=== PATIENT | male | born 1970 | race Caucasian/White ===

== ENCOUNTER 2018-10-31 13:05 | Emergency (ER) | payer MEDICAID ==
[~2018-10-31] VITALS: Ht 182.9 cm; Wt 154.6 kg
[2018-10-31] MEDS ORDERED: COLC1TAB13 PO (13:27)
[2018-10-31] MEDS ORDERED: ATEN100T7 PO (13:27)
[2018-10-31] MEDS ORDERED: ATOR40TA75 PO (13:27)
[2018-10-31] MEDS ORDERED: OMEP40CA2 PO (13:27)
[2018-10-31] MEDS ORDERED: GLIP5TAB8 PO (13:27)
[2018-10-31] MEDS ORDERED: ULOR80TA PO (13:27)
[2018-10-31] MEDS ORDERED: LOSA100T50 PO (13:27)
[2018-10-31] MEDS ORDERED: TRIA25CR TOP (13:27)
[2018-10-31] MEDS ORDERED: ONDANSETRON 4MG/2ML VIAL (J2405) IV ONE (13:45)
[2018-10-31] MEDS ORDERED: NS 1,000 ML IV ONE ×2 (13:45→16:45)
[2018-10-31] MEDS ORDERED: KETOROLAC 30 MG/ML VIAL (J1885) IV ONE (13:45)
[2018-10-31 13:59] LABS: BASO # 0.1 10^3/uL (0.0-0.2); BASO % 0.8 % (0.0-1.0); EOS # 0.5 10^3/uL (0.0-0.50); EOS % 3.4 % (0.0-3.0); HEMATOCRIT 47.9 % (42.0-52.0); HEMOGLOBIN 15.1 g/dl (13.5-17.5); LYMPH # 1.7 10^3/uL (1.5-4.5); LYMPH % 12.3 % (24.0-44.0); MEAN CORPUSCULAR HEMOGLOBIN 27.1 pg (27.0-33.0); MEAN CORPUSCULAR HGB CONC 31.5 g/dl (32.0-36.5); MEAN CORPUSCULAR VOLUME 85.8 fl (80.0-96.0); MONO # 0.9 10^3/uL (0.0-0.8); MONO % 6.7 % (0.0-5.0); NEUTROPHILS # 10.2 10^3/uL (1.8-7.7); NEUTROPHILS % 76.4 % (36.0-66.0); PLATELET COUNT, AUTOMATED 192 10^3/uL (150-450); RED BLOOD COUNT 5.58 10^6/uL (4.30-6.10); WHITE BLOOD COUNT 13.4 10^3/uL (4.0-10.0)
[2018-10-31] MEDS: GASTROGRAFIN SOLUTION 30ML PO SCH ×2 (14:13→14:40)
[2018-10-31 14:28] LABS: ALBUMIN 3.6 GM/DL (3.2-5.2); BILIRUBIN,DIRECT 0.1 MG/DL (0.0-0.2); BILIRUBIN,TOTAL 0.4 MG/DL (0.2-1.0); CALCIUM LEVEL 8.8 MG/DL (8.5-10.1); CREATININE FOR GFR 2.07 MG/DL (0.70-1.30); GLOMERULAR FILTRATION RATE 36.8 (>60); TOTAL PROTEIN 6.6 GM/DL (6.4-8.2)
[2018-10-31] MEDS ORDERED: FLAG500T PO (17:29)
[2018-10-31] MEDS ORDERED: AUGM875T28 PO (17:29)
[2018-10-31 17:34] VITALS: BP 143/81
--- NOTE | 2018-11-01 06:38 | REP ---
CT abdomen and pelvis without IV but with oral contrast: History: Perineal pain radiating to the left side of the abdomen. CT findings: Preliminary digital clinching machine operator radiograph demonstrates an unremarkable bowel gas pattern. The lung bases are clear. There is mild diffuse fatty infiltration of the liver with areas of fat sparing near the gallbladder. No focal hepatic mass lesion is seen. No splenic abnormalities observed. No adrenal lesion is seen. Pancreas is unremarkable. No gallstone is seen in the gallbladder. No retroperitoneal mass or adenopathy is observed. The right kidney is surgically absent. The left kidney shows no evidence of hydronephrosis or calculus. There is a small cyst anteriorly in the left kidney measuring 16 mm in greatest diameter. Normal caliber aorta. Small and large intestinal bowel loops are normal in the upper abdomen. Normal appendix is seen. Prostate, seminal vesicles and urinary bladder are unremarkable. No inguinal or pelvic adenopathy or mass lesion is seen. No free fluid is noted. No abdominal wall defect is seen. Bone window settings show bilateral L5 spondylolysis and a grade 1, 5 mm L5-S1 spondylolisthesis. Degenerative disc changes are seen at L5-S1 and to a lesser extent in the lower thoracic spine. Impression: Mild diffuse fatty infiltration of the liver. Small left renal cyst. Status post right nephrectomy. Bilateral L5 spondylolysis and grade 1, 5 mm, L5-S1 spondylolisthesis. Otherwise negative. Electronically Signed by Pancho Damon MD 11/01/2018 09:05 A
== END 2018-10-31 17:51 | disposition home or self-care (01) ==
LOC: M ED 13:05
DX: L02.215 Cutaneous abscess of perineum (principal); L03.315 Cellulitis of perineum; N28.9 Disorder of kidney and ureter, unspecified; R10.817 Generalized abdominal tenderness; E11.9 Type 2 diabetes mellitus without complications; I12.9 Hypertensive chronic kidney disease with stage 1 through stage 4 chronic kidney disease, or unspecified chronic kidney disease; E78.9 Disorder of lipoprotein metabolism, unspecified; K90.0 Celiac disease; M10.9 Gout, unspecified; Z90.5 Acquired absence of kidney; Z91.018 Allergy to other foods; Z79.899 Other long term (current) drug therapy
CPT/HCPCS: 74176; 80048; 80076; 81001; 82150; 83690; 85025; 96374; 96375; 99283; J1885; J2405; Q9963

== ENCOUNTER 2018-12-16 08:29 | Day surgery (SDC) | payer OTHER ==
[~2018-12-16] VITALS: Ht 188 cm; Wt 152.9 kg
[~2018-12-16 08:29] MED LIST: ATEN100T7 PO; ATOR40TA75 PO; AUGM875T28 PO; COLC1TAB13 PO; FLAG500T PO; GLIP5TAB8 PO; LIDOCAINE 2% INJ 100 MG/5 ML SDV (FOR ANES.) As Ordered ONE; LOSA100T50 PO; NS 1,000 ML IV ONE; OMEP40CA2 PO; PROPOFOL 200 MG/20 ML VIAL As Ordered ONE; TRIA25CR TOP; ULOR80TA PO
[2018-12-16] MEDS ORDERED: PROPOFOL 200 MG/20 ML VIAL As Ordered ONE (11:00)
--- NOTE | 2018-12-16 11:16 | ROOR ---
Patient Name: Gilson Degroot Procedure Date: 12/16/2018 10:26 AM Date of : 1970 Age: 48 Room: [facility] Gender: Male Note Status: Finalized Procedure: Upper GI endoscopy Indications: Epigastric abdominal pain, Heartburn, Follow-up of celiac disease Providers: Noel Benjamin MD Referring MD: LETICIA KELLY MD Requesting Provider: Medicines: Monitored Anesthesia Care Complications: No immediate complications. Procedure: Pre-Anesthesia Assessment: - Prior to the procedure, a History and Physical was performed, and patient medications and allergies were reviewed. The patient is competent. The risks and benefits of the procedure and the sedation options and risks were discussed with the patient. All questions were answered and informed consent was obtained. Patient identification and proposed procedure were verified by the physician, the nurse and the anesthesiologist in the endoscopy suite. Mental Status Examination: alert and oriented. Airway Examination: normal oropharyngeal airway and neck mobility. Respiratory Examination: clear to auscultation. CV Examination: normal. Prophylactic Antibiotics: The patient does not require prophylactic antibiotics. Prior Anticoagulants: The patient has taken no previous anticoagulant or antiplatelet agents. ASA Grade Assessment: II - A patient with mild systemic disease. After reviewing the risks and benefits, the patient was deemed in satisfactory condition to undergo the procedure. The anesthesia plan was to use monitored anesthesia care (MAC). Immediately prior to administration of medications, the patient was re-assessed for adequacy to receive sedatives. The heart rate, respiratory rate, oxygen saturations, blood pressure, adequacy of pulmonary ventilation, and response to care were monitored throughout the procedure. The physical status of the patient was re-assessed after the procedure. The Endoscope was introduced through the mouth, and advanced to the second part of duodenum. The upper GI endoscopy was accomplished without difficulty. The patient tolerated the procedure well. Findings: No gross lesions were noted in the middle third of the esophagus and in the lower third of the esophagus. Striped mildly erythematous mucosa without bleeding was found in the gastric antrum. This was biopsied with a cold forceps for Helicobacter pylori testing. Localized nodular mucosa was found in the gastric antrum. Biopsies were taken with a cold forceps for histology. Estimated blood loss was minimal. Diffuse nodular mucosa was found in the duodenal bulb and in the first portion of the duodenum. Biopsies for histology were taken with a cold forceps for evaluation of celiac disease. Estimated blood loss was minimal. For hemostasis, one hemostatic clip was successfully placed (MR conditional). There was no bleeding at the end of the procedure. Impression: - No gross lesions in esophagus. - Erythematous mucosa in the antrum. Biopsied. - Nodular mucosa in the gastric antrum. Biopsied. - Nodular mucosa in the duodenal bulb. Biopsied. Clip (MR conditional) was placed. Recommendation: - Discharge patient to home (ambulatory). - Telephone my office for pathology results in 1 week. Noel Benjamin MD Noel Benjamin MD 12/16/2018 11:16:39 AM This report has been signed electronically. Number of Addenda: 0 Note Initiated On: 12/16/2018 10:26 AM Estimated Blood Loss: Estimated blood loss was minimal.
--- NOTE | 2018-12-16 11:20 | ROOR ---
Patient Name: Gilson Degroot Procedure Date: 12/16/2018 10:26 AM Date of : 1970 Age: 48 Room: [facility] Gender: Male Note Status: Finalized Procedure: Colonoscopy Indications: High risk colon cancer surveillance: Personal history of colonic polyps, Incidental - Clinically significant diarrhea of unexplained origin Providers: Noel Benjamin MD Referring MD: LETICIA KELLY MD Requesting Provider: Medicines: Monitored Anesthesia Care Complications: No immediate complications. Procedure: Pre-Anesthesia Assessment: - Prior to the procedure, a History and Physical was performed, and patient medications and allergies were reviewed. The patient is competent. The risks and benefits of the procedure and the sedation options and risks were discussed with the patient. All questions were answered and informed consent was obtained. Patient identification and proposed procedure were verified by the physician, the nurse and the anesthesiologist in the endoscopy suite. Mental Status Examination: alert and oriented. Airway Examination: normal oropharyngeal airway and neck mobility. Respiratory Examination: clear to auscultation. CV Examination: normal. Prophylactic Antibiotics: The patient does not require prophylactic antibiotics. Prior Anticoagulants: The patient has taken no previous anticoagulant or antiplatelet agents. ASA Grade Assessment: II - A patient with mild systemic disease. After reviewing the risks and benefits, the patient was deemed in satisfactory condition to undergo the procedure. The anesthesia plan was to use monitored anesthesia care (MAC). Immediately prior to administration of medications, the patient was re-assessed for adequacy to receive sedatives. The heart rate, respiratory rate, oxygen saturations, blood pressure, adequacy of pulmonary ventilation, and response to care were monitored throughout the procedure. The physical status of the patient was re-assessed after the procedure. The Colonoscope was introduced through the anus and advanced to the cecum, identified by appendiceal orifice and ileocecal valve. The colonoscopy was performed without difficulty. The patient tolerated the procedure well. The quality of the bowel preparation was good. Findings: The perianal and digital rectal examinations were normal. Three sessile polyps were found in the sigmoid colon, descending colon and transverse colon. The polyps were diminutive in size. These polyps were removed with a jumbo cold forceps. Resection and retrieval were complete. Estimated blood loss was minimal. The exam was otherwise without abnormality. No additional abnormalities were found on retroflexion. Impression: - Three diminutive polyps in the sigmoid colon, in the descending colon and in the transverse colon, removed with a jumbo cold forceps. Resected and retrieved. - The examination was otherwise normal. Recommendation: - Discharge patient to home (ambulatory). - Repeat colonoscopy in 3 years for surveillance. - Telephone my office for pathology results in 1 week. Noel Benjamin MD Noel Benjamin MD 12/16/2018 11:19:33 AM This report has been signed electronically. Number of Addenda: 0 Note Initiated On: 12/16/2018 10:26 AM Estimated Blood Loss: Estimated blood loss was minimal.
[2018-12-16 11:44] VITALS: BP 143/89
[2018-12-17] MEDS ORDERED: CALC1CAP31 PO (13:05)
[2018-12-17] MEDS ORDERED: GABA-845 PO (17:11)
== END 2018-12-16 11:55 | disposition home or self-care (01) ==
LOC: M OPP 08:29
PROVIDERS: ATTEND Surgery
DX: Z86.010 Personal history of colon polyps (principal); Z09 Encounter for follow-up examination after completed treatment for conditions other than malignant neoplasm; D12.4 Benign neoplasm of descending colon; D12.3 Benign neoplasm of transverse colon; K63.5 Polyp of colon; K31.89 Other diseases of stomach and duodenum; R10.13 Epigastric pain; K90.0 Celiac disease; L02.215 Cutaneous abscess of perineum; K21.9 Gastro-esophageal reflux disease without esophagitis; G47.30 Sleep apnea, unspecified; Z79.899 Other long term (current) drug therapy; Z91.018 Allergy to other foods; Z90.5 Acquired absence of kidney

== ENCOUNTER 2018-12-17 12:51 | Emergency (ER) | payer OTHER ==
[~2018-12-17] VITALS: Ht 182.9 cm; Wt 153.2 kg
[~2018-12-17 12:51] MED LIST changes: -LIDOCAINE 2% INJ 100 MG/5 ML SDV (FOR ANES.) As Ordered ONE; -NS 1,000 ML IV ONE; -PROPOFOL 200 MG/20 ML VIAL As Ordered ONE
[2018-12-17] MEDS ORDERED: CALC1CAP31 PO (13:05)
--- NOTE | 2018-12-17 14:07 | REP ---
Clinical: Bilateral lower extremity pain . Technique: Veliz scale and color Doppler evaluation using linear high frequency transducer. Findings: Ultrasound examination of the right and left lower extremity deep venous structures from the common femoral vein to the popliteal vein demonstrates normal compressibility flow and wave patterns in response to respiration and augmentation. There is no evidence for deep venous thrombosis. 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 Impression: No evidence for deep venous thrombosis. Electronically Signed by Juan Welsh MD 12/17/2018 01:58 P
[2018-12-17 16:07] LABS: HEMOGLOBIN 15.7 g/dl (13.5-17.5); MEAN CORPUSCULAR VOLUME 87.5 fl (80.0-96.0); PLATELET COUNT, AUTOMATED 193 10^3/uL (150-450); WHITE BLOOD COUNT 11.3 10^3/uL (4.0-10.0)
[2018-12-17 16:26] LABS: CALCIUM LEVEL 9.3 MG/DL (8.5-10.1); CREATININE FOR GFR 2.02 MG/DL (0.70-1.30); GLOMERULAR FILTRATION RATE 37.9 (>60); MAGNESIUM LEVEL 1.7 MG/DL (1.8-2.4); POTASSIUM SERUM 4.6 MEQ/L (3.5-5.1)
[2018-12-17] MEDS ORDERED: GABA-845 PO (17:11)
[2018-12-17 17:23] VITALS: BP 112/60
== END 2018-12-17 17:25 | disposition home or self-care (01) ==
LOC: M ED 12:51
DX: E11.40 Type 2 diabetes mellitus with diabetic neuropathy, unspecified (principal); G47.33 Obstructive sleep apnea (adult) (pediatric); K90.0 Celiac disease; K76.0 Fatty (change of) liver, not elsewhere classified; Z87.442 Personal history of urinary calculi; Z90.5 Acquired absence of kidney; Z91.018 Allergy to other foods; Z79.899 Other long term (current) drug therapy

== ENCOUNTER 2019-04-07 09:17 | Emergency (ER) | payer OTHER ==
[~2019-04-07] VITALS: Ht 182.9 cm; Wt 159.1 kg
[~2019-04-07 09:17] MED LIST changes: +CALC1CAP31 PO; +GABA-845 PO
[2019-04-07] MEDS ORDERED: PIOG1TAB37 (09:33)
[2019-04-07] MEDS ORDERED: KETOROLAC 60 MG/2 ML VIAL (J1885) IM ONE (10:15)
--- NOTE | 2019-04-07 10:21 | REP ---
LEFT SHOULDER, FOUR VIEWS: There is no evidence of an acute fracture, dislocation or intrinsic bone disease. IMPRESSION: No fracture or dislocation. Electronically Signed by Silas Veliz MD 04/07/2019 04:40 P
[2019-04-07] MEDS ORDERED: CYCL5TAB PO (11:08)
[2019-04-07] MEDS ORDERED: KETO10TAB PO (11:08)
[2019-04-07 11:11] VITALS: BP 132/67
== END 2019-04-07 11:15 | disposition home or self-care (01) ==
LOC: M ED 09:17
DX: M25.512 Pain in left shoulder (principal); E11.9 Type 2 diabetes mellitus without complications; I10 Essential (primary) hypertension; E78.5 Hyperlipidemia, unspecified; G47.33 Obstructive sleep apnea (adult) (pediatric); K90.0 Celiac disease; Z99.89 Dependence on other enabling machines and devices; Z79.899 Other long term (current) drug therapy
CPT/HCPCS: 73030; 96372; 99283; J1885

== ENCOUNTER 2019-10-18 10:33 | Emergency (ER) | payer OTHER ==
[~2019-10-18] VITALS: Ht 182.9 cm; Wt 170.9 kg
[~2019-10-18 10:33] MED LIST changes: +CYCL5TAB PO; +KETO10TAB PO; -OMEP40CA2 PO; +OMEP40CA97 PO; +PIOG1TAB37
--- NOTE | 2019-10-18 12:35 | REP ---
Clinical: Left lower extremity pain and swelling . Technique: Veliz scale and color Doppler evaluation using linear high frequency transducer. Findings: Ultrasound examination of the left lower extremity deep venous structures from the common femoral vein to the popliteal vein demonstrates normal compressibility flow and wave patterns in response to respiration and augmentation. There is no evidence for deep venous thrombosis. Impression: No evidence for deep venous thrombosis. Electronically Signed by Juan Welsh MD 10/18/2019 12:26 P
[2019-10-18 13:29] VITALS: BP 132/75
== END 2019-10-18 13:44 | disposition home or self-care (01) ==
LOC: M ED 10:33
DX: S86.912A Strain of unspecified muscle(s) and tendon(s) at lower leg level, left leg, initial encounter (principal); X58.XXXA Exposure to other specified factors, initial encounter; Y92.9 Unspecified place or not applicable; Y93.9 Activity, unspecified; Y99.9 Unspecified external cause status; E11.9 Type 2 diabetes mellitus without complications; I10 Essential (primary) hypertension; M10.9 Gout, unspecified; E78.5 Hyperlipidemia, unspecified; K76.0 Fatty (change of) liver, not elsewhere classified; K21.9 Gastro-esophageal reflux disease without esophagitis; K90.0 Celiac disease; E66.01 Morbid (severe) obesity due to excess calories; Z79.84 Long term (current) use of oral hypoglycemic drugs; Z79.899 Other long term (current) drug therapy; Z91.018 Allergy to other foods

== ENCOUNTER → 2019-10-29 | Outpatient (REF) | payer OTHER ==
[2019-10-29 14:34] LABS: ALBUMIN 3.5 GM/DL (3.2-5.2); CALCIUM LEVEL 8.6 MG/DL (8.5-10.1); CREATININE FOR GFR 2.2 MG/DL (0.70-1.30); GLOMERULAR FILTRATION RATE 34.2 (>60); PHOSPHORUS LEVEL 2.8 MG/DL (2.5-4.9); POTASSIUM SERUM 4.3 MEQ/L (3.5-5.1); URIC ACID 6.4 MG/DL (3.5-7.2)
== END ==
LOC: M LAB REF 14:13
PROVIDERS: ATTEND Internal Medicine Nephrology
DX: M1A.30X0 Chronic gout due to renal impairment, unspecified site, without tophus (tophi) (principal); N18.3 Chronic kidney disease, stage 3 (moderate)

== ENCOUNTER 2019-11-28 11:49 | Emergency (ER) | payer OTHER ==
[~2019-11-28] VITALS: Ht 182.9 cm; Wt 175.3 kg
[2019-11-28 14:15] LABS: BASO # 0.2 10^3/uL (0.0-0.2); BASO % 1.4 % (0.0-1.0); EOS # 0.7 10^3/uL (0.0-0.5); EOS % 6.7 % (0.0-3.0); HEMATOCRIT 49.2 % (42.0-52.0); HEMOGLOBIN 15.3 g/dl (13.5-17.5); LYMPH # 2.1 10^3/uL (1.5-5.0); LYMPH % 18.7 % (24.0-44.0); MEAN CORPUSCULAR HEMOGLOBIN 28.3 pg (27.0-33.0); MEAN CORPUSCULAR HGB CONC 31.1 g/dl (32.0-36.5); MEAN CORPUSCULAR VOLUME 90.9 fl (80.0-96.0); MONO # 0.7 10^3/uL (0.0-0.8); MONO % 6.2 % (0.0-5.0); NEUTROPHILS # 7.4 10^3/uL (1.5-8.5); NEUTROPHILS % 66.6 % (36.0-66.0); PLATELET COUNT, AUTOMATED 190 10^3/uL (150-450); RED BLOOD COUNT 5.41 10^6/uL (4.30-6.10); WHITE BLOOD COUNT 11.1 10^3/uL (4.0-10.0)
--- NOTE | 2019-11-28 14:19 | REP ---
Clinical: Pain. Technique: AP, lateral, bilateral oblique views of the right hand. Findings: Generalized age-related changes are appreciated. No acute fracture dislocation. Old fifth metacarpal bone fracture suggested. No subcutaneous emphysema or foreign body. Impression: Generalized age-related changes. No acute fracture dislocation. Electronically Signed by Juan Welsh MD 11/28/2019 02:10 P
[2019-11-28 14:41] LABS: C REACTIVE PROTEIN QUANTITATIV 0.9 MG/DL (0.00-0.30); CALCIUM LEVEL 8.8 MG/DL (8.5-10.1); CREATININE FOR GFR 2.08 MG/DL (0.70-1.30); GLOMERULAR FILTRATION RATE 36.5 (>60); POTASSIUM SERUM 4.6 MEQ/L (3.5-5.1); URIC ACID 6.4 MG/DL (3.5-7.2)
[2019-11-28 14:45] LABS: ERYTHROCYTE SEDIMENTATION RATE 19 mm/hr (0-15)
[2019-11-28] MEDS ORDERED: COLCHICINE 0.6 MG TAB PO ONE (15:45)
[2019-11-28 15:48] VITALS: BP 122/67
== END 2019-11-28 16:01 | disposition home or self-care (01) ==
LOC: M ED 11:49
DX: M10.041 Idiopathic gout, right hand (principal); K76.0 Fatty (change of) liver, not elsewhere classified; E11.40 Type 2 diabetes mellitus with diabetic neuropathy, unspecified; I10 Essential (primary) hypertension; K21.9 Gastro-esophageal reflux disease without esophagitis; K90.0 Celiac disease; G47.33 Obstructive sleep apnea (adult) (pediatric); Z79.84 Long term (current) use of oral hypoglycemic drugs; Z79.899 Other long term (current) drug therapy; Z91.018 Allergy to other foods

== ENCOUNTER → 2020-01-10 | Outpatient (REF) | payer OTHER | LOC: M LABDRWAD 18:52 | PROVIDERS: ATTEND Surgery | DX: Z86.39 Personal history of other endocrine, nutritional and metabolic disease (principal) ==

== ENCOUNTER 2020-02-20 17:16 | Emergency (ER) | payer OTHER ==
[~2020-02-20] VITALS: Ht 152.4 cm; Wt 161.8 kg
[2020-02-20] MEDS ORDERED: BASA100I SQ (17:30)
[2020-02-20] MEDS ORDERED: GABA800T4 PO (17:30)
[2020-02-20] MEDS ORDERED: ATOR1TAB21 PO (17:30)
[2020-02-20] MEDS ORDERED: ATEN100T PO (17:30)
[2020-02-20] MEDS ORDERED: LIDOCAINE 2% MDV 20ML VIAL SC ONE (18:45)
[2020-02-20] MEDS ORDERED: DOXY-342 PO (19:15)
[2020-02-20 19:22] VITALS: BP 119/56
[2020-02-23] MEDS ORDERED: CLEO150C PO (09:30)
== END 2020-02-20 19:23 | disposition home or self-care (01) ==
LOC: M ED 17:16
DX: L02.215 Cutaneous abscess of perineum (principal); B95.7 Other staphylococcus as the cause of diseases classified elsewhere; I10 Essential (primary) hypertension; E11.9 Type 2 diabetes mellitus without complications; E78.5 Hyperlipidemia, unspecified; G47.33 Obstructive sleep apnea (adult) (pediatric); M10.9 Gout, unspecified; Z87.442 Personal history of urinary calculi; Z90.5 Acquired absence of kidney; Z91.018 Allergy to other foods; Z79.899 Other long term (current) drug therapy; Z79.4 Long term (current) use of insulin

== ENCOUNTER 2020-06-04 16:18 | Emergency (ER) | payer OTHER ==
[~2020-06-04 16:18] MED LIST changes: +ATEN100T PO; +ATOR1TAB21 PO; +BASA100I SQ; +CLEO150C PO; +DOXY-342 PO; +GABA800T4 PO
[2020-06-04] MEDS ORDERED: ONDANSETRON 4MG/2ML VIAL As Ordered ONE (17:55)
[2020-06-04] MEDS ORDERED: diphenhydrAMINE 50MG/ML VIAL (J1200) As Ordered ONE (17:55)
[2020-06-04] MEDS ORDERED: KETOROLAC 30 MG/ML 1ML VIAL As Ordered ONE (17:55)
[2020-06-04] MEDS ORDERED: NORCO 5/325MG TABLET (BULK FOR ED) As Ordered ONE (20:12)
[2020-07-17 11:07] LABS: APPEARANCE, URINE MANUAL CLEAR (CLEAR); BILIRUBIN, URINE MANUAL NEGATIVE (NEGATIVE); BLOOD URINE MANUAL NEGATIVE (NEGATIVE); COLOR, URINE MANUAL YELLOW (YELLOW); GLUCOSE, URINE (UA) MANUAL NEGATIVE (NEGATIVE); KETONE, URINE MANUAL NEGATIVE (NEGATIVE); LEUKOCYTE ESTERASE, URINE MAN NEGATIVE (NEGATIVE); NITRITE, URINE MANUAL NEGATIVE (NEGATIVE); PROTEIN, URINE MANUAL NEGATIVE (NEGATIVE); UROBILINOGEN, URINE MANUAL NORMAL (NORMAL)
[2020-07-19 19:58] LABS: BASO # 0.1 10^3/uL (0.0-0.2); BASO % 1.2 % (0.0-1.0); EOS # 0.6 10^3/uL (0.0-0.5); EOS % 6.5 % (0.0-3.0); HEMATOCRIT 51.2 % (42.0-52.0); LYMPH # 1.8 10^3/uL (1.5-5.0); MEAN CORPUSCULAR HEMOGLOBIN 28.8 pg (27.0-33.0); MEAN CORPUSCULAR HGB CONC 31.3 g/dl (32.0-36.5); MEAN CORPUSCULAR VOLUME 92.3 fl (80.0-96.0); MONO # 0.7 10^3/uL (0.0-0.8); MONO % 7.3 % (0.0-5.0); NEUTROPHILS # 5.8 10^3/uL (1.5-8.5); NEUTROPHILS % 64.8 % (36.0-66.0); PLATELET COUNT, AUTOMATED 174 10^3/uL (150-450); RED BLOOD COUNT 5.55 10^6/uL (4.30-6.10); WHITE BLOOD COUNT 8.9 10^3/uL (4.0-10.0)
[2020-07-19 19:59] LABS: ERYTHROCYTE SEDIMENTATION RATE 13 mm/hr (0-15)
[2020-08-20 11:32] LABS: BLOOD UREA NITROGEN 25 MG/DL (7-18); CREATININE FOR GFR 1.84 MG/DL (0.70-1.30); GLUCOSE, FASTING 122 MG/DL (70-100); SODIUM LEVEL 143 MEQ/L (136-145)
[2020-08-20 11:33] LABS: ALBUMIN 3.4 GM/DL (3.2-5.2); ALT/SGPT 53 U/L (12-78); BILIRUBIN,TOTAL 0.3 MG/DL (0.2-1.0); CARBON DIOXIDE LEVEL 23 MEQ/L (21-32); CHLORIDE LEVEL 114 MEQ/L (98-107); POTASSIUM SERUM 4.4 MEQ/L (3.5-5.1); TOTAL PROTEIN 6.5 GM/DL (6.4-8.2)
== END 2020-06-04 20:08 | disposition home or self-care (01) ==
LOC: M ED 16:18
DX: M50.021 Cervical disc disorder at C4-C5 level with myelopathy (principal); E11.9 Type 2 diabetes mellitus without complications; I10 Essential (primary) hypertension; E78.5 Hyperlipidemia, unspecified; K90.0 Celiac disease; M25.78 Osteophyte, vertebrae; Z79.84 Long term (current) use of oral hypoglycemic drugs; Z79.899 Other long term (current) drug therapy

== ENCOUNTER 2020-06-05 12:38 | Emergency (ER) | payer OTHER ==
[~2020-06-05 12:38] MED LIST changes: +KETOROLAC 30 MG/ML 1ML VIAL ONE; +NORCO 5/325MG TABLET (BULK FOR ED) ONE; +ONDANSETRON 4MG/2ML VIAL ONE; +diphenhydrAMINE 50MG/ML VIAL (J1200) ONE
[2020-06-05] MEDS ORDERED: KETOROLAC 30 MG/ML 1ML VIAL ONE (14:00)
[2020-06-05] MEDS ORDERED: ACETAMINOPHEN 500 MG TAB ONE (14:00)
[2020-06-05] MEDS ORDERED: MORPHINE 2 MG/ML 1ML VIAL (J2270) ONE (14:00)
[2020-06-05] MEDS ORDERED: MORPHINE 2 MG/ML 1ML VIAL (J2270) As Ordered ONE (14:15)
[2020-06-05] MEDS ORDERED: KETOROLAC 30 MG/ML 1ML VIAL As Ordered ONE (14:15)
[2020-06-05] MEDS ORDERED: ACETAMINOPHEN 500 MG TAB As Ordered ONE (14:16)
== END 2020-06-05 14:32 | disposition home or self-care (01) ==
LOC: M ED 12:38
DX: M50.20 Other cervical disc displacement, unspecified cervical region (principal); G95.20 Unspecified cord compression; E11.9 Type 2 diabetes mellitus without complications; I10 Essential (primary) hypertension; E78.5 Hyperlipidemia, unspecified; Z79.84 Long term (current) use of oral hypoglycemic drugs; Z79.899 Other long term (current) drug therapy
CPT/HCPCS: 96372; 99283; J1200; J1885; J2270; J2405

== ENCOUNTER 2020-11-11 17:02 | Emergency (ER) | payer OTHER ==
[~2020-11-11] VITALS: Ht 182.9 cm; Wt 175.0 kg
[~2020-11-11 17:02] MED LIST changes: +COLC0.6T47 PO; -COLC1TAB13 PO; -KETOROLAC 30 MG/ML 1ML VIAL ONE; -NORCO 5/325MG TABLET (BULK FOR ED) ONE; -ONDANSETRON 4MG/2ML VIAL ONE; -diphenhydrAMINE 50MG/ML VIAL (J1200) ONE
[2020-11-11] MEDS ORDERED: ALLE1TAB23 (17:24)
[2020-11-11] MEDS ORDERED: HYDR-3911 (17:24)
[2020-11-11] MEDS ORDERED: METH-1164 (17:24)
--- NOTE | 2020-11-11 20:16 | REPVR ---
PROCEDURE INFORMATION: Exam: XR Right Knee Exam date and time: 11/11/2020 5:52 PM Age: 50 years old Clinical indication: Pain; Swelling or effusion of joint; Knee; Right; Additional info: Pain and swelling after feeling a pop TECHNIQUE: Imaging protocol: XR Right knee. Views: 4 or more views. COMPARISON: No relevant prior studies available. FINDINGS: Bones/joints: There is a hemiprosthesis medial compartment right knee which appears in alignment and intact. There is a prominent fragment of bone at the quadriceps tendon consistent with chronic change. There is severe osteophyte formation anterior compartment. There is a prominent suprapatellar joint effusion. Soft tissues: Normal. IMPRESSION: Severe osteophyte formation anterior compartment with a joint effusion. Electronically signed by: Brandt Trejo On 11/11/2020 20:16:14 PM
[2020-11-11 21:10] VITALS: BP 148/68
== END 2020-11-11 21:10 | disposition home or self-care (01) ==
LOC: M ED 17:02
DX: M25.461 Effusion, right knee (principal); M25.761 Osteophyte, right knee; X50.1XXA Overexertion from prolonged static or awkward postures, initial encounter; Y92.099 Unspecified place in other non-institutional residence as the place of occurrence of the external cause; Y93.9 Activity, unspecified; Y99.9 Unspecified external cause status; I25.10 Atherosclerotic heart disease of native coronary artery without angina pectoris; I10 Essential (primary) hypertension; E78.5 Hyperlipidemia, unspecified; E11.40 Type 2 diabetes mellitus with diabetic neuropathy, unspecified; G47.30 Sleep apnea, unspecified; Z87.442 Personal history of urinary calculi; K90.0 Celiac disease; Z87.891 Personal history of nicotine dependence; Z79.4 Long term (current) use of insulin; Z79.899 Other long term (current) drug therapy; Z91.018 Allergy to other foods

== ENCOUNTER 2020-12-26 13:47 | Inpatient (IN) | payer OTHER ==
[~2020-12-26] VITALS: Ht 182.9 cm; Wt 168.2 kg
[~2020-12-26 13:47] MED LIST changes: +ALLE1TAB23; +HYDR-3911 PO; +METH-1164 PO
[2020-12-26] MEDS ORDERED: NS 1,000 ML IV ONE (14:45)
[2020-12-26 14:58] LABS: BASO # 0.1 10^3/uL (0.0-0.2); BASO % 1.3 % (0.0-1.0); EOS # 0.3 10^3/uL (0.0-0.5); EOS % 4.3 % (0.0-3.0); HEMATOCRIT 44.6 % (42.0-52.0); HEMOGLOBIN 13.6 g/dl (13.5-17.5); LYMPH # 1.1 10^3/uL (1.5-5.0); LYMPH % 14.8 % (24.0-44.0); MEAN CORPUSCULAR HEMOGLOBIN 29.4 pg (27.0-33.0); MEAN CORPUSCULAR HGB CONC 30.5 g/dl (32.0-36.5); MEAN CORPUSCULAR VOLUME 96.5 fl (80.0-96.0); MONO # 0.7 10^3/uL (0.0-0.8); MONO % 9.1 % (2.0-8.0); NEUTROPHILS # 5.1 10^3/uL (1.5-8.5); NEUTROPHILS % 70.2 % (36.0-66.0); PLATELET COUNT, AUTOMATED 164 10^3/uL (150-450); RED BLOOD COUNT 4.62 10^6/uL (4.30-6.10); WHITE BLOOD COUNT 7.2 10^3/uL (4.0-10.0)
--- NOTE | 2020-12-26 15:13 | REP ---
INDICATION: DYSPNEA/COUGH. COMPARISON: None. TECHNIQUE: SINGLE PORTABLE AP VIEW OF THE CHEST WAS PERFORMED. FINDINGS: Hazy density projecting over the lateral left lung base may represent infiltrate. The right lung is clear. The heart is normal in size. The mediastinal silhouette is unremarkable. IMPRESSION: Possible peripheral infiltrate left lung base. <Electronically signed by Silas Veliz > 12/26/20 [id number]
[2020-12-26 15:33] LABS: ALBUMIN 3.9 GM/DL (3.2-5.2); ALT/SGPT 50 U/L (12-78); BILIRUBIN,DIRECT 0.2 MG/DL (0.0-0.2); BILIRUBIN,TOTAL 0.4 MG/DL (0.2-1.0); BLOOD UREA NITROGEN 53 MG/DL (7-18); CALCIUM LEVEL 8.8 MG/DL (8.5-10.1); CARBON DIOXIDE LEVEL 20 MEQ/L (21-32); CHLORIDE LEVEL 114 MEQ/L (98-107); CPK CREATINE PHOSPHOKINASE 182 U/L (39-308); GLOMERULAR FILTRATION RATE 14.2 (>60); GLUCOSE, FASTING 116 MG/DL (70-100); MB/CK RELATIVE INDEX 1.65 (< OR =4); POTASSIUM SERUM 4.5 MEQ/L (3.5-5.1); SODIUM LEVEL 141 MEQ/L (136-145); THYROID STIMULATING HORMONE 0.808 uIU/ML (0.358-3.740); THYROXINE (T4) 7.2 UG/DL (4.5-12.0); TOTAL PROTEIN 6.8 GM/DL (6.4-8.2); TROPONIN I < 0.02 NG/ML (< 0.10)
[2020-12-26 15:39] LABS: RSV AMPLIFICATION NEGATIVE (NEGATIVE)
[2020-12-26] MEDS ORDERED: FEXO180T58 PO (16:33)
[2020-12-26] MEDS ORDERED: TRIAMCINOLONE ACETONIDE 0.025 % 80 GM CREAM TOP PRN (16:40)
[2020-12-26] MEDS ORDERED: ACETAMINOPHEN TAB 650MG DOSE (2X325MG) PO PRN (16:40)
--- NOTE | 2020-12-26 17:49 | HPEPDOC ---
General Date of Admission 12/26/2020 Date of Service: Dec 26, 2020 Attending Physician: AMA FLANAGAN MD Chief Complaint The patient is a 50-year-old male admitted with a reason for visit of Low Bp. Source: Patient, RN/MD Exam Limitations: No limitations Timing/Duration: Day(s) Severity: Severe Associated Symptoms: Hypotension, Dizziness History of Present Illness 50 yo M with a history of morbid obesity, prior history of DM, celiac disease, s/p R nephrectomy, CKD, baseline Cr ~2, HTN, HLD, CAD, GERD, SHAKEEL on CPAP, colonic polyps s/p polypectomy who recently underwent gastric bypass surgery in [place], [place] on 12/06/2020 and had his first covid-19 vaccination yesterday, who now presents to the ED reporting generalized weakness and noted hypotension at home on BP check to 89/56, as well loss of taste, smell and mild nasal congestion. He cannot explicitly tell me why he had a R nephrectomy except that his R kidney stopped working and was thus removed. He used to follow with Dr. Benavides whom he met after his nephrectomy, but has not followed with him in a while now. Of note, at baseline he is on atenolol 100mg QD, hydralazine 50mg BID and losartan 100mg QD for hypertension. On arrival to the ED he was hypotensive and dizzy with BP of 87/47, pulse of 58, saturating 100% on room air. Initial workup was notable for Cr of 4.7 from last noted baseline of 1.8, BUN 53, bicarb of 20, Na 141, K 4.5, WBC 7.2, Hgb 13.6, platelets 164, covid-19 negative, CXR that was on my inspection unremarkable but read as possible LL base infiltrate, troponin negative, TSH 0.808, free T4 7.2. He was given 1L NS and is now being admitted to medicine for REESE on CKD. Home Medications Scheduled Atenolol (Atenolol) 100 Mg Tablet, 100 MG PO DAILY, (Reported) Atorvastatin Calcium (Atorvastatin Calcium) 20 Mg Tablet, 20 MG PO QHS, (Reported) Febuxostat (Uloric) 80 Mg Tab, 120 MG PO DAILY, (Reported) Fexofenadine HCl (Fexofenadine HCl) 180 Mg Tablet, 180 MG PO DAILY, (Reported) Gabapentin (Gabapentin) 800 Mg Tablet, 800 MG PO TID, (Reported) Hydralazine HCl (Hydralazine HCl) 50 Mg Tablet, 50 MG PO BID, (Reported) Losartan Potassium (Losartan Potassium) 100 Mg Tab, 100 MG PO DAILY, (Reported) Methocarbamol (Methocarbamol) 500 Mg Tablet, 500 MG PO DAILY, (Reported) Omeprazole (Omeprazole) 40 Mg Cap, 40 MG PO DAILY, (Reported) Scheduled PRN Triamcinolone Acet (Triamcinolone Acetonide 0.025% Crm) 1 Dose/80 Gm Cream, 1 APLCT TOP BID PRN for RASH/ITCHING, (Reported) APPLY TO ELBOWS PRN Allergies Coded Allergies: Wheat (Verified Allergy, Unknown, GI, 12/10/18) Past Medical History Medical History Morbid obesity Prior history of DM Celiac disease s/p R nephrectomy CKD, baseline Cr ~2 HTN HLD CAD GERD SHAKEEL on CPAP colonic polyps s/p polypectomy GERD Gout Arthritis Fatty liver disease Surgical History EGD/colonoscopy x 2 s/p polypectomy, last [address] Cassidy Raman hand surgery R knee partial replacement R nephrectomy Gastric bypass 12/06/2020 Family History Significant Family History: No pertinent family hx Social History * Smoker: Denies Alcohol: Denies Drugs: denies Recent Travel/Sick Contacts: Denies: Recent travel, Recent sick contacts Psychosocial History: No pertinent psych hx A-FIB/CHADSVASC A-FIB History Current/History of A-Fib/PAF?: No Current PO Anticoag Therapy: No Age/Risk Factor Scoring CHADSVASC: CHADSVASC Response (Comments) Value Age Risk Factor Age < 65 years old 0 Gender Risk Factor Male 0 Hx of CHF No 0 Hx of HTN Yes 1 Hx of Stroke/TIA/or VTE No 0 Hx of Diabetes Yes 1 Hx of Vascular Disease Yes 1 Total 3 Treatment Treatment ordered: NONE Reason Anticoagulant not given: Not indicated/[id number] Review of Systems Constitutional: Reports: Weakness, Lethargy; Denies: Chills, Fever, Malaise, Night Sweats, Fatigue, Weight Loss, Other Eyes: Denies: Pain, Vision change ENT: Reports: Sinus Congestion; Denies: Head Aches, Ear Pain, Dysphagia, Post Nasal Drip, Sore Throat, Epistaxis Skin: Denies: Rash, Lesions, Breakdown Pulmonary: Denies: Dyspnea, Cough Cardiovascular: Denies: Chest Pain, Palpitations, Orthopnea, Paroxysmal Noc. Dyspnea, Lt Headedness Gastrointestinal: Denies: Nausea, Vomiting, Abdominal Pain, Diarrhea Genitourinary: Denies: Dysuria, Frequency, Incontinence, Retention Hematologic: Denies: Bruising, Bleeding Excessively Endocrine: Denies: Polydipsia, Polyphagia, Polyuria, Heat Intolerance, Cold Intolerance, Other Endocrine Sx Musculoskeletal: Denies: Neck Pain, Back Pain, Joint Pain, Muscle Pain, Spasms Neurological: Reports: Incoordination (dizzy); Denies: Weakness, Numbness, Change in speech, Confusion Psych: Reports: Mood Normal; Denies: Depression, Memory Issues Physical Examination General Exam: Positive: Alert, No Acute Distress, Other (morbidly obese) Eye Exam: Positive: PERRLA, Conjunctiva & lids normal, EOMI; Negative: Sclera icteric ENT Exam: Positive: Atraumatic, Mucous membr. moist/pink, Pharynx Normal Neck Exam: Positive: Supple; Negative: JVD, thyromegaly Chest Exam: Positive: Clear to auscultation, Normal air movement Heart Exam: Positive: Rate Normal, Regular Rhythm, Normal S1, Normal S2; Negative: Murmurs, Rubs Abdomen Exam: Positive: Normal bowel sounds, Soft; Negative: Tenderness, Hepatospenomegaly Extremity Exam: Positive: Normal pulses; Negative: Clubbing, Cyanosis, Edema Skin Exam: Negative: Nl turgor and temperature (warm, dry, tenting), Breakdown, Lesion Neuro Exam: Positive: Normal Speech, Strength at 5/5 X4 ext, Normal Tone, Sensation Intact, Cranial Nerves 3-12 NL, Reflexes 2+ Psych Exam: Positive: Mental status NL, Mood NL, Oriented x 3 Vital Signs Vital Signs Date Time Temp Pulse Resp B/P (MAP) Pulse Ox O2 Delivery O2 Flow Rate FiO2 12/26/20 16:22 61 19 100 12/26/20 16:15 110/57 (74) 12/26/20 13:48 96.3 Room Air Laboratory Data Labs 24H Laboratory Tests 2 12/26/20 14:12: Immature Granulocyte % (Auto) 0.3, Neutrophils (%) (Auto) 70.2H, Lymphocytes (%) (Auto) 14.8L, Monocytes (%) (Auto) 9.1H, Eosinophils (%) (Auto) 4.3H, Basophils (%) (Auto) 1.3H, Neutrophils # (Auto) 5.1, Lymphocytes # (Auto) 1.1L, Monocytes # (Auto) 0.7, Eosinophils # (Auto) 0.3, Basophils # (Auto) 0.1, Nucleated Red Blood Cells % (auto) 0.0, Anion Gap 7L, Glomerular Filtration Rate 14.2L, Calcium Level 8.8, Total Bilirubin 0.4, Direct Bilirubin 0.2, Aspartate Amino Transf (AST/SGOT) 24, Alanine Aminotransferase (ALT/SGPT) 50, Alkaline Phosphatase 113, Total Creatine Kinase 182, Creatine Kinase MB 3.0, Creatine Kinase MB Relative Index 1.65, Troponin I < 0.02, Total Protein 6.8, Albumin 3.9, Albumin/Globulin Ratio 1.3, Thyroid Stimulating Hormone (TSH) 0.808, Thyroxine (T4) 7.2 12/26/20 14:49: Coronavirus (COVID-19)(PCR) NEGATIVE, Influenza Type A (RT-PCR) NEGATIVE, Influenza Type B (RT-PCR) NEGATIVE, Respiratory Syncytial Virus (PCR) NEGATIVE CBC/BMP Laboratory Tests 12/26/20 14:12 Assessment/Plan 50 yo M with a history of morbid obesity, prior history of DM, celiac disease, s/p R nephrectomy, CKD, baseline Cr ~2, HTN, HLD, CAD, GERD, SHAKEEL on CPAP, colonic polyps s/p polypectomy who recently underwent gastric bypass surgery in [place], [place] on 12/06/2020 and had his first covid-19 vaccination yesterday, who now presents to the ED reporting generalized weakness and noted hypotension at home on BP check to 89/56 while on his baseline atenolol 100mg QD, hydralazine 50mg BID and losartan 100mg QD now being admitted to medicine for REESE on CKD. REESE on CKD: s/p remote R nephrectomy, i/s/o recent gastric bypass on 12/06/2020 with >50lbs weight loss thus far, while on atenol, hydralazine and losartan and hypotensive -likely prerenal vs. developing ATN 2/2 hypoperfusion i/s/o hypotension -hold home ARB, hydralazine and atenolol -s/p 1L NS bolus in the E, continue 100cc/hr NS -renal US -urine lytes --> Ucr and Toshia -nephrology consulted -daily BMP -hold home gabapentin -renal diet Hypotension: likely 2/2 dehydration per dry exam and multiple antihypertensives onboard -hydrating at noted above, improving HTN: currently hypotensive, improving with fluids -hold the atenolol, hydral and losartan Celiac disease: -noted in renal diet ordered that he has celiac and is to have no gluten GERD: -continue home omeprazole Gout: -continue home uloric HLD: -continue lipitor Fatty liver disease -recently underwent gastric bypass surgery and has lost thus far >50lbs Morbid obesity: -recently underwent gastric bypass surgery and has lost thus far >50lbs History of DM: -currently normoglycemic, not on treatment -will have daily BMP Metabolic acidosis i/s/o REESE -monitor BMP -nephrology will see him in the morning DVT ppx: heparin 5000mg BID subcutaneous Plan / VTE VTE Prophylaxis Ordered?: Yes AMA FLANAGAN MD Dec 26, 2020 17:49
[2020-12-26 18:44] VITALS: BP 129/66
[2020-12-26] MEDS: NS 1,000 ML IV SCH (18:51)
--- NOTE | 2020-12-26 19:06 | REP ---
INDICATION: REESE on CKD COMPARISON: None TECHNIQUE: Real time harris scale ultrasound examination using curved array transducer. FINDINGS: Patient is noted to be status post right nephrectomy. Left kidney demonstrates compensatory enlargement without hydronephrosis, nephrolithiasis or mass lesion. Kidney measures 14.0 x 6.6 x 7.0 cm and includes 7 mm upper pole cyst and 1.9 cm cortical midpole cyst. Bladder is unremarkable. IMPRESSION: 1. Right nephrectomy. Normal right renal fossa. 2. Left kidney with 2 hypodensities likely representing benign cysts. Consider follow-up examination in 9-12 months if necessary. <Electronically signed by Juan Welsh > 12/26/20 [id number]
[2020-12-26] MEDS: HEPARIN SOD (PORCINE) 5000UNITS/ML 1ML VIAL/SYRINGE SC SCH (20:28)
[2020-12-26] MEDS: ATORVASTATIN 20 MG TAB PO SCH (20:28)
[2020-12-26 22:00] VITALS: BP 133/61
--- NOTE | 2020-12-27 00:31 | ECGEPIP ---
[facility] - ED Test Date: 2020-12-26 Pat Name: MERCEDES DAVILA Department: Room: - Gender: Male [employer] Supervisor: brandydane : 1970 Requested By: JANICE Morel Order Number: [id number] Reading MD: Kristofer Stauffer Measurements Intervals [place] Rate: 54 P: 36 DC: 198 QRS: 17 QRSD: 100 T: 20 QT: 412 QTc: 390 Interpretive Statements Sinus bradycardia POOR R WAVE PROGRESSION NONSPECIFIC T WAVE ABNORMALITY(S) NO PRIORS FOR COMPARISON Electronically Signed on 12-27-2020 0:31:11 EST by Kristofer Stauffer
[2020-12-27] MEDS: NS 1,000 ML IV SCH (03:41)
[2020-12-27 06:00] VITALS: BP 133/62
[2020-12-27 06:31] LABS: HEMATOCRIT 40.4 % (42.0-52.0); HEMOGLOBIN 12.5 g/dl (13.5-17.5); MEAN CORPUSCULAR HEMOGLOBIN 29.8 pg (27.0-33.0); MEAN CORPUSCULAR HGB CONC 30.9 g/dl (32.0-36.5); MEAN CORPUSCULAR VOLUME 96.4 fl (80.0-96.0); PLATELET COUNT, AUTOMATED 110 10^3/uL (150-450); RED BLOOD COUNT 4.19 10^6/uL (4.30-6.10); WHITE BLOOD COUNT 4.3 10^3/uL (4.0-10.0)
[2020-12-27 07:00] LABS: CALCIUM LEVEL 8.2 MG/DL (8.5-10.1); CREATININE FOR GFR 3.4 MG/DL (0.70-1.30); GLOMERULAR FILTRATION RATE 20.6 (>60); POTASSIUM SERUM 4.7 MEQ/L (3.5-5.1)
[2020-12-27] MEDS: HEPARIN SOD (PORCINE) 5000UNITS/ML 1ML VIAL/SYRINGE SC SCH ×2 (09:48→20:38)
[2020-12-27] MEDS: FEBUXOSTAT 40 MG TABLET (ULORIC) PO SCH (09:49)
[2020-12-27] MEDS: FEXOFENADINE 60 MG TAB PO SCH (09:49)
[2020-12-27] MEDS: OMEPRAZOLE 20 MG CAP PO SCH (09:49)
[2020-12-27 11:02] LABS: URIC ACID 7.9 MG/DL (3.5-7.2)
--- NOTE | 2020-12-27 11:06 | IPNPDOC ---
Subjective Date Seen The patient was seen on 12/27/20. Subjective Chief Complaint/HPI No complaints this morning. Feeling well, no dizziness or light headedness. No nausea or vomiting or diarrhea, having good urine output. Objective Physical Examination General Exam: Positive: Alert, No Acute Distress, Other (morbidly obese) Eye Exam: Positive: PERRLA, Conjunctiva & lids normal, EOMI; Negative: Sclera icteric ENT Exam: Positive: Atraumatic, Mucous membr. moist/pink, Pharynx Normal Neck Exam: Positive: Supple; Negative: JVD, thyromegaly Chest Exam: Positive: Clear to auscultation, Normal air movement Heart Exam: Positive: Rate Normal, Regular Rhythm, Normal S1, Normal S2; Negative: Murmurs, Rubs Abdomen Exam: Positive: Normal bowel sounds, Soft; Negative: Tenderness Extremity Exam: Positive: Normal pulses; Negative: Clubbing, Cyanosis, Edema Skin Exam: Negative: Breakdown, Lesion Neuro Exam: Positive: Normal Speech, Strength at 5/5 X4 ext, Normal Tone, Sensation Intact, Cranial Nerves 3-12 NL, Reflexes 2+ Psych Exam: Positive: Mental status NL, Mood NL, Oriented x 3 Assessment /Plan Assessment 50 yo M with a history of morbid obesity, DM, celiac disease, s/p R nephrectomy, CKD, baseline Cr ~2, HTN, HLD, CAD, GERD, SHAKEEL on CPAP, colonic polyps s/p polypectomy who recently underwent gastric bypass surgery in [place], [place] on 12/06/2020 with loss of 50 lbs, and had his first covid-19 vaccination on 12/25/20, presented to the ED reporting generalized weakness and noted hypotension at home on BP check to 89/56 while on his baseline atenolol 100mg QD, hydralazine 50mg BID and losartan 100mg QD now being admitted to medicine for REESE on CKD. REESE on CKD: s/p remote R nephrectomy recent gastric bypass on 12/06/2020 with >50lbs weight loss thus far, while on atenolol, hydralazine and losartan and hypotensive likely prerenal vs. developing ATN 2/2 hypoperfusion due to hypotension from massive weight loss on the back ground of multiple antihypertensives. hold home ARB, hydralazine and atenolol Improving. will stop ivf. Hypotension: likely 2/2 dehydration per dry exam and multiple antihypertensives onboard improved. will restart antihypertensives as needed. Will likely need much lower doses. HTN was hypotensive on admission will adjust home bp meds. Celiac disease: No issues at this time. gluten free diet GERD: omeprazole Gout: uloric HLD: lipitor Fatty liver disease recently underwent gastric bypass surgery and has lost thus far >50lbs Morbid obesity: underwent gastric bypass surgery and has lost thus far >50lbs History of DM: currently normoglycemic, not on treatment Metabolic acidosis due to reese on ckd nephrology consulted. Plan/VTE VTE Prophylaxis Ordered?: Yes VS, I&O, 24H, Fishbone Vital Signs/I&O Vital Signs Date Time Temp Pulse Resp B/P (MAP) Pulse Ox O2 Delivery O2 Flow Rate FiO2 12/27/20 06:00 97.8 56 18 133/62 (85) 97 Room Air I&O- Last 24 Hours up to 6 AM 12/27/20 06:00 Intake Total 1000 ml Output Total 450 ml Balance 550 ml Laboratory Data 24H LABS Laboratory Tests 2 12/26/20 14:12: Immature Granulocyte % (Auto) 0.3, Neutrophils (%) (Auto) 70.2H, Lymphocytes (%) (Auto) 14.8L, Monocytes (%) (Auto) 9.1H, Eosinophils (%) (Auto) 4.3H, Basophils (%) (Auto) 1.3H, Neutrophils # (Auto) 5.1, Lymphocytes # (Auto) 1.1L, Monocytes # (Auto) 0.7, Eosinophils # (Auto) 0.3, Basophils # (Auto) 0.1, Nucleated Red Blood Cells % (auto) 0.0, Anion Gap 7L, Glomerular Filtration Rate 14.2L, Calcium Level 8.8, Total Bilirubin 0.4, Direct Bilirubin 0.2, Aspartate Amino Transf (AST/SGOT) 24, Alanine Aminotransferase (ALT/SGPT) 50, Alkaline Phosphatase 113, Total Creatine Kinase 182, Creatine Kinase MB 3.0, Creatine Kinase MB Relative Index 1.65, Troponin I < 0.02, Total Protein 6.8, Albumin 3.9, Albumin/Globulin Ratio 1.3, Thyroid Stimulating Hormone (TSH) 0.808, Thyr oxine (T4) 7.2 12/26/20 14:49: Coronavirus (COVID-19)(PCR) NEGATIVE, Influenza Type A (RT-PCR) NEGATIVE, Influenza Type B (RT-PCR) NEGATIVE, Respiratory Syncytial Virus (PCR) NEGATIVE 12/27/20 06:06: Nucleated Red Blood Cells % (auto) 0.0, Anion Gap 7L, Glomerular Filtration Rate 20.6L, Calcium Level 8.2L, Magnesium Level 2.0 CBC/BMP Laboratory Tests 12/26/20 14:12 12/27/20 06:06 BLACK FUENTES MD Dec 27, 2020 11:06
--- NOTE | 2020-12-27 16:35 | CR ---
NEPHROLOGY CONSULTATION DATE: 12/27/2020 REQUESTING CLINICIAN: Amada Briones MD. REASON FOR CONSULTATION: Acute kidney injury superimposed on chronic kidney disease. HISTORY OF PRESENT ILLNESS: Mr. Degroot is a 50-year-old gentleman with known history of stage 3 of chronic kidney disease with baseline serum creatinine about 2, status post right nephrectomy due to recurrent kidney stones in 2011, history of diabetes, morbid obesity and hypertension. He underwent gastric bypass surgery on December 06 and since then has not been able to eat or drink well. He reports abdominal discomfort after even drinking a few sips and he had noticed low blood pressure at home due to which he presented to the Emergency Room yesterday. His blood pressure was 87/47 mmHg and creatinine was up to 4. BUN was 53 and potassium 4.5. He was admitted and is being treated with I.V. fluid. I did discuss the case with admitting physician yesterday. All his anti-hypertensive meds are currently on-hold. PAST MEDICAL HISTORY: Significant for: 1. Long standing history of morbid obesity. 2. Diabetes. 3. Hypertension. 4. Stage 3 of chronic kidney disease, status post right nephrectomy in 2011. 5. Celiac disease. 6. History of coronary artery disease. 7. Hyperlipidemia. 8. Obstructive sleep apnea. 9. History of gastroesophageal reflux disease. 10. Gout. 11. Neuropathy. PAST SURGICAL HISTORY: Significant for: 1. Upper and lower endoscopies. 2. History of right hand surgery. 3. Right knee surgery. 4. Status post right nephrectomy. 5. Recent gastric bypass surgery. FAMILY HISTORY: Unremarkable and noncontributory. PERSONAL AND SOCIAL HISTORY: Patient denies any alcohol, tobacco or drug use. ALLERGIES: Patient has no known drug allergies. MEDICATIONS: Home medications include: 1. Atenolol 100 mg daily. 2. Atorvastatin 20 mg daily. 3. Uloric 120 mg daily. 4. Tasha 180 mg daily. 5. Gabapentin 800 mg three times a day. , 6. Hydralazine 50 mg twice a day. 7. Losartan 100 mg daily. 8. Omeprazole 40 mg daily. 9. Methocarbamol 500 mg daily. REVIEW OF SYSTEMS: Patient denies any fever or chills. He reports significantly decreased oral intake since his gastric bypass surgery. He was feeling very weak for the last several days and blood pressure was low at home. Denies any diarrhea. Ears, nose and throat: Unremarkable. Cardiovascular system: Significant for known history of coronary artery disease and hypertension. He denies any chest pain or leg edema. Respiratory system: Negative for cough or hemoptysis. GI system: Significant for recent gastric bypass surgery. He denies any vomiting or diarrhea. system: Negative for dysuria or hematuria. Endocrine system: Significant for type-2 diabetes and hyperlipidemia. Denies any hypoglycemic episodes. Psychosocial system: Negative for depression/anxiety. Musculoskeletal system: Significant for morbid obesity. He denies any leg edema. Skin: Negative for rash or ulcers. Hematological system: Negative for any supervisor intermediates anticoagulation, easy bruising or excessive bleeding. PHYSICAL EXAMINATION: Temperature 97.8 degrees Fahrenheit, heart rate 56 per minute and respiratory rate 18 per minute. Blood pressure 133/62 mmHg now and oxygen saturation 97% on room air. Yesterday when he presented to the Emergency Room his blood pressure was 87/47 mmHg. Head: Atraumatic. There is no oral thrush or ulcers. Pupils equal and reactive to light and sclerae is anicteric. Neck: Supple and without JVD or thyroid enlargement. Heart: Sounds are regular. Lungs: Clear to auscultation. Abdomen: Obese, soft and nontender and bowel sounds are normal. Extremities: Without any cyanosis or clubbing. Neurologically: He is awake, alert and at his baseline mentation. LABORATORY DATA: On admission sodium 141, potassium 4.5, chloride 114, CO2 20, BUN 53 and creatinine 4.7. Today BUN is 51 and creatinine is 3.4 while sodium is 144 and potassium 4.7. Hemoglobin 12.5 and hematocrit 40.4. IMAGING: Patient had a renal ultrasound done which showed right kidney surgically absent, left kidney with 2 small cysts and no stone or hydronephrosis. Chest x-ray was unremarkable. PROBLEMS AND PLAN: 1. Acute renal failure superimposed on chronic kidney disease most likely related to dehydration: Patient has had decreased oral intake for the last several days since gastric bypass surgery. He was not taking any diuretic at home. I agree with aggressive I.V. fluid at 100 mL per hour and monitoring of renal function. His renal ultrasound did not show any evidence of obstruction. He had a prior right nephrectomy. 2. Hypotension most likely related to significant weight loss and dehydration: He has lost more than 40 pounds of weight since his gastric bypass surgery just 3 weeks ago. I feel that some of his weight loss is related to dehydration caused by decreased oral intake. I agree with holding all his anti-hypertensive medications at present. We will probably need to cut down his medications significantly even after he improves. 3. Gout: Patient has been on Uloric 120 mg daily and I will check his uric acid level. He is dehydrated and likely to have elevated uric acid, but no evidence of acute gout at present. Thank you for involving me in the care of Mr. Degroot. I will follow him along with you.
[2020-12-27] MEDS: ATORVASTATIN 20 MG TAB PO SCH (20:38)
[2020-12-27 22:00] VITALS: BP 133/72
[2020-12-28 06:00] VITALS: BP 125/70
[2020-12-28 07:11] LABS: HEMATOCRIT 41.7 % (42.0-52.0); HEMOGLOBIN 13.1 g/dl (13.5-17.5); MEAN CORPUSCULAR HEMOGLOBIN 29.4 pg (27.0-33.0); MEAN CORPUSCULAR HGB CONC 31.4 g/dl (32.0-36.5); MEAN CORPUSCULAR VOLUME 93.7 fl (80.0-96.0); PLATELET COUNT, AUTOMATED 110 10^3/uL (150-450); RED BLOOD COUNT 4.45 10^6/uL (4.30-6.10); WHITE BLOOD COUNT 3.7 10^3/uL (4.0-10.0)
[2020-12-28 07:33] LABS: CALCIUM LEVEL 8.8 MG/DL (8.5-10.1); CREATININE FOR GFR 2.42 MG/DL (0.70-1.30); GLOMERULAR FILTRATION RATE 30.5 (>60); POTASSIUM SERUM 4.6 MEQ/L (3.5-5.1)
[2020-12-28] MEDS ORDERED: NS 0.45% 1,000 ML IV SCH (08:05)
[2020-12-28] MEDS ORDERED: NS 0.45% 1,000 ML IV ONE (09:20)
[2020-12-28] MEDS: FEBUXOSTAT 40 MG TABLET (ULORIC) PO SCH (09:28)
[2020-12-28] MEDS: OMEPRAZOLE 20 MG CAP PO SCH (09:29)
[2020-12-28] MEDS: FEXOFENADINE 60 MG TAB PO SCH (09:29)
[2020-12-28] MEDS: HEPARIN SOD (PORCINE) 5000UNITS/ML 1ML VIAL/SYRINGE SC SCH (09:29)
[2020-12-28] MEDS ORDERED: ATEN100T PO (12:05)
[2020-12-28] MEDS ORDERED: GABA800T4 PO (12:05)
--- NOTE | 2020-12-28 12:39 | DS.PDOC ---
Discharge Summary General Date of Admission Dec 26, 2020 at 16:39 Date of Discharge 12/28/20 Discharge Summary PROCEDURES PERFORMED DURING STAY: [None]. DISCHARGE DIAGNOSES: REESE on CKD Dehydration Hypotension due to medications and massive rapid weight loss after gastric bypass surgery and dehydration Hypernatremia Metabolic acidosis. SECONDARY DIAGNOSIS: Morbid obesity, DM, celiac disease, s/p R nephrectomy, CKD, baseline Cr ~2, HTN, HLD, GOUT, CAD, GERD, SHAKEEL on CPAP, colonic polyps s/p polypectomy , Fatty liver COMPLICATIONS/CHIEF COMPLAINT: Acute Renal Failure. HOSPITAL COURSE: 50 yo M with a history of morbid obesity, DM, celiac disease, s/p R nephrectomy, CKD, baseline Cr ~2, HTN, HLD, CAD, GERD, SHAKEEL on CPAP, colonic polyps s/p polypectomy who recently underwent gastric bypass surgery in [place], [place] on 12/06/2020 with loss of 50 lbs, and had his first covid-19 vaccination on 12/25/20, presented to the ED reporting generalized weakness and noted hypotension at home on BP check to 89/56 while on his baseline atenolol 100mg QD, hydralazine 50mg BID and losartan 100mg QD now being admitted to medicine for REESE on CKD. REESE on CKD: s/p remote R nephrectomy recent gastric bypass on 12/06/2020 with >50lbs weight loss thus far, while on atenolol, hydralazine and losartan and hypotensive likely prerenal vs. developing ATN 2/2 hypoperfusion due to hypotension from massive weight loss on the back ground of multiple antihypertensives. stop home ARB, hydralazine will restart atenolol at lower dosage Improving. Hypotension: likely 2/2 dehydration per dry exam and multiple antihypertensives onboard improved. will restart antihypertensives as needed. Will likely need much lower doses. HTN was hypotensive on admission will adjust home bp meds. Celiac disease: No issues at this time. gluten free diet GERD: omeprazole Gout: uloric HLD: lipitor Fatty liver disease recently underwent gastric bypass surgery and has lost thus far >50lbs Morbid obesity: underwent gastric bypass surgery and has lost thus far >50lbs History of DM: currently normoglycemic, not on treatment Metabolic acidosis due to reese on ckd nephrology consulted. DISCHARGE MEDICATIONS: Please see below. ALLERGIES: Please see below. PHYSICAL EXAMINATION ON DISCHARGE: VITAL SIGNS: Please see below. General Exam: Positive: Alert, No Acute Distress, Other (morbidly obese) Eye Exam: Positive: PERRLA, Conjunctiva & lids normal, EOMI; Negative: Sclera icteric ENT Exam: Positive: Atraumatic, Mucous membr. moist/pink, Pharynx Normal Neck Exam: Positive: Supple; Negative: JVD, thyromegaly Chest Exam: Positive: Clear to auscultation, Normal air movement Heart Exam: Positive: Rate Normal, Regular Rhythm, Normal S1, Normal S2; Negative: Murmurs, Rubs Abdomen Exam: Positive: Normal bowel sounds, Soft; Negative: Tenderness Extremity Exam: Positive: Normal pulses; Negative: Clubbing, Cyanosis, Edema Skin Exam: Negative: Breakdown, Lesion Neuro Exam: Positive: Normal Speech, Strength at 5/5 X4 ext, Normal Tone, Sensation Intact, Cranial Nerves 3-12 NL, Reflexes 2+ Psych Exam: Positive: Mental status NL, Mood NL, Oriented x 3 LABORATORY DATA: Please see below. ACTIVITY: [As tolerated]. DIET: As tolerated DISCHARGE PLAN: Home DISPOSITION: . DISCHARGE INSTRUCTIONS: Dr Benavides in 1 week PMD in 2 weeks DISCHARGE CONDITION: [Stable]. TIME SPENT ON DISCHARGE: 35 minutes. Vital Signs/I&Os Vital Signs Date Time Temp Pulse Resp B/P (MAP) Pulse Ox O2 Delivery O2 Flow Rate FiO2 12/28/20 06:00 97.4 55 17 125/70 (88) 97 Room Air I&O- Last 24 Hours up to 6 AM 12/28/20 06:00 Intake Total 3550 ml Output Total 500 ml Balance 3050 ml Laboratory Data Labs 24H Laboratory Tests 2 12/28/20 06:44: Nucleated Red Blood Cells % (auto) 0.0, Anion Gap 7L, Glomerular Filtration Rate 30.5L, Calcium Level 8.8 CBC/BMP Laboratory Tests 12/28/20 06:44 Discharge Medications Scheduled Atenolol (Atenolol) 100 Mg Tablet, 50 MG PO DAILY Atorvastatin Calcium (Atorvastatin Calcium) 20 Mg Tablet, 20 MG PO QHS, (Reported) Febuxostat (Uloric) 80 Mg Tab, 120 MG PO DAILY, (Reported) Fexofenadine HCl (Fexofenadine HCl) 180 Mg Tablet, 180 MG PO DAILY, (Reported) Gabapentin (Gabapentin) 800 Mg Tablet, 400 MG PO BID Methocarbamol (Methocarbamol) 500 Mg Tablet, 500 MG PO DAILY, (Reported) Omeprazole (Omeprazole) 40 Mg Cap, 40 MG PO DAILY, (Reported) Scheduled PRN Triamcinolone Acet (Triamcinolone Acetonide 0.025% Crm) 1 Dose/80 Gm Cream, 1 APLCT TOP BID PRN for RASH/ITCHING, (Reported) APPLY TO ELBOWS PRN Allergies Coded Allergies: Wheat (Verified Allergy, Unknown, GI, 12/10/18) BLACK FUENTES MD Dec 28, 2020 12:39
--- NOTE | 2020-12-29 08:10 | IPN ---
PROGRESS NOTE DATE: 12/28/2020 Mr. Degroot is seen this morning on his bedside. He is feeling better and wants to go home. He reports that his oral intake has improved and denies any vomiting or diarrhea. He has no dyspnea or chest pain. He has been treated with intravenous (IV) fluid since admission due to acute kidney injury superimposed on chronic kidney disease. Patient denies any problems with urination. PHYSICAL EXAMINATION: Temperature 97.4 degrees Fahrenheit, heart rate 55 per minute, respiratory rate 18 per minute, blood pressure 125/70 mmHg, and oxygen saturation 979% on room air. Head is atraumatic. Neck supple and jugular venous distention (JVD) difficult to be assessed. Heart sounds are regular and lungs clear to auscultation. Abdomen obese, soft, and nontender, and bowel sounds are normal. Extremities without any cyanosis or clubbing. Neurologically, he is awake, alert, and oriented times three. Today's labs show WBC count 3.7, hemoglobin 13, and hematocrit 41.7. Sodium 146, potassium 4.6, chloride 120, CO2 of 19, BUN 41, and creatinine 2.42. PROBLEMS: 1. Acute kidney injury superimposed on chronic kidney disease. Patient has prior right-sided nephrectomy. Superimposed acute renal failure was caused by dehydration due to decreased oral intake following his gastric bypass surgery. His kidney function is improving with IV fluid hydration, and I will recommend to give him at least one more liter of IV fluid. Patient is also being encouraged to continue with oral intake as much as he can tolerate. 2. Hypernatremia. This is related to IV normal saline given over last couple of days. Today we are going to switch him to half-normal saline for 1 liter. His electrolytes should be repleted before he gets discharged. 3. Nausea and vomiting, status post gastric bypass. His symptoms are improved, but I still remain concerned about his ability to take enough fluids by mouth, as he did get dehydrated significantly over last couple of weeks. He understands to call our office if he has any problems. DISPOSITION: From a renal standpoint, patient can be discharged to home this afternoon after one more liter of half-normal saline intravenously and repeat labs. Patient already has a followup visit scheduled in my office for January. He understands to call our office in case his problems get worse.
== END 2020-12-28 15:10 | disposition home or self-care (01) | DRG 469 ==
LOC: M ED 13:47 → M ED INP 16:39 → ENRESERV 17:15 → M MS5PR 18:46
PROVIDERS: ADMIT Internal Medicine; ATTEND Internal Medicine Nephrology
DX: N17.9 Acute kidney failure, unspecified (principal); E87.0 Hyperosmolality and hypernatremia; I95.9 Hypotension, unspecified; E11.40 Type 2 diabetes mellitus with diabetic neuropathy, unspecified; E66.01 Morbid (severe) obesity due to excess calories; K76.0 Fatty (change of) liver, not elsewhere classified; E86.0 Dehydration; M10.9 Gout, unspecified; K21.9 Gastro-esophageal reflux disease without esophagitis; G47.33 Obstructive sleep apnea (adult) (pediatric); I12.9 Hypertensive chronic kidney disease with stage 1 through stage 4 chronic kidney disease, or unspecified chronic kidney disease; K90.0 Celiac disease; Z98.84 Bariatric surgery status; Z79.899 Other long term (current) drug therapy; Z91.018 Allergy to other foods; I25.10 Atherosclerotic heart disease of native coronary artery without angina pectoris; M19.90 Unspecified osteoarthritis, unspecified site; Z96.651 Presence of right artificial knee joint; E78.5 Hyperlipidemia, unspecified; N18.30 Chronic kidney disease, stage 3 unspecified

== ENCOUNTER → 2021-01-04 | Outpatient (CLI) | payer OTHER ==
[~2021-01-04] MED LIST changes: +FEXO180T58 PO
--- NOTE | 2021-01-04 09:06 | REP ---
INDICATION: OA OF RT KNEE. Rule out internal derangement or ligamentous injury. COMPARISON: Comparison radiographs of the right knee are from 11 November 2020.. TECHNIQUE: Axial, coronal, and sagittal imaging planes utilized. T1, proton density, and T2 weighted scans are included with without fat saturation in the usual fashion. FINDINGS: There is magnetic field susceptibility artifact emanating from the metallic components of the medial right knee hemiarthroplasty. This corresponds to the findings on recent radiograph. Unfortunately, this does limit intra-articular soft tissue visualization even in the lateral compartment. Anterior and posterior cruciate ligaments are seen and appear to be intact. Patellar and quadriceps and its tendons are intact. There is osteoarthritic spurring at the superior inferior pole of patella and there is some linear fissuring in in the medial and superior femoral trochlear cartilage. There is a small joint effusion. No Rivera's cyst is appreciated. There is lateral compartment osteoarthritic spurring. No evidence of sofía tear in the lateral meniscus. There is no visible loose body. There is some heterotopic bone formation or myositis ossificans at the quadriceps musculotendinous junction corresponding to the radiographic findings. IMPRESSION: The medial tibiofemoral compartment is obscured by metallic field susceptibility artifact from the hemiarthroplasty. The cruciate ligaments appear intact. No lateral collateral ligament is seen. Chondromalacia changes are noted with spurring in the tibiofemoral compartment laterally and in the patellofemoral compartment. There is a joint effusion. Some heterotopic bone formation is seen at the medial aspect of the quadriceps musculotendinous junction. <Electronically signed by David Damon > 01/04/21 [id number]
== END ==
LOC: M RAD 07:47
PROVIDERS: ATTEND Orthopaedic Surgery
DX: M25.461 Effusion, right knee (principal); M17.11 Unilateral primary osteoarthritis, right knee; M25.561 Pain in right knee

== ENCOUNTER 2021-03-12 08:50 | Emergency (ER) | payer OTHER ==
[~2021-03-12] VITALS: Ht 182.9 cm; Wt 140.6 kg
[~2021-03-12 08:50] MED LIST changes: +GABA-283 PO; -GABA-845 PO
[2021-03-12] MEDS ORDERED: ALLE1TAB23 (08:58)
[2021-03-12] MEDS ORDERED: FEBU80TA (08:58)
[2021-03-12] MEDS ORDERED: LISI2.5T2 (08:58)
[2021-03-12 09:53] LABS: BASO # 0.1 10^3/uL (0.0-0.2); BASO % 1.3 % (0.0-1.0); EOS # 0.4 10^3/uL (0.0-0.5); EOS % 5.6 % (0.0-3.0); HEMATOCRIT 48.4 % (42.0-52.0); HEMOGLOBIN 15.4 g/dl (13.5-17.5); LYMPH # 1.4 10^3/uL (1.5-5.0); LYMPH % 17.8 % (24.0-44.0); MEAN CORPUSCULAR HEMOGLOBIN 29.8 pg (27.0-33.0); MEAN CORPUSCULAR HGB CONC 31.8 g/dl (32.0-36.5); MEAN CORPUSCULAR VOLUME 93.6 fl (80.0-96.0); MONO # 0.5 10^3/uL (0.0-0.8); MONO % 5.8 % (2.0-8.0); NEUTROPHILS # 5.4 10^3/uL (1.5-8.5); NEUTROPHILS % 69.1 % (36.0-66.0); PLATELET COUNT, AUTOMATED 150 10^3/uL (150-450); RED BLOOD COUNT 5.17 10^6/uL (4.30-6.10); WHITE BLOOD COUNT 7.8 10^3/uL (4.0-10.0)
[2021-03-12 10:11] LABS: CALCIUM LEVEL 9.2 MG/DL (8.5-10.1); CREATININE FOR GFR 1.9 MG/DL (0.70-1.30); GLOMERULAR FILTRATION RATE 40.3 (>60); POTASSIUM SERUM 4.6 MEQ/L (3.5-5.1); URIC ACID 6.3 MG/DL (3.5-7.2)
[2021-03-12 10:15] LABS: ERYTHROCYTE SEDIMENTATION RATE 3 mm/hr (0-15)
[2021-03-12 11:13] LABS: C REACTIVE PROTEIN QUANTITATIV 0.33 MG/DL (0.00-0.30)
[2021-03-12 11:39] VITALS: BP 166/96
--- NOTE | 2021-03-12 12:03 | REP ---
INDICATION: Rule out, painful walking with hardware COMPARISON: 11/11/2020 TECHNIQUE: AP, lateral, bilateral oblique views of the right knee FINDINGS: Patient is again noted to be status post arthroplasty involving the medial compartment which appears relatively stable. Advanced osteoarthritic degenerative changes primarily involving the patellofemoral joint space and to a lesser extent the lateral compartment again noted and is unchanged. Lateral view also demonstrates suprapatellar effusion which may be slightly decreased from prior examination. IMPRESSION: Relatively stable examination with findings as described above. <Electronically signed by Juan Welsh > 03/12/21 [id number]
== END 2021-03-12 12:24 | disposition home or self-care (01) ==
LOC: M ED 08:50
DX: M25.561 Pain in right knee (principal); M17.11 Unilateral primary osteoarthritis, right knee; X50.0XXA Overexertion from strenuous movement or load, initial encounter; Y92.017 Garden or yard in single-family (private) house as the place of occurrence of the external cause; Y93.H2 Activity, gardening and landscaping; Y99.9 Unspecified external cause status; Z79.899 Other long term (current) drug therapy

== ENCOUNTER → 2021-06-01 | Outpatient (REF) | payer OTHER ==
[~2021-06-01] MED LIST changes: +FEBU80TA; +LISI2.5T9; +OMEP40CA4 PO; -OMEP40CA97 PO
[2021-06-01 17:13] LABS: BASO # 0.1 10^3/uL (0.0-0.2); EOS # 0.4 10^3/uL (0.0-0.5); EOS % 4.5 % (0.0-3.0); HEMATOCRIT 45.4 % (42.0-52.0); HEMOGLOBIN 14.6 g/dl (13.5-17.5); LYMPH # 1.3 10^3/uL (1.5-5.0); LYMPH % 14.2 % (24.0-44.0); MEAN CORPUSCULAR HEMOGLOBIN 29.6 pg (27.0-33.0); MEAN CORPUSCULAR HGB CONC 32.2 g/dl (32.0-36.5); MEAN CORPUSCULAR VOLUME 92.1 fl (80.0-96.0); MONO # 0.6 10^3/uL (0.0-0.8); MONO % 6.3 % (2.0-8.0); NEUTROPHILS # 6.6 10^3/uL (1.5-8.5); NEUTROPHILS % 73.6 % (36.0-66.0); PLATELET COUNT, AUTOMATED 163 10^3/uL (150-450); RED BLOOD COUNT 4.93 10^6/uL (4.30-6.10); WHITE BLOOD COUNT 8.9 10^3/uL (4.0-10.0)
[2021-06-01 17:15] LABS: HEMATOCRIT 45.5 % (42.0-52.0)
[2021-06-01 17:41] LABS: ALBUMIN 3.4 GM/DL (3.2-5.2); BILIRUBIN,TOTAL 0.5 MG/DL (0.2-1.0); CALCIUM LEVEL 8.3 MG/DL (8.5-10.1); CREATININE FOR GFR 1.69 MG/DL (0.70-1.30); GLOMERULAR FILTRATION RATE 46.1 (>60); MAGNESIUM LEVEL 1.6 MG/DL (1.8-2.4); PERCENT SATURATION 21.3 % (19.7-50.0); PHOSPHORUS LEVEL 2.8 MG/DL (2.5-4.9); POTASSIUM SERUM 4.5 MEQ/L (3.5-5.1); TOTAL PROTEIN 6.1 GM/DL (6.4-8.2)
[2021-06-01 18:27] LABS: HEMOGLOBIN A1c 5.3 %
[2021-06-04 11:16] LABS: TOTAL 25(OH) VITAMIN D 32.7 NG/ML (30.0-100.0)
== END ==
LOC: M LABDRWAD 16:30
PROVIDERS: ATTEND Surgery
DX: K91.2 Postsurgical malabsorption, not elsewhere classified (principal); Z98.84 Bariatric surgery status; E55.9 Vitamin D deficiency, unspecified; Z86.39 Personal history of other endocrine, nutritional and metabolic disease

== ENCOUNTER 2021-09-23 11:41 | Emergency (ER) | payer OTHER ==
[~2021-09-23] VITALS: Ht 182.9 cm; Wt 105.9 kg
[2021-09-23] MEDS ORDERED: LISI10TA22 PO (11:47)
[2021-09-23] MEDS ORDERED: GABA-283 PO (11:47)
--- OUTSIDE RECORDS SUMMARY | 2021-09-23 11:50 | CCD | Continuity of Care Document ---
Author Author Nurse Luma, Gilson Ryan Organization Unknown Address [address] [place] [address] [address] [place] [address] Phone [phone] Care Team Providers Care Treating Plant Supervisor Name Role Phone Ivory Johnson DO AUTM Unavailable Herbert Nazario AUTM [phone] Problems Active Problems Provider Date Type 2 diabetes mellitus Ivory Johnson DO Onset: 10/26/19 20 Obstructive sleep apnea syndrome Ivory Johnson DO Onset: 01/11/2020 Social History Type Date Description Comments Sex Unknown ETOH Use Occasionally consumes alcohol Tobacco Use Start: Unknown Patient has never smoked Allergies and adverse reactions Description No Known Drug Allergies Medications Active Medications SIG Qnty Indications Ordering Provide r Date Lisinopril 10mg Tablets 1 by mouth every day 30tabs Ivory Johnson DO 03/13/2021 Gabapentin 400mg Capsules Take 1 Tablet daily Ivory Johnson DO 01/01/2021 Allergy 180mg T sandy 1 tablet by mouth once daily 30units Ivory Johnson DO 12/12/2020 Fexofenadine HCL 180mg Tablets 1 by mouth every day 30tabs Ivory Johnson DO 08/11/2020 Glucosamine Chondroitin Complex Advanced Plus MSM Tablets 1 twice a day by mouth 60tabs Ivory Johnson DO 12/24/2019 Tylenol 8 Hour Arthritis Pain 650mg Tablets ER 1 by mouth as needed every 8 hours 30tabs Ivory Johnson DO 12/24/2019 Atorvastatin Calcium 20mg Tablets 1 by mouth every day 30tabs Antonio Shields M.D. 10/26/[address] Take 1 capsule by mouth once daily 30caps Ivory Johnson DO 10/25/2019 Triamcinolone Acetonide 0.1% Cream as directed on rash three times a day. 15grams Ivory Elizabeth, 10/25/2019 Febuxostat 80mg Tablets take 1 & 1/2 (one & one-half) tablets by mouth once daily Unknown Vitamin D3 50mcg (2000 Ut) Tablets 1 by mouth every day Unknown Methocarbamol 500mg Tablets one tablet bid Unknown History Medications Lisinopril 2.5mg Tablets 1 by mouth every day 30tabs Ivory Johnson DO 02/19/2021 - Medications Administered in Office Medication SIG Qnty Indications Ordering Provider Date Immunization Adminstration,1 Vaccine/Tox oid Injection Ivory ElizabethDO 07/31/2021 Covid-19 vaccine, Unspecified Inj ection Unknown 01/15/2021 Covid-19 vaccine, Unspecified Inj ection Unknown 12/25/2020 Immunization Adminstration,1 Vaccine/Tox oid Injection Ivory PerezDO chava 08/03/2020 Immunizations CPT Code Status Date Vaccine Lot # [id number] Given 07/31/2021 Influenza Vaccin e Quadrivalent Preser/Antibiotic Free Im Use [id number] Given 08/03/2020 Influenza Vaccin e Quadrivalent Preser/Antibiotic Free Im Use [id number] Vital Signs Date Vital Result Comment 04/30/2021 12:59pm BP Systolic 118 mmHg BP Diastolic 70 mmHg Heart Rate 74 /min Height 71.5 inches 5'11.50" Weight 287.00 lb BMI (Body Mass Index) 39.5 kg/m2 02/06/2021 8:55am BP Systolic 130 mmHg BP Diastolic 80 mmHg Heart Rate 71 /min Height 71.5 inches 5'11.50" Weight 324.00 lb BMI (Body Mass Index) 44.6 kg/m2 Results Test Acquired Date Facility Test Result H/L Range Note Complete Blood Count 04/30/2021 [facility] Nba Player: [place] [address] [phone] WBC 8.6 x10*3/UL 4.1 - 10.9 RBC 4.95 x10*6/UL 4.20 - 6.30 Hemoglobin 14.8 g/dL 12.0 - 18.0 Hematocrit 44.8 % 37.0 - 51.0 MCV 90.4 fL 80.0 - 97.0 MCH 29.9 pg 26.0 - 32.0 MCHC 33.1 g/dL 31.0 - 38.0 RDW 13.3 % 11.6 - 13.7 PLT 170 x10*3/UL 140 - 440 MPV 7.9 FL 7.8 - 11.0 Lymph % 16.7 % 10.0 - 58.5 Mid % 4.8 % 1.7 - 9.3 Neut % 78.5 % 37.0 - 92.0 Lymph # 1.4 x10*3/UL 0.6 - 4.1 Mid # 0.5 x10*3/UL 0.1 - 0.6 Neut # 6.7 x10*3/UL 2.0 - 7.8 A1c 04/30/2021 [facility] , Nba Player: Dr Chucho Hassan [place], [place] [id number] [phone] Hba1c 5.5 % <5.7 1 Est Avg Glucose 111 mg/dL High 60 - 110 Comprehensive Chem Profile 04/30/2021 [facility], Nba Player: [place] [address] [phone] Glucose 84 mg/dL 74 - 99 2 BUN 18 mg/dL 7 - 18 Creatinine 1.8 mg/dL High 0.6 - 1.3 Sodium 145 mEq/L 136 - 145 Potassium 4.5 mEq/L 3.5 - 5.1 Chloride 109 mEq/L High 98 - 107 Carbon Dioxide 30 mEq/L 21 - 32 Calcium 9.0 mg/dL 8.5 - 10.1 Alk. Phosphatase 92 mg/dL 46 - 116 Total Bilirubin 0.5 mg/dL 0.2 - 1.0 Ast (Sgot) 28 U/L 15 - 37 Alt (SGPT) 39 U/L 12 - 78 Albumin 3.4 g/dL 3.4 - 5.0 Total Protein 6.4 g/dL 6.4 - 8.2 A/G Ratio 1.13 CALC 1.00 - 1.90 GFR 40 mL/min Low >60 GFR 49 mL/min Low >60 3 Lipid Profile 04/30/2021 [facility] , Nba Player: Dr Rankin [place] [id number] [phone] Cholesterol 90 mg/dL Low 131 - 200 Triglycerides 182 mg/dL High 30 - 150 HDL Cholesterol 20 mg/dL Low 35 - 60 LDL (Calculated) 34 CALC Low 50 - 159 Microalbumin/Creatinine Urine 04/30/2021 [facility] Nba Player: [place] [address] [phone] Microalbumin Urine 900.8 mg/L High 1.3 - 20.0 4 Urine Creatinine 153.2 mg/dL High 30.0 - 125.0 Microalb/Creat Ratio 588.0 ug/mg High 0.0 - 30.0 Basic Metabolic Profile 03/12/[address] [address] [phone] Glucose, Fasting 97 mg/dL Normal 70-100 Blood Urea Nitrogen 17 mg/dL Normal 7-18 Creatinine For GFR 1.90 mg/dL High 0.70-1.30 Glomerular Filtration Rate 40.3 Low >60 5 Sodium Level 141 mEq/L Normal 136-145 Potassium Serum 4.6 mEq/L Normal 3.5-5.1 Chloride Level 111 mEq/L High 98-107 Carbon Dioxide Level 25 mEq/L Normal 21-32 Anion Gap 5 mEq/L Low 8-16 Calcium Level 9.2 mg/dL Normal 8.5-10.1 Laboratory test finding 03/12/[address] [address] [phone] Uric Acid 6.3 mg/dL Normal 3.5-7.2 6 CBC With Differential 03/12/[address] [address] [phone] White Blood Count 7.8 10 Normal 4.0-10.0 Red Blood Count 5.17 10 Normal 4.30-6.10 Hemoglobin 15.4 g/dL Normal 13.5-17.5 Hematocrit 48.4 % Normal 42.0-52.0 Mean Corpuscular Volume 93.6 fl Normal 80.0-96.0 Mean Corpuscular Hemoglobin 29.8 pg Normal 27.0-33.0 Mean Corpuscular HGB Conc 31.8 g/dL Low 32.0-36.5 Red Cell Distribution Width 13.6 % Normal 11.5-14.5 Platelet Count, Automated 150 10 Normal 150-450 Neutrophils % 69.1 % High 36.0-66.0 Lymph % 17.8 % Low 24.0-44.0 Vermilion % 5.8 % Normal 2.0-8.0 Eos % 5.6 % High 0.0-3.0 Baso % 1.3 % High 0.0-1.0 Immature Granulocyte % 0.4 % Normal 0-3.0 Nucleated Red Blood Cell % 0.0 % Normal 0-0 Neutrophils # 5.4 10 Normal 1.5-8.5 Lymph # 1.4 10 Low 1.5-5.0 Vermilion # 0.5 10 Normal 0.0-0.8 Eos # 0.4 10 Normal 0.0-0.5 Baso # 0.1 10 Normal 0.0-0.2 Laboratory test finding 03/12/2021 [facility] [address] [place] [address] [phone] Erythrocyte Sedimentation Rate 3 mm/hr Normal 0 -15 C Reactive Protein Quantitativ 0.33 mg/dL High 0.00-0.30 7 Basic Metabolic Panel 02/06/2021 [facility] Nba Player: [place] [address] [phone] Glucose 113 mg/dL High 74 - 99 8 BUN 13 mg/dL 7 - 18 Creatinine 1.9 mg/dL High 0.6 - 1.3 9 Sodium 144 mEq/L 136 - 145 Potassium 4.1 mEq/L 3.5 - 5.1 Chloride 107 mEq/L 98 - 107 Carbon Dioxide 26 mEq/L 21 - 32 Calcium 9.2 mg/dL 8.5 - 10.1 GFR 38 mL/min Low >60 GFR 46 mL/min Low >60 10 A1c 02/06/2021 [facility] Nba Player: [place] [address] [phone] Hba1c 5.7 % <5.7 11 Est Avg Glucose 117 mg/dL High 60 - 110 1 Lab Result Notes: Pre-Diabetes 5.7 - 6.4 % Diabetes = or > 6.5% 2 100-125 mg/dL PRE-DIABET ES/FASTING >126 mg/dL DIABETES/FASTING 3 CHRONIC KIDNEY DISEASE STAGI NG PER NKF STAGE I & II GFR >= 60 NORMAL TO MILDLY DECREASED STAGE III GFR 30-59 MODERATELY DECREASED STAGE IV GFR 15-29 SEVERELY DECREASED STAGE V GFR <15 VERY LITTLE GFR LEFT ESRD GFR <15 ON HUMAN FACTORS SPECIALIST 4 NOTE: diluted and verified 5 Units are mL/min/1.73 m2 Chronic Kidney Disease Staging per NKF: Stage I & II GFR >=60 Normal to Mildly Decreased Stage III GFR 30-59 Moderately Decreased Stage IV GFR 15-29 Severely Decreased Stage V GFR <15 Very Little GFR Left ESRD GFR <15 on HUMAN FACTORS SPECIALIST 6 note:<nlbl:demographic_chang ed> note:<nlbl:demographic_changed> note:<nlbl:demographic_changed> 7 note:<nlbl:demographic_chang ed> note:<nlbl:demographic_changed> note:<nlbl:demographic_changed> 8 100-125 mg/dL PRE-DIABET ES/FASTING >126 mg/dL DIABETES/FASTING 9 NOTE: RESULT VERIFIED. 10 CHRONIC KIDNEY DISEASE STAGI NG PER NKF STAGE I & II GFR >= 60 NORMAL TO MILDLY DECREASED STAGE III GFR 30-59 MODERATELY DECREASED STAGE IV GFR 15-29 SEVERELY DECREASED STAGE V GFR <15 VERY LITTLE GFR LEFT ESRD GFR <15 ON HUMAN FACTORS SPECIALIST 11 Lab Result Notes: Pre-Diabetes 5.7 - 6.4 % Diabetes = or > 6.5% Procedures Date Code Description Status 04/30/2021 38503 Office/Outpatient Established Mo d MDM 30-39 Min Completed 02/06/2021 47345 Office/Outpatient Established Mo d MDM 30-39 Min Completed Medical Devices Description No Information Available Encounters Type Date Location Provider Dx Diagnosis Office Visit 04/30/2021 1:[facility]p [facility] N18.30 Chronic kidney disease, stage 3 unspecified Z90.5 Acquired absence of kidney 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 G47.33 Obstructive sleep apnea (carolina lt) (pediatric) M54.17 Radiculopathy, lumbosacral r egion E66.01 Morbid (severe) obesity due to excess calories Z68.41 Body mass index [BMI] 40.0-4 4.9, adult Assessments Date Code Description Provider 07/31/2021 Z23 Encounter for immunization Ivory Johnson,DO 07/31/2021 Z23 Encounter for immunization Nurse Schedule 04/30/2021 N18.30 Chronic kidney disease, stage 3 unspecified Ivory Johnson,DO 04/30/2021 Z90.5 Acquired absence of kidney Ivory Johnson,DO 04/30/2021 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 Ivory Johnson,DO 04/30/2021 G47.33 Obstructive sleep apnea (adult) (pediatric) Ivroy Johnson,DO 04/30/2021 Z98.84 Bariatric surgery status Ivory Sumi jasmine,DO 04/30/2021 E66.01 Morbid (severe) obesity due to e xcess calories Ivory Johnson,DO 04/30/2021 Z68.39 Body mass index [BMI] 39.0-39.9, adult Ivory Johnson,DO 02/06/2021 N17.9 Acute kidney failure, unspecifie d Ivory Johnson,DO 02/06/2021 Z98.84 Bariatric surgery status Ivory B oggs,DO 02/06/2021 N18.30 Chronic kidney disease, stage 3 unspecified Ivory Elizabeth,DO 02/06/2021 Z90.5 Acquired absence of kidney Ivory Elizabeth,DO 02/06/2021 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 04/30/2021 - Ivory Johnson DO* N18.30 Chronic kidney disease, stage 3 unspecified * Z90.5 Acquired absence of kidney * E11.21 Type 2 diabetes mellitus with diabetic nephropathy * G47.33 Obstructive sleep apnea (adult) (pediatric) * Z98.84 Bariatric surgery status * E66.01 Morbid (severe) obesity due to excess calories * Z68.39 Body mass index [BMI] 39.0-39.9, adult * All * Comments:* We'll see him back for a follow up visit as scheduled. Functional Status Description No Information Available Mental Status Description No Information Available Referrals Description No Information Available
--- OUTSIDE RECORDS SUMMARY | 2021-09-23 11:50 | CCD | Continuity of Care Document ---
Author Author Nurse Luma, Gilson Ryan Organization Unknown Address [address] [place] [address] [address] [place] [address] Phone [phone] Care Team Providers Care Traffic Operations Manager Name Role Phone Ivory Johnson DO AUTM Unavailable Herbert Nazario AUTM [phone] Problems Active Problems Provider Date Type 2 [...] Medication SIG Qnty Indications Ordering Provider Date Covid-19 vaccine, Unspecified Inj ection Unknown 01/15/2021 Covid-19 vaccine, Unspecified Inj ection Unknown 12/25/2020 Immunization Adminstration,1 Vaccine/Tox oid Injection Ivory PerezDO chava 08/03/2020 Immunizations CPT Code Status Date Vaccine Lot # [id number] Given 08/03/2020 Influenza Vaccin e Quadrivalent Preser/Antibiotic Free Im Use [id number] Vital Signs Date Vital Result Comment 04/30/2021 [...] H/L Range Note Complete Blood Count 04/30/2021 [facility] Prototyper: Dr Chucho Hassan [place], [place] [id number] [phone] WBC 8.6 x10*3/UL 4.1 - 10.9 RBC [...] 6.7 x10*3/UL 2.0 - 7.8 A1c 04/30/2021 [facility] , Prototyper: [place] [address] [phone] Hba1c 5.5 % <5.7 1 Est Avg Glucose 111 mg/dL High 60 - 110 Comprehensive Chem Profile 04/30/2021 [facility], Prototyper: [place] [address] [phone] Glucose 84 mg/dL 74 - 99 2 [...] mL/min Low >60 3 Lipid Profile 04/30/2021 [facility] , Prototyper: [place] [address] [phone] Cholesterol 90 mg/dL Low 131 - 200 Triglycerides 182 mg/dL High 30 - 150 HDL Cholesterol 20 mg/dL Low 35 - 60 LDL (Calculated) 34 CALC Low 50 - 159 Microalbumin/Creatinine Urine 04/30/2021 [facility] Prototyper: [place] [address] [phone] Microalbumin Urine 900.8 mg/L High 1.3 - 20.0 4 Urine Creatinine 153.2 mg/dL High 30.0 - 125.0 Microalb/Creat Ratio 588.0 ug/mg High 0.0 - 30.0 Basic Metabolic Profile 03/12/[address] [address] [phone] Glucose, Fasting 97 mg/dL Normal 70-100 Blood [...] mg/dL Normal 8.5-10.1 Laboratory test finding 03/12/[address] [address] [phone] Uric Acid 6.3 mg/dL Normal 3.5-7.2 6 CBC With Differential 03/12/[address] [address] [phone] White Blood Count 7.8 10 Normal 4.0-10.0 [...] 36.0-66.0 Lymph % 17.8 % Low 24.0-44.0 Walker % 5.8 % Normal 2.0-8.0 Eos % 5.6 % High 0.0-3.0 Baso % 1.3 % High 0.0-1.0 Immature Granulocyte % 0.4 % Normal 0-3.0 Nucleated Red Blood Cell % 0.0 % Normal 0-0 Neutrophils # 5.4 10 Normal 1.5-8.5 Lymph # 1.4 10 Low 1.5-5.0 Walker # 0.5 10 Normal 0.0-0.8 Eos # 0.4 10 Normal 0.0-0.5 Baso # 0.1 10 Normal 0.0-0.2 Laboratory test finding 03/12/2021 [facility] [address] [place] [address] [phone] Erythrocyte Sedimentation Rate 3 mm/hr Normal 0 -15 C Reactive Protein Quantitativ 0.33 mg/dL High 0.00-0.30 7 Basic Metabolic Panel 02/06/2021 [facility] Prototyper: [place] [address] [phone] Glucose 113 mg/dL High 74 - 99 [...] 46 mL/min Low >60 10 A1c 02/06/2021 [facility] Prototyper: [place] [address] [phone] Hba1c 5.7 % <5.7 11 Est Avg [...] LITTLE GFR LEFT ESRD GFR <15 ON ENVIRONMENTAL DESIGNER 4 NOTE: diluted and verified 5 Units are mL/min/1.73 m2 Chronic Kidney Disease Staging per NKF: Stage I & II GFR >=60 Normal to Mildly Decreased Stage III GFR 30-59 Moderately Decreased Stage IV GFR 15-29 Severely Decreased Stage V GFR <15 Very Little GFR Left ESRD GFR <15 on ENVIRONMENTAL DESIGNER 6 note:<nlbl:demographic_chang ed> note:<nlbl:demographic_changed> note:<nlbl:demographic_changed> 7 note:<nlbl:demographic_chang [...] LITTLE GFR LEFT ESRD GFR <15 ON ENVIRONMENTAL DESIGNER 11 Lab Result Notes: Pre-Diabetes 5.7 - 6.4 % Diabetes = or > 6.5% Procedures Date Code Description Status 04/30/2021 23424 Office/Outpatient Established Mo d MDM 30-39 Min Completed 02/06/2021 31063 Office/Outpatient Established Mo d MDM 30-39 Min Completed Medical Devices Description No Information Available Encounters Type Date Location Provider Dx Diagnosis Office Visit 04/30/2021 1:00p Adriane Keane PKiki Johnson DO N18.30 Chronic kidney disease, stage 3 unspecified Z90.5 Acquired absence of kidney 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 G47.33 Obstructive sleep apnea (carolina lt) (pediatric) Z98.84 Bariatric surgery status E66.01 Morbid (severe) obesity due to excess calories Z68.39 Body mass index [BMI] 39.0-3 9.9, adult Office Visit 02/06/2021 9:00a Adriane Keane PKiki Johnson DO N17.9 Acute kidney failure, unspecified Z98.84 Bariatric surgery status N18.30 Chronic kidney disease, stag e 3 unspecified Z90.5 Acquired absence of kidney 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 G47.33 Obstructive sleep apnea (acrolina lt) (pediatric) M54.17 Radiculopathy, lumbosacral r egion E66.01 Morbid (severe) obesity due to excess calories Z68.41 Body mass index [BMI] 40.0-4 4.9, adult Assessments Date Code Description Provider 04/30/2021 N18.30 Chronic kidney disease, stage 3 unspecified Ivory Elizabeth,DO 04/30/2021 Z90.5 Acquired absence of kidney Ivory Elizabeth,DO 04/30/2021 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 Ivory Elizabeth,DO 04/30/2021 G47.33 Obstructive sleep apnea (adult) (pediatric) Ivory Elizabeth,DO 04/30/2021 Z98.84 Bariatric surgery status Ivory Jonas abychava,DO 04/30/2021 E66.01 Morbid (severe) obesity due to e xcess calories Ivory Elizabeth,DO 04/30/2021 Z68.39 Body mass index [BMI] 39.0-39.9, adult Ivory Elizabeth,DO 02/06/2021 N17.9 Acute kidney failure, unspecifie d Ivory Elizabeth,DO 02/06/2021 Z98.84 Bariatric surgery status Ivory jasmine,DO 02/06/2021 N18.30 Chronic kidney disease, stage 3 unspecified Ivory Elizabeth,DO 02/06/2021 Z90.5 Acquired absence of kidney Ivory Elizabeth,DO 02/06/2021 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 04/30/2021 - Ivory Johnson DO* [...]
--- OUTSIDE RECORDS SUMMARY | 2021-09-23 11:52 | CCD ---
Author Author [facility] Organization [facility] Address Unknown Phone Unavailable Care Team Providers Care Deputy Court Clerk Name Role Phone Aravind, Jace Godinez MD Unavailable Unavailable Aravind, Jace Godinez MD Unavailable Unavailable Aravind, Jace Godinez MD Unavailable Unavailable Aravind, Jace Godinez MD Unavailable Unavailable Aravind, Jace Godinez MD Unavailable Unavailable Aravind, Jace Godinez MD Unavailable Unavailable Aravind, Jace Godinez MD Unavailable Unavailable Aravind, Jace Godinez MD Unavailable Unavailable Aravind, Jace Godinez MD Unavailable Unavailable Aravind, Jace Godinez MD Unavailable Unavailable Aravind, Jace Godinez MD Unavailable Unavailable Aravind, Jace Godinez MD Unavailable Unavailable Aravind, Jace Godinez MD Unavailable Unavailable Aravind, Jace Godinez MD Unavailable Unavailable Aravind, Jace Godinez MD Unavailable Unavailable Aravind, Jace Godinez MD Unavailable Unavailable Aravind, Jace Godinez MD Unavailable Unavailable Aravind, Jace Godinez MD Unavailable Unavailable Aravind, Jace Godinez MD Unavailable Unavailable Raavind, Jace Godinez MD Unavailable Unavailable Aravind, Jace Godinez MD Unavailable Unavailable Aravind, Jace Godinez MD Unavailable Unavailable Aravind, Jace Godinez MD Unavailable Unavailable Aravind, Jace Godinez MD Unavailable Unavailable Aravind, Jace Godinez MD Unavailable Unavailable Aravind, Jace Godinez MD Unavailable Unavailable Aravind, Jace Godinez MD Unavailable Unavailable Aravind, Jace Godinez MD Unavailable Unavailable Aravind, Jace Godinez MD Unavailable Unavailable Aravind, Jace Godinez MD Unavailable Unavailable Aravind, Jace Godinez MD Unavailable Unavailable Aravind, A Herbert GRANDA Unavailable Unavailable Aravind, A Herbert GRANDA Unavailable Unavailable Aravind, Jace Godinez MD Unavailable Unavailable Aravind, Jace Godinez MD Unavailable Unavailable Aravind, Jace Godinez MD Unavailable Unavailable Aravind, A Herbert GRANDA Unavailable Unavailable Aravind, A Herbert GRANDA Unavailable Unavailable Aravind, A Herbert GRANDA Unavailable Unavailable Aravind, A Herbert GRANDA Unavailable Unavailable Aravind, A Herbert GRANDA Unavailable Unavailable Aravind, A Herbert GRANDA Unavailable Unavailable Aravind, Jace Godinez MD Unavailable Unavailable Aravind, Jace Godinez MD Unavailable Unavailable Aravind, A Herbert GRANDA Unavailable Unavailable Aravind, A Herbert GRANDA Unavailable Unavailable Aravind, A Herbert GRANDA Unavailable Unavailable Aravind, A Herbert GRANDA Unavailable Unavailable Aravind, Jace Godinez MD Unavailable Unavailable Aravind, Jace Godinez MD Unavailable Unavailable Aravind, Jace Godinez MD Unavailable Unavailable Aravind, Jace Godinez MD Unavailable Unavailable Aravind, Jace Godinez MD Unavailable Unavailable Aravind, Jace Godinez MD Unavailable Unavailable Aravind, A Herbert GRANDA Unavailable Unavailable Aravind, Jace Godinez MD Unavailable Unavailable Aravind, Jace Godinez MD Unavailable Unavailable Aravind, Jace Godinez MD Unavailable Unavailable Aravind, Jace Godinez MD Unavailable Unavailable Aravind, Jace Godinez MD Unavailable Unavailable Aravind, Jace Godinez MD Unavailable Unavailable Aravind, Jace Godinez MD Unavailable Unavailable Aravind, Jace Godinez MD Unavailable Unavailable Aravind, Jace Godinez MD Unavailable Unavailable Aravind, Jace Godinez MD Unavailable Unavailable Aravind, Jace Godinez MD Unavailable Unavailable Aravind, Jace Godinez MD Unavailable Unavailable Aravind, Jace Godinez MD Unavailable Unavailable Aravind, Jace Godinez MD Unavailable Unavailable Aravind, Jace Godinez MD Unavailable Unavailable Aravind, Jace Godinez MD Unavailable Unavailable Aravind, Jace Godinez MD Unavailable Unavailable Aravind, Jace Godinez MD Unavailable Unavailable Aravind, Jace Godinez MD Unavailable Unavailable Aravind, Jace Godinez MD Unavailable Unavailable Aravind, Jace Godinez MD Unavailable Unavailable Aravind, Jace Godinez MD Unavailable Unavailable Aravind, Jace Godinez MD Unavailable Unavailable Aravind, Jace Godinez MD Unavailable Unavailable Aravind, Jace Godinez MD Unavailable Unavailable Aravind, Jace Godinez MD Unavailable Unavailable Aravind, Jace Godinez MD Unavailable Unavailable Aravind, Jace Godinez MD Unavailable Unavailable Aravind, Jace Godinez MD Unavailable Unavailable Aravind, A Herbert GRANDA Unavailable Unavailable Aravind, A Herbert GRANDA Unavailable Unavailable Aravind, A Herbert GRANDA Unavailable Unavailable Aravind, A Herbert GRANDA Unavailable Unavailable Aravind, A Herbert GRANDA Unavailable Unavailable Aravind, A Herbert GRANDA Unavailable Unavailable Aravind, A Herbert GRANDA Unavailable Unavailable Aravind, A Herbert GRANDA Unavailable Unavailable Aravind, A Herbert GRANDA Unavailable Unavailable Aravind, A Herbert GRANDA Unavailable Unavailable Aravind, A Herbert GRANDA Unavailable Unavailable Aravind, A Herbert GRANDA Unavailable Unavailable Aravind, A Herbert GRANDA Unavailable Unavailable Aravind, A Herbert GRANDA Unavailable Unavailable Aravind, A Herbert GRANDA Unavailable Unavailable Aravind, A Herbert GRANDA Unavailable Unavailable Aravind, A Herbert GRANDA Unavailable Unavailable Aravind, A Herbert GRANDA Unavailable Unavailable Aravind, A Herbert GRANDA Unavailable Unavailable Aravind, A Herbert GRANDA Unavailable Unavailable Aravind, A Herbert GRANDA Unavailable Unavailable Aravind, A Herbert GRANDA Unavailable Unavailable Aravind, A Herbert GRANDA Unavailable Unavailable Aravind, A Herbert GRANDA Unavailable Unavailable Aravind, A Herbert GRANDA Unavailable Unavailable Aravind, A Herbert GRANDA Unavailable Unavailable LAROCK, J HERBERT HAND MOUNTER Unavailable Unavailable LAROCK, J HERBERT HAND MOUNTER Unavailable Unavailable LAROCK, J HERBERT HAND MOUNTER Unavailable Unavailable LAROCK, J HERBERT HAND MOUNTER Unavailable Unavailable LAROCK, J HERBERT HAND MOUNTER Unavailable Unavailable LAROCK, J HERBERT HAND MOUNTER Unavailable Unavailable LAROCK, J HERBERT HAND MOUNTER Unavailable Unavailable LAROCK, J HERBERT HAND MOUNTER Unavailable Unavailable LAROCK, J HERBERT HAND MOUNTER Unavailable Unavailable LAROCK, J HERBERT HAND MOUNTER Unavailable Unavailable LAROCK, J HERBERT HAND MOUNTER Unavailable Unavailable LAROCK, J HERBERT HAND MOUNTER Unavailable Unavailable LAROCK, J HERBERT HAND MOUNTER Unavailable Unavailable LAROCK, J HERBERT HAND MOUNTER Unavailable Unavailable LAROCK, J HERBERT HAND MOUNTER Unavailable Unavailable LAROCK, J HERBERT HAND MOUNTER Unavailable Unavailable LAROCK, J HERBERT HAND MOUNTER Unavailable Unavailable LAROCK, J HERBERT HAND MOUNTER Unavailable Unavailable LAROCK, J HERBERT HAND MOUNTER Unavailable Unavailable LAROCK, J HERBERT HAND MOUNTER Unavailable Unavailable LAROCK, J HERBERT HAND MOUNTER Unavailable Unavailable LAROCK, J HERBERT HAND MOUNTER Unavailable Unavailable Sowmya Bashri MD Unavailable Unavailable Sowmya Bashir MD Unavailable Unavailable Sowmya Bashir MD Unavailable Unavailable Sowmya Bashir MD Unavailable Unavailable Sowmya Bashir MD Unavailable Unavailable Sowmya Bashir MD Unavailable Unavailable Sowmya Bashir MD Unavailable Unavailable Sowmya Bashir MD Unavailable Unavailable Sowmya Bashir MD Unavailable Unavailable Sowmya Bashir MD Unavailable Unavailable Sowmya Bashir MD Unavailable Unavailable Sowmya Bashir MD Unavailable Unavailable Sowmya Bashir MD Unavailable Unavailable Sowmya Bashir MD Unavailable Unavailable Sowmya Bashir MD Unavailable Unavailable Sowmya Bashir MD Unavailable Unavailable Sowmya Bashir MD Unavailable Unavailable Sowmya Bashir MD Unavailable Unavailable Sowmya Bashir MD Unavailable Unavailable Sowmya Bashir MD Unavailable Unavailable Sowmya Bashir MD Unavailable Unavailable Sowmya Bashir MD Unavailable Unavailable Sowmya Bashir MD Unavailable Unavailable Sowmya Bashir MD Unavailable Unavailable Sowmya Bashir MD Unavailable Unavailable Sowmya Bashir MD Unavailable Unavailable Sowmya Bashir MD Unavailable Unavailable Sowmya Bashir MD Unavailable Unavailable Sowmya Bashir MD Unavailable Unavailable Sowmya Bashir MD Unavailable Unavailable Sowmya Bashir MD Unavailable Unavailable Sowmya Bashir MD Unavailable Unavailable Sowmya Bashir MD Unavailable Unavailable Sowmya Bashir MD Unavailable Unavailable Sowmya Bashir MD Unavailable Unavailable Sowmya Bashir MD Unavailable Unavailable Sowmya Bashir MD Unavailable Unavailable Sowmya Bashir MD Unavailable Unavailable Sowmya Bashir MD Unavailable Unavailable Sowmya Bashir MD Unavailable Unavailable Sowmya Bashir MD Unavailable Unavailable Sowmya Bashir MD Unavailable Unavailable Sowmya Bashir MD Unavailable Unavailable Sowmya Bashir MD Unavailable Unavailable Sowmya Bashir MD Unavailable Unavailable Sowmya Bashir MD Unavailable Unavailable Sowmya Bashir MD Unavailable Unavailable Sowmya Bashir MD Unavailable Unavailable Sowmya Bashir MD Unavailable Unavailable Sowmya Bashir MD Unavailable Unavailable Sowmya Bashir MD Unavailable Unavailable Sowmya Bashir MD Unavailable Unavailable Sowmya Bashir MD Unavailable Unavailable Sowmya Bashir MD Unavailable Unavailable Sowmya Bashir MD Unavailable Unavailable Sowmya Bashir MD Unavailable Unavailable Sowmya Bashir MD Unavailable Unavailable Sowmya Bashir MD Unavailable Unavailable Sowmya Bashir MD Unavailable Unavailable Sowmya Bashir MD Unavailable Unavailable Sowmya Bashir MD Unavailable Unavailable Sowmya Bashir MD Unavailable Unavailable Sowmya Bashir MD Unavailable Unavailable Sowmya Bashir MD Unavailable Unavailable Elizabeth, Aubrey DO Unavailable Unavailable Elizabeth, Aubrey DO Unavailable Unavailable Elizabeth, Aubrey DO Unavailable Unavailable Elizabeth, Aubrey DO Unavailable Unavailable Elizabeth, Aubrey DO Unavailable Unavailable Elizabeth, Aubrey DO Unavailable Unavailable Elizabeth, Aubrey DO Unavailable Unavailable Elizabeth, Aubrey DO Unavailable Unavailable Elizabeth, Aubrey DO Unavailable Unavailable Elizabeth, Aubrey DO Unavailable Unavailable Elizabeth, Aubrey DO Unavailable Unavailable Elizabeth, Aubrey DO Unavailable Unavailable Elizabeth, Aubrey DO Unavailable Unavailable Elizabeth, Aubrey DO Unavailable Unavailable Elizabeth, Aubrey DO Unavailable Unavailable Elizabeth, Aubrey DO Unavailable Unavailable Elizabeth, Aubrey DO Unavailable Unavailable Elizabeth, Aubrey DO Unavailable Unavailable Elizabeth, Aubrey DO Unavailable Unavailable Elizabeth, Aubrey DO Unavailable Unavailable Elizabeth, Aubrey DO Unavailable Unavailable Elizabeth, Aubrey DO Unavailable Unavailable Elizabeth, Aubrey DO Unavailable Unavailable Elizabeth, Aubrey DO Unavailable Unavailable Elizabeth, Aubrey DO Unavailable Unavailable Elizabeth, Aubrey DO Unavailable Unavailable Elizabeth, Aubrey DO Unavailable Unavailable Elizabeth, Aubrey DO Unavailable Unavailable Elizabeth, Aubrey DO Unavailable Unavailable Elizabeth, Aubrey DO Unavailable Unavailable Elizabeth, Aubrey DO Unavailable Unavailable Elizabeth, Aubrey DO Unavailable Unavailable Elizabeth, Aubrey DO Unavailable Unavailable Elizabeth, Aubrey DO Unavailable Unavailable Elizabeth, Aubrey DO Unavailable Unavailable Elizabeth, Aubrey DO Unavailable Unavailable Elizabeth, Aubrey DO Unavailable Unavailable Elizabeth, Aubrey DO Unavailable Unavailable Elizabeth, Aubrey DO Unavailable Unavailable Elizabeth, Aubrey DO Unavailable Unavailable Elizabeth, Aubrey DO Unavailable Unavailable Elizabeth, Aubrey DO Unavailable Unavailable Elizabeth, Aubrey DO Unavailable Unavailable Elizabeth, Aubrey DO Unavailable Unavailable Elizabeth, Aubrey DO Unavailable Unavailable Elizabeth, Aubrey DO Unavailable Unavailable Elizabeth, Aubrey DO Unavailable Unavailable Elizabeth, Aubrey DO Unavailable Unavailable Elizabeth, Aubrey DO Unavailable Unavailable Elizabeth, Aubrey DO Unavailable Unavailable Elizabeth, Aubrey DO Unavailable Unavailable Elizabeth, Aubrey DO Unavailable Unavailable Elizabeth, Aubrey DO Unavailable Unavailable Elizabeth, Aubrey DO Unavailable Unavailable Elizabeth, Aubrey DO Unavailable Unavailable Elizabeth, Aubrey DO Unavailable Unavailable Elizabeth, Aubrey DO Unavailable Unavailable Elizabeth, Aubrey DO Unavailable Unavailable Elizabeth, Aubrey DO Unavailable Unavailable Elizabeth, Aubrey DO Unavailable Unavailable Elizabeth, Aubrey DO Unavailable Unavailable Elizabeth, Aubrey DO Unavailable Unavailable Elizabeth, Aubrey DO Unavailable Unavailable Elizabeth, Aubrey DO Unavailable Unavailable Elizabeth, Aubrey DO Unavailable Unavailable Elizabeth, Aubrey DO Unavailable Unavailable Elizabeth, Aubrey DO Unavailable Unavailable Elizabeth, Aubrey DO Unavailable Unavailable Elizabeth, Aubrey DO Unavailable Unavailable Elizabeth, Aubrey DO Unavailable Unavailable Elizabeth, Aubrey DO Unavailable Unavailable Elizabeth, Aubrey DO Unavailable Unavailable Elizabeth, Aubrey DO Unavailable Unavailable Elizabeth, Aubrey DO Unavailable Unavailable Elizabeth, Aubrey DO Unavailable Unavailable Mendoza Pizarro NPP Unavailable Unavailable Mendoza Pizarro NPP Unavailable Unavailable Mendoza Pizarro NPP Unavailable Unavailable Mendoza Pizarro NPP Unavailable Unavailable Lamine Weber MD Unavailable Unavailable GusLamine MD Unavailable Unavailable Gus, R Jericho MD Unavailable Unavailable Gus, R Jericho MD Unavailable Unavailable Gus, R Jericho MD Unavailable Unavailable Gus, R Jericho MD Unavailable Unavailable Gus, R Jericho MD Unavailable Unavailable Gus, R Jericho MD Unavailable Unavailable Gus, R Jericho MD Unavailable Unavailable Gus, R Jericho MD Unavailable Unavailable Gus, R Jericho MD Unavailable Unavailable Gus, R Jericho MD Unavailable Unavailable Gus, R Jericho MD Unavailable Unavailable Gus, R Jericho MD Unavailable Unavailable Gus, R Jericho MD Unavailable Unavailable Gus, R Jericho MD Unavailable Unavailable Gus, R Jericho MD Unavailable Unavailable Gus, R Jericho MD Unavailable Unavailable Gus, R Jericho MD Unavailable Unavailable Gus, R Jericho MD Unavailable Unavailable Gus, R Jericho MD Unavailable Unavailable Gus, R Jericho MD Unavailable Unavailable Gus, R Jericho MD Unavailable Unavailable Gus, R Jericho MD Unavailable Unavailable Gus, R Jericho Unavailable Unavailable Gus, R Jericho MD Unavailable Unavailable Gus, R Jericho MD Unavailable Unavailable Gus, R Jericho MD Unavailable Unavailable Gus, R Jericho MD Unavailable Unavailable Gus, R Jericho MD Unavailable Unavailable Gus, R Jericho Unavailable Unavailable Gus, R Jericho MD Unavailable Unavailable Gus, R Jericho MD Unavailable Unavailable Gus, R Jericho MD Unavailable Unavailable Gus, R Jericho MD Unavailable Unavailable Gus, R Jericho MD Unavailable Unavailable Gus, R Jericho Unavailable Unavailable Gus, R Jericho MD Unavailable Unavailable Gus, R Jericho Unavailable Unavailable Gus, R Jericho MD Unavailable Unavailable Gus, R Jericho MD Unavailable Unavailable Gus, R Jericho MD Unavailable Unavailable Gus, R Jericho MD Unavailable Unavailable Gus, R Jericho MD Unavailable Unavailable Gus, R Jericho MD Unavailable Unavailable Gus, R Jericho MD Unavailable Unavailable Gus, R Jericho MD Unavailable Unavailable Gus, R Jericho MD Unavailable Unavailable Gus, R Jericho MD Unavailable Unavailable Gus, R Jericho MD Unavailable Unavailable Gus, R Jericho MD Unavailable Unavailable Gus, R Jericho MD Unavailable Unavailable Gus, R Jericho MD Unavailable Unavailable Gus, R Jericho MD Unavailable Unavailable Gus, R Jericho MD Unavailable Unavailable Gus, R Jericho MD Unavailable Unavailable Gus, R Jericho MD Unavailable Unavailable Gus, R Jericho MD Unavailable Unavailable Gus, R Jericho MD Unavailable Unavailable Gus, R Jericho MD Unavailable Unavailable Gus, R Jericho MD Unavailable Unavailable Gus, R Jericho MD Unavailable Unavailable Gus, R Jericho MD Unavailable Unavailable Gus, R Jericho MD Unavailable Unavailable Gus, R Jericho MD Unavailable Unavailable Gus, R Jericho MD Unavailable Unavailable Gus, R Jericho MD Unavailable Unavailable Gus, R Jericho MD Unavailable Unavailable Gus, R Jericho MD Unavailable Unavailable Gus, R Jericho MD Unavailable Unavailable Gus, R Jericho MD Unavailable Unavailable Gus, R Jericho MD Unavailable Unavailable Gus, R Jericho MD Unavailable Unavailable Gus, R Jericho MD Unavailable Unavailable Gus, R Jericho MD Unavailable Unavailable Gus, R Jericho MD Unavailable Unavailable Gus, R Jericho MD Unavailable Unavailable Gus, R Jericho MD Unavailable Unavailable Gus, R Jericho MD Unavailable Unavailable Madhav Machuca MD Unavailable Unavailable Madhav Machuca MD Unavailable Unavailable Madhav Machuca MD Unavailable Unavailable Madhav Machuca MD Unavailable Unavailable Brigette O Tereza GRANDA Unavailable Unavailable Brigette O Tereza GRANDA Unavailable Unavailable Madhav Machuca MD Unavailable Unavailable Madhav Machuca MD Unavailable Unavailable Brigette O Tereza GRANDA Unavailable Unavailable Brigette O Tereza GRANDA Unavailable Unavailable Brigette O Tereza GRANDA Unavailable Unavailable Brigette O Tereza GRANDA Unavailable Unavailable Brigette, O Tereza GRANDA Unavailable Unavailable Brigette O Tereza GRANDA Unavailable Unavailable Brigette O Teerza GRANDA Unavailable Unavailable Brigette O Tereza GRANDA Unavailable Unavailable Brigette, O Tereza GRANDA Unavailable Unavailable Brigette, O Tereza GRANDA Unavailable Unavailable Brigette, O Tereza GRANDA Unavailable Unavailable Brigette O Tereza GRANDA Unavailable Unavailable Brigette, O Tereza GRANDA Unavailable Unavailable BrigetteMadhav ba MD Unavailable Unavailable Brigette, O Samah MD Unavailable Unavailable Madhav Machuca MD Unavailable Unavailable Madhav Machuca MD Unavailable Unavailable Madhav Machuca MD Unavailable Unavailable Madhav Machuca MD Unavailable Unavailable Madhav Machuca MD Unavailable Unavailable Madhav Machuca MD Unavailable Unavailable Madhav Machuca MD Unavailable Unavailable Madhav Machuca MD Unavailable Unavailable Madhav Machuca MD Unavailable Unavailable Madhav Machuca MD Unavailable Unavailable Madhav Machuca MD Unavailable Unavailable Madhav Machuca MD Unavailable Unavailable Madhav Machuca MD Unavailable Unavailable Madhav Machuca MD Unavailable Unavailable Madhav Machuca MD Unavailable Unavailable Madhav Machuca MD Unavailable Unavailable Madhav Machuca MD Unavailable Unavailable Madhav Machuca MD Unavailable Unavailable Madhav Machuca MD Unavailable Unavailable Madhav Machuca MD Unavailable Unavailable Madhav Machuca MD Unavailable Unavailable Madhav Machuca MD Unavailable Unavailable Madhav Machuca MD Unavailable Unavailable Madhav Machuca MD Unavailable Unavailable Madhav Machuca MD Unavailable Unavailable Madhav Machuca MD Unavailable Unavailable Madhav Machuca MD Unavailable Unavailable Madhav Machuca MD Unavailable Unavailable Madhav Machuca MD Unavailable Unavailable Madhav Machuca MD Unavailable Unavailable Madhav Machuca MD Unavailable Unavailable Madhav Machuca MD Unavailable Unavailable Madhav Machuca MD Unavailable Unavailable Madhav Machuca MD Unavailable Unavailable Madhav Machuca MD Unavailable Unavailable Madhav Machuca MD Unavailable Unavailable Madhav Machuca MD Unavailable Unavailable Madhav Machuca MD Unavailable Unavailable Madhav Machuca MD Unavailable Unavailable Madhav Machuca MD Unavailable Unavailable Madhav Machuca MD Unavailable Unavailable Madhav Machuca MD Unavailable Unavailable Madhav Machuca MD Unavailable Unavailable Brigette, O Samah MD Unavailable Unavailable Brigette, O Samah MD Unavailable Unavailable Brigette, O Samah MD Unavailable Unavailable Brigette, O Samah MD Unavailable Unavailable Brigette, O Samah MD Unavailable Unavailable Brigette, O Samah MD Unavailable Unavailable Brigette, O Samah MD Unavailable Unavailable Brigette, O Samah MD Unavailable Unavailable Brigette, O Samah MD Unavailable Unavailable Brigette, O Samah MD Unavailable Unavailable Brigette, O Samah MD Unavailable Unavailable Brigette, O Samah MD Unavailable Unavailable Brigette, O Samah MD Unavailable Unavailable Brigette, O Samah MD Unavailable Unavailable Alan, A Gaurav GRANDA Unavailable Unavailable Alan, A Gaurav GRANDA Unavailable Unavailable Alan, A Gaurav GRANDA Unavailable Unavailable Alan, Jace Nolasco MD Unavailable Unavailable Alan, Jace Nolasco MD Unavailable Unavailable Alan, Jace Nolasco MD Unavailable Unavailable Alan, A Gaurav GRANDA Unavailable Unavailable Laan, Jace Nolasco MD Unavailable Unavailable Alan, Jace Nolasco MD Unavailable Unavailable Alan, Jace Nolasco MD Unavailable Unavailable Alan, Jace Nolasco MD Unavailable Unavailable Alan, Jace Nolasco MD Unavailable Unavailable Alan, Jace Nolasco MD Unavailable Unavailable Alan, Jace Nolasco MD Unavailable Unavailable Alan, A Gaurav GRANDA Unavailable Unavailable Alan, Jace Nolasco MD Unavailable Unavailable Alan, Jace Nolasco MD Unavailable Unavailable Alan, Jace Nolasco MD Unavailable Unavailable Alan, Jace Nolasco MD Unavailable Unavailable Alan, Jace Nolasco MD Unavailable Unavailable Alan, Jace Nolasco MD Unavailable Unavailable Alan, Jace Nolasco MD Unavailable Unavailable Alan, Jace Nolasco MD Unavailable Unavailable Alan, Jace Nolasco MD Unavailable Unavailable Alan, Jace Nolasco MD Unavailable Unavailable Alan, Jace Nolasco MD Unavailable Unavailable Alan, Jace Nolasco MD Unavailable Unavailable Alan, Jace Nolasco MD Unavailable Unavailable Alan, Jace Nolasco MD Unavailable Unavailable Alan, Jace Nolasco MD Unavailable Unavailable Alan, Jace Nolasco MD Unavailable Unavailable Alan, Jace Nolasco MD Unavailable Unavailable Alan, Jace Nolasco MD Unavailable Unavailable Alan, Jace Nolasco MD Unavailable Unavailable Alan, Jace Nolasco MD Unavailable Unavailable Alan, Jace Nolasco MD Unavailable Unavailable Alan, Jace Nolasco MD Unavailable Unavailable Alan, Jace Nolasco MD Unavailable Unavailable Alan, Jace Nolasco MD Unavailable Unavailable Alan, A Gaurav MD Unavailable Unavailable Alan, A Gaurav MD Unavailable Unavailable Alan, A Gaurav MD Unavailable Unavailable Laan, A Gaurav MD Unavailable Unavailable Alan, A Gaurav MD Unavailable Unavailable Alan, A Gaurav MD Unavailable Unavailable Alan, A Gaurav MD Unavailable Unavailable Alan, A Gaurav MD Unavailable Unavailable Alan, A Gaurav MD Unavailable Unavailable Alan, A Gaurav MD Unavailable Unavailable Alan, A Gaurav MD Unavailable Unavailable Alan, A Gaurav MD Unavailable Unavailable Alan, A Gaurav MD Unavailable Unavailable Alan, A Gaurav MD Unavailable Unavailable Alan, A Gaurav MD Unavailable Unavailable Alan, A Gaurav MD Unavailable Unavailable Alan, A Gaurav MD Unavailable Unavailable Alan, A Gaurav MD Unavailable Unavailable Alan, A Gaurav MD Unavailable Unavailable Alan, A Gaurav MD Unavailable Unavailable Alan, A Gaurav MD Unavailable Unavailable Alan, A Gaurav MD Unavailable Unavailable Alan, A Gaurav MD Unavailable Unavailable Alan, A Gaurav MD Unavailable Unavailable Alan, A Gaurav MD Unavailable Unavailable Alan, A Gaurav MD Unavailable Unavailable Alan, A Gaurav MD Unavailable Unavailable Alan, A Gaurav MD Unavailable Unavailable Alan, A Gaurav MD Unavailable Unavailable Alan, A Gaurav MD Unavailable Unavailable Alan, A Gaurav MD Unavailable Unavailable Alan, A Gaurav MD Unavailable Unavailable Alan, A Gaurav Unavailable Unavailable Alan, A Gaurav Unavailable Unavailable Alan, A Gaurav Unavailable Unavailable Alan, A Gaurav Unavailable Unavailable Alan, A Gaurav Unavailable Unavailable Alan, A Gaurav Unavailable Unavailable Maring, Henrry PA Unavailable Unavailable Maring, Henrry PA Unavailable Unavailable Maring, Henrry PA Unavailable Unavailable Maring, Henrry PA Unavailable Unavailable Maring, Henrry PA Unavailable Unavailable Maring, Henrry PA Unavailable Unavailable Maring, Henrry PA Unavailable Unavailable Maring, Henrry PA Unavailable Unavailable Maring, Henrry PA Unavailable Unavailable Maring, Henrry PA Unavailable Unavailable Maring, Henrry PA Unavailable Unavailable Maring, Henrry PA Unavailable Unavailable Maring, Henrry PA Unavailable Unavailable Maring, Henrry PA Unavailable Unavailable Maring, Henrry PA Unavailable Unavailable Maring, Henrry PA Unavailable Unavailable Fish, B Malik GRANDA Unavailable Unavailable Fish, B Malik GRANDA Unavailable Unavailable Fish, B Malik GRANDA Unavailable Unavailable Fish, B Malik GRANDA Unavailable Unavailable Fish, B Malik GRANDA Unavailable Unavailable Fish, B Malik GRANDA Unavailable Unavailable Fish, B Malik RGANDA Unavailable Unavailable Fish, B Malik GRANDA Unavailable Unavailable Fish, B Malik GRANDA Unavailable Unavailable Fish, B Malik GRANDA Unavailable Unavailable Fish, B Malik GRANDA Unavailable Unavailable Fish, B Malik GRANDA Unavailable Unavailable Fish, B Malik GRANDA Unavailable Unavailable Fish, B Malik GRANDA Unavailable Unavailable Fish, B Malik GRANDA Unavailable Unavailable Fish, B Malik GRANDA Unavailable Unavailable Fish, B Malik GRANDA Unavailable Unavailable Fish, B Malik GRANDA Unavailable Unavailable Fish, B Malik GRANDA Unavailable Unavailable Fish, B Malik GRANDA Unavailable Unavailable Fish, B Malik GRANDA Unavailable Unavailable Fish, B Malik GRANDA Unavailable Unavailable Fish, B Malik GRANDA Unavailable Unavailable Fish, B Malik GRANDA Unavailable Unavailable Fish, B Malik GRANDA Unavailable Unavailable Fish, B Malik GRANDA Unavailable Unavailable Fish, B Malik GRANDA Unavailable Unavailable Fish, B Malik GRANDA Unavailable Unavailable Fish, B Malik GRANDA Unavailable Unavailable Fish, B Malik GRANDA Unavailable Unavailable Fish, B Malik GRANDA Unavailable Unavailable Fish, B Malik GRANDA Unavailable Unavailable Fish, B Malik GRANDA Unavailable Unavailable Fish, B Malik GRANDA Unavailable Unavailable Fish, B Malik GRANDA Unavailable Unavailable Fish, B Malik GRANDA Unavailable Unavailable Fish, B Malik GRANDA Unavailable Unavailable Fish, B Malik GRANDA Unavailable Unavailable Fish, B Malik GRANDA Unavailable Unavailable Fish, B Malik GRANDA Unavailable Unavailable Fish, B Malik GRANDA Unavailable Unavailable Fish, B Malik GRANDA Unavailable Unavailable Fish, B Malik GRANDA Unavailable Unavailable Fish, B Malik GRANDA Unavailable Unavailable Fish, B Malik GRANDA Unavailable Unavailable Fish, B Malik GRANDA Unavailable Unavailable Fish, B Malik GRANDA Unavailable Unavailable Fish, B Malik GRANDA Unavailable Unavailable Fish, B Malik GRANDA Unavailable Unavailable Fish, B Malik GRANDA Unavailable Unavailable Fish, B Malik GRANDA Unavailable Unavailable Fish, B Malik GRANDA Unavailable Unavailable Fish, B Malik GRANDA Unavailable Unavailable Fish, B Malik GRANDA Unavailable Unavailable Fish, B Malik GRANDA Unavailable Unavailable Fish, B Malik GRANDA Unavailable Unavailable Fish, B Malik GRANDA Unavailable Unavailable Virginie Sun NPP Unavailable Unavailable Virginie Sun NPP Unavailable Unavailable Virginie Sun NPP Unavailable Unavailable Virginie Sun NPP Unavailable Unavailable Virginie Sun NPP Unavailable Unavailable Virginie Sun NPP Unavailable Unavailable Virginie Sun NPP Unavailable Unavailable Virginie Sun NPP Unavailable Unavailable Virginie Sun NPP Unavailable Unavailable Virginie Sun NPP Unavailable Unavailable SELF-REFERRED, Dr. FIONA CUEVAS Unavailable Unavailab le MONSE, B SAL HAND MOUNTER Unavailable Unavailable MONSE, B SAL HAND MOUNTER Unavailable Unavailable MONSE, B SAL HAND MOUNTER Unavailable Unavailable MONSE, B SAL HAND MOUNTER Unavailable Unavailable MONSE, B SAL HAND MOUNTER Unavailable Unavailable MONSE, B SAL HAND MOUNTER Unavailable Unavailable MONSE, B SAL HAND MOUNTER Unavailable Unavailable MONSE, B SAL HAND MOUNTER Unavailable Unavailable MONSE, B SAL HAND MOUNTER Unavailable Unavailable MONSE, B SAL HAND MOUNTER Unavailable Unavailable MONSE, B SAL HAND MOUNTER Unavailable Unavailable MONSE, B SAL HAND MOUNTER Unavailable Unavailable MONSE, B SAL HAND MOUNTER Unavailable Unavailable MONSE, B SAL HAND MOUNTER Unavailable Unavailable MONSE, B SAL HAND MOUNTER Unavailable Unavailable MONSE, B SAL HAND MOUNTER Unavailable Unavailable MONSE, B SAL HAND MOUNTER Unavailable Unavailable MONSE, B SAL HAND MOUNTER Unavailable Unavailable MONSE, B SAL HAND MOUNTER Unavailable Unavailable MONSE, B SAL HAND MOUNTER Unavailable Unavailable MONSE, B SAL HAND MOUNTER Unavailable Unavailable MONSE, B SAL HAND MOUNTER Unavailable Unavailable MONSE, B SAL HAND MOUNTER Unavailable Unavailable MONSE, B SAL HAND MOUNTER Unavailable Unavailable MONSE, B SAL HAND MOUNTER Unavailable Unavailable MONSE, B SAL HAND MOUNTER Unavailable Unavailable MONSE, B SAL HAND MOUNTER Unavailable Unavailable MONSE, B SAL HAND MOUNTER Unavailable Unavailable MONSE, B SAL HAND MOUNTER Unavailable Unavailable MONSE, B SAL HAND MOUNTER Unavailable Unavailable MONSE, B SAL HAND MOUNTER Unavailable Unavailable MONSE, B SAL HAND MOUNTER Unavailable Unavailable MONSE, B SAL HAND MOUNTER Unavailable Unavailable MONSE, B SAL HAND MOUNTER Unavailable Unavailable MONSE, B SAL HAND MOUNTER Unavailable Unavailable MONSE, B SAL HAND MOUNTER Unavailable Unavailable MONSE, B SAL HAND MOUNTER Unavailable Unavailable MONSE, B SAL HAND MOUNTER Unavailable Unavailable MONSE, B SAL HAND MOUNTER Unavailable Unavailable MONSE, B SAL HAND MOUNTER Unavailable Unavailable MONSE, B SAL HAND MOUNTER Unavailable Unavailable MONSE, B SAL HAND MOUNTER Unavailable Unavailable MONSE, B SAL HAND MOUNTER Unavailable Unavailable MONSE, B SAL HAND MOUNTER Unavailable Unavailable MONSE, B SAL HAND MOUNTER Unavailable Unavailable MONSE, B SAL HAND MOUNTER Unavailable Unavailable MONSE, B SAL HAND MOUNTER Unavailable Unavailable MONSE, B SAL HAND MOUNTER Unavailable Unavailable MONSE, B SAL HAND MOUNTER Unavailable Unavailable MONSE, B SAL HAND MOUNTER Unavailable Unavailable MONSE, B SAL HAND MOUNTER Unavailable Unavailable MONSE, B SAL HAND MOUNTER Unavailable Unavailable MONSE, B SAL HAND MOUNTER Unavailable Unavailable MONSE, B SAL HAND MOUNTER Unavailable Unavailable MONSE, B SAL HAND MOUNTER Unavailable Unavailable MONSE, B SAL HAND MOUNTER Unavailable Unavailable MONSE, B SAL HAND MOUNTER Unavailable Unavailable MONSE, B SAL HAND MOUNTER Unavailable Unavailable MONSE, B SAL HAND MOUNTER Unavailable Unavailable MONSE, B SAL HAND MOUNTER Unavailable Unavailable MONSE, B SAL HAND MOUNTER Unavailable Unavailable MONSE, B SAL HAND MOUNTER Unavailable Unavailable Hill, A Ruthann HAND MOUNTER Unavailable Unavailable Hill, A Ruthann HAND MOUNTER Unavailable Unavailable Hill, A Ruthann HAND MOUNTER Unavailable Unavailable Hill, A Ruthann HAND MOUNTER Unavailable Unavailable Hill, A Ruthann HAND MOUNTER Unavailable Unavailable Hill, A Ruthann HAND MOUNTER Unavailable Unavailable Hill, A Ruthann HAND MOUNTER Unavailable Unavailable Hill, A Ruthann HAND MOUNTER Unavailable Unavailable Hill, A Ruthann HAND MOUNTER Unavailable Unavailable Hill, A Ruthann HAND MOUNTER Unavailable Unavailable Hill, A Ruthann HAND MOUNTER Unavailable Unavailable Hill, A Ruthann HAND MOUNTER Unavailable Unavailable Hill, A Ruthann HAND MOUNTER Unavailable Unavailable Hill, A Ruthann HAND MOUNTER Unavailable Unavailable Hill, A Ruthann HAND MOUNTER Unavailable Unavailable Hill, A Ruthann HAND MOUNTER Unavailable Unavailable Hill, A Ruthann HAND MOUNTER Unavailable Unavailable Hill, A Ruthann HAND MOUNTER Unavailable Unavailable Hill, A Ruthann HAND MOUNTER Unavailable Unavailable Hill, A Ruthann HAND MOUNTER Unavailable Unavailable Hill, A Ruthann HAND MOUNTER Unavailable Unavailable Hill, A Ruthann HAND MOUNTER Unavailable Unavailable Hill, A Ruthann HAND MOUNTER Unavailable Unavailable Hill, A Ruthann HAND MOUNTER Unavailable Unavailable Hill, A Ruthann HAND MOUNTER Unavailable Unavailable VanArnam JR, W Teo PA Unavailable Unavailable VanArnam JR, W Teo PA Unavailable Unavailable VanArnam JR, W Teo PA Unavailable Unavailable VanArnam JR, W Teo PA Unavailable Unavailable VanArnam JR, W Teo PA Unavailable Unavailable VanArnam JR, W Teo PA Unavailable Unavailable VanArnam JR, W Teo PA Unavailable Unavailable VanArnam JR, W Teo PA Unavailable Unavailable VanArnam JR, W Teo PA Unavailable Unavailable VanArnam JR, W Teo PA Unavailable Unavailable VanArnam JR, W Teo PA Unavailable Unavailable VanArnam JR, W Teo PA Unavailable Unavailable VanArnam JR, W Teo PA Unavailable Unavailable VanArnam JR, W Teo PA Unavailable Unavailable VanArnam JR, W Teo PA Unavailable Unavailable VanArnam JR, W Teo PA Unavailable Unavailable VanArnam JR, W Teo PA Unavailable Unavailable VanArnam JR, W Teo PA Unavailable Unavailable VanArnam JR, W Teo PA Unavailable Unavailable VanArnam JR, W Teo PA Unavailable Unavailable VanArnam JR, W Teo PA Unavailable Unavailable VanArnam JR, W Teo PA Unavailable Unavailable VanArnam JR, W Teo PA Unavailable Unavailable VanArnam JR, W Teo PA Unavailable Unavailable VanArnam JR, W Teo PA Unavailable Unavailable VanArnam JR, W Teo PA Unavailable Unavailable VanArnam JR, W Teo PA Unavailable Unavailable VanArnam JR, W Teo PA Unavailable Unavailable VanArnam JR, W Teo PA Unavailable Unavailable VanArnam JR, W Teo PA Unavailable Unavailable VanArnam JR, W Teo PA Unavailable Unavailable VanArnam JR, W Teo PA Unavailable Unavailable VanArnam JR, W Teo PA Unavailable Unavailable VanArnam JR, W Teo PA Unavailable Unavailable VanArnam JR, W Teo PA Unavailable Unavailable VanArnam JR, W Teo PA Unavailable Unavailable VanArnam JR, W Teo PA Unavailable Unavailable VanArnam JR, W Teo PA Unavailable Unavailable VanArnam JR, W Teo PA Unavailable Unavailable VanArnam JR, W Teo PA Unavailable Unavailable VanArnam JR, W Teo PA Unavailable Unavailable VanArnam JR, W Teo PA Unavailable Unavailable VanArnam JR, W Teo PA Unavailable Unavailable Obradovic, Vladan Unavailable Unavailable Obradovic, Vladan Unavailable Unavailable Obradovic, Vladan Unavailable Unavailable Obradovic, Vladan Unavailable Unavailable Obradovic, Vladan Unavailable Unavailable Obradovic, Vladan Unavailable Unavailable Obradovic, Vladan Unavailable Unavailable Obradovic, Vladan Unavailable Unavailable Obradovic, Vladan Unavailable Unavailable Obradovic, Vladan Unavailable Unavailable Obradovic, Vladan Unavailable Unavailable Obradovic, Vladan Unavailable Unavailable Obradovic, Vladan Unavailable Unavailable Obradovic, Vladan Unavailable Unavailable Obradovic, Vladan Unavailable Unavailable Obradovic, Vladan Unavailable Unavailable Obradovic, Vladan Unavailable Unavailable Obradovic, Vladan Unavailable Unavailable Obradovic, Vladan Unavailable Unavailable Obradovic, Vladan Unavailable Unavailable Obradovic, Vladan Unavailable Unavailable Obradovic, Vladan Unavailable Unavailable Obradovic, Vladan Unavailable Unavailable Obradovic, Vladan Unavailable Unavailable Obradovic, Vladan Unavailable Unavailable Obradovic, Vladan Unavailable Unavailable Obradovic, Vladan Unavailable Unavailable Obradovic, Vladan Unavailable Unavailable Obradovic, Vladan Unavailable Unavailable Obradovic, Vladan Unavailable Unavailable Obradovic, Vladan Unavailable Unavailable Obradovic, Vladan Unavailable Unavailable Obradovic, Vladan Unavailable Unavailable Obradovic, Vladan Unavailable Unavailable Obradovic, Vladan Unavailable Unavailable Obradovic, Vladan Unavailable Unavailable Obradovic, Vladan Unavailable Unavailable Obradovic, Vladan Unavailable Unavailable Obradovic, Vladan Unavailable Unavailable Obradovic, Vladan Unavailable Unavailable Obradovic, Vladan Unavailable Unavailable Obradovic, Vladan Unavailable Unavailable Obradovic, Vladan Unavailable Unavailable Obradovic, Vladan Unavailable Unavailable Obradovic, Vladan Unavailable Unavailable Obradovic, Vladan Unavailable Unavailable Obradovic, Vladan Unavailable Unavailable Obradovic, Vladan Unavailable Unavailable Matteo Finley Unavailable [phone] Matteo Finley Unavailable [phone] Matteo Finley Unavailable [phone] Tushar Matteo Unavailable [phone] TusharMaikolon Unavailable [phone] Matteo Finley Unavailable [phone] Elizabeth, Aubrey DO Unavailable Unavailable Elizabeth, Aubrey DO Unavailable Unavailable Elizabeth, Aubery DO Unavailable Unavailable Elizabeth, Aubrey DO Unavailable Unavailable Elizabeth, Aubrey DO Unavailable Unavailable Elizabeth, Aubrey DO Unavailable Unavailable Elizabeth, Aubrey DO Unavailable Unavailable Elizabeth, Aubrey DO Unavailable Unavailable Elizabeth, Aubrey DO Unavailable Unavailable Elizabeth, Aubrey DO Unavailable Unavailable Elizabeth, Aubrey DO Unavailable Unavailable Elizabeth, Aubrey DO Unavailable Unavailable Elizabeth, Aubrey DO Unavailable Unavailable Elizabeth, Aubrey DO Unavailable Unavailable Elizabeth, Aubrey DO Unavailable Unavailable Elizabeth, Aubrey DO Unavailable Unavailable Elizabeth, Aubrey DO Unavailable Unavailable Elizabeth, Aubrey DO Unavailable Unavailable Elizabeth, Aubrey DO Unavailable Unavailable Elizabeth, Aubrey DO Unavailable Unavailable Elizabeth, Aubrey DO Unavailable Unavailable Elizabeth, Aubrey DO Unavailable Unavailable Elizabeth, Aubrey DO Unavailable Unavailable Elizabeth, Aubrey DO Unavailable Unavailable Elizabeth, Aubrey DO Unavailable Unavailable Elizabeth, Aubrey DO Unavailable Unavailable Elizabeth, Aubrey DO Unavailable Unavailable Elizabeth, Aubrey DO Unavailable Unavailable Elizabeth, Aubrey DO Unavailable Unavailable Elizabeth, Aubrey DO Unavailable Unavailable Elizabeth, Aubrey DO Unavailable Unavailable Elizabeth, Aubrey DO Unavailable Unavailable Elizabeth, Aubrey DO Unavailable Unavailable Elizabeth, Aubrey DO Unavailable Unavailable Elizabeth, Aubrey DO Unavailable Unavailable Elizabeth, Aubrey DO Unavailable Unavailable Elizabeth, Aubrey DO Unavailable Unavailable Elizabeth, Aubrey DO Unavailable Unavailable Elizabeth, Aubrey DO Unavailable Unavailable Elizabeth, Aubrey DO Unavailable Unavailable Elizabeth, Aubrey DO Unavailable Unavailable Elizabeth, Aubrey DO Unavailable Unavailable Elizabeth, Aubrey DO Unavailable Unavailable Elizabeth, Aubrey DO Unavailable Unavailable Elizabeth, Aubrey DO Unavailable Unavailable Elizabeth, Aubrey DO Unavailable Unavailable Elizabeth, Aubrey DO Unavailable Unavailable Elizabeth, Aubrey DO Unavailable Unavailable Elizabeth, Aubrey DO Unavailable Unavailable Elizabeth, Aubrey DO Unavailable Unavailable Elizabeth, Aubrey DO Unavailable Unavailable Elizabeth, Aubrey DO Unavailable Unavailable Elizabeth, Aubrey DO Unavailable Unavailable Elizabeth, Aubrey DO Unavailable Unavailable Elizabeth, Aubrey DO Unavailable Unavailable Elizabeth, Aubrey DO Unavailable Unavailable Elizabeth, Aubrey DO Unavailable Unavailable Elizabeth, Aubrey DO Unavailable Unavailable Elizabeth, Aubrey DO Unavailable Unavailable Elizabeth, Aubrey DO Unavailable Unavailable Elizabeth, Aubrey DO Unavailable Unavailable Elizabeth, Aubrey DO Unavailable Unavailable Elizabeth, Aubrey DO Unavailable Unavailable Elizabeth, Aubrey DO Unavailable Unavailable Elizabeth, Aubrey DO Unavailable Unavailable Elizabeth, Aubrey DO Unavailable Unavailable Elizabeth, Aubrey DO Unavailable Unavailable Elizabeth, Aubrey DO Unavailable Unavailable Elizabeth, Aubrey DO Unavailable Unavailable Elizabeth, Aubrey DO Unavailable Unavailable Elizabeth, Aubrey DO Unavailable Unavailable Elizabeth, Aubrey DO Unavailable Unavailable Elizabeth, Aubrey DO Unavailable Unavailable Elizabeth, Aubrey DO Unavailable Unavailable Elizabeth, Aubrey DO Unavailable Unavailable Alan, A Gaurav GRANDA Unavailable Unavailable Alan, A Gaurav GRANDA Unavailable Unavailable Alan, A Gaurav GRANDA Unavailable Unavailable Aaln, A Gaurav GRANDA Unavailable Unavailable Alan, A Gaurav GRANDA Unavailable Unavailable Alan, A Gaurav GRANDA Unavailable Unavailable Alan, A Gaurav GRANDA Unavailable Unavailable Alan, A Gaurav GRANDA Unavailable Unavailable Alan, A Gaurav GRANDA Unavailable Unavailable Alan, A Gaurav GRANDA Unavailable Unavailable Alan, A Gaurav MD Unavailable Unavailable Alan, A Gaurav MD Unavailable Unavailable Alan, A Gaurav MD Unavailable Unavailable Alan, A Gaurav MD Unavailable Unavailable Alan, A Gaurav MD Unavailable Unavailable Alan, A Gaurav MD Unavailable Unavailable Alan, A Gaurav MD Unavailable Unavailable Alan, A Gaurav MD Unavailable Unavailable Alan, A Gaurav MD Unavailable Unavailable Alan, A Gaurav MD Unavailable Unavailable Alan, A Gaurav MD Unavailable Unavailable Alan, A Gaurav MD Unavailable Unavailable Alan, A Gaurav MD Unavailable Unavailable Alan, A Gaurav MD Unavailable Unavailable Alan, A Gaurav MD Unavailable Unavailable Alan, A Gaurav MD Unavailable Unavailable Alan, A Gaurav MD Unavailable Unavailable Alan, A Gaurav MD Unavailable Unavailable Alan, A Gaurav MD Unavailable Unavailable Alan, A Gaurav MD Unavailable Unavailable Alan, A Gaurav MD Unavailable Unavailable Alan, A Gaurav MD Unavailable Unavailable Alan, A Gaurav MD Unavailable Unavailable Alan, A Gaurav MD Unavailable Unavailable Alan, A Gaurav MD Unavailable Unavailable Alan, A Gaurav MD Unavailable Unavailable Alan, A Gaurav MD Unavailable Unavailable Alan, A Gaurav MD Unavailable Unavailable Alan, A Gaurav MD Unavailable Unavailable Alan, A Gaurav MD Unavailable Unavailable Alan, A Gaurav MD Unavailable Unavailable Alan, A Gaurav MD Unavailable Unavailable Alan, A Gaurav MD Unavailable Unavailable Alan, A Gaurav MD Unavailable Unavailable Alan, A Gaurav MD Unavailable Unavailable Alan, A Gaurav MD Unavailable Unavailable Alan, A Gaurav MD Unavailable Unavailable Alan, A Gaurav MD Unavailable Unavailable Alan, A Gaurav MD Unavailable Unavailable Alan, A Gaurav MD Unavailable Unavailable Alan, A Gaurav MD Unavailable Unavailable Alan, A Gaurav MD Unavailable Unavailable Alan, A Gaurav MD Unavailable Unavailable Alan, A Gaurav MD Unavailable Unavailable Alan, A Gaurav MD Unavailable Unavailable Alan, A Gaurav MD Unavailable Unavailable Alan, A Gaurav MD Unavailable Unavailable Alan, A Gaurav MD Unavailable Unavailable Alan, A Gaurav MD Unavailable Unavailable Alan, A Gaurav MD Unavailable Unavailable Alan, A Gaurav MD Unavailable Unavailable Alan, A Gaurav MD Unavailable Unavailable Alan, A Gaurav MD Unavailable Unavailable Alan, A Gaurav MD Unavailable Unavailable Alan, A Gaurav MD Unavailable Unavailable Alan, A Gaurav MD Unavailable Unavailable Alan, A Gaurav MD Unavailable Unavailable Alan, Jace Nolasco MD Unavailable Unavailable Alan, Jace Nolasco MD Unavailable Unavailable Alan, Jace Nolasco MD Unavailable Unavailable Alan, Jace Nolasco MD Unavailable Unavailable Alan, Jace Nolasco MD Unavailable Unavailable Alan, Jace Nolasco MD Unavailable Unavailable Alan, Jace Nolasco MD Unavailable Unavailable Alan, Jace Nolasco MD Unavailable Unavailable Alan, Jace Nolasco MD Unavailable Unavailable Alan, Jace Nolasco MD Unavailable Unavailable Fawad PACK MD Unavailable Unavailable Fawad PACK MD Unavailable Unavailable Faawd PACK MD Unavailable Unavailable RAMONEFawad MEDINA MD Unavailable Unavailable Fawad PACK MD Unavailable Unavailable Fawad PACK MD Unavailable Unavailable Fawad PACK MD Unavailable Unavailable Fawad PACK MD Unavailable Unavailable Fawad PACK MD Unavailable Unavailable Fawad PACK MD Unavailable Unavailable Fawad PACK MD Unavailable Unavailable Fawad PACK MD Unavailable Unavailable Fawad PACK MD Unavailable Unavailable Fawad PACK MD Unavailable Unavailable Fawad PACK MD Unavailable Unavailable Fawad PACK MD Unavailable Unavailable Fawad PACK MD Unavailable Unavailable Fawad PACK MD Unavailable Unavailable Fawad PACK MD Unavailable Unavailable Fawad PACK MD Unavailable Unavailable Fawad PACK MD Unavailable Unavailable Fawad PACK MD Unavailable Unavailable Fawad PACK MD Unavailable Unavailable Fawad PACK MD Unavailable Unavailable Fawad PACK MD Unavailable Unavailable Fawad PACK MD Unavailable Unavailable Fawad PACK MD Unavailable Unavailable Fawad PACK MD Unavailable Unavailable Fawad PACK MD Unavailable Unavailable Fawad PACK MD Unavailable Unavailable Fawad PACK MD Unavailable Unavailable Fawad PACK MD Unavailable Unavailable Fawad PACK MD Unavailable Unavailable Fawad PACK MD Unavailable Unavailable Fawad PACK MD Unavailable Unavailable Fawad PACK MD Unavailable Unavailable Fawad PACK MD Unavailable Unavailable Fawad PACK MD Unavailable Unavailable Fawad PACK MD Unavailable Unavailable Fawad PACK MD Unavailable Unavailable Fawad PACK MD Unavailable Unavailable Fawad PACK MD Unavailable Unavailable Fawad PACK MD Unavailable Unavailable Fawad PACK MD Unavailable Unavailable Fawad PACK MD Unavailable Unavailable Fawad PACK MD Unavailable Unavailable of L.C[facility] Medicine Occupation Unavailable Unavailable Ballehaninna, K Umashankar MD Unavailable Unavailabl e Ballehaninna, K Umashankar MD Unavailable Unavailabl e Ballehaninna, K Umashankar MD Unavailable Unavailabl e Ballehaninna, K Umashankar MD Unavailable Unavailabl e Ballehaninna, K Umashankar MD Unavailable Unavailabl e Ballehaninna, K Umashankar MD Unavailable Unavailabl e Ballehaninna, K Umashankar MD Unavailable Unavailabl e Ballehaninna, K Umashankar MD Unavailable Unavailabl e Ballehaninna, K Umashankar MD Unavailable Unavailabl e Ballehaninna, K Umashankar MD Unavailable Unavailabl e Re-disclosure Warning The records that you are about to access may contain information from federally-assisted alcohol or drug abuse programs. If such information is present, then the following federally mandated warning applies: This information has been disclosed to you from records protected by federal confidentiality rules (42 CFR part 2). The federal rules prohibit you from making any further disclosure of this information unless further disclosure is expressly permitted by the written consent of the person to whom it pertains or as otherwise permitted by 42 CFR part 2. A general authorization for the release of medical or other information is NOT sufficient for this purpose. The Federal rules restrict any use of the information to criminally investigate or prosecute any alcohol or drug abuse patient.The records that you are about to access may contain highly sensitive health information, the redisclosure of which is protected by Article 27-F of the [facility] Public Health law. If you continue you may have access to information: Regarding HIV / AIDS; Provided by facilities licensed or operated by the [facility] Office of Mental Health; or Provided by the [facility] Office for People With Developmental Disabilities. If such information is present, then the following [facility] mandated warning applies: This information has been disclosed to you from confidential records which are protected by state law. State law prohibits you from making any further disclosure of this information without the specific written consent of the person to whom it pertains, or as otherwise permitted by law. Any unauthorized further disclosure in violation of state law may result in a fine or alf sentence or both. A general authorization for the release of medical or other information is NOT sufficient authorization for further disc losure. Allergies and Adverse Reactions Type Description Substance Reaction Status Data Source(s ) Propensity to adverse reactions ADHESIVE TAPE Adhesive Tape Active [facility] Propensity to adverse reactions NO KNOWN ALLERGIES NO KNOWN ALLERGIES [facility] Drug allergy No Known Allergies No Known Allergies [facility] Propensity to adverse reactions NO ALLERGIES ON FILE NO ALLERGIES ON FILE [facility] Family History Family Member Name Family Member Gender Family Member Status Date o f Status Description Data Source(s) Unknown Male Problem [facility] ([facility]) Unknown Unknown Problem [facility] ([facility]) Encounters Encounter Providers Location Date Indications Data Source(s ) Outpatient Attender: Henrry HOANG 05/22/20 09:23:37 AM EDT - 05/22/2021 09:54:36 AM EDT [facility] ([facility] ) Outpatient Attender: SAL SHEA NP Physical Therapy 09:00:00 AM EDT [facility] ([facility]) Outpatient Attender: Aubrey Rowley 04/30 01:00:00 PM EDT [facility] ([facility] ) Outpatient Attender: Matteo Finley 04/05 12:17:09 PM EDT - 04/05/2021 12:36:41 PM EDT [facility] ([facility] ) Outpatient Attender: Ruthann Spence NPReferrer: Aubrey Barone DO 04/03/2021 09:35:30 AM EDT [facility] [facility] Recurring Patient Attender: CHLOE PACK MDReferrer: Gaurav conti MD 03/30/2021 11:33:51 AM EDT [facility] Outpatient Attender: Henrry HOANG 02/11/20 11:27:33 AM EDT - 02/10/2021 11:37:33 AM EDT [facility] ([facility] ) Outpatient Attender: Aubrey Rowley 02/06 09:00:00 AM EDT [facility] ([facility] ) Outpatient Attender: HERBERT GRESHAM NP 01/18 10:09:03 AM EDT - 01/31/2021 10:18:00 AM EDT [facility] ([facility] ) Outpatient Attender: Teo Grace JRReferrer: Aubrey nogueira DO 01/22/2021 11:09:49 AM EDT [facility] Outpatient Attender: Aubrey Rowley 01/05 11:00:00 AM EDT [facility] ([facility] ) Outpatient Attender: Ruthann Spence NPReferrer: Aubrey Barone DO 12/26/2020 01:04:58 PM EST [facility] Outpatient Attender: Teo Grace JRReferrer: Aubrey nogueira DO 12/11/2020 04:07:17 PM EST [facility] Outpatient Referrer: Jenifer Weiner MD [id number] 12/05/2020 12:21:59 PM EST [facility] Outpatient Attender: Jenifer de la fuente MDReferrer: Dr. JAIMES SELF-REFERRED [facility] [id number] 12/05/2020 11:27:33 AM EST [facility] [facility] Admitter: Zander DeanReferrer: Zander VILLALPANDO-MOB.PAT 12/02/2020 12:00:00 AM EST - 12/02/2020 10:14:26 AM EST [facility] Outpatient Attender: Zander Fields mitter: Zander DeanReferrer: Zander VILLALPANDO-MOB.PAT 11/28/2020 12:00:00 AM EST - 11/28/2020 12:07:18 PM EST [facility] Inpatient Attender: Zander DeanAdmitter: Zander urbano [id number] 11/22/2020 12:07:33 PM EST - 12/08/2020 06:37:00 PM EST [facility] Patient discharged. Outpatient Attender: SAL SHEA NP Physical Therapy 08:45:00 AM EST [facility] ([facility]) Outpatient Attender: Malik Platt MD Physical Therapy 11/14/2020 0 9:00:00 AM EST [facility] ([facility]) Outpatient Attender: CHLOE PACK MDReferrer: Aubrey Barone DO 10/26/2020 02:09:54 PM [facility] Outpatient Attender: Aubrey Rowley 10/26 08:20:00 AM EST [facility] ([facility] ) Recurring Patient Attender: CHLOE PACK MDReferrer: Gaurav conti MD 10/25/2020 03:42:13 PM [facility] Recurring Patient Attender: CHLOE PACK MDReferrer: Gaurav conti MD 10/25/2020 01:56:16 PM [facility] Recurring Patient Attender: CHLOE PACK MDReferrer: Gaurav conti MD 10/25/2020 01:55:35 PM [facility] Recurring Patient Referrer: Gaurav Phillips MD 10/25/2020 01: 51:36 PM [facility] Outpatient Attender: Zander Fields mitter: Zander DeanReferrer: Zander Dean MOB-PAT 10/16/2020 11:21:33 AM EST - 10/16/2020 12:35:03 PM EST [facility] Outpatient [id number] 10/16/2020 09:29:00 AM EST - 020 11:59:00 PM EST [facility] Patient discharged. Outpatient Attender: Jericho Weber MD 10/11/2020 08:43:00 AM EST [facility] Outpatient Attender: Bernarda 10/11/2020 0 7:33:00 AM EST PHYS, AUDIO, FOCUS [facility] PHYS, AUDIO, FOCUS OUTPATIENT [id number] 10/04/2020 01:04:00 PM EST - 020 02:56:00 PM EST [facility] Outpatient Attender: Josie marixa Urbina 10/03/2020 1 0:30:00 AM EST HAIR DRUG, SAP9 [facility] HAIR DRUG, SAP9 Recurring Patient Referrer: Gaurav Phillips MD 09/29/2020 11: 19:31 AM EST [facility] Recurring Patient Referrer: Gaurav Phillips MD 09/29/2020 11: 18:35 AM EST [facility] Recurring Patient Referrer: Aubrey Barone DO 09/29/2020 09:5 0:35 AM EST [facility] Outpatient Attender: Gaurav Phillips MDReferrer: Aubrey Corey 09/28/2020 11:30:29 AM EST [facility] Recurring Patient Referrer: Aubrey Barone DO 09/28/2020 10:3 4:45 AM EST [facility] Inpatient Attender: Zander DeanAdmitter: Zander urbano [id number].PERIOP 09/28/2020 09:19:50 AM EST [facility] Recurring Patient Referrer: Aubrey Barone DO 09/25/2020 12:5 3:54 PM EST [facility] Outpatient Attender: Tereza Machuca MD Main office - [facility] 09/21/2020 10:00:00 AM EST [facility] ([facility]) Recurring Patient Attender: Humberto Pizarro NPPReferrer: J Luis CRAIN.RC 2020 08:56:38 AM EST [facility] Recurring Patient Attender: Martha CRAIN.RC 11:29:30 AM EST [facility] Outpatient Attender: Aubrey Rowley 08/11 09:20:00 AM EDT [facility] ([facility] ) Outpatient Attender: Teo Bashir MDAdmitter: Teo Bashir MD E S1-SJ.EU 08/10/2020 02:15:47 PM EDT [facility] Immunizations Vaccine Date Status Description Data Source(s) COVID-19 VACCINE Pfizer 08/21/2021 12:00:00 AM EDT completed [facility] Vaccine Series Complete: YESThis Data wa s Submitted to [facility] [employer]. Influenza, injectable, MDCK, preservative free, amrik valent 07/31/2021 01:15:00 PM EDT completed [facility]) COVID-19 VACCINE Pfizer 01/15/2021 12:00:00 AM EDT completed [facility] Vaccine Series Complete: YESThis Data wa s Submitted to [facility] [employer]. COVID-19 VACCINE Pfizer 12/25/2020 12:00:00 AM EST completed [facility] Vaccine Series Complete: NOThis Data was Submitted to [facility] [employer]. Influenza, injectable, MDCK, preservative free, amrik valent 08/03/2020 02:17:00 PM EDT completed [facility]) Medications Medication Brand Name Start Date Product Form Dose Route Admi nistrative Instructions Pharmacy Instructions Status Indications Reaction Description Data Source(s) Immunization Adminstration,1 Vaccine/Toxoid 07/31/2021 12:00 :00 AM EDT completed [facility] ([facility]) Medication administered onsite Lisinopril 10 MG Oral Tablet Lisinopril 03/13/2021 12:00:00 AM EDT ORAL active [facility] ([facility]) Lisinopril 2.5 MG Oral Tablet Lisinopril 02/19/2021 12:00:00 AM EDT ORAL completed [facility] ([facility]) Covid-19 vaccine, Unspecified 01/15/2021 12:00:00 AM EDT completed [facility]) Medication administered onsite Atenolol 25 MG Oral Tablet Atenolol 01/05/2021 12:00:00 AM EDT ORAL completed [facility] ([facility]) Atenolol 50 MG Oral Tablet Atenolol 01/01/2021 12:00:00 AM EDT ORAL completed [facility] ([facility]) gabapentin 400 MG Oral Capsule Gabapentin 01/01/2021 12:00:00 AM EDT active [facility] ([facility]) Covid-19 vaccine, Unspecified 12/25/2020 12:00:00 AM EST completed [facility] Medication administered onsite Allergy 12/12/2020 12:00:00 AM EST ORAL active [facility] ([facility]) Febuxostat 10/11/2020 08:50:30 AM EST 80 MG active [facility] 24 HR Glipizide 5 MG Extended Release Oral Tablet Glipizide 10/11/2020 08:50:18 AM EST active [facility] Omeprazole 40 MG Delayed Release Oral Capsule Omeprazole 10/11/2020 08:49:58 AM EST 40 MG active [facility] Losartan Potassium 100 MG Oral Tablet Losartan 10/11/2020 08:49 :25 AM EST 100 MG active [facility] Fexofenadine hydrochloride 180 MG Oral T ablet fexofenadine (CLAUDIA) 180 MG tablet fexofenadine (CLAUDIA) 180 MG tablet 09/07/2020 12:00:00 AM EST 180 mg Oral active Take 180 mg by mouth daily [facility] Losartan Potassium 100 MG Oral Tablet losartan (COZAAR ) 100 MG tablet losartan (COZAAR) 100 MG tablet 09/04/2020 12:00:00 AM EST 100 mg Oral active Take 100 mg by mouth daily [facility] pioglitazone 30 MG Oral Tablet pioglitazone (ACTOS) 30 MG tablet pioglitazone (ACTOS) 30 MG tablet 09/02/2020 12:00:00 AM EST 30 mg Oral active Take 30 mg by mouth daily [facility] 24 HR Glipizide 5 MG Extended Release Or al Tablet glipiZIDE (GLUCOTROL) 5 MG 24 hr tablet glipiZIDE (GLUCOTROL) 5 MG 24 hr tablet 08/28/2020 12:00:[address] 5 mg Oral active Take 5 mg by mouth daily [facility] Hydralazine Hydrochloride 50 MG Oral Tab let hydrALAZINE (APRESOLINE) 50 MG tablet hydrALAZINE (APRESOLINE) 50 MG tablet 08/27/2020 12:00:00 AM EST 50 mg Oral active Take 50 mg by mouth 2 (two) times a day [facility] gabapentin 800 MG Oral Tablet gabapentin (NEURONTIN) 8 00 MG tablet gabapentin (NEURONTIN) 800 MG tablet 08/22/2020 12:00:00 AM EST 800 mg Oral active Take 800 mg by mouth 3 (three) times a day [facility] Colchicine 0.6 MG Oral Tablet colchicine 0.6 MG tablet colch icine 0.6 MG tablet 08/21/2020 12:00:00 AM EST 0.6 mg Oral active Take 0.6 mg by mouth daily as needed (for gout) [facility] Calcitriol 0.28562 MG Oral Capsule calcitriol (ROCALTR OL) 0.25 MCG capsule calcitriol (ROCALTROL) 0.25 MCG capsule 08/21/2020 12:00:00 AM EST 0.25 ug Oral active Take 0.25 mcg by viet th daily [facility] JOSE JEANPEN 100 UNIT/ML SOPN [id number] 08/21/2020 12:00:00 AM EST 20 U Subcutaneous active Inject 20 Units und er the skin nightly [facility] atorvastatin 20 MG Oral Tablet atorvastatin (LIPITOR) 20 MG tablet atorvastatin (LIPITOR) 20 MG tablet 08/20/2020 12:00:00 AM EDT 20 mg Oral active Take 20 mg by mouth nightly [facility] febuxostat 80 MG Oral Tablet Febuxostat 80 MG TABS Febuxosta t 80 MG TABS 08/20/2020 12:00:00 AM EDT 120 mg Oral active Take 120 mg by mouth daily [facility] Triamcinolone Acetonide 1 MG/ML Topical Cream triamcinolone (KENALOG) 0.1 % cream triamcinolone (KENALOG) 0.1 % cream 08/20/2020 12:00:00 AM EDT 1 {application} Topical active Apply 1 application topically 3 (three) times a day [facility] Amitriptyline Hydrochloride 25 MG Oral T ablet amitriptyline (ELAVIL) 25 MG tablet amitriptyline (ELAVIL) 25 MG tablet 08/15/2020 12:00:00 AM EDT aborted TK 1 T PO HS [facility] Atenolol 100 MG Oral Tablet Atenolol 08/11/2020 12:00:00 AM EDT ORAL completed [facility] ([facility]) Atenolol 100 MG / Chlorthalidone 25 MG Oral Tablet Atenolol- Chlorthalidone 08/11/2020 12:00:00 AM EDT completed [facility] ([facility]) Hydrochlorothiazide 12.5 MG Oral Tablet Hydrochlorothiazide 08/11/2020 12:00:00 AM EDT ORAL completed [facility] ([facility]) Omeprazole 40 MG Delayed Release Oral Ca psule omeprazole (PRILOSEC) 40 MG capsule omeprazole (PRILOSEC) 40 MG capsule 08/11/2020 12:00:00 AM EDT 40 mg Oral active Take 40 mg by mouth daily [facility] Fexofenadine hydrochloride 180 MG Oral Tablet Fexofenadine H CL 08/11/2020 12:00:00 AM EDT ORAL active M [facility] ([facility]) Immunization Adminstration,1 Vaccine/Toxoid 08/03/2020 12:00 :00 AM EDT completed [facility] ([facility]) Medication administered onsite Omeprazole 40 MG Delayed Release Oral Ca psule Omeprazole 40 MG Oral CAPSULE DELAYED RELEASE Omeprazole 40 MG Oral CAPSULE DELAYED RELEASE 12/24/19 12:00:00 AM EST aborted Hyperparathyroid ism, secondary renal (HCC) TAKE 1 CAPSULE BY MOUTH DAILY Tab[facility] Hyperparathyroidism, secondary renal (HC C) Atenolol 100 MG / Chlorthalidone 25 MG O ral Tablet Atenolol-Chlorthalidone 100- 25 MG Oral Tab Atenolol-Chlorthalidone 100-25 MG Oral Tab 11/12/2019 12:00:00 AM EST aborted Essential hypertension, benign TAKE 1 TABLET BY MOUTH EVERY MORNING Tabitha Essential hypertension, benign Losartan Potassium 100 MG Oral Tablet Losartan Potassium 100 MG Oral Tab 04/16/2019 12:00:00 AM EDT aborted TAKE 1 TABLET BY MOUTH DAILY [facility] Colchicine 0.6 MG Oral Tablet colchicine (COLSALIDE) 0 .6 MG Oral Tab colchicine (COLSALIDE) 0.6 MG Oral Tab 02/25/2019 12:00:00 AM EDT 0.6 mg Oral aborted Hyperuricemia Take 1 Tab by mouth DAILY NEE DED (gout). [facility] Hyperuricemia Insurance Providers Payer name Policy type / Coverage type Policy ID Covered green party ID Covered green party's relationship to talbot Policy [place] Plan Information BLUE PPO [id number] FIANCE [id number] BLUE PPO [id number] FIANCE [id number] EXCELLUS BCBS 20 [id number] Other [id number] [place] [id number] Self [id number] [place]ID [place] 37 [id number] Self [id number] JABARI MCO 22 [id number] Self [id number] JABARI MCO 22 [id number] Self [id number] [place] 37 [id number] Self [id number] [place] 37 [id number] Self [id number] Medicaid [place] [id number] Self [id number] [facility] [id number] S [id number] [facility] [place] [id number] Self [id number] JABARI O Jabari [id number] JABARI MEDICAID [id number] xxxxxxxxxxx [id number] JABARI MEDICAID [id number] Christy 7 [id number] JABARI [id number] Self [id number] JABARI MCO 22 [id number] Self [id number] 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 [id number] Employee [id number] [place] F [id number] SELF 7 [id number] Jabari Medicaid F [id number] SELF 7 [id number] Jabari Medicaid F [id number] SELF 7 [id number] Jabari Medicaid F [id number] SELF [id number] [place]EN emp [id number] Employee [id number] [employer] emp [id number] Employee [id number] INSURANCE COVID-19 [id number] [id number] INSURANCE COVID-19 COVID Christy C BAISDEN [employer] [facility] Nexant Basys emp [id number] Employee [id number] iAcademicATE emp [id number] Employee [id number] [place] CARE [place] O [id number] S [id number] MEDICAID [id number] MEDICAID [id number] BCBS/Excell[employer] Commercial [id number] JABARI-MEDICAID MANAGED CARE [id number] SELF [id number] SELF PAY UNAVAILABLE SELF UNAVAILA BLE JABARI [id number] SP [id number] Problems, Conditions, and Diagnoses Code Display Name Description Problem Type Effective Dates Data Source(s) E66.01 Morbid (severe) obesity due to excess ca lories Morbid (severe) obesity due to excess ca Diagnosis 12/07/2020 05:10:00 AM [facility] G62.9 Polyneuropathy, unspecified Polyneuropathy, unspecifie d Diagnosis 12/05/2020 11:27:33 AM [facility] Peripheral Vascular Disease Peripheral Vascular Diseas e Diagnosis 12/05/2020 11:27:33 AM [facility] U07.1 COVID-19 COVID-19 Diagnosis 12/02/2020 10:14:23 AM [facility] Z01.818 Encounter for other preprocedural examin ation Encounter for other preprocedural examination Diagnosis 10/16/2020 09:29:33 AM [facility] E66.01 Morbid (severe) obesity due to excess ca lories Morbid (severe) obesity due to excess calories Diagnosis 10/04/2020 01:04:24 PM [facility] K21.9 Gastro-esophageal reflux disease without esophagitis Gastro-esophageal reflux disease without esophagitis Diagnosis 10/04/2020 01:04:24 PM [facility] Z01.812 Encounter for preprocedural laboratory e xamination Encounter for preprocedural laboratory examination Diagnosis 10/04/2020 01:04:24 PM EST [facility] K21.9 Gastro-esophageal reflux disease without esophagitis Gastro-esophageal reflux disease without Diagnosis 09/21/2020 12:00:28 PM EST [facility] Z71.89 Other specified counseling Other specified counseling Diagnosis 2020 08:56:38 AM EST [facility] Surgeries/Procedures Procedure Description Date Indications Data Source(s) OFFICE OUTPATIENT VISIT 25 MINUTES 05/09/2021 12:00:00 AM EDT [facility] ([facility]) OFFICE OUTPATIENT VISIT 25 MINUTES 04/30/2021 12:00:00 AM EDT [facility] ([facility]) OFFICE OUTPATIENT VISIT 25 MINUTES 02/06/2021 12:00:00 AM EDT [facility] ([facility]) Trans Care SRV W/I 14D Of DC, Comm W/I 2 Dys Med Rec 01/05/2021 12:00:00 AM EDT [facility] ([facility] ) BLOOD TYPING ABO <td>TYPE AND SCREEN</td><td> Routine</td><td>11/28/2020 11:15 AM EST</td><td> Morbid obesity</td><td> </td> 11/28/2020 04:15:00 PM EST Morbid obesity [facility] Morbid obesity COMPREHENSIVE METABOLIC PANEL <td>COMPREHENSIVE METABO LIC PANEL</td><td>Routine</td><td>11/28/2020 11:15 AM EST</td><td> Morbid obesity</td><td> </td> 11/28/2020 04:15:00 PM EST Morbid obesity [facility] Morbid obesity OFFICE OUTPATIENT VISIT 25 MINUTES 11/15/2020 12:00:00 AM EST [facility] ([facility]) ECG ROUTINE ECG W/LEAST 12 LDS TRCG ONLY W/O I&R <td>E CG 12- LEAD</td><td>Routine</td><td>10/16/2020 12:29 PM EST</td><td> Morbid obesity</td><td></td> 10/16/2020 05:29:21 PM EST Morbid obesity [facility] Morbid obesity BLOOD COUNT COMPLETE AUTOMATED <td>CBC</td><td>Routine </td><td>10/16/2020 12:15 PM EST</td><td> Morbid obesity</td><td> </td> 10/16/2020 05:15:00 PM EST Morbid obesity [facility] Morbid obesity BLOOD TYPING ABO <td>TYPE AND SCREEN</td><td> Routine</td><td>10/16/2020 12:15 PM EST</td><td> Morbid obesity</td><td> </td> 10/16/2020 05:15:00 PM EST Morbid obesity [facility] Morbid obesity THYROID STIMULATING HORMONE TSH <td>TSH</td><td>Routin e</td><td>10/16/2020 12:15 PM EST</td><td> Morbid obesity</td><td> </td> 10/16/2020 05:15:00 PM EST Morbid obesity [facility] Morbid obesity HEMOGLOBIN GLYCOSYLATED A1C <td>HEMOGLOBIN A1C</td><td>Routine</td><td>10/16/2020 12:15 PM EST</td><td> Morbid obesity</td><td> </td> 10/16/2020 05:15:00 PM EST Morbid obesity [facility] Morbid obesity COMPREHENSIVE METABOLIC PANEL <td>COMPREHENSIVE METABO LIC PANEL</td><td>Routine</td><td>10/16/2020 12:15 PM EST</td><td> Morbid obesity</td><td> </td> 10/16/2020 05:15:00 PM EST Morbid obesity [facility] Morbid obesity TSTG ANS FUNCJ CARDIOVAGAL INNERVAJ PARASYMP 0 12:00:00 AM EST [facility] ([facility]) TSTG ANS FUNCJ CARDIOVAGAL INNERVAJ PARASYMP 0 12:00:00 AM EST [facility] ([facility]) TESTING AUTONOMIC NERVOUS SYSTEM FUNCTION 2020 1 2:00:00 AM EST [facility] ([facility]) TESTING AUTONOMIC NERVOUS SYSTEM FUNCTION 2020 1 2:00:00 AM EST [facility] ([facility] Results ID Date Data Source [id number] 08/08/2021 12:00:00 AM EDT [facility] Name Value Range Interpretation Code Description Data Shanita rce(s) Supporting Document(s) SARS-CoV2 Rapid Antigen Negative [facility] This lab was ordered by [facility] and reported by [facility]. ID Date Data Source [id number] 05/09/2021 08:58:00 AM EDT [facility] ([facility]) Name Value Range Interpretation Code Description Data Shanita rce(s) Supporting Document(s) Glucose [Mass/volume] in Serum or Plasma 90 [facility] ([facility]) Hemoglobin A1c/Hemoglobin.total in Blood Laboratory test result [facility] ([facility]) ID Date Data Source [id number] 04/30/2021 12:45:00 PM EDT [facility] ([facility]) Name Value Range Interpretation Code Description Data Shanita rce(s) Supporting Document(s) Microalbumin Urine 900.8 mg/L 1.3-20.0 [facility] ([facility]) NOTE: diluted and verified Urine Creatinine 153.2 mg/dL 30.0-125.0 [facility] ([facility]) Microalb/Creat Ratio 588.0 ug/mg 0.0-30.0 [facility] ([facility]) ID Date Data Source [id number] 04/30/2021 12:45:00 PM EDT [facility] ([facility]) Name Value Range Interpretation Code Description Data Shanita rce(s) Supporting Document(s) Cholesterol in HDL [Mass/volume] in Serum or Plasma 20 mg/dL 35-60 [facility] ([facility]) Cholesterol [Mass/volume] in Serum or Plasma 90 mg/dL 131-200 [facility] ([facility]) Triglyceride [Mass/volume] in Serum or Plasma 182 mg/dL 30-150 [facility] ([facility]) Cholesterol in LDL [Mass/volume] in Serum or Plasma by calcu lation 34 CALC 50-159 [facility] ([facility]) ID Date Data Source [id number] 04/30/2021 12:45:00 PM EDT [facility] ([facility]) Name Value Range Interpretation Code Description Data Shanita rce(s) Supporting Document(s) Urea nitrogen [Mass/volume] in Serum or Plasma 18 mg/dL 7-18 [facility] ([facility]) Creatinine 1.8 mg/dL 0.6-1.3 [facility] ([facility]) Glucose [Mass/volume] in Serum or Plasma 84 mg/dL 74-99 [facility] ([facility]) 100-125 mg/dL PRE-DIABETES/FASTING >126 mg/dL DIABETES/FASTING Sodium [Moles/volume] in Serum or Plasma 145 meq/L 136-145 [facility] ([facility]) Potassium [Moles/volume] in Serum or Plasma 4.5 meq/L 3.5-5.1 [facility] ([facility]) Chloride [Moles/volume] in Serum or Plasma 109 meq/L 98-107 [facility] ([facility]) Carbon dioxide, total [Moles/volume] in Serum or Plasma 30 meq/L 21 -32 [facility] ([facility]) Calcium [Mass/volume] in Serum or Plasma 9.0 mg/dL 8.5-10.1 [facility] ([facility]) Alkaline phosphatase isoenzyme [Units/volume] in Serum or Pl asma 92 mg/dL 46-116 [facility] ([facility]) Total Bilirubin 0.5 mg/dL 0.2-1.0 [facility] ([facility]) Alanine aminotransferase [Enzymatic activity/volume] in Seru m or Plasma 39 U/L 12-78 [facility] ([facility]) Aspartate aminotransferase [Enzymatic activity/volume] in Serum or Plasma 28 U/L 15-37 [facility] ([facility] ) Proteinase 3 Ab [Units/volume] in Serum 6.4 g/dL 6.4-8.2 [facility] ([facility]) A/G Ratio 1.13 CALC 1.00-1.90 [facility] Albumin [Mass/volume] in Serum or Plasma 3.4 g/dL 3.4-5.0 [facility] ([facility]) Glomerular filtration rate/1.73 sq M pre dicted among blacks [Volume Rate/Area] in Serum or Plasma by Creatinine-based formula (MDRD) 49 mL/min [facility] <content>CHRONIC KIDNEY DISEASE STAGING PER NKF</content>
<content></content>
<content>STAGE I & II GFR >= 60 NORMAL TO MILDLY DECREASED</content>
<content>STAGE III GFR 30-59 MODERATELY DECREASED</content>
<content>STAGE IV GFR 15-29 SEVERELY DECREASED</content>
<content>STAGE V GFR <15 VERY LITTLE GFR LEFT</content>
<content>ESRD GFR <15 ON SHOW CARD WRITER</content>
<content></content> Glomerular filtration rate/1.73 sq M pre dicted among non-blacks [Volume Rate/Area] in Serum or Plasma by Creatinine-based formula (MDRD) 40 mL/min [facility] ID Date Data Source [id number] 04/30/2021 12:45:00 PM EDT [facility] Name Value Range Interpretation Code Description Data Shanita rce(s) Supporting Document(s) Hemoglobin A1c/Hemoglobin.total in Blood 5.5 % [facility] ([facility]) Lab Result Notes: Pre-Diabetes 5.7 - 6.4 % Diabetes = or > 6.5% Glucose mean value [Mass/volume] in Blood Estimated fr om glycated hemoglobin 111 mg/dL 60-110 [facility] ID Date Data Source [id number] 04/30/2021 12:45:00 PM EDT [facility] Name Value Range Interpretation Code Description Data Shanita rce(s) Supporting Document(s) Leukocytes [#/volume] in Blood by Automated count 8.6 x10*3/UL 4.1-10 .9 [facility] Erythrocytes [#/volume] in Blood by Automated count 4.95 x10*6/UL 4.2 0-6.30 [facility] MCV 90.4 fL 80.0-97.0 [facility] ([facility]) Hematocrit [Volume Fraction] of Blood by Automated count 44.8 % 3 7.0-51.0 [facility] [facility]) Hemoglobin [Mass/volume] in Blood 14.8 g/dL 12.0-18.0 [facility] ([facility]) MCH 29.9 pg 26.0-32.0 [facility] ([facility]) Erythrocyte distribution width [Ratio] by Automated count 13.3 % 11.6-13.7 [facility] MCHC 33.1 g/dL 31.0-38.0 [facility] ([facility]) Platelets [#/volume] in Blood by Automated count 170 x10*3/UL 140-440 [facility] Lymph % 16.7 % 10.0-58.5 [facility] ([facility]) MPV 7.9 FL 7.8-11.0 [facility] ([facility]) Mid % 4.8 % 1.7-9.3 [facility] ([facility]) Lymph # 1.4 x10*3/UL 0.6-4.1 [facility] ([facility]) Neut % 78.5 % 37.0-92.0 [facility] ([facility]) Mid # 0.5 x10*3/UL 0.1-0.6 [facility] ([facility]) Neut # 6.7 x10*3/UL 2.0-7.8 [facility] ([facility]) ID Date Data Source [id number] 04/30/2021 12:45:00 PM EDT [facility] ([facility]) Name Value Range Interpretation Code Description Data Shanita rce(s) Supporting Document(s) Hemoglobin A1c/Hemoglobin.total in Blood Laboratory test result [facility] ID Date Data Source [id number] 04/03/2021 10:29:28 AM EDT [facility] PCName: Ernestina hyde BrandoncassiaTIMMY: 1970Provider: Mateo Spence: 03/30/2021 Chief ComplaintNeck pain Chief Complaint 2NYSW VAS PAIN Established: ERNESTINE completing section: History of Present Illness- Nerve Block: Pertinent Information CERVICAL, INTERLAMINAR (STEROID INJECTION). Targeting the C6 C7 level . 11/23/2020 Dr. Pack. 100 % of pain relief was provided which is ongoing. Allows patient to increase activity and functionality Including the following activities for longer periods of time with less pain: activities of daily living, sleeping, walking, standing, sitting and grocery shopping. INTERVAL EVENTS: include . Patient here today to follow-up on neck pain with headaches. Pain was described as achy, stabbing, sharp and was constant and reported the severity waxed and waned. He cannot tolerate NSAIDs as he only has one kidney. Underwent a C6-C7 cervical interlaminar injection on 11/23/2020- got 100%. Has been utilizing methocarbamol for pain control and muscle spasms occasionally. Active Problems 1. Cervical disc herniation (722.0) (M50.20) 2. Degenerative cervical spinal stenosis (723.0) (M48.02) 3. Neck pain (723.1) (M54.2) Allergies Adhesive Tape Hives; Rash; Recorded By: Cindy Candelario; 10/25/2020 2:19:05 PMDenied Iodinated Contrast Media Recorded By: Cindy Candelario; 10/25/2020 2:19:05 PM Latex Recorded By: Cindy Candelario; 10/25/2020 2:19:05 PM Current Meds Atenolol 100 MG Oral Tablet;Therapy: (Recorded:25Oct2020) to Recorded Atorvastatin Calcium 20 MG Oral Tablet;Therapy: (Recorded:25Oct2020) to Recorded Colchicine CAPS;Therapy: (Recorded:25Oct2020) to Recorded Febuxostat 80 MG Oral Tablet;Therapy: (Recorded:25Oct2020) to Recorded Fexofenadine HCl - 180 MG Oral Tablet;Therapy: (Recorded:25Oct2020) to Recorded hydrALAZINE HCl - 50 MG Oral Tablet;Therapy: (Recorded:25Oct2020) to Recorded Losartan Potassium TABS;Therapy: (Recorded:25Oct2020) to Recorded Methocarbamol 500 MG Oral Tablet; TAKE 1-2 TABLETS 3 TIMES DAILY NEEDEDFOR MUSCLE SPASMS;Therapy: 01Nov2020 to (Evaluate:25Jan2021) Requested for: 26Dec2020; LastRx:26Dec2020 Ordered Omeprazole 40 MG Oral Capsule Delayed Release;Therapy: (Recorded:25Oct2020) to Recorded Past Medical History History of Adult celiac disease (579.0) (K90.0) Denied: History of Clotting disorder Denied: History of anticoagulant therapy History of arthritis (V13.4) (Z87.39) History of diabetes mellitus (V12.29) (Z86.39) History of hypertension (V12.59) (Z86.79) History of Renal agenesis (753.0) (Q60.2) Surgical History Denied: History of Cardioverter defibrillator insertion History of Gastric bypass surgery 11/2020 History of Knee surgery History of Nephrectomy partial Denied: History of Permanent pacemaker insertion VitalsVital Signs Recorded: 30Mar2021 09:29AM Height: 5 ft 11 inWeight: 317 lb BMI Calculated: 44.21BSA Calculated: 2.56Systolic: 130, SittingDiastolic: 70, SittingHeart Rate: 98Respiration: 18Temperature: 97.2 FPain Scale: 0 Physical ExamGeneral: The patient is a well nourished/well developed, male, who is morbidly obese, who is in no acute distress and appears stated age. Gait and Station: Gait was normal. Psychological: Alert and oriented to person, place and time. Mood and affect are pleasant and appropriate. Judgement intact. Insight normal without delusions or hallucinations. Denies suicidal/homicidal ideation. Results/DataPer Dr. Phillips's note, there is a CT scan referenced, which was obtained on 06/04/2020 that reveals a large right pericentral disc osteophyte complex with severe impression on the anterior right cervical cord. Assessment 1. Cervical disc herniation (722.0) (M50.20) 2. Neck pain (723.1) (M54.2) Plan 1. MIPS - Survey Evaluation Evaluation Status: Complete Done: [id number] Depression Screening - Patient's PHQ-9 score is: : 0 - 4 none ...No fup plan neededHave you EVER received a Pneumococcal Vaccine...? : Yes - Patient has previously received a Pneumococcal vaccinationFLU - Have you received a flu shot in 2020 ? : No - Influenza not previously received due to patient declined or other patient reasonsBMI for Patients 18 and over : 25 or greater, BMI above normal parameters, follow-up plan documentedDo you use any kind of Tobacco? (smokes or uses smokeless tobacco): : Patient identified as a NON-Tobacco User<OBX.5.1><OBX.5.1.1>WOMEN </OBX.5.1.1><OBX.5.1.2> ANYONE >/= 65 - How many times in the past year have you had 4 or more</OBX.5.1.2></OBX.5.1> drinks in a day? : N/AMEN < 65 - How many times in the past year have you had 5 or more drinks in a day? : Zero 2. Follow-up in 6 months Follow Up Follow-up Status: Hold For - Scheduling Requested for: [id number] 6 month as a FUP for: : FUP for 15 minutes Medication:. There are no changes in current medications at this visit. Patient instructed to continue current regimen. Treatment includes: PROCEDURE(S): - Nerve Block Plan: The patient is not scheduled at this time but is a candidate for the following procedures, and I have discussed with the Patient the material risks, benefits, alternatives, including no treatment. They include, but are not limited to, bleeding, bruising, infection, damage to targeted and non-targeted tissue, increased pain, nerve injury or other reaction, if severe, could lead to CVA, arrhythmias or . The procedure is a/an, CERVICAL, INTERLAMINAR (STEROID INJECTION). Definitive levels to be determined by the interventional physician based on fluo roscopic imaging and symptomatology at the time of the procedure. This procedure is , targeting the C6 C7 level. THERAPIES: Therapy Treatment Plan: Deferred: All Therapies: Deferred: per patient request. FOLLOW UP: The patient should have a follow up visit in 6 months. CONTINUE TREATMENT: Mercedes will continue with the following:. Mercedes is participating in a home exercise program and is encouraged to continue. Miscellaneous: - WEIGHT LOSS: Weight loss was discussed and encouraged. PHQ-9 Patient's PHQ-9 score was 0-4 suggesting a Minimal level of Depression. No further plan is required at this time. The PHQ-9 was administered today as part of routine health risk screening for depression and psychosocial functioning. Screening for depression in chronic pain patients is standard of care due to the high rate of co-morbidity between these illnesses. In conjunction with other health risk assessment screening data, such as the Opioid Risk Tool and Visual Analogue Scale, this information is imperative for det ermining the patients risk factors and potential comorbidities prior to determining a safe and effective treatment plan. - REFRIGERATION SERVICE INSPECTOR: The patient was counseled on the following: treatment plan and future treatment options. Discussion/SummaryPatient here today to follow-up on neck pain with headaches. Pain was described as achy, stabbing, sharp and was constant and reported the severity waxed and waned. He cannot tolerate NSAIDs as he only has one kidney. Underwent a C6-C7 cervical interlaminar injection on 11/23/2020- got 100%. Has been utilizing methocarbamol for pain control and muscle spasms occasionally. Had gastric bypass surgery in Nov 2020 and has lost almost 50 lbs. His neck pain is doing well. He does use the methocarbamol occasionally. WIll f/u in 6 months time. NO refills needed today. If his neck pain returns and we are unable to get this under control Dr. Ingram had recommended that he may need an order so/neurosurgery consult to consult for surgery to decompress C3-C4 and to ev aluate esions of the spinal cord. Signatures Electronically signed by : Ruthann Spence NP; Mar 30 2021 9:43AM EST (Author) Electronically signed by : Ruthann Spence NP; Mar 30 2021 9:44AM EST (Author) Electronically signed by : Alessandra Griffin MD; Apr 03 2021 10:29AM EST Name Value Range Interpretation Code Description Data Shanita nash(s) Supporting Document(s) ID Date Data Source [id number] 04/03/2021 09:35:30 AM EDT [facility] PCName: Ernestina Hernández: 1970Provider: Mateo Spence: 03/30/2021 Name Value Range Interpretation Code Description Data Shanita rce(s) Supporting Document(s) ID Date Data Source [id number] 03/12/2021 09:21:00 AM EDT [facility] ([facility]) Name Value Range Interpretation Code Description Data Shanita rce(s) Supporting Document(s) Erythrocyte sedimentation rate by Westergren method 3 mm/hr 0-15 [facility] ([facility]) C reactive protein [Mass/volume] in Serum or Plasma by High sensitivity method 0.33 mg/dL 0.00-0.30 [facility] ([facility] ) <content>note:<nlbl:demographic_changed></content>
<content>note:<nlbl:demog raphic_changed></content>
<content>note:<nlbl:demographic_changed></content>
<content></content> ID Date Data Source [id number] 03/12/2021 09:21:00 AM ED [facility] Name Value Range Interpretation Code Description Data [facility] rce(s) Supporting Document(s) White Blood Count 7.8 10 4.0-10.0 [facility] ([facility]) Hemoglobin 15.4 g/dL 13.5-17.5 [facility] ([facility]) Red Blood Count 5.17 10 4.30-6.10 [facility] ([facility]) Mean Corpuscular Volume 93.6 fl 80.0-96.0 [facility] ([facility]) Hematocrit 48.4 % 42.0-52.0 [facility] Mean Corpuscular Hemoglobin 29.8 pg 27.0-33.0 ME D[facility] ([facility]) Mean Corpuscular HGB Conc 31.8 g/dL 32.0-36.5 MEDE NT ([facility]) Red Cell Distribution Width 13.6 % 11.5-14.5 [facility] ([facility]) Neutrophils % 69.1 % 36.0-66.0 [facility] ([facility]) Platelet Count, Automated 150 10 150-450 MED[facility] NT ([facility]) Lymph % 17.8 % 24.0-44.0 [facility]) Eos % 5.6 % 0.0-3.0 [facility] Baker % 5.8 % 2.0-8.0 [facility] Immature Granulocyte % 0.4 % 0-3.0 [facility] ([facility]) Baso % 1.3 % 0.0-1.0 [facility] Nucleated Red Blood Cell % 0.0 % 0-0 [facility] ([facility]) Lymph # 1.4 10 1.5-5.0 [facility] Neutrophils # 5.4 10 1.5-8.5 [facility] ([facility]) Baker # 0.5 10 0.0-0.8 [facility] Eos # 0.4 10 0.0-0.5 [facility] Baso # 0.1 10 0.0-0.2 [facility] ID Date Data Source [id number] 03/12/2021 09:21:00 AM EDT [facility] ([facility]) Name Value Range Interpretation Code Description Data Shanita rce(s) Supporting Document(s) Urate [Mass/volume] in Serum or Plasma 6.3 mg/dL 3.5-7.2 [facility] ([facility]) <content>note:<nlbl:demographic_changed></content>
<content>note:<nlbl:demog raphic_changed></content>
<content>note:<nlbl:demographic_changed></content>
<content></content> ID Date Data Source [id number] 03/12/2021 09:21:00 AM EDT [facility] ([facility]) Name Value Range Interpretation Code Description Data Shanita rce(s) Supporting Document(s) Glucose, Fasting 97 mg/dL 70-100 [facility] ([facility]) Creatinine For GFR 1.90 mg/dL 0.70-1.30 [facility] ([facility]) Blood Urea Nitrogen 17 mg/dL 7-18 [facility] ([facility]) Glomerular Filtration Rate 40.3 [facility] ([facility]) <content>Units are mL/min/1.73 m2</content>
<content></content>
<content>Chronic Kidney Disease Staging per NKF:</content>
<content></content>
<content>Stage I & II GFR >=60 Normal to Mildly Decreased</content>
<content>Stage III GFR 30- 59 Moderately Decreased</content>
<content>Stage IV GFR 15-29 Severely Decreased</content>
<content>Stage V GFR <15 Very Little GFR Left</content>
<content>ESRD GFR <15 on SHOW CARD WRITER</content>
<content></content> Sodium Level 141 meq/L 136-145 [facility] ([facility]) Chloride Level 111 meq/L 98-107 [facility] ([facility]) Potassium Serum 4.6 meq/L 3.5-5.1 [facility] ([facility]) Anion Gap 5 meq/L 8-16 [facility] [facility]) Carbon Dioxide Level 25 meq/L 21-32 [facility] ([facility]) Calcium Level 9.2 mg/dL 8.5-10.1 [facility] ([facility]) ID Date Data Source [id number] 02/06/2021 08:44:00 AM EDT [facility] ([facility]) Name Value Range Interpretation Code Description Data Shanita rce(s) Supporting Document(s) Hemoglobin A1c/Hemoglobin.total in Blood 5.7 % [facility] ([facility]) Lab Result Notes: Pre-Diabetes 5.7 - 6.4 % Diabetes = or > 6.5% Glucose mean value [Mass/volume] in Blood Estimated fr om glycated hemoglobin 117 mg/dL 60-110 [facility] ([facility] ) ID Date Data Source [id number] 02/06/2021 08:44:00 AM EDT [facility] ([facility]) Name Value Range Interpretation Code Description Data Shanita rce(s) Supporting Document(s) Urea nitrogen [Mass/volume] in Serum or Plasma 13 mg/dL 7-18 [facility] ([facility]) Glucose [Mass/volume] in Serum or Plasma 113 mg/dL 74-99 [facility] ([facility]) 100-125 mg/dL PRE-DIABETES/FASTING >126 mg/dL DIABETES/FASTING Sodium [Moles/volume] in Serum or Plasma 144 meq/L 136-145 [facility] ([facility]) Creatinine 1.9 mg/dL 0.6-1.3 [facility] ([facility]) NOTE: RESULT VERIFIED. Potassium [Moles/volume] in Serum or Plasma 4.1 meq/L 3.5-5.1 [facility] ([facility]) Carbon dioxide, total [Moles/volume] in Serum or Plasma 26 meq/L 21 -32 [facility] ([facility]) Calcium [Mass/volume] in Serum or Plasma 9.2 mg/dL 8.5-10.1 [facility] ([facility]) Chloride [Moles/volume] in Serum or Plasma 107 meq/L 98-107 [facility] ([facility]) Glomerular filtration rate/1.73 sq M pre dicted among non-blacks [Volume Rate/Area] in Serum or Plasma by Creatinine-based formula (MDRD) 38 mL/min [facility] Glomerular filtration rate/1.73 sq M pre dicted among blacks [Volume Rate/Area] in Serum or Plasma by Creatinine-based formula (MDRD) 46 mL/min [facility] ([facility] <content>CHRONIC KIDNEY DISEASE STAGING PER NKF</content>
<content></content>
<content>STAGE I & II GFR >= 60 NORMAL TO MILDLY DECREASED</content>
<content>STAGE III GFR 30-59 MODERATELY DECREASED</content>
<content>STAGE IV GFR 15-29 SEVERELY DECREASED</content>
<content>STAGE V GFR <15 VERY LITTLE GFR LEFT</content>
<content>ESRD GFR <15 ON SHOW CARD WRITER</content>
<content></content> ID Date Data Source [id number] 01/22/2021 11:09:49 AM EDT [facility] PCName: Mercedes DavilaDOB: 1970Provider: Teo KnappDOS: 01/11/2021 Reason For VisitMercedes Davila is here today for Cervical Spine. Mercedes has not had the Covid vaccine. Mercedes had his first Covid vaccine on 12/2020 ?. Mercedes is scheduled to have his second Covid vaccine on 01/17/21. Mercedes Davila is an established patient here for follow up. Patient states the pain has decreased since the last visit. Patient states no radiation to the upper extremity. The patient is currently residing at home. Other DOI/DOO: 05/2020. The patient's pain is managed by [facility]. Patient is unemployed. History of Present IllnessPatient is a 50-year-old male who presents to the office with a chief complaint of intermittent left-sided neck pain. Frequency and severity is minimal. No longer experiences any occipital headaches. Denies any radicular symptoms in his upper extremities. Was not able to attend physical therapy but has been seen by [facility]. AssessmentNeck pain PlanPlan, Assessment and Recommendation(s) The nature of the diagnosis and various treatment alternatives were discussed today, including invasive, operative, and non-operative options. Neck pain improved since last office visit. Unable to attend physical therapy but has been performing home exercises. He will continue with these exercises as well as [facility] for pain management and possible injections. Follow-up here as needed. Work / School NoteThe patient is not working at this time. This document was dictated and electronically signed using ZUCHEM software. A reasonable attempt at proof reading has been made to minimize errors. Please call with any questions. Signatures Electronically signed by : Yani Robles; Jan 18 2021 9:59PM EST (Author) Electronically signed by : Gaurav Phillips M.D.; Jan 22 2021 11:09AM EST Name Value Range Interpretation Code Description Data Shanita rce(s) Supporting Document(s) ID Date Data Source [id number] 01/08/2021 01:44:42 PM EDT [facility] Name Value Range Interpretation Code Description Data Shanita rce(s) Supporting Document(s) WBC 6.3 10*3/uL (4.1-11.0) [facility] RBC 4.64 10*6/uL (4.60-6.10) [facility] HGB 14.0 g/dL (13.5-18.0) [facility] HCT 42.6 % (41.0-53.0) [facility] MCV 91.9 fL (80.0-95.0) [facility] MCH 30.2 pg (27.0-32.0) [facility] MCHC 32.8 g/dL (32.0-36.0) [facility] RDW 14.2 % (10.5-14.5) [facility] PLT 120 10*3/uL (150-450) L [facility] MPV 9.1 fL (7.1-10.7) [facility] NEUT % 69.5 % (35.0-75.0) [facility] LYMPH % 16.7 % (16.0-52.0) [facility] MONO % 7.6 % (0.0-8.0) [facility] EOS % 5.2 % (0.0-5.0) H [facility] BASO % 1.0 % (0.0-4.0) [facility] NEUT # 4.3 10*3/uL (1.8-7.7) [facility] LYMPH # 1.0 10*3/uL (1.2-4.8) L [facility] MONO # 0.5 10*3/uL (0.0-0.8) [facility] Eosinophils [#/volume] in Blood by Automated count 0.3 10*3/uL (0.0-0 .5) Laboratory [facility] BASO # 0.1 10*3/uL (0.0-0.2) [facility] ID Date Data Source [id number] 01/08/2021 02:01:28 PM EDT [facility] Name Value Range Interpretation Code Description Data Shanita rce(s) Supporting Document(s) HEMOGLOBIN A1C @ 5.4 % (4.0-6.0) [facility] Performed using Siemens [place] immunoassa y.Care must be taken when interpreting GoM4rbcrfniv in patients with a hemoglobin variantor decreased erythrocyte lifespan. Values 5.7 - 6.4% suggest prediabetes.Values >=6.5% are diagnostic for diabetes.REFERENCE: DIABETES CARE 2018: 41(S13-S27). EST AVERAGE GLUCOSE 108 mg/dL Laboratory [facility] ID Date Data Source [id number] 01/08/2021 02:18:14 PM EDT [facility] Name Value Range Interpretation Code Description Data Shanita rce(s) Supporting Document(s) 25 HYDROXY VIT D @ 29 ng/mL (31-100) L Laboratory [facility] A REVIEW OF THE LITERATURE SUGGESTS THEF OLLOWING RANGES FOR THE CLASSIFICATIONOF 25-OH VITAMIN D STATUS: VITAMIN D STATUS 25-OH VITAMIN D DEFICIENCY <20 NG/MLINSUFFICIENCY 20-30 NG/MLSUFFICIENCY 31 - 100 NG/MLTOXICITY > 100 NG/ML A PEDIATRIC REFERENCE RANGE HAS NOT BEENESTABLISHED USING THIS METHOD. ID Date Data Source [id number] 01/08/2021 02:19:40 PM EDT [facility] Name Value Range Interpretation Code Description Data Shanita rce(s) Supporting Document(s) VITAMIN B12 @ 764 pg/mL (193-986) [facility] ID Date Data Source [id number] 01/08/2021 02:19:40 PM EDT [facility] Name Value Range Interpretation Code Description Data Shanita rce(s) Supporting Document(s) FERRITIN @ 172 ng/mL (26-388) [facility] ID Date Data Source [id number] 01/08/2021 02:19:40 PM EDT [facility] Name Value Range Interpretation Code Description Data Shanita rce(s) Supporting Document(s) IRON,TOTAL @ 82 ug/dL (35-150) [facility] UIBC @ 165 ug/dL (130-375) [facility] TIBC @ 247 ug/dL (250-450) L [facility] % SATURATION 33 % (12-50) [facility] ID Date Data Source [id number] 01/08/2021 02:19:40 PM EDT [facility] Name Value Range Interpretation Code Description Data Shanita rce(s) Supporting Document(s) SODIUM 145 mmol/L (136-145) [facility] POTASSIUM 4.2 mmol/L (3.6-5.2) [facility] CHLORIDE 117 mmol/L (100-108) H [facility] CO2 21 mmol/L (22-31) L [facility] ANION GAP 7 mmol/L (7-16) [facility] UREA NITROGEN 18 mg/dL (7-24) [facility] CREATININE 2.10 mg/dL (0.80-1.30) H [facility] BUN/CREAT RATIO 8.6 RATIO (10.0-20.0) L [facility] GLUCOSE 108 mg/dL (70-99) H [facility] CALCIUM 9.0 mg/dL (8.4-10.2) [facility] TOTAL PROTEIN 6.6 g/dL (6.4-8.2) [facility] ALBUMIN 3.7 g/dL (3.5-4.6) [facility] GLOBULIN 2.9 g/dL (2.7-4.3) [facility] ALB/GLOB RATIO 1.3 RATIO [facility] ALKALINE PHOSPHATASE 117 U/L (45-117) [facility] [address] BILIRUBIN,TOTAL 0.6 mg/dL (0.0-1.0) [facility] [address] PLEASE NOTE:Total bilirubin results may be falselyelevated in patients taking Eltrombopag. AST (SGOT) 40 U/L (11-39) H [facility] [address] ALT (SGPT) 58 U/L (12-78) [facility] [address] GFR 34 ml/min/1.73m2 (>59) L [facility] [address] GFR ( AMER) 41 ml/min/1.73m2 (>59) L Labo [facility] [address] GFR INTERPRETATION [facility] [address] --NORMAL KIDNEY FUNCTION OR MILD DISEASE - GFR >OR= 60CHRONIC KIDNEY DISEASE - GFR 15 - 59RENAL FAILURE - GFR <15 Est. GFR calculation based on the MDRDstudy equation, which assumes a steadystate for creatinine. Est. GFR should notbe used for medication dosing. ID Date Data Source [id number] 01/08/2021 02:19:40 PM EDT [facility] [address] Name Value Range Interpretation Code Description Data Shanita rce(s) Supporting Document(s) PHOSPHORUS 1.9 mg/dL (2.5-4.5) L [facility] [address] ID Date Data Source [id number] 01/08/2021 02:19:40 PM EDT [facility] [address] Name Value Range Interpretation Code Description Data Shanita rce(s) Supporting Document(s) MAGNESIUM 1.6 mg/dL (1.7-2.4) L [facility] [address] ID Date Data Source [id number] 01/11/2021 01:09:02 AM EDT [facility] Name Value Range Interpretation Code Description Data Shanita rce(s) Supporting Document(s) SR HCT 42.6 % [facility] FOLATE RBC 505 ng/mL [facility] Reference range: >=366 Performed By: [facility] [address] [place] [address] Crime Victim Specialist: Rae Pizano MD ID Date Data Source [id number] 12/26/2020 02:49:00 PM EST [facility] ([facility]) Name Value Range Interpretation Code Description Data Shanita rce(s) Supporting Document(s) Influenza A Amplification Laboratory test result [facility] Negative results do not preclude influen za or RSV virus infection and should not be used as the sole basis for treatment or other patient management decisions. Influenza B Amplification Laboratory test result [facility] ([facility]) Negative results do not preclude influen za or RSV virus infection and should not be used as the sole basis for treatment or other patient management decisions. RSV Amplification Laboratory test result [facility] ([facility]) Negative results do not preclude influen za or RSV virus infection and should not be used as the sole basis for treatment or other patient management decisions. Laboratory test finding (navigational concept) Laboratory test result [facility] ([facility]) A false negative result may occur if a s pecimen is improperly collected, transported or handled. False negative results may also occur if inadequate numbers of organisms are present in the specimen. As with any molecular test, mutations within the target regions of Xpert Xpress SARS-CoV-2 could affect primer and/or probe binding resulting in failure to detect the presence of virus. This test cannot rule out diseases caused by other bacterial or viral pathogens. DISCLAIMER: Testing was performed using the [employer] SARS-CoV-2 test. This test was developed and its performance characteristics determined by [employer]. This test has not been FDA cleared or approved. This test has been authorized by FDA under an Emergency Use Authorization (EUA). This test is only authorized for the duration of time the declaration that circumstances exist justifying the authorization of the emergency use of in vitro diagnostic tests for detection of SARS-CoV-2 virus and/or diagnosis of COVID-19 infection under section 564(b)(1) of the Act, 21 U.S.C. 360bbb-3(b)(1), unless the authorization is terminated or revoked sooner. ID Date Data Source [id number] 12/26/2020 02:49:00 PM EST [facility] Name Value Range Interpretation Code Description Data Shanita rce(s) Supporting Document(s) SARS coronavirus 2 RNA [Presence] in Res piratory specimen by KEITH with probe detection NEGATIVE [facility] This lab was ordered by [facility] a nd reported by [facility]. ID Date Data Source [id number] 12/26/2020 02:12:00 PM EST [facility] ([facility]) Name Value Range Interpretation Code Description Data Shanita rce(s) Supporting Document(s) Thyrotropin [Units/volume] in Serum or Plasma by Detec tion limit <= 0.05 mIU/L 0.808 uIU/ML 0.358-3.740 [facility] ([facility] ) <content>note:<nlbl:demographic_changed> </content>
<content></content> Thyroxine (T4) Ab [Units/volume] in Serum 7.2 ug/dL 4.5-12.0 [facility] ([facility]) <content>note:<nlbl:demographic_changed> </content>
<content></content> ID Date Data Source [id number] 12/26/2020 02:12:00 PM EST [facility] ([facility]) Name Value Range Interpretation Code Description Data Shanita rce(s) Supporting Document(s) Glucose, Fasting 116 mg/dL 70-100 [facility] ([facility]) Glomerular Filtration Rate 14.2 [facility] ([facility]) <content>Units are mL/min/1.73 m2</content>
<content></content>
<content>Chronic Kidney Disease Staging per NKF:</content>
<content></content>
<content>Stage I & II GFR >=60 Normal to Mildly Decreased</content>
<content>Stage III GFR 30- 59 Moderately Decreased</content>
<content>Stage IV GFR 15-29 Severely Decreased</content>
<content>Stage V GFR <15 Very Little GFR Left</content>
<content>ESRD GFR <15 on SHOW CARD WRITER</content>
<content></content> Creatinine For GFR 4.70 mg/dL 0.70-1.30 [facility] ([facility]) Blood Urea Nitrogen 53 mg/dL 7-18 [facility] ([facility]) Sodium Level 141 meq/L 136-145 [facility] ([facility]) Potassium Serum 4.5 meq/L 3.5-5.1 [facility] ([facility]) Carbon Dioxide Level 20 meq/L 21-32 [facility] ([facility]) Chloride Level 114 meq/L 98-107 [facility] ([facility]) Anion Gap 7 meq/L 8-16 [facility] Calcium Level 8.8 mg/dL 8.5-10.1 [facility] ([facility]) ID Date Data Source [id number] 12/26/2020 02:12:00 PM EST [facility] ([facility]) Name Value Range Interpretation Code Description Data Shanita rce(s) Supporting Document(s) Ast/Sgot 24 U/L 7-37 [facility] ([facility]) Bilirubin,Total 0.4 mg/dL 0.2-1.0 [facility] ([facility]) Alt/SGPT 50 U/L 12-78 [facility] ([facility]) Alkaline Phosphatase 113 U/L 45-117 [facility] ([facility]) Total Protein 6.8 GM/DL 6.4-8.2 [facility] ([facility]) Bilirubin,Direct 0.2 mg/dL 0.0-0.2 [facility] ([facility]) Albumin 3.9 GM/DL 3.2-5.2 [facility] ([facility]) Albumin/Globulin Ratio 1.3 [facility] ([facility]) ID Date Data Source [id number] 12/26/2020 02:12:00 PM EST [facility] ([facility]) Name Value Range Interpretation Code Description Data Shanita rce(s) Supporting Document(s) CPK Creatine Phosphokinase 182 U/L 39-308 [facility] ([facility]) MB/CK Relative Index 1.65 [facility] <content>DIAGNOSIS CRITERIA</content>
<content>MMB ng/ml Relative Index (RI)</content>
<content>NON-AMI < or = 5 N/A</content>
<content>HERNANDEZ ZONE > 5 < or = 4</content>
<content>AMI > 5 > 4</content>
<content></content> CK-MB Value Mass 3.0 ng/mL [facility] ([facility]) Troponin I Laboratory test result [facility] ([facility] <content>Troponin I Reference Interval f or Siemens [place] LOCI:</content>
<content></content>
<content>99th Percentile= 0.00-0.045 ng/ml</content>
<content></content>
<content>Risk Stratification:</content>
<content><= 0.10 ng/ml Decreased Risk for Adverse Clinical</content>
<content>Events.</content>
<content>0.10-1.50 ng/ml Increased Risk for Adverse Clinical</content>
<content>Events. Evaluation of additional</content>
<content>criterion and/or repeat testing in 2-6</content>
<content>hours is suggested to rule out myocardial</content>
<content>damage.</content>
<content>>= 1.50 ng/ml Indicative of Myocardial Injury.</content>
<content></content> ID Date Data Source [id number] 12/26/2020 02:12:00 PM EST [facility] Name Value Range Interpretation Code Description Data Shanita rce(s) Supporting Document(s) White Blood Count 7.2 10 4.0-10.0 [facility] Red Blood Count 4.62 10 4.30-6.10 [facility] ([facility]) Hemoglobin 13.6 g/dL 13.5-17.5 [facility] Hematocrit 44.6 % 42.0-52.0 [facility] Mean Corpuscular Hemoglobin 29.4 pg 27.0-33.0 [facility] ([facility]) Mean Corpuscular Volume 96.5 fl 80.0-96.0 [facility] ([facility]) Red Cell Distribution Width 13.2 % 11.5-14.5 [facility] ([facility]) Platelet Count, Automated 164 10 150-450 [facility] ([facility]) Mean Corpuscular HGB Conc 30.5 g/dL 32.0-36.5 [facility] ([facility]) Lymph % 14.8 % 24.0-44.0 [facility]) Neutrophils % 70.2 % 36.0-66.0 [facility] ([facility]) Baso % 1.3 % 0.0-1.0 [facility] [place] [facility] Eos % 4.3 % 0.0-3.0 [facility]) Baker % 9.1 % 2.0-8.0 [facility]) Immature Granulocyte % 0.3 % 0-3.0 [facility] ([facility]) Nucleated Red Blood Cell % 0.0 % 0-0 [facility] ([facility]) Neutrophils # 5.1 10 1.5-8.5 [facility] [facility] Baker # 0.7 10 0.0-0.8 [facility] Lymph # 1.1 10 1.5-5.0 [facility]) Baso # 0.1 10 0.0-0.2 [facility]) Eos # 0.3 10 0.0-0.5 [facility]) ID Date Data Source [id number] 12/26/2020 01:04:58 PM EST [facility] PCName: Ernestina DavilaDOB: 1970Provider: Mateo Spence: 12/26/2020 Chief ComplaintNeck pain status post block follow-up Chief Complaint 2NYSW VAS PAIN Established: Patient has no more neck pain. Just leg pain. [facility] S[facility]HA completing section: [facility] History of Present IllnessRecent test/procedures: Patient has had the following tests/procedures since their last visit: Gastric bypass surgery at [facility] . Date of test/procedure: 11/2020. Patient was asked and denies being seen by any Physicians since their last visit. The patient was last seen by a [facility] provider on 10/25/20. At today's visit patient presents with their Self Implanted Devices The patient does not have any implanted devices. The patient has a glucose monitoring device. Patient is not currently working. 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 The patient is being seen for a post block examination. The date of onset of symptoms is approx imately 6 months . - Nerve Block: Pertinent Information CERVICAL, INTERLAMINAR (STEROID INJECTION). Targeting the C6 C7 level . 11/23/2020 Dr. Pack. 100 % of pain relief was provided which is ongoing. Allows patient to increase activity and functionality Including the following activities for longer periods of time with less pain: activities of daily living, sleeping, walking, standing, sitting and grocery shopping. INTERVAL EVENTS: include . Patient here today to follow- up on neck pain with headaches. Pain is described as achy, stabbing, sharp and constant however severity waxes and wanes. He cannot tolerate NSAIDs as he only has one kidney. Underwent a C6-C7 cervical interlaminar injection on 11/23/2020. Here today for follow-up. Has been utilizing methocarbamol for pain control and muscle spasms. He reports the pain he is having is now in his right lower leg after hurting his leg yesterday. He slipped on concrete and twisted knee. He is going for an MRI of that knee next week- following w/ outside provider. Underwent gastric bypass surgery w/ Dr. Nazario on Dec 06 2020. Review of SystemsConstitutional: Normal. Eyes: Normal. ENT: normal. Cardiovascular: Normal. Respiratory: Normal. Gastrointestinal: Normal. Genitourinary: Normal. Musculoskeletal: joint pain, but no neck pain. Integumentary: Normal. Neurological: Normal. Psychiatric: Normal. Endocrine: Normal. Hematologic/Lymphatic: Normal. Active Problems 1. Cervical disc herniation (722.0) (M50.20) 2. Degenerative cervical spinal stenosis (723.0) (M48.02) 3. Neck pain (723.1) (M54.2) Allergies Adhesive Tape Hives; Rash; Recorded By: Cindy Candelario; 10/25/2020 2:19:05 PMDenied Iodinated Contrast Media Recorded By: Cindy Candelario; 10/25/2020 2:19:05 PM Latex Recorded By: Cindy Candelario; 10/25/2020 2:19:05 PM Current Meds Atenolol 100 MG Oral Tablet;Therapy: (Recorded:25Oct2020) to Recorded Atorvastatin Calcium 20 MG Oral Tablet;Therapy: (Recorded:25Oct2020) to Recorded Colchicine CAPS;Therapy: (Recorded:25Oct2020) to Recorded Febuxostat 80 MG Oral Tablet;Therapy: (Recorded:25Oct2020) to Recorded Fexofenadine HCl - 180 MG Oral Tablet;Therapy: (Recorded:25Oct2020) to Recorded hydrALAZINE HCl - 50 MG Oral Tablet;Therapy: (Recorded:25Oct2020) to Recorded Losartan Potassium TABS;Therapy: (Recorded:25Oct2020) to Recorded Methocarbamol 500 MG Oral Tablet; TAKE 1-2 TABLETS 3 TIMES DAILY NEEDEDFOR MUSCLE SPASMS;Therapy: 01Nov2020 to (Evaluate:[id number]) Requested for: 01Nov2020; LastRx:01Nov2020 Ordered Omeprazole 40 MG Oral Capsule Delayed Release;Therapy: (Recorded:25Oct2020) to Recorded Pioglitazone HCl TABS;Therapy: (Recorded:25Oct2020) to Recorded Past Medical History History of Adult celiac disease (579.0) (K90.0) Denied: History of Clotting disorder Denied: History of anticoagulant therapy History of arthritis (V13.4) (Z87.39) History of diabetes mellitus (V12.29) (Z86.39) History of hypertension (V12.59) (Z86.79) History of Renal agenesis (753.0) (Q60.2) Surgical History Denied: History of Cardioverter defibrillator insertion History of Gastric bypass surgery 11/2020 History of Knee surgery History of Nephrectomy partial Denied: History of Permanent pacemaker insertion Family History Family history of diabetes mellitus (V18.0) (Z83.3) Family history of hypertension (V17.49) (Z82.49) Family history of arthritis (V17.7) (Z82.61) Family history of cardiac disorder (V17.49) (Z82.49) Family history of hypertension (V17.49) (Z82.49) Family history of diabetes mellitus (V18.0) (Z83.3) Family history of hypertension (V17.49) (Z82.49) Family history of malignant neoplasm of breast (V16.3) (Z80.3) Family history of malignant neoplasm of thyroid (V16.8) (Z80.8) Social History Current non-drinker of alcohol (V49.89) (Z78.9) Engaged to be Never a smoker No illicit drug use Not currently employed VitalsVital Signs Recorded: 26Dec2020 09:54AM Height: 5 ft 11 inWeight: 360 lb BMI Calculated: 50.21BSA Calculated: 2.71Systolic: 102, SittingDiastolic: 52, SittingHeart Rate: 60Respiration: 18Temperature: 96.8 FHeight measured w/wo shoes: w/shoesPain Scale: 9 Physical ExamGeneral: The patient is a well nourished/well developed, male, who is morbidly obese, who is in mild distress and appears stated age. Eyes: Lids are atraumatic, no lesions, sclerae are anicteric. currently wearing eyeglasses. Ears, Nose, Mouth, Throat: Patient wearing a mask due to COVID-19. Respiratory: Normal chest expansion and respiratory effort. Gait and Station: Gait was normal. Skin: Warm, dry, acyanotic. Psychological: Alert and oriented to person, place and time. Mood and affect are pleasant and appropriate. Judgement intact. Insight normal without delusions or hallucinations. Denies suicidal/homicidal ideation. Assessment 1. Neck pain (723.1) (M54.2) 2. Cervical disc herniation (722.0) (M50.20) Plan 1. Stop: Pioglitazone HCl TABS 2. Renew: Methocarbamol 500 MG Oral Tablet; TAKE 1-2 TABLETS 3 TIMES DAILY NEEDED FOR MUSCLE SPASMS 3. Follow-up in 2 months Follow Up Follow-up Status: Hold For - Scheduling Requested for: [id number] Appointment for 15 or 30 minutes : Schedule 15 minute appointment Medication:. There are no changes in current medications at this visit. Patient instructed to continue current regimen. Treatment includes: PROCEDURE(S): The patient defers blocks/procedures at this time THERAPIES: Therapy Treatment Plan: Deferred: All Therapies: Deferred: per patient request. FOLLOW UP: The patient should have a follow up visit in 2 months. CONTINUE TREATMENT: Mercedes will continue with the following:. Mercedes is participating in a home exercise program and is encouraged to continue. Miscellaneous: - WEIGHT LOSS: Weight loss was discussed and encouraged. - REFRIGERATION SERVICE INSPECTOR: The patient was counseled on the following: treatment plan and future treatment options. Discussion/SummaryPatient here today to follow-up on neck pain with headaches. Pain is described as achy, stabbing, sharp and constant however severity waxes and wanes. He cannot tolerate NSAIDs as he only has one kidney. Underwent a C6- C7 cervical interlaminar injection on 11/23/2020. Here today for follow-up. Has been utilizing methocarbamol for pain control and muscle spasms. He reports the pain he is having is now in his right lower leg after hurting his leg yesterday. He slipped on concrete and twisted knee. He is going for an MRI of that knee next week- following w/ outside provider. Underwent gastric bypass surgery w/ Dr. Nazario on Dec 06 2020. Patient will continue to use methocarbamol as needed. He will follow-up in 2 months time to see if her repeat injection is warranted. He will continue to work on weight loss and being active. In the event that the cervical interlaminar injections stop working well Dr. Pack has stated that a surgical group may need to decompress C3-4 lesion/spinal cord. Signatures Electronically signed by : Ruthann Spence NP; Dec 26 2020 10:15AM EST (Author) Electronically signed by : Edgardo Khan MD; Dec 26 2020 1:04PM EST Name Value Range Interpretation Code Description Data Shanita rce(s) Supporting Document(s) ID Date Data Source [id number] 12/08/2020 12:20:24 PM EST [facility] Name Value Range Interpretation Code Description Data Shanita rce(s) Supporting Document(s) POC NOVA GLU 94 mg/dL (70-99) [facility] [place] [facility] ID Date Data Source [id number] 12/07/2020 11:32:09 PM EST [facility] Name Value Range Interpretation Code Description Data Shanita rce(s) Supporting Document(s) POC NOVA GLU 173 mg/dL (70-99) H [facility] ID Date Data Source [id number] 12/07/2020 04:49:56 PM EST [facility] Name Value Range Interpretation Code Description Data Shanita rce(s) Supporting Document(s) POC NOVA GLU 182 mg/dL (70-99) H [facility] [place] [facility] ID Date Data Source [id number] 12/07/2020 10:14:55 AM EST [facility] NT INFORMATIONPatient MRN Name Date of Age Gend*PT [id number] Mercedes Davila V 1970 50 years M SDAPT Location Admission Date/Time [facility] --- Zander Dean MD([id number]) EPI ID CSN Admitting Provider [id number] Zander Dean MD([id number])CREATION, GASTRIC BYPASS, DESIREE-EN-Y, LAPAROSCOPIC, WITH SLEEVE GASTRECTOMY IFINDICATED, WITH LIVER BIOPSY IF INDICATED, WITH HIATAL HERNIA REPAIR IFINDICATED, WITH LAPAROTOMY IF INDICATED POSSIBLE OPEN Procedure NoteMercedes Davila CSN:[id number]/18/2021urgeon(s):LUIS Tamayourgical Assist: ILENE MoserAStaff:OR Supervisor Print Line: Tania Schaffer RN; IONA Mariscalurgical Assist: ILENE MoserAOR Relief Scrub: Lee Ann Montenegro Scrub Person: Jared E MayfieldProcedure(s):CREATION, GASTRIC BYPASS, DESIREE-EN-Y, LAPAROSCOPIC, WITH LIVER BIOPSYLaparoscopic Desiree Y Gastric Bypass, antecolic, antegastric, 50 cm PancreaticoBiliary Limb, 150 cm Desiree Limb,Wedge liver biopsyEsophagogastrojejunoscopyAnesthesia: GeneralPre-op Diagnosis:Morbid obesity [E66.01]Post-Op Diagnosis Codes: * Morbid obesity [E66.01] * Fatty liverDrains: NoneGrafts/Implants:NoneSpecimens:ID Type Source Tests Collected by [facility] : Liver Biopsy Tissue Tissue SURGICAL PATHOLOGY EXAM Zander Dean MD12/07/2020 0810Estimated Blood Loss: less than 50 mLBlood Administered: See Anesthesia RecordComplications: NoneFindings: Consistent with the Operative Diagnosis, pronounced centralvisceral/retroperitoneal obesity, fatty liver, massive and very heavy omentumand mesentery, thick small bowel, very dificult anatomy adding ~ 20-25 min ofoperative time and effort. Divided loop gastroenterostomy after pouch creationfirst, with subsequent JJA, negative leak test. Umbilical port site fascialclosure.All significant tasks completed under t he direction of the primary surgeon withthe exception of:Closing - Performed By: Performed By: PAINDICATIONS: Mercedes Davila is 71.5 in, 366 lb and BMI of 50.33. He meets thecriteria for bariatric surgery as defined in the NIH consensus statement,surgery is medically necessary. We explained the operation, potentialcomplications, what can be expected after surgery, and what to expect for therest of their life. An informed consent discussion was held. The operations Ioffer and their potential complications were discussed. After discussion,patient and I agreed to proceed with a laparoscopic Desiree-en-Y Gastric Bypass,possible Robotic assisted, possible Sleeve Gastrectomy if hostile abdomen isencountered. Botox education given to patient. This may include repair of aHiatal Hernia if found and a Wedge Liver Biopsy if there is a fatty liver. We covered complications including: , SC, DVT, PE, leaks, sepsis,gallbladder disease, anastomotic ulcers, bleeding, failure of weight loss,malnutrition, need for open surgery, internal and external hernias, and the needfor repeat surgery, among others. We also discussed the risk of COVID- 19infection while hospitalized, risks of anesthesia including SC, stroke anddeath. Pt expressed understanding of all risks and agrees to proceed withsurgeryPROCEDURE IN DETAIL: The patient was taken to the operating room and placed onthe operating table in supine position. Next, general anesthesia was induced andhe was intubated. Their abdomen was prepped and draped in a sterile fashion.Afterwards, a time-out was called. The patient's identity, procedure,preoperative antibiotics, subcutaneous heparin and SCDs were all confirmed. I then gained access into the intraabdominal cavity through a 12- mm RUQincision using a 12-mm Optiview port with a 10-mm 0- degree scope. Once inside apneumoperitoneum was established and I placed additional ports in the followingconfiguration: one in supraumbilical area and one 12-mm right lower quadrantports, two 12-mm left sided flank ports and one 5-mm epigastric port. I thenevaluated liver which looked fatty infiltrated and I opted to proceeded to takea wedge liver biopsy with Harmonic scalpel. I placed the patient in reverseT rendelenburg ~ 15-20 degree. I changed out with the scope to a long degree scope. I than used locking grasper via the 5 mm epigastric port andretarcted liver latching it at the diaphragm. By this I exposed EG - junction.I then dissected out the angle of his with a [place] grasper behind the hiatus.There was no significant hiatal hernia appreciated. Afterwards, I proceeded to identify the root of the mesentery by retracting themesocolon and transverse colon in a cephalad direction. I placed a 3-0 V- Locsuture at the root of the mesentery. This would be used later for closure of theRetro-Desiree space. I then identified the ligament of Treitz and ran the smallbowel distally. There was no significant pathology.I retrieved small bowel and and counted 50cm of proximal jejunum, from Treitzligament and marked that spot and than counted another 150 cm of small bowel andmarked that spot as well. Than I transected 50 cm rafael with EndoGIA 60 mmstapler, white load cartridge, so that by this the proximal end became BP limbthe distal end became Desiree limb. I placed 3-0 V lock stitch between themesentery of BP limb and 150 cm rafael. Jayson using L-hook device made enterotomiesin BP limb and 150 cm rafael and 10 cm away from stapler end of RY limb.I then proceeded to transect the greater omentum with the Harmonic scalpel fromthe colon up to the stomach. By this I gave pathway for RY limb towards thedistal stomach. I then proceeded to create the pouch. Using the wavy graspers and Harmonicscalpel, I did a perigastric dissection 10 cm distal to the GE junction alongthe lesser curvature. Once inside the lesser sac, I placed a stapler with thegreen load cartridge and fired. A 32-Kiswahili bougie was used up to help size thepouch. The pouch was completed using multiple firings of blue loads up towar dsthe angle of His. Afterwards, I made a gastrotomy at the distal end of my pouchwith L-hook connected to monopolar cautery. I retrieved small bowel, the Desiree limb and I placed the linear stapler with ablue load cartridge into the gastrotomy and enterotomy and fired creating thegastrojejunostomy. Than I and placed another stapler in both enterotomies of theBP limb and 150 cm rafael and fired the stapler (white load) creating thejejunojejunostomy. I then went back to GJ anastomosis and placed a 3-0 V- Locsuture, anti-tension stitches at the crotch of the anastomosis. I closed theremaining defect of the anastomosis with a 3-0 V-loc suture in a runningfashion. A double-layer closure technique was performed. Next, I fliped Desiree limb and elevated transverse colon and mesocolon and Iretrieved V-lock stitch at Saunders's space and closed it in continuous fashion.I flipped the RY limb towards right, now and I proceeded to close theintermesenteric defect with a running 3-0 V-Loc suture. Once this was closed, Iinspected the staple line at the jejunojejunostomy with wavy graspers;Hemostasis was excellent. Next, I closed the remaining enterotomy defect with a3-0 V-loc suture in a standard running fashion and double-layer closuretechnique was done. Next, I inspect the staple lines of the pouch and remnant stomach for bleeding.Hemostasis was obtained with bipolar cautery. After this was done, I proceeded to test by anastomosis for leaks. My assistantclamped across the Desiree limb with the bowel clamp while I passed the endoscopeinto the esophagus, into the pouch, and into the Desiree limb. I insufflated withair and my surgical physician assistant irrigated over the anastomosis with normal saline. Therewere no bubbles seen emanating from the anastomosis; therefore, the test wasnegative and complete. I evacuated the insufflated air and retrieved the scope.Next, I reinspected all staple lines and hemostasis was obtained with bipolarcautery. I inspected the port sites for bleeding which was excellent. Umbilicalport site fascial closure was done. I evacuated the pneumoperitoneum and closedthe skin incisions with 4-0 Vicryl. 0.25% Marcaine was used to infiltrate theskin incisions and dermabond was applied. Sponge, needle, and instrument countswere accurate. The patient was extubated and taken to recovery room in stablecondition.ATTESTATION: Patient had pronounced central visceral/retroperitoneal obesity,fatty liver, massive and very heavy omentum and mesentery, thick small bowel,very dificult anatomy adding ~ 20-25 min of operative time and effort. Zander Dean MD Name Value Range Interpretation Code Description Data Shanita rce(s) Supporting Document(s) ID Date Data Source [id number] 12/07/2020 10:00:51 AM EST [facility] Name Value Range Interpretation Code Description Data Shanita rce(s) Supporting Document(s) POC NOVA GLU 167 mg/dL (70-99) H [facility] [place] PERFORMED BY [facility] CLINICAL STAFF ID Date Data Source [id number] 12/07/2020 08:24:11 AM EST [facility] NT INFORMATIONPatient MRN Name Date of Age Gend*PT [id number] Mercedes Davila V 1970 50 years M SDAPT Location Admission Date/Time Visit ID Attending Provider --- --- --- --- EPI ID CSN Admitting Provider [id number] ---AirwayPatient location during procedure: ORUrgency: electiveDifficult airway: yes glidescope intubation without difficultyAdvanced airway equipment used: yes (glidescope)StaffingPerformed by: Laura Rouse CRNAAnesthesiologist: Jesu Saunders MDIndications and Patient ConditionIndications for airway management: anesthesiaPreoxygenated: yesPatient position: rampIn-line stabilization: noMask ventilation: 2 - vent by mask + OA or adjuvant +/- NMBAFinal Airway/ApproachesFinal airway type: ETTNumber of attempts at final approach: 2Number of other approaches attempted: 1Unsuccessful airway(s) attempted: ETTUnsuccessful approach(es) for ETT: GlidescopeFinal Airway DetailsFinal ETT airway: ETT - singleCuffed: yesTechnique used for successful ETT placement: GlidescopeCricoid pressure: noRSI: noInsertion site: oralBlade type/size: n/aETT size: 7.5 mmMeasured from: lipsETT to lips: 23 cmPlacement verified by: chest auscultation and + [id number]: equal breath sounds bilateralGrade view: grade I - full view of glottis Name Value Range Interpretation Code Description Data Shanita rce(s) Supporting Document(s) ID Date Data Source [id number] 12/11/2020 05:25:20 PM EST [facility] [address] [address]Tma# Surgical Pathology ReportPatient Name: LOLA MERCEDES Jen: 1970Accession #:[id number](s) ReceivedA: Liver biopsyClinical Diagnosis and HistoryMorbid obesity DIAGNOSISLIVER, WEDGE BIOPSY: MODERATE STEATOSIS.Microscopic DescriptionReticulin, PAS-D, iron, and trichrome stains are unremarkable. Gross DescriptionReceived in formalin labeled "liver biopsy" is a 2.7 x 1.5 x 1.0 cmtan-red slightly mottled wedge shaped fragment of liver tissue. Sectionedand entirely submitted as A1. Modified liver biopsy protocol. jglnayana/gmm Reported: 12/11/2020Electronically Signed Out By Raymundo Higgins M.D. [facility], [place] [address]eljTqcntxykb component performed [facility], [address], [place], [address].[facility] at [facility], [address], [place], [address]. This report may includeimmunohistochemical or in-situ hybridization results. Testing wasdeveloped and the performance characteristics determined by [facility] [place] [facility] as required by CLIA '88. The FDA hasdetermined that approval for specific use is not necessary for clinicaluse. The quality of Hematoxylin and Eosin stains and as applicable, forall immunohistochemical and/or special stains, including positive andnegative controls, were reviewed and considered appropriate.ICD codes K76.0CPT codesA: 49133E, 20208V, 73083V, 31644F, 13028G Name Value Range Interpretation Code Description Data Shanita rce(s) Supporting Document(s) ID Date Data Source [id number] 12/07/2020 07:57:24 AM EST [facility]PAT[facility] NT INFORMATIONPatient MRN Name Date of Age Gend*PT [id number] Mercedes Davila V 1970 50 years M SDAPT Location Admission Date/Time Visit [facility] --- Zander Dean MD([id number]) EPI ID CSN Admitting Provider [id number] Zander Dean MD([id number])Pre- Procedure History and Physical:The history and physical were reviewed and the patient was examined.There are no changes to the H&P.Zander Dean MD12/07/20 7:57 AM Name Value Range Interpretation Code Description Data Shanita rce(s) Supporting Document(s) ID Date Data Source [id number] 12/07/2020 06:14:27 AM EST [facility] Name Value Range Interpretation Code Description Data Shanita rce(s) Supporting Document(s) POC POTASSIUM 4.3 MMOL/L (3.6-5.2) [facility] CL[facility] STA[facility] ID Date Data Source [id number] 12/07/2020 06:14:27 AM EST [facility] [place] Name Value Range Interpretation Code Description Data Shanita rce(s) Supporting Document(s) POC GLU 105 MG/DL (70-99) H [facility] [place] [facility] ID Date Data Source [id number] 12/07/2020 06:14:27 AM EST [facility] Name Value Range Interpretation Code Description Data Shanita rce(s) Supporting Document(s) POC HCT 46 % (41.0-53.0) [facility] [place] [facility] ID Date Data Source [id number] 12/07/2020 04:09:57 AM EST [facility]PAT[facility] NT INFORMATIONPatient MRN Name Date of Age Gend*PT [id number] Mercedes Davila V 1970 50 years M SDAPT Location Admission Date/Time Visit ID Attending Provider --- --- --- Zander Dean MD([id number]) EPI ID CSN Admitting Provider [id number] Zander Dean MD([id number])Inpatient History & PhysicalRyemmanuelle DavilaMRN:[id number] and Plan:Active Problems: * No active hospital problems. * * Morbid obesity Chief Complaint: "I need to lose weight, it effecting my health"History of Present Illness: Mercedes Davila 50 yrs old man who suffers from severeobesity. Mercedes Davila has attempted multiple diets over the years, and has beenable to lose modest amounts of weight, however the weight loss has never beensustained. See nutrition history above for weight loss attempts/diet historynoted. Mercedes Davila has always tried to lower calories. High weight statussignificantly impacts Mercedes Davila 's activities of daily living. Seecomorbidities as above.Past Medical History:Past Medical History:Diagnosis Date Atrophy of right kidney s/p nephrectomy Celiac disease CKD (chronic kidney disease), stage III Deaf, right DM (diabetes mellitus), type 2 Fish Fatty liver GERD (gastroesophageal reflux disease) Gout Hyperlipidemia Hypertension Morbid obesity MRSA (methicillin resistant Staphylococcus aureus) 2014 skin infection Osteoarthritis Sleep apnea CPAPPast Surgical History:Past Surgical History:Procedure Laterality Date COLONOSCOPY NEPHRECTOMY Right PANENDOSCOPY PARTIAL KNEE ARTHROPLASTY RightMedications:No medications prior to admission.Allergies:Adhesive tape and Gluten mealFamily History:Family HistoryProblem Relation Age of Onset Hypertension Mother Diabetes Mother Coronary artery disease Father Malig Hyperthermia Neg HxSocial History:Social HistoryTobacco Use Smoking status: Never Smoker Smokeless tobacco: Never UsedSubstance Use Topics Alcohol use: Yes Comment: Occasionally Drug use: NeverReview of Systems:General: The patient's general health has been poorSkin: No skin lesions or ulcerations, No tattoosRespiratory: Patient denies any shortness of breath, No functional disabilityfrom COPDCardiac: Denies chest pain, No previous PCI/PTCAENT: Denies chronic/recurring oropharyngeal ulcers, Dentition: good No dentures,no loose teethEyes: Denies any visual disturbancesMusculoskeletal: Has multiplejoint pain and/or back painUrological: Denies gross hematuria ordysuriaNeurological: Denies chronic headaches/migraines, NoneuropathyPsychiatric: Denies hospitalizations for psychiatric diagnoses, nosuicide attemptsReproductive: N/A Gastrointestinal: No problems withnausea/vomiting/diarrhea/constipation, no history of rectalbleedingHematological: Denies history of DVT or PE, denies family history ofDVT or PEEndocrine:Nopolydipsia/polyuriaSocial History: Ginger Lives with: his parents, sister, and girlfriend Not Jehovah witness Recreational drug use: none, Alcohol use: nonePhysical Exam:General: Resting comfortably on the exam table in no acute distressHead: No signs of trauma, no hair lossEyes: PERRL. Conjunctiva pink. Sclerae clear, anictericMouth: Tongue midline, normal hard and soft palateNeck: Supple, no masses, thyroid not enlargedLungs: Clear to auscultationHeart: Regular rate and rhythm, no murmursChest: Normal size and shapeAbdomen: Obese, non-tender, active bowel sounds, no massesAbdominal hernia: noneAbdominal scars: ports, and right flankSkin: ClearExtremities: Limited ROM, no deformitiesVeins: NormalNeurological: Alert and OrientedPsychiatric: Normal affectImpression and Recommendations: Mercedes Davila is 71.5 in, 366 lb and BMI of 50.33.He meets the criteria for bariatric surgery as defined in the NIH consensusstatement, surgery is medically necessary. We explained the operation, potentialcomplications, what can be expected after surgery, and what to expect for therest of their life. An informed consent discussion was held. The operations Ioffer and their potential complications were discussed. After discussion,patient and I agreed to proceed with a laparoscopic Desiree-en-Y Gastric Bypass,possible Robotic assisted, possible Sleeve Gastrectomy if hostile abdomen isencountered. Botox education given to patient. This may include repair of aHiatal Hernia if found and a Wedge Liver Biopsy if there is a fatty liver.We covered complications including: , SC, DVT, PE, leaks, sepsis,gallbladder disease, anastomotic ulcers, blee ding, failure of weight loss,malnutrition, need for open surgery, internal and external hernias, and the needfor repeat surgery, among others. Mercedes Davila was counseled about diet,exercise, and behavior modification (yellow sheet diet given) and we will bechecking on this at visits to come. We will plan to get bariatric surgeryscheduled and will ask for Mercedes Davila to be seen preoperatively by: primarycare, our dietitian, and any other consults as indicated.Post-operatively I will start patient on 40mg Lovenox everyday for 10 days.All pertinent records reviewed. Endoscopy: was normal. Mercedes Davila ready toproceed with surgery.Zander Dean MD, FACSSignature: ROSALIO Tamayoate: December 07, 2020Time: 4:09 AM Name Value Range Interpretation Code Description Data Shanita rce(s) Supporting Document(s) ID Date Data Source [id number] 12/09/2020 12:58:36 AM EST [facility] SPEC EXP DATE 12/08/2020TEST ING SITE PERFORMED AT [address] [place] [address] 230[address]CGQU NUMBER [id number] COMPONENT TYPE LEUKOPOOR RED CELLSUNIT DIVISION 00STATUS OF UNIT REL FROM ALLOCTRANSFUSION STATUS OK TO TRANSFUSECROSSMATCH RESULT COMPATIBLELEVEL 1 PHENOTYPING BILLED FOR SERVICES PERFORMEDUNIT NUMBER [id number] COMPONENT TYPE LEUKOPOOR RED CELLSUNIT DIVISION 00STATUS OF UNIT REL FROM ALLOCTRANSFUSION STATUS OK TO TRANSFUSECROSSMATCH RESULT COMPATIBLELEVEL 1 PHENOTYPING BILLED FOR SERVICES PERFORMED Name Value Range Interpretation Code Description Data Shanita rce(s) Supporting Document(s) TRANSFUSE RED CELLS [facility] TESTING SITE PERFORMED AT [address] [place] [address] ID Date Data Source [id number] 12/05/2020 01:28:00 PM KALEB Lu NAME: Lola LiBN: [id number] VASCULAR LABORDER #: [id number] [facility] STUDY DATE: 12/05/[address] [facility] [place] [address] : 72AP: Ballehnga Perezankar MDREFERRING PROVIDER: Husam BoyleXAMINATION: Arterial - LowerINDICATION: Pain in limb -729.5 TECHNOLOGIST: Kamron Linton Rt Rdms RvtIMPRESSION:IMPRESSIONS: 50 year old diabectic with morbid obesity complaing of constant bilateral leg pain.ABIS and PVRs of the bilateral lower extremities indicates a normal resting ankle brachial index studyPVRs of the bilateral thighs, calves, ankles, metatarsal and toe digits are normal.Triphasic bilateral DP/PTs.Right REYNALDO: 1.2 Left REYNALDO: 1.2There is no change since previous exam of 12/29/2018.REYNALDO Value: Over 1.3 (Noncompressible), 0.90-1.3 (Normal, 0.89 - 0.60 (Mild), 0.59-0.40 (Moderate), Under 0.40 (Severe) Name Value Range Interpretation Code Description Data Shanita rce(s) Supporting Document(s) ID Date Data Source [id number] 12/05/2020 12:40:54 PM KALEB Lu PATIENT: Mercedes DavilaMRN: [id number]: 1970DATE OF SERVICE: 12/05/2020HIEF COMPLAINT:Chief ComplaintPatient presents with Peripheral Vascular Disease pt. w/ REYNALDO's done today.SubjectiveHISTORY OF PRESENT ILLNESS:Mercedes Davila is a 50-y.o. male.HPIReferred for bilateral lower extremity neuropathy in this patient with morbidobesity and DM. Patient [place], [place] Patient complains of occasional bilateral lower extremity foot andtoe numbness and some tenderness. No claudication type of pain. No ulceration.States diabetes well controlled. S tates he lost about 60 pounds and he'sscheduled to undergo gastric [facility] this . No rest pain.Past Medical History:Diagnosis Date Arthritis Arthritis of knee, degenerative 07/01/2011 Celiac disease 10/29 CKD (chronic kidney disease) CKD (chronic kidney disease) stage 3, GFR 30-59 ml/min 11/19/2011 Elevated liver enzymes elevated LDH, fatty liver Essential hypertension, benign 05/28/2010 Fatty liver 01/29/2010 GERD (gastroesophageal reflux disease) 07/01/2011 Gout HTN Hydronephrosis Hyperlipidemia Impaired fasting glucose Kidney stones MRSA (methicillin resistant staph aureus) culture positive wound Obstructive uropathy Reflux Renal insufficiency s/p nephrectomy right S/p nephrectomy 11/19/2011 Skin abnormalities Sleep apneaFamily HistoryProblem Relation Age of Onset Diabetes Mother At age 66 Hypertension Mother High Cholesterol Mother Arthritis Mother Arthritis Father Hypertension Father High Cholesterol Father Heart Father Arthritis Sister Cancer Sister breast, thyroid Hypertension Sister Asthma Sister Thyroid SisterCurrent Outpatient MedicationsMedication Sig Acetaminophen (TYLENOL) 325 MG Oral Cap Take by mouth. atenolol (TENORMIN) 100 MG Oral Tab Take 100 mg by mouth DAILY. atorvastatin (LIPITOR) 40 MG Oral Tab Take 1 Tab by mouth DAILY. (Patienttaking differently: Take 20 mg by mouth DAILY.) Blood Glucose Monitoring Suppl (Unsubscribe.comSTYLE LITE) Does not apply Device USE ASDIRECTED calcitriol (ROCALTROL) 0.25 MCG Oral Cap Take 1 Cap by mouth DAILY. c olchicine (COLSALIDE) 0.6 MG Oral Tab TAKE 1 TABLET BY MOUTH DAILY (Patienttaking differently: NEEDED.) Febuxostat 80 MG Oral Tab Take 1.5 Tabs by mouth EVERY MORNING. Gabapentin 600 MG Oral Tab TAKE 1 TABLET BY MOUTH THREE TIMES DAILY glipiZIDE (GLUCOTROL XL) 5 MG Oral TABLET SR 24 HR Take 0.5 Tabs by mouthDAILY. Glucose Blood In Vitro Strip 100 Strips by In Vitro route THREE TIMES DAILY.uncontrolled insulin dependent diabetes. Brand: Freestyle Insulin Glargine (BASAGLAR KWIKPEN SC) Inject 20 Units beneath the skin EVERYBEDTIME. Lancets Does not apply Misc by Does not apply route THREE TIMES DAILY.Brand:[employer] Dx:DM 250.00 Insulin dependent Losartan Potassium 100 MG Oral Tab TAKE 1 TABLET BY MOUTH DAILY Multiple Vitamins- Minerals (MULTIVITAMIN ADULTS PO) Take by mouth. Omeprazole 40 MG Oral CAPSULE DELAYED RELEASE TAKE 1 CAPSULE BY MOUTH DAILY pioglitazone (ACTOS) 30 MG Oral Tab TAKE 1 TABLET BY MOUTH DAILY triamcinolone (KENALOG,ARISTOCORT) 0.1 % Apply externally Cream APPLY A SMALLAMOUNT TO THE AFFECTED AREA DIRECTEDNo current facility-administered medications for this visit.AllergiesAllergen Reactions Gluten Meal Rash Rash and diarrheaSocial HistorySocioeconomic History Marital status: Single Spouse name: Not on file Number of children: Not on file Years of education: Not on file Highest education level: Not on fileOccupational History Not on fileSocial Needs Financial resource strain: Not on file Food insecurity Worry: Not on file Inability: Not on file Transportation needs Medical: Not on file Non-medical: Not on fileTobacco Use Smoking status: Never Smoker Smokeless tobacco: Never UsedSubstance and Sexual Activity Alcohol use: No Drug use: No Sexual activity: Yes Partners: FemaleCarilion Franklin Memorial Hospitalstyle Physical activity Days per week: Not on file Minutes per session: Not on file Stress: Not on fileRelationships Social connections Talks on phone: Not on file Gets together: Not on file Attends hoahaoism service: Not on file Active member of club or organization: Not on file Attends meetings of clubs or organizations: Not on file Relationship status: Not on file Intimate partner violence Fear of current or ex partner: Not on file Emotionally abused: Not on file Physically abused: Not on file Forced sexual activity: Not on fileOther Topics Concern Back Care Yes Bike Helmet Yes Blood Transfusions No Caffeine Concern No Exercise Yes Comment: walking once weekly Hobby Hazards No International Travel No Service No Occupational Exposure No Seat Belt Yes Comment: 100 % Self-Exams Not Asked Sleep Concern Yes Comment: sleep apnea, has CPAP but not compliant Special Diet Yes Comment: Gluten free, low calorie Stress Concern No Weight Concern YesSocial History Narrative has 1 male child and 1 female step-daughter. No exposure to asbestos. Grew up in [place] Recently moved from [place] [facility] to [place] Lives with fiance [place] [facility] currently unemployedREVIEW OF SYSTEMS:Review of SystemsConstitutional: Negative for fever.Cardiovascular: Negative for chest pain.Musculoskeletal: Negative for joint pain.ObjectivePHYSICAL EXAM:VITALS: BP (!) 140/84 (BP Location: Right arm, Patient Position: Sitting) |Pulse 68 | Temp 96.7 F (35.9 C) | Ht 6' (1.829 m) | BMI 48.28 kg/m Bodymass index is 48.28 kg/m.Physical ExamConstitutional: General: He is not in acute distress.HENT: Head: Normocephalic.Cardiovascular: Rate and Rhythm: Normal rate. Pulses: Normal pulses.Pulmonary: Effort: Pulmonary effort is normal.Skin: Capillary Refill: Capillary refill takes less than 2 seconds. Comments: Bilateral lower extremity warm , no varicose veins, palpable pedalpulses, no ulceration.Neurological: General: No focal deficit present. Mental Status: He is alert.ankle brachial index;IMPRESSIONIMPRESSIONS: 50 year old diabectic with morbid obesity complaing of constantbilateralleg pain. ABIS and PVRs of the bilateral lower extremities indicates a normal resting ankle brachial index study PVRs of the bilateral thighs, calves, ankles, metatarsal and toe digits are normal. Triphasic bilateral DP/PTs. Right REYNALDO: 1.2 Left REYNALDO: 1.2 There is no change since previous exam of 12/29/2018. REYNALDO Value: Over 1.3 (Noncompressible), 0.90-1.3 (Normal, 0.89 - 0.60(Mild), 0.59- 0.40 (Moderate), Under 0.40 (Severe) ASSESSMENT / IMPRESSION:50 years old male with bilateral foot numbness with history of dm and morbidobesity with a planned gastric bypass PlanNormal ankle brachial index; no arterial causes for numbness.No vascular recommendations.I congratulated the patient on weight loss and wished him good success withgastric bypass procedure.I emphasized good skin care, and blood sugar control.Follow up as needed.Patient expressed understanding.Author: Jenifer Weiner MD 12/05/2020 12:27 Name Value Range Interpretation Code Description Data Shanita rce(s) Supporting Document(s) ID Date Data Source [id number] 12/02/2020 08:00:00 AM EST [facility] Name Value Range Interpretation Code Description Data Shanita rce(s) Supporting Document(s) SARS coronavirus 2 RNA Not Detected [facility] [place] This lab was ordered by [facility] and reported by [employer]. ID Date Data Source [id number] 12/03/2020 12:08:51 PM EST [facility] Name Value Range Interpretation Code Description Data Shanita rce(s) Supporting Document(s) SARS-COV-2 [facility] Willy Not DetectedReference range: Not Detecte d This nucleic acid amplification test was developed and its performance characteristics determined by [employer]. Nucleic acid amplification tests include RT-PCR and TMA. This test has not been FDA cleared or approved. This test has been authorized by FDA under an Emergency Use Authorization (EUA). This test is only authorized for the duration of time the declaration that circumstances exist justifying the authorization of the emergency use of in vitro diagnostic tests for detection of SARS-CoV-2 virus and/or diagnosis of COVID-19 infection under section 564(b)(1) of the Act, 21 U.S.C. 360bbb-3(b) (1), unless the authorization is terminated or revoked sooner. When diagnostic testing is negative, the possibility of a false negative result should be considered in the context of a patient's recent exposures and the presence of clinical signs and symptoms consistent with COVID- 19. An individual without symptoms of COVID- 19 and who is not shedding S ARS-CoV-2 virus would expect to have a negative (not detected) result in this assay. Performed At: [facility] [address] [place], [place] [id number] Raghu Mccormick PhD Ph:[phone] ID Date Data Source [id number] 12/11/2020 04:07:17 PM EST [facility], PCName: Mercedes TaylorcassiaDOB: 1970Provider: Stacie Knapp: 11/30/2020 Reason For VisitRyan has not had the Covid vaccine. Mercedes Davila is an established patient here for follow up. Patient states he had a nerve block last week at [facility]. Patient states he has not done PT. Patient states he is having gastric bypass surgery on 12-07-2020. The patient is currently residing at home. Other DOI/DOO: 05/2020. The patient's pain is managed by [facility]. Patient is unemployed. History of Present IllnessPatient is a 50-year-old male who presents to the office with a chief complaint of intermittent left-sided neck pain. Associate with occasional occipital headaches. Denies any radicular symptoms in his upper extremities. Was not able to attend physical therapy. Sees [facility] for pain management and had a nerve block last week with equivocal results. Symptoms aggravated with rotation. AssessmentNeck pain Plan Physical Therapy (SOS) - Spinal Physical Therapy Evaluation and Treatment Status:Complete Done: 30Nov2020 Ordered;For: Myofascial pain, Neck pain; Ordered By: Teo Knapp Performed: Due: [id number]; Last Updated By: Batsheva Gannon; 11/30/2020 11:38:02 AMDuration: : Four WeeksPT Frequency : Two or three times a weekSOS ROM and Strength : Range of motion and strengthening exercises.Heat Ultra and Modalities : Heat Ultrasound and modalities as indicatedEvaluate and Treat: : Please evaluate and treat as indicated. Plan, Assessment and Recommendation(s) The nature of the diagnosis and various treatment alternatives were discussed today, including invasive, operative, and non-operative options. Not much change in his neck pain despite recent injection. He will continue with [facility] for pain management. He would still like to try physical therapy on his neck. Provided him with a prescription. Follow-up in 6 weeks. This document was dictated and electronically signed using [employer] ([employer]) Speaking software. A reasonable attempt at proof reading has been made to minimize errors. Please call with any questions. Signatures Electronically signed by : Yani Robles; Dec 10 2020 9:04PM EST (Author) Electronically signed by : Gaurav Phillips M.D.; Dec 11 2020 4:07PM EST Name Value Range Interpretation Code Description Data Shanita rce(s) Supporting Document(s) ID Date Data Source [id number] 11/28/2020 12:10:58 PM EST [facility] NT INFORMATIONPatient MRN Name Date of Age Gend*PT [id number] Mercedes Davila V 1970 50 years M OPPT Location Admission Date/Time Visit ID Attending Provider --- --- --- Zander Dean MD([id number]) EPI ID CSN Admitting Provider [id number] Zander Dean MD([id number])HISTORY PHYSICALName: Mercedes Davila : 1970 Sex: male Care Provider: AUBREY BARONE MDAttending Physician: Dr. DeanInformant: The patient who is reliable.Chief Complaint:" I need gastric bypass surgery"HISTORY OF PRESENT ILLNESS: Mr Davila is a 50 years old white male with ahistory of hypertension, hyperlipidemia, GERD, diabetes, CKD stage III, sleepapnea, osteoarthritis and right nephrectomy who reports of being overweight mostof his life. He attempted low-fat low-cholesterol diet, cutting down sugarintake, and increasing exercise. He was able to lose some weight but was notable to sustain. Subsequently was referred to Dr. Dean for surgicalevaluation. Options were discussed. He now has elected to undergo CREATION,GASTRIC BYPASS, DESIREE-EN-Y, LAPAROSCOPIC, WITH SLEEVE GASTRECTOMY IF INDICATED,WITH LIVER BIOPSY IF INDICATED, WITH HIATAL HERNIA REPAIR IF INDICATED, WITHLAPAROTOMY IF INDICATED POSSIBLE OPEN on 12/07/20Patient was initially scheduled for the surgery in September 2020 however thiswas rescheduled due to COVID-19 pandemic.PAST MEDICAL HISTORY:Past Medical History:Diagnosis Date Atrophy of right kidney s/p nephrectomy Celiac disease CKD (chronic kidney disease), stage III Deaf, right DM (diabetes mellitus), type 2 Fish Fatty liver GERD (gastroesophageal reflux disease) Gout Hyperlipidemia Hypertension Morbid obesity MRSA (methicillin resistant Staphylococcus aureus) 2015 skin infection Osteoarthritis Sleep apnea CPAPPAST SURGICAL HISTORY:Past Surgical History:Procedure Laterality Date COLONOSCOPY NEPHRECTOMY Right PANENDOSCOPY PARTIAL KNEE ARTHROPLASTY RightALLERGIES:AllergiesAllergen Reactions Adhesive Tape Other (See Comments) Can only have paper tape, the other tapes cause skin tears Gluten Meal Rash Rash and diarrheaMEDICATIONS:Prior to Admission medicationsMedication Sig Start Date End Date Taking? Authorizing Provideracetaminophen (TYLENOL 8 HOUR) 650 MG CR tablet Take 650 mg by mouth every 8(eight) hours as needed for pain Historical Provider, MDatenolol ( TENORMIN) 100 MG tablet Take 100 mg by mouth daily 07/24/20Historical Provider, Liliatorvastatin (LIPITOR) 20 MG tablet Take 20 mg by mouth nightly 08/20/20Historical Provider, REYNALDO PAEZIKPEN 100 UNIT/ML SOPN Inject 20 Units under the skin /2/20 Historical Provider, Robbiealcitriol (ROCALTROL) 0.25 MCG capsule Take 0.25 mcg by mouth daily 08/21/20Historical Provider, Robbieolchicine 0.6 MG tablet Take 0.6 mg by mouth daily as needed (for gout)08/21/20 Historical Provider, Febuxostat 80 MG TABS Take 120 mg by mouth daily 08/20/20 Historical Provider,fexofenadine (CLAUDIA) 180 MG tablet Take 180 mg by mouth daily 09/07/20Historical Provider, gabapentin (NEURONTIN) 800 MG tablet Take 800 mg by mouth 3 (three) times a day08/22/20 Historical Provider, glipiZIDE (GLUCOTROL) 5 MG 24 hr tablet Take 5 mg by mouth daily 08/28/20Historical Provider, hydrALAZINE (APRESOLINE) 50 MG tablet Take 50 mg by mouth 2 (two) times a day08/27/20 Historical Provider, losartan (COZAAR) 100 MG tablet Take 100 mg by mouth daily 09/04/20Historical Provider, Henryethocarbamol (ROBAXIN) 500 MG tablet Take 500 mg by mouth 2 (two) times a dayHistorical Provider, HENRYisc Natural Products (GLUCOSAMINE CHOND COMPLEX/MSM) TABS Take 1 tablet bymouth 2 (two) times a day Historical Provider, omeprazole (PRILOSEC) 40 MG capsule Take 40 mg by mouth daily 08/11/20Historical Provider, Kapilioglitazone (ACTOS) 30 MG tablet Take 30 mg by mouth daily 09/02/20Historical Provider, tiZANidine (ZANAFLEX) 4 MG tablet Take 4 mg by mouth 3 (three) times a dayHistorical Provider, triamcinolone (KENALOG) 0.1 % cream Apply 1 application topically 3 (three)times a day 08/20/20 Historical Provider, MDSocial HistorySocioeconomic History Marital status: Single Spouse name: Not on file Number of children: Not on file Years of education: Not on file Highest education level: Not on fileOccupational History Not on fileSocial Needs Financial resource strain: Not on file Food insecurity: Worry: Not on file Inability: Not on file Transportation needs: Medical: Not on file Non-medical: Not on fileTobacco Use Smoking status: Never Smoker Smokeless tobacco: Never UsedSubstance and Sexual Activity Alcohol use: Yes Comment: Occasionally Drug use: Never Sexual activity: Not on fileLifestyle Physical activity: Days per week: Not on file Minutes per session: Not on file Stress: Not on fileRelationships Social connections: Talks on phone: Not on file Gets together: Not on file Attends hoahaoism service: Not on file Active member of club or organization: Not on file Attends meetings of clubs or organizations: Not on file Relationship status: Not on file Intimate partner violence: Fear of current or ex partner: Not on file Emotionally abused: Not on file Physically abused: Not on file Forced sexual activity: Not on fileOther Topics Concern Not on fileSocial History Narrative Not on fileFamily HistoryProblem Relation Age of Onset Hypertension Mother Diabetes Mother Coronary artery disease Father Malig Hyperthermia Neg HxREVIEW OF SYSTEMS:Constitution: Weight stable, Denies fatigue, fever or chills. Caffeine intake: 0cups/day.HEENT: He wears glasses for reading. Denies any blurred vision, double vision,dizziness, tinnitus, dysphagia or headaches.Respiratory: Denies any shortness of breath, cough, yellow sputum production orwheezing.Cardiovascular: Denies any chest pain, pressure or tightness. Denies anyproximal nocturnal dyspnea or ortho pnea.Muscle/Skeletal System: Denies any muscle ache, joint ache or weakness.Neurologic: Denies any numbness, tingling, tremors or syncope.GI: Denies any nausea, vomiting, diarrhea, constipation or melena.: Denies any dysuria, hematuria or nocturia.Endocrine: Denies polyuria, polydipsia or polyphagia. Denies any heat or coldintolerance, fatigue or night sweats.Hematology: Denies any bleeding or bruising tendencies.DNR Status: Full Code per the patient.HCP: No per patient.PHYSICAL EXAM:General: He is a 50 years old, pleasant white male, in no acute distress at timeof examination. Vitals on arrival to the office are BP 134/79 (BP Location: Leftupper arm, Patient Position: Sitting) | Pulse 58 | Ht 1.842 m (6' 0.5") | Wt(!) 172.4 kg (380 lb) | SpO2 95% | BMI 50.83 kg/m Body mass index is 50.83kg/m ..Skin is pink warm and dry.HEENT: He is normocephalic, atraumatic. [place] conjunctivae. Anicteric sclerae.Pupils are equal, round, reactive to light and accommodation. Extraocularmovements are intact. Ears: Without drainage or lesion. Mouth: Dentition is ingood repair. He has a grade II airway. Neck is supple midline without cervicaladenopathy. There is no tonsillo pharyngeal congestion. Mucous membranes aremoist. There are no oral lesions. No jugular distention. No carotid bruit.CHEST/BREAST: A/P less than transverse. Breast exam declined.LUNGS: Clear to auscultation. No wheezes, rhonchi or crackles.HEART: Rate rhythm regular. S1, S2. No murmur, rub or gallop.ABDOMEN: Morbidly obese. Bowel sounds positive times four. Soft, non tender. Norebound tenderness. No hepatosplenomegaly. Negative CVAT.GENITAL/RECTAL: Deferred.MUSCLE/SKELETAL: Strength is 5/5. Civil Design Specialist are equal.NEUROLOGICALLY: Cranial nerves II through XII are grossly intact.VASCULAR: Pulses are positive. No edema.Anesthesia complications: DeniesSteroid use: He denies any oral steroid therapy for three weeks or greaterwithin the last 3 months.CSHA Frailty Scale :: 3/10 Managing Well (medical problems are well controlled,but are not regularly active beyond routine walking).Stop Bang Questionnaire - Total Score: CPAPIMPRESSION and PLAN:Primary Diagnosis: Morbid obesity surgery as per Dr. Dean.Secondary Diagnosis and Plan:1. Hypertension Continuation of prior to admission anti-hypertensivemedications unless precluded by clinical status.2. Sleep apnea Obstructive Patient to continue with use of home CPAP /BiPAP3. Diabetes Type 2 Routine blood glucose monitoring. Sliding scaleinsulin coverage while inpatient. Hold oral diabetic medications.4. CKD Stage III Monitoring of lab values including creatinine withadjustments to hydration if needed Avoidance of nephrotoxic medications5. GI prophylaxis Per surgeon6. DVT prophylaxis Early ambulation. Pneumatic compression de vice.Subcutaneous Heparin or LMW Heparin if clinically indicatedBased on above medical co morbidities, length of stay may be prolonged greaterthan previously anticipated.ALLERGIES:Adhesive tape and Gluten meal11/28/2020 12:10 PMPramTahira Berry document or parts of this document, were dictated using [employer] speaking software. A reasonable attempt at proofreading has beenmade to minimize errors. Please call with any questions or corrections. Name Value Range Interpretation Code Description Data Shanita rce(s) Supporting Document(s) ID Date Data Source [id number] 11/28/2020 06:15:24 PM EST [facility] SPEC EXP DATE 1PATI ENT ABO/Rh A POSITIVEANTIBODY SCREEN POSITIVETESTING SITE PERFORMED AT [address] [place], [place] [address]BLOOD BANK COMMENT BLOOD TYPE CONFIRMED.BLOOD BANK COMMENT HISTORY OF ANTI-E PRESENT, Name Value Range Interpretation Code Description Data Shanita rce(s) Supporting Document(s) TYPE AND SCREEN [facility] PATIENT ABO/Rh A POSITIVE ID Date Data Source [id number] 11/28/2020 03:37:46 PM EST [facility] Name Value Range Interpretation Code Description Data Shanita rce(s) Supporting Document(s) SODIUM 142 mmol/L (136-145) [facility] POTASSIUM 4.3 mmol/L (3.6-5.2) [facility] CHLORIDE 110 mmol/L (100-108) H [facility] CO2 24 mmol/L (22-31) [facility] ANION GAP 8 mmol/L (7-16) [facility] UREA NITROGEN 37 mg/dL (7-24) H [facility] CREATININE 1.87 mg/dL (0.80-1.30) H [facility] BUN/CREAT RATIO 19.8 RATIO (10.0-20.0) [facility] GLUCOSE 86 mg/dL (70-99) [facility] CALCIUM 8.8 mg/dL (8.4-10.2) [facility] TOTAL PROTEIN 6.2 g/dL (6.4-8.2) L [facility] ALBUMIN 3.3 g/dL (3.5-4.6) L [facility] GLOBULIN 2.9 g/dL (2.7-4.3) [facility] ALB/GLOB RATIO 1.1 RATIO [facility] ALKALINE PHOSPHATASE 91 U/L (45-117) [facility] BILIRUBIN,TOTAL 0.5 mg/dL (0.0-1.0) [facility] PLEASE NOTE:Total bilirubin results may be falselyelevated in patients taking Eltrombopag. AST (SGOT) 24 U/L (11-39) [facility] ALT (SGPT) 42 U/L (12-78) [facility] GFR 39 ml/min/1.73m2 (>59) L [facility] GFR ( AMER) 47 ml/min/1.73m2 (>59) L [facility] GFR INTERPRETATION [facility] --NORMAL KIDNEY FUNCTION OR MILD DISEASE - GFR >OR= 60CHRONIC KIDNEY DISEASE - GFR 15 - 59RENAL FAILURE - GFR <15 Est. GFR calculation based on the MDRDstudy equation, which assumes a steadystate for creatinine. Est. GFR should notbe used for medication dosing. ID Date Data Source [id number] 11/20/2020 12:00:00 PM EST [facility] Name Value Range Interpretation Code Description Data Shanita rce(s) Supporting Document(s) SARS coronavirus 2 RNA [Presence] in Res piratory specimen by KEITH with probe detection Negative [facility] This lab was ordered by [facility] and reported by [facility]. ID Date Data Source [id number] 11/15/2020 09:37:00 AM EST [facility] ([facility]) Name Value Range Interpretation Code Description Data Shanita rce(s) Supporting Document(s) Hemoglobin A1c/Hemoglobin.total in Blood 5.5 [facility] ([facility]) Glucose [Mass/volume] in Serum or Plasma 168 [facility] ([facility]) ID Date Data Source [id number] 10/26/2020 09:41:00 AM EST [facility] ([facility]) Name Value Range Interpretation Code Description Data Shanita rce(s) Supporting Document(s) Cholesterol [Mass/volume] in Serum or Plasma 120 mg/dL 131-200 [facility] ([facility]) Triglyceride [Mass/volume] in Serum or Plasma 271 mg/dL 30-150 [facility] ([facility]) Cholesterol in HDL [Mass/volume] in Serum or Plasma 19 mg/dL 35-60 [facility] ([facility]) Cholesterol in LDL [Mass/volume] in Serum or Plasma by calcu lation 47 CALC 50-159 [facility] ([facility]) ID Date Data Source [id number] 10/26/2020 09:41:00 AM EST [facility] ([facility]) Name Value Range Interpretation Code Description Data Shanita rce(s) Supporting Document(s) Glucose [Mass/volume] in Serum or Plasma 117 mg/dL 74-99 [facility] ([facility]) 100-125 mg/dL PRE-DIABETES/FASTING >126 mg/dL DIABETES/FASTING Creatinine 2.0 mg/dL 0.6-1.3 [facility] Urea nitrogen [Mass/volume] in Serum or Plasma 35 mg/dL 7-18 [facility] ([facility]) Sodium [Moles/volume] in Serum or Plasma 141 meq/L 136-145 [facility] ([facility]) Chloride [Moles/volume] in Serum or Plasma 107 meq/L 98-107 [facility] ([facility]) Potassium [Moles/volume] in Serum or Plasma 4.6 meq/L 3.5-5.1 [facility] ([facility]) Calcium [Mass/volume] in Serum or Plasma 8.6 mg/dL 8.5-10.1 [facility] ([facility]) Carbon dioxide, total [Moles/volume] in Serum or Plasma 24 meq/L 21 -32 [facility] ([facility]) Aspartate aminotransferase [Enzymatic activity/volume] in Serum or Plasma 34 U/L 15-37 [facility] ([facility] ) Total Bilirubin 0.6 mg/dL 0.2-1.0 [facility] ([facility]) Alkaline phosphatase isoenzyme [Units/volume] in Serum or Pl asma 99 mg/dL 46-116 [facility] ([facility]) Alanine aminotransferase [Enzymatic activity/volume] in Seru m or Plasma 53 U/L 12-78 [facility] ([facility]) Albumin [Mass/volume] in Serum or Plasma 3.6 g/dL 3.4-5.0 [facility] ([facility]) A/G Ratio 1.09 CALC 1.00-1.90 [facility]) Proteinase 3 Ab [Units/volume] in Serum 6.9 g/dL 6.4-8.2 [facility] ([facility]) Glomerular filtration rate/1.73 sq M pre dicted among blacks [Volume Rate/Area] in Serum or Plasma by Creatinine-based formula (MDRD) 43 mL/min [facility] <content>CHRONIC KIDNEY DISEASE STAGING PER NK[facility]</content>
<content></content>
<content>STAGE I & II GFR >= 60 NORMAL TO MILDLY DECREASED</content>
<content>STAGE III GFR 30-59 MODERATELY DECREASED</content>
<content>STAGE IV GFR 15-29 SEVERELY DECREASED</content>
<content>STAGE V GFR <15 VERY LITTLE GFR LEFT</content>
<content>ESRD GFR <15 ON SHOW CARD WRITER</content>
<content></content> Glomerular filtration rate/1.73 sq M pre dicted among non-blacks [Volume Rate/Area] in Serum or Plasma by Creatinine-based formula (MDRD) 36 mL/min [facility] ([facility] ID Date Data Source [id number] 10/26/2020 09:41:00 AM EST [facility] Name Value Range Interpretation Code Description Data Shanita rce(s) Supporting Document(s) Leukocytes [#/volume] in Blood by Automated count 9.7 x10*3/UL 4.1-10 .9 [facility] ([facility]) Erythrocytes [#/volume] in Blood by Automated count 5.27 x10*6/UL 4.2 0-6.30 [facility] ([facility]) Hemoglobin [Mass/volume] in Blood 15.6 g/dL 12.0-18.0 [facility] ([facility]) Hematocrit [Volume Fraction] of Blood by Automated count 47.4 % 3 7.0-51.0 [facility] ([facility]) MCV 89.9 fL 80.0-97.0 [facility]) MCH 29.7 pg 26.0-32.0 [facility] Erythrocyte distribution width [Ratio] by Automated count 13.5 % 11.6-13.7 [facility] ([facility]) MCHC 33.0 g/dL 31.0-38.0 [facility]) Platelets [#/volume] in Blood by Automated count 185 x10*3/UL 140-440 [facility] ([facility]) Lymph % 16.5 % 10.0-58.5 [facility] MPV 7.8 FL 7.8-11.0 [facility] Neut % 79.4 % 37.0-92.0 [facility] Mid % 4.1 % 1.7-9.3 [facility] Lymph # 1.6 x10*3/UL 0.6-4.1 [facility] ([facility]) Neut # 7.7 x10*3/UL 2.0-7.8 [facility] ([facility]) Mid # 0.4 x10*3/UL 0.1-0.6 [facility] ([facility]) ID Date Data Source [id number] 10/30/2020 03:39:42 PM [facility], PCName: Ernestina DavilaDOB: 1970Provider: Cleo Pack: 10/25/2020 Chief ComplaintNeck and headache pain. Refered by:Patient referred by: The patient was referred by Dr. Phillips for consideration of an interlaminar epidural steroid injection in the cervical spine. Chief Complaint 2 MA completing section: Fawad Candelario RENAL NURSE Established Intake At today's visit patient presents with their Self . Patient is not currently working. Implanted Devices The patient does not have any implanted devices. Glucose Monitor Device The patient has a glucose monitoring device. The patient is being seen for an initial evaluation. History of Present IllnessPain Location: The patient localizes their pain to the neck and the head. Pain Quality: The pain is described as aching, stabbing, and sharp. Timing: The pain waxes and wanes in terms of severity. Pain Score: Today's pain is an 8/10, on a good day it is a 3/10, on a bad day it is a 10/10. <OBX.5.1><OBX.5.1.1>Associated Signs </OBX.5.1.1><OBX.5.1.2> Symptoms: Associated symptoms include the pain keeping him awake at night and numbness in the left medial aspect of the hand. He was seen by a neurologist previous to being seen by Dr. Phillips. </OBX.5 .1.2></OBX.5.1>DOI/DOO: The patient has experienced these symptoms for the past 6 months. Past Treatment Effectiveness: Non-Effective treatments: The patient was utilizing tizanidine at one point; however, he discontinued this medication due to its sedating side effects. He does take Tylenol with minimal effect. Interval History: The patient is unable to use NSAID medication due to the presence of only 1 kidney. He denies any upper or lower extremity weakness and bowel or bladder incontinence. He denies any radiating pain into the upper extremities. Review of SystemsConstitutional: Normal. Eyes: Normal. ENT: hea ring loss. Cardiovascular: Normal. Respiratory: Normal. Gastrointestinal: Normal. Genitourinary: Normal. Musculoskeletal: neck pain and upper back pain. Integumentary: Normal. Neurological: Normal. Psychiatric: Normal. Endocrine: Normal. Hematologic/Lymphatic: Normal. I reviewed the above with the patient and I feel the ROS to be negative/normal other than he does endorse deafness in the right ear and the presence of only 1 kidney.. Active Problems 1. Cervical disc herniation (722.0) (M50.20) 2. Degenerative cervical spinal stenosis (723.0) (M48.02) 3. Neck pain (723.1) (M54.2) Allergies Adhesive Tape Hives; Rash; Recorded By: Cindy Candelario; 10/25/2020 2:19:05 PMDenied Iodinated Contrast Media Recorded By: Cindy Candelario; 10/25/2020 2:19:05 PM Latex Recorded By: Cindy Candelario; 10/25/2020 2:19:05 PM Current Meds Atenolol 100 MG Oral Tablet;Therapy: (Recorded:25Oct2020) to Recorded Atorvastatin Calcium 20 MG Oral Tablet;Therapy: (Recorded:25Oct2020) to Recorded Colchicine CAPS;Therapy: (Recorded:25Oct2020) to Recorded Febuxostat 80 MG Oral Tablet;Therapy: (Recorded:25Oct2020) to Recorded Fexofenadine HCl - 180 MG Oral Tablet;Therapy: (Recorded:25Oct2020) to Recorded glipiZIDE 5 MG Oral Tablet;Therapy: (Recorded:25Oct2020) to Recorded hydrALAZINE HCl - 50 MG Oral Tablet;Therapy: (Recorded:25Oct2020) to Recorded Losartan Potassium TABS;Therapy: (Recorded:25Oct2020) to Recorded Omeprazole 40 MG Oral Capsule Delayed Release;Therapy: (Recorded:25Oct2020) to Recorded Pioglitazone HCl TABS;Therapy: (Recorded:25Oct2020) to Recorded Past Medical History History of Adult celiac disease (579.0) (K90.0) Denied: History of Clotting disorder Denied: History of anticoagulant therapy History of arthritis (V13.4) (Z87.39) History of diabetes mellitus (V12.29) (Z86.39) History of hypertension (V12.59) (Z86.79) History of Renal agenesis (753.0) (Q60.2) Surgical History Denied: History of Cardioverter defibrillator insertion History of Knee surgery History of Nephrectomy partial Denied: History of Permanent pacemaker insertion Family History Family history of diabetes mellitus (V18.0) (Z83.3) Family history of hypertension (V17.49) (Z82.49) Family history of arthritis (V17.7) (Z82.61) Family history of cardiac disorder (V17.49) (Z82.49) Family history of hypertension (V17.49) (Z82.49) Family history of diabetes mellitus (V18.0) (Z83.3) Family history of hypertension (V17.49) (Z82.49) Family history of malignant neoplasm of breast (V16.3) (Z80.3) Family history of malignant neoplasm of thyroid (V16.8) (Z80.8) Social History Current non- drinker of alcohol (V49.89) (Z78.9) Engaged to be Never a smoker No illicit drug use Not currently employed VitalsVital Signs Recorded: 25Oct2020 02:18PM Height: 5 ft 11 inWeight: 382 lb BMI Calculated: 53.28BSA Calculated: 2.78Systolic: 165, SittingDiastolic: 91, SittingHeart Rate: 58Respiration: 22Temperature: 97 FHeight measured w/wo shoes: w/shoesPain Scale: 8Depression: 0ORT: LR Physical ExamGeneral: The patient is a well nourished/well developed, male, who is morbidly obese, who is in no acute distress and appears stated age. Eyes: Lids are atraumatic, no lesions, sclerae are anicteric. Ears, Nose, Mouth, Throat: external ears and nose without trauma. Patient wearing a mask due to COVID-19. Respiratory: Normal chest expansion and respiratory effort. Gait and Station: Gait was normal. Lungs are clear to auscultation bilaterally Cardiovascular: Extremities without peripheral edema, auscultation of heart reveals S1, S2 regular rate and rhythm, without murmur.Cervical Spine: - Inspection: No deformity, ecchymosis, erythema or swelling noted. Symmetrical, normal lordosis.- Palpation/Tenderness: Palpatory findings include trigger points: : (Numerous trigger point palpated over the cervical paraspinal and trapezius musculature bilaterally. ). - ROM:. Range of motion increases pain. (Pain with neck extension, forward flexion, and right and left lateral bending. ). Flexion: was painful. Extension: was painful. Left Rotation: was painful. Right rotation: was painful.- Stability: No luxation or subluxation.Right Upper Extremity Motor:- Wrist: 5/5 flexion, 5/5 extension- Elbow: 5/5 flexion, 5/5 extension- Shoulder: 5/5 Abduction- Hand Combining Machine Operator 5/5 Special Tests: negative Spurling's ManeuverLeft Upper Extremity Motor:- Wrist: 5/5 flexion, 5/5 extension- Elbow: 5/5 flexion, 5/5 extension- Shoulder: 5/5 Abduction- Hand Combining Machine Operator 5/5 Special Tests: negative Spurling's ManeuverNeurological:Sensation Upper:Left Upper: normalRight Upper: normal. Skin: Warm, dry, acyanotic. Psychological: Alert and oriented to person, place and time. Mood and affect are pleasant and appropriate. Judgement intact. Insight normal without delusions or hallucinations. Denies suicidal/homicidal ideation. Results/DataPer Dr. Phillips's note, there is a CT scan referenced, which was obtained on 06/04/2020 that reveals a large right pericentral disc osteophyte complex with severe impression on the anterior right cervical cord. Assessment 1. Cervical disc herniation (722.0) (M50.20) 2. Degenerative cervical spinal stenosis (723.0) (M48.02) 3. Neck pain (723.1) (M54.2) Plan 1. Changed: From To Metaxalone 400 MG Oral Tablet TAKE 1- 2 TABLETS 3 TIMES DAILY AFTER MEALS FOR MUSCLE SPASMS 2. Block (Cervical Interlaminar) ([facility]) Referral Procedure Procedure Status: Hold For - Scheduling Requested for: [id number] Type : MedicaidIs patient cu rrently on a biologic? : NoIs patient taking Aspirin due to HISTORY of or HAVING a heart attack or stroke...? : No - Fire Extinguisher Installer clearance not requiredIs patient currently taking Daypro or Feldene...? : NoIs patient taking Aspirin and/or NSAIDS...? : NoIs your patient on an Anticoagulant -OR- have Coagulopathy...? : NoSedation : YesArea: : CervicalBlock : Interlaminar (Epidural)Professional Supervisor Adult Education needed for block? : NoFront Desk Reminder: : Schedule the Status Post BlockPt weight: SODS: </= 450 lbs. HODS: </= 400 lbs. ENTER WEIGHT: : 382IF PT has Thrombocytopenia are platelets >/= 100,000 ? : NAAre you ordering pyhsical therapy...? : NoDoes patient require a Bobby lift? : NoIs this an urgent request? : No - This is not an urgent requestCovid Risk : Medium Risk Patient was counseled on all of the following: Medications: The patient will trial Skelaxin 400 mg to 800 mg up to 3 times daily to replace tizanidine as a muscle relaxer. GENERAL MEDICATIONS: I advised the patient to day/previously regarding treatment with the above medication(s). The risks, benefits, common side effects and alternative treatments were discussed with the patient. The provider verbalized with the patient. The patient verbalized understanding and was told to call if there were any untoward effects. Nerve Blocks: The patient will be scheduled for a cervical interlaminar epidural steroid injection at C6-7 favoring the right side. He denies a bleeding disorder and anticoagulant use. No clearance needed. NSAIDs, no. Sedation, yes. ASIPP Risk Stratification of Patients presenting for Interventional Pain Procedures: Decreasing Morbidity of COVID-19 According to the Covid-19 ASIPP guidelines and the medical history as relayed to me by the patient, the Covid-19 risk stratification is medium. NERVE BLOCK: The material risks, benefits, alternatives have been discussed with the patient, including no treatment. They include, but are not limited to, bleeding, bruising, infection, damage to targeted and non-targeted tissue, increased pain, nerve injury or other reaction, if severe, could lead to CVA, arrhythmias or . The patient was given procedure instructions and educational material for this specific procedure at the time of the visit. Patient denies current treatment with anti- coagulation therapy. Discussion/SummaryThis is a 50-year-old male patient with a 6-month history of debilitating axial neck pain with bilateral occipital headaches, which are essentially constant. He also reports numbness into the left hand; however, he denies any other sofía radicular symptoms. The use of tizanidine helped to some extent; although, he has discontinued the use of this medication due to its sedating side effects. We will rotate Mr. Davila to Skelaxin 400 mg to 800 mg to be taken up to 3 times per day with meals to help with myofascial pain associated with his neck pain. There is a pericentral disc protrusion at the C3-4 level impinging on the right cervical cord, that Dr. Phillips is suggesting we address with interlaminar epidural steroids. We will bring the patient back for a C6-7 interlaminar epidural steroid injection in hopes this will allow for some relief. He will follow up with the referring surgical group, as he may need to have this area decompressed given the relationship of the C3-4 lesion to the spinal cord. The risks and the benefits of the cervical interlaminar epidural steroid injection were discussed with the patient at length today, and all of his questions were answered to their fullest extent with a teaching sheet provided. Per the COVID-19 risk stratification table, Mr. Davila is moderate risk. ScribeNYSW Scribe Detail Form: Dina Huerta . (iScribes) Signatures Electronically signed by : Chloe Pack MD; Oct 26 2020 2:09PM EST (Author) Name Value Range Interpretation Code Description Data Shanita rce(s) Supporting Document(s) ID Date Data Source [id number] 10/16/2020 05:00:28 PM EST [facility] Name Value Range Interpretation Code Description Data Shanita rce(s) Supporting Document(s) EKG [facility] [id number] [file] /[id number] [file] [id number]== ID Date Data Source [id number] 10/16/2020 12:18:48 PM [facility] NT INFORMATIONPatient MRN Name Date of Age Gend*PT [id number] Davila Mercedes Connor 1970 50 years M OPPT Location Admission Date/Time Visit ID Attending Provider --- --- --- Zander Dean MD([id number]) EPI ID [facility] Admitting Provider [id number] Zander Dean MD([id number])HISTORY PHYSICALName: Mercedes Connor TaylorDavila : 1970 Sex: male Care Provider: Eleanor FLORENCEending Physician: Dr. DeanInformant: The patient who is reliable.Chief Complaint: OverweightHISTORY OF PRESENT ILLNESS: This is a 50 years old male with alongstanding history of being overweight. He has tried multiple weight lossmethods but has been unable to lose significant weight or sustain the weightloss. He is now ready for surgical intervention.The patient met with Dr. Dean, options were discussed and they have electedto under go CREATION, GASTRIC BYPASS, DESIREE-EN-Y, ROBOT-ASSISTED, LAPAROSCOPIC,USING XI, WITH SLEEVE GASTRECTOMY IF INDICATED, WITH LIVER BIOPSY IF INDICATED,WITH HIATAL HERNIA REPAIR IF INDICATED, WITH LAPAROTO on 10/27/2020 AST MEDICAL HISTORY:Past Medical History:Diagnosis Date Celiac disease CKD (chronic kidney disease), stage III Deaf, right DM (diabetes mellitus), type 2 Fatty liver GERD (gastroesophageal reflux disease) Gout Hyperlipidemia Hypertension Morbid obesity MRSA (methicillin resistant Staphylococcus aureus) 2014 skin infection Osteoarthritis Sleep apnea CPAPPAST SURGICAL HISTORY:Past Surgical History:Procedure Laterality Date COLONOSCOPY KNEE ARTHROPLASTY Right partial NEPHRECTOMY RightALLERGIES:AllergiesAllergen Reactions Gluten Meal Rash Rash and diarrheaMEDICATIONS:Current Outpatient Medications on File Prior to VisitMedication Sig Dispense Refill atenolol (TENORMIN) 100 MG tablet Take 100 mg by mouth daily atorvastatin (LIPITOR) 20 MG tablet Take 20 mg by mouth nightly BASAGLAR KWIKPEN 100 UNIT/ML SOPN Inject 20 Units under the skin nightly calcitriol (ROCALTROL) 0.25 MCG capsule Take 0.25 mcg by mouth daily colchicine 0.6 MG tablet Take 0.6 mg by mouth daily Febuxostat 80 MG TABS Take 120 mg by mouth daily fexofenadine (CLAUDIA) 180 MG tablet Take 180 mg by mouth daily gabapentin (NEURONTIN) 800 MG tablet Take 800 mg by mouth 3 (three) times aday glipiZIDE (GLUCOTROL) 5 MG 24 hr tablet Take 5 mg by mouth daily hydrALAZINE (APRESOLINE) 50 MG tablet Take 50 mg by mouth 2 (two) times a day losartan (COZAAR) 100 MG tablet Take 100 mg by mouth daily Misc Natural Products (GLUCOSAMINE CHOND COMPLEX/MSM) TABS Take by mouth omeprazole (PRILOSEC) 40 MG capsule Take 40 mg by mouth daily pioglitazone (ACTOS) 30 MG tablet Take 30 mg by mouth daily tiZANidine (ZANAFLEX) 4 MG tablet Take 4 mg by mouth 2 (two) times a day triamcinolone (KENALOG) 0.1 % cream Apply 1 application topically 3 (three)times a day [DISCONTINUED] amitriptyline (ELAVIL) 25 MG tablet TK 1 T PO HSNo current facility-administered medications on file prior to visit.Social HistoryTobacco Use Smoking status: Never Smoker Smokeless tobacco: Never UsedSubstance Use Topics Alcohol use: Yes Comment: Occasionally Drug use: NeverFamily HistoryProblem Relation Age of Onset Hypertension Mother Diabetes Mother Coronary artery disease Father Malig Hyperthermia Neg HxREVIEW OF SYSTEMS:Constitution: Weight stable, Denies fatigue, fever or chills. Caffeine intake: 0cups/day.HEENT: He uses bifocals. Denies any blurred vision, double vision, dizziness,tinnitus, dysphagia or headaches.Respiratory: Denies any shortness of breath, cough, yellow sputum production orwheezing.Cardiovascular: Denies any chest pain, pressure or tightness. Denies anyparoxysmal nocturnal dyspnea or orthopnea.Muscle/Skeletal System: Denies any muscle ache, joint ache or weakness.Neurologic: Denies any numbness, tingling, tremors or syncope.GI: Denies any nausea, vomiting, diarrhea, constipation or melena.: Denies any dysuria, hematuria or nocturia.Endocrine: Denies polyuria, polydipsia or polyphagia. Denies any heat or coldintolerance, or night sweats.Hematology: Denies any bleeding or bruising tendencies.DNR Status: Full Code per the patient.HCP: No per patient.PHYSICAL EXAM:General: He is a 50 years old, pleasant male, in no acute distress attime of examination. Vitals on arrival to the office are BP 135/69 (BP Location:Left upper arm, Patient Position: Sitting) | Pulse 57 | Temp 96.3 F(Temporal) | Ht 1.829 m (6') | Wt (!) 174.2 kg (384 lb) | SpO2 96% | BMI52.08 kg/m Body mass index is 52.08 kg/m ..Skin is pink warm and dry.HEENT: He is normocephalic, atraumatic. [place] conjunctivae. Anicteric sclerae.Pupils are equal, round, reactive to light and accommodation. Extraocularmovements are intact. Ears: Without drainage or lesion. Mouth: Dentition is ingood repair. He has a grade 3 airway. Neck is supple midline without cervicaladenopathy. There is no tonsillo pharyngeal congestion. Mucous membranes aremoist. There are no oral lesions. No jugular distention. No carotid bruit.CHEST/BREAST: A/P less than transverse. Breast exam declined.LUNGS: Clear to auscultation. No wheezes, rhonchi or crackles.HEART: Rate bradycardic rhythm regular. S1, S2. No murmur, rub or gallop.ABDOMEN: Obese. Bowel sounds positive times four. Soft, non tender. No reboundtenderness. No hepatosplenomegaly. Negative CVAT.GENITAL/RECTAL: Deferred.MUSCLE/SKELETAL: Strength is 5/5. Civil Design Specialist are equal.NEUROLOGICALLY: Cranial nerves II through XII are grossly intact.VASCULAR: Pulses are symmetrical. No edema.Anesthesia complications: deniesSteroid use: He denies any oral steroid therapy for three weeks or greaterwithin the last 3 months.[facility] Frailty Scale :: 3/10 Managing Well (medical problems are well controlled,but are not regularly active beyond routine walking).IMPRESSION and PLAN:Primary Diagnosis: Morbid obesity. Surgery as per Dr. Dean.Secondary Diagnosis and Plan:1. Morbid Obesity Body mass index is 52.08 kg/m .2. Hypertension Continuation of prior to admission anti- hypertensivemedications unless precluded by clinical status.3. Sleep apnea Obstructive Patient to continue with use of home CPAP /BiPAP4. Diabetes Type 2 Routine blood glucose monitoring. Sliding scaleinsulin coverage while inpatient. Hold oral diabetic medications.5. CKD Stage III Monitoring of lab values including creatinine withadjustments to hydration if needed Avoidance of nephrotoxic medicationsMedication review and appropriate r enal adjustments to be made by Pharmacist perrenal protocol6. GI prophylaxis Per surgeon7. DVT prophylaxis Early ambulation. Pneumatic compression device.Subcutaneous Heparin or LMW Heparin if clinically indicatedBased on above medical co morbidities, length of stay may be prolonged greaterthan previously anticipated.ALLERGIES:Gluten meal10/16/2020 12:18 Tahira Hallman document or parts of this document, were dictated using [email or web address] software. A reasonable attempt at proofreading has beenmade to minimize errors. Please call with any questions or corrections. Name Value Range Interpretation Code Description Data Shanita rce(s) Supporting Document(s) ID Date Data Source [id number] 10/16/2020 07:41:01 PM EST [facility] SPEC EXP DATE 1PATI ENT ABO/Rh A POSITIVEANTIBODY SCREEN POSITIVETESTING SITE PERFORMED AT [address] [place] [address] [id number] IDENT ANTI-E PRESENT, Name Value Range Interpretation Code Description Data Shanita rce(s) Supporting Document(s) TYPE AND SCREEN [facility] PATIENT ABO/Rh A POSITIVE ID Date Data Source [id number] 10/16/2020 07:26:44 PM EST [facility] Name Value Range Interpretation Code Description Data Shanita rce(s) Supporting Document(s) HEMOGLOBIN A1C @ 5.5 % (4.0-6.0) [facility] Performed using Siemens [place] immunoassa y.Care must be taken when interpreting MeJ9seyephgi in patients with a hemoglobin variantor decreased erythrocyte lifespan. Values 5.7 - 6.4% suggest prediabetes.Values >=6.5% are diagnostic for diabetes.REFERENCE: DIABETES CARE 2018: 41(S13-S27). EST AVERAGE GLUCOSE 111 mg/dL [facility] ID Date Data Source [id number] 10/16/2020 05:50:27 PM EST [facility] Name Value Range Interpretation Code Description Data Shanita rce(s) Supporting Document(s) TSH,ULTRASENSITIVE @ 3.080 mIU/L (0.360-4.170) [facility] ID Date Data Source [id number] 10/16/2020 05:50:27 PM EST [facility] Name Value Range Interpretation Code Description Data Shanita rce(s) Supporting Document(s) SODIUM 143 mmol/L (136-145) [facility] POTASSIUM 4.5 mmol/L (3.6-5.2) [facility] CHLORIDE 109 mmol/L (100-108) H [facility] CO2 22 mmol/L (22-31) [facility] ANION GAP 12 mmol/L (7-16) [facility] UREA NITROGEN 30 mg/dL (7-24) H [facility] CREATININE 1.85 mg/dL (0.80-1.30) H [facility] BUN/CREAT RATIO 16.2 RATIO (10.0-20.0) [facility] GLUCOSE 59 mg/dL (70-99) L [facility] CALCIUM 8.4 mg/dL (8.4-10.2) [facility] TOTAL PROTEIN 6.2 g/dL (6.4-8.2) L [facility] ALBUMIN 3.3 g/dL (3.5-4.6) L [facility] GLOBULIN 2.9 g/dL (2.7-4.3) [facility] ALB/GLOB RATIO 1.1 RATIO [facility] ALKALINE PHOSPHATASE 91 U/L (45-117) [facility] BILIRUBIN,TOTAL 0.4 mg/dL (0.0-1.0) [facility] PLEASE NOTE:Total bilirubin results may be falselyelevated in patients taking Eltrombopag. AST (SGOT) 35 U/L (11-39) [facility] ALT (SGPT) 48 U/L (12-78) [facility] GFR 39 ml/min/1.73m2 (>59) L [facility] GFR ( AMER) 47 ml/min/1.73m2 (>59) L [facility] GFR INTERPRETATION [facility] --NORMAL KIDNEY FUNCTION OR MILD DISEASE - GFR >OR= 60CHRONIC KIDNEY DISEASE - GFR 15 - 59RENAL FAILURE - GFR <15 Est. GFR calculation based on the MDRDstudy equation, which assumes a steadystate for creatinine. Est. GFR should notbe used for medication dosing. ID Date Data Source [id number] 10/16/2020 04:59:23 PM EST [facility] Name Value Range Interpretation Code Description Data Shanita rce(s) Supporting Document(s) WBC 7.9 10*3/uL (4.1-11.0) [facility] RBC 4.88 10*6/uL (4.60-6.10) [facility] HGB 14.8 g/dL (13.5-18.0) [facility] HCT 45.3 % (41.0-53.0) [facility] MCV 92.9 fL (80.0-95.0) [facility] MCH 30.3 pg (27.0-32.0) [facility] MCHC 32.6 g/dL (32.0-36.0) [facility] RDW 14.8 % (10.5-14.5) H [facility] PLT 165 10*3/uL (150-450) [facility] MPV 8.0 fL (7.1-10.7) [facility] ID Date Data Source [id number] 10/16/2020 10:30:00 AM EST [facility] Name Value Range Interpretation Code Description Data Shanita rce(s) Supporting Document(s) :PrThr:Pt:Respiratory:Ord:Probe.amp.tar [facility] This lab was ordered by [facility] and reported by [facility]. ID Date Data Source [id number] 10/16/2020 05:11:00 PM EST [facility] Name Value Range Interpretation Code Description Data Shanita rce(s) Supporting Document(s) CRSP SARS-CoV-2 (RT)-PCR Assay Negative Negative N ormal (applies to non-numeric results) [facility] The [place] FDA has made th is test available under anemergency access mechanism called Emergency Use Authorization (EUA). TheEUA is supported by the certified legal secretary specialist of Health and Human Services (HHSs)declaration that circumstances exist to justify the emergency use of invitro diagnostics (IVDs) for the detection and/or diagnosis of the virusthat causes COVID-19.Test performed at [facility] located at [facility], [address] [place] [address]. First Test Yes [facility] Employed in healthcare No [facility] Symptomatic as defined by CDC No [facility] Hospitalized No [facility] Resident in a congregate care setting No [facility] The above 6 analytes were performed by [facility] [place] [address] ID Date Data Source [id number] 10/11/2020 08:43:00 AM [facility] Patient Name: MERCEDES DAVILA : 1 11/13/1969 Sex: M Pt Unit #: [id number] Location[facility] Provider: Visit Date/Time: 10/11/20 Primary Insurance: Self Pay Secondary Insurance: Intake Vital Signs 10/11/20 08:48 Current Height 6 ft Current Weight 360 lb Weight Measurement Method Stated by Patient BMI 48.8 BP 142/78 Blood Pressure Location Lt brachial Position Sitting Respiration 15 Pulse 76 Pulse Strength Normal Pulse Source Pulse Oximeter Pulse Oximetry (%) 95 Oxygen Delivery Method room air Intake Visit Reasons: Occ Med physical Nurse Note: Pt's here for an occ med physical for [employer]. Supervisor Adult Education Required: No Accompanied by: Self / Same as Patient Is patient in pain?: No Allergies No Known Allergies Allergy (Unverified 10/11/20 08:49) Vision Wearing glasses?: No Fall Risk History of falls: No Ambulatory Aid:: None Gait/Transferring:: Normal Medications:: Antihypertensives HIV Testing Offer - ages 13-64 HIV testing Offer: No Requirement for HIV testing offer been met?: Patient reports past refusal Do you need a note to return Do you need a note to return to daycare/school/sports/work: No Occupation Medicine Qualifications for Work Individual Fit for Work: No Assessment Plan Assessment Plan (1) Encounter for physical examination related to employment: Code(s): Z02.89 - Encounter for other administrative examinations Plan - Jericho mccormick M.D.: Mr. Davila was untruthful about his medical problems and his medication regimen. I find this extremely disconcerting and have disqualified him for employment. He has been advised that he may reapply for the job with the instructions that he needs to be totally truthful about his medical conditions, medications and physical status. Coding Level of Care Code Occ Med Physical Diagnoses Encounter for physical examination related to employment Z02.89 <Electronically signed by Jericho Weber MD> 10/11/20 0904 Name Value Range Interpretation Code Description Data Shanita rce(s) Supporting Document(s) ID Date Data Source [id number] 10/04/2020 02:16:13 PM EST [facility] Name Value Range Interpretation Code Description Data Shanita rce(s) Supporting Document(s) Preprocedure Instructions [facility] [id number] lbm [file] [id number] ID Date Data Source [id number] 10/04/2020 09:40:00 PM EST [facility] Name Value Range Interpretation Code Description Data Shanita rce(s) Supporting Document(s) WBC 9.06 x1000/ul 4.80-10.00 Normal (applies to non-numeric re sults) [facility] RBC 5.12 x1Mil/ul 4.70-6.10 Normal (applies to non-numeric re sults) [facility] Hemoglobin 15.2 g/dl 14.0-18.0 Normal (applies to non-numeric resul ts) [facility] Hematocrit 48.4 % 42.0-52.0 Normal (applies to non-numeric resul ts) [facility] MCV 94.5 fL 80.0-94.0 Above high normal [facility] MCH 29.7 pg 27.0-31.0 Normal (applies to non-numeric resul ts) [facility] MCHC 31.4 g/dl 32.2-37.0 Below low normal [facility] RDW 14.0 % 11.5-14.5 Normal (applies to non-numeric resul ts) [facility] Platelet Count 182 x1000/ul 130-400 Normal (applies to non-numeric results) [facility] MPV 10.1 fL 9.4-12.4 Normal (applies to non-numeric resul ts) [facility] Nucleated RBCs 0.00 % 0.00-0.20 Normal (applies to non-numeric r esults) [facility] Abs. Nucleated RBCs 0.00 x1000/ul 0.00-0.02 Normal (appl ies to non-numeric results) [facility] The above 12 analytes were performed by [facility] [address],[id number],[place] [address] ID Date Data Source [id number] 10/04/2020 09:29:00 PM EST [facility] Name Value Range Interpretation Code Description Data Shanita rce(s) Supporting Document(s) AST 37 IU/L 15-37 Normal (applies to non-numeric resul ts) [facility] Sulfasalazine and sulfapyridine have the potential to falsely depressAspartate Aminotransferase results. Baseline values before medication administration are recommended. ALT 49 IU/L 16-61 Normal (applies to non-numeric resul ts) [facility] Sulfasalazine and sulfapyridine have the potential to falsely depressAlanine Aminotransferase results. Baseline values before medication administration are recommended. Alkaline Phosphatase 95 mIU/ml 50-136 Normal (applies to non-num edgardo results) [facility] Total Bilirubin 0.40 mg/dl 0.20-1.00 Normal (applies to non-numeric results) [facility] Blood Urea Nitrogen 26 mg/dl 7-18 Above high normal [facility] Creatinine 1.89 mg/dl 0.67-1.17 Above high normal [facility] N-Acetylcysteine (NAC) and Metamizole pederson ve the potential to falselydepress Creatinine results. Baseline values before medication adminstration are recommended. Patients undergoing treatment with phenindione will have falselydepressed results. Patients on phenindione therapy should be tested with an alternativeCREA method.Toxic levels of acetaminophen may lead to falsely depressed results forpatient samples. Glomerular Filtration Rate 38.00 mL/min/1.73m2 [facility] GFR Reference Ranges:Normal Function or Mild Renal Disease,if clinically at risk:>or= 60Moderately decreased:30 - 59Severely decreased:15 - 29Renal Failure:<15 Please note that the MDRD equation requires an additional adjustment forAfrican-Americans (multiply the GFR result by 1.210).Glomarular Filtration Rate (GFR) is estimated based on the MDRDequation, which assumes a steady state for creatinine (Virginie Int Med 139/2 137-149, 2003), as recommended by the Nationaldney Disease Education Program in conjunction with the National Institutes of Health and the National KidneyFoundation. The [place] method used in calculating this result is traceable to IDMN standards. Glucose 95 mg/dl 70-110 Normal (applies to non-numeric resul ts) [facility] Sulfasalazine has the potential to false ly depress Glucose results. Sulfapyridine has the potential to falsely elevate Glucose results. Baseline values before medication administration are recommended. Calcium 9.1 mg/dl 8.5-10.1 Normal (applies to non-numeric resul ts) [facility] Total Protein 6.3 g/dl 6.4-8.2 Below low normal [facility] Albumin 3.4 g/dl 3.4-5.0 Normal (applies to non-numeric resul ts) [facility] Sodium 141 mEq/L 136-145 Normal (applies to non-numeric resul ts) [facility] Potassium 5.0 mEq/L 3.5-5.1 Normal (applies to non-numeric resul ts) [facility] Chloride 113.0 mEq/L 98.0-107.0 Above high normal [facility] Carbon Dioxide 23.2 mMol/L 21.0-32.0 Normal (applies to non-numeric results) [facility] Anion Gap 9.8 7.0-15.0 Normal (applies to non-numeric resul ts) [facility] The above 16 analytes were performed by [facility] [id number] [place] [address], ,[place] [address] ID Date Data Source [id number] 09/28/2020 11:30:29 AM EST [facility], PCName: Mercedes TaylorcassiaDOB: 1970Provider: Kirsten Phillips: 09/28/2020 Reason For VisitMercedes Davila is here today for cervical spine. Mercedes Davila is a new patient. ct csp 08/23/20 imported Other DOI/DOO: 05/2020. The patient has not had a course of physical therapy for greater than 4 weeks. The patient has not had a course of NSAIDs for greater than 4 weeks. Patient is unemployed. Plan Physical Therapy (SOS) - Spinal Physical Therapy Evaluation and Treatment Status:Complete Done: [id number] Ordered;For: Neck pain; Ordered By: Gaurav Phillips Performed: Due: [id number]; Last Updated By: Batsheva Gannon; 09/28/2020 11:19:13 AMDuration: : Four WeeksPT Frequency : Two or three times a weekSOS ROM and Strength : Range of motion and strengthening exercises.Heat Ultra and Modalities : Heat Ultrasound and modalities as indicatedEvaluate and Treat: : Please evaluate and treat as indicated. Chief complaint patient states headachesVery pleasant gentleman. He reports headaches for 4 months. Headaches are every day, 10 out of 10. He follows with neurology. He reports posterior cervical pain, pain at the back of the head, worse with activity and better when he is sedentary. Reports intermittent numbness in the left ulnar hand. He takes Tylenol and muscle relaxers as needed. He has not had physical therapy or chiropractic treatment.The patient is well-developed, well-nourished and in no acute distress. Overweight. The patient appears their stated age and is dressed appropriately for climate. The pupils are equal, round and reactive to accommodation. Head is normocephalic and atraumatic. Respirations are even and unlabored. On neurologic examination, the patient is alert and oriented to time, place and person. Memory is intact to recall testing. Affect is not blunted. Speech is appropriate. The skin appears normal and is negative for ulcers or rashes. Lymphatic exam: Neck within normal limits. The patient denies any fecal or urinary incontinence, pain on voiding, diarrhea or constipation. On examination of the cervical spine, the patient has full flexion, extension, lateral bending to each side, and rotation each side. Patient exhibits a normal gait. There is no posterior or anterior tenderness of the cervical spine. The patient has full bilateral upper extremity motor strength, 5 out of 5 in the deltoids, biceps, wrist extensors, triceps, finger flexors, and hand intrinsics. Sensation is intact to light touch from C5-T1 bilaterally. Reflexes are 2+ in the biceps, brachioradialis, and triceps bilaterally. [place] [facility] [place]. June 13, 2020. Severe headaches, happen every day, posterior head travels around his head, throbbing, sharp. Diagnosis cervical degenerative headaches, occipital neuralgia. Intractable migraines.CT scan reviewed. June 04, 2020. CT for large right paracentral disc osteophyte complex with severe impression on the anterior right cervical cordAssessmentcervical radiculopathy, C3-4 stenosistype: radiculopathylocation: cervical etiology: degenerativeplan:1. Medication: anti-inflammatories as needed to reduce inflammation.2. Imaging: No further imaging at this time3. Injection: Cervical epidural4. Activity:as tole rated. 5. Referral: PT for cervical isometrics, ROM, stretching, traction. [place] [facility] pain [facility]6. Surgical management deferred at this point Follow-up 2 months. MRI cervical spine if symptoms have not improved after therapy Signatures Electronically signed by : Gaurav Phillips M.D.; Sep 28 2020 11:30AM EST (Author) Name Value Range Interpretation Code Description Data Shanita rce(s) Supporting Document(s) ID Date Data Source [id number] 08/11/2020 09:42:00 AM EDT [facility] ([facility]) Name Value Range Interpretation Code Description Data Shanita rce(s) Supporting Document(s) Glucose [Mass/volume] in Serum or Plasma 124 mg/dL 74-99 [facility] ([facility]) 100-125 mg/dL PRE-DIABETES/FASTING >126 mg/dL DIABETES/FASTING Urea nitrogen [Mass/volume] in Serum or Plasma 31 mg/dL 7-18 [facility] ([facility]) NOTE: BUN,CREAT VERIFIED Creatinine 2.1 mg/dL 0.6-1.3 [facility] Potassium [Moles/volume] in Serum or Plasma 4.7 meq/L 3.5-5.1 [facility] ([facility]) Chloride [Moles/volume] in Serum or Plasma 109 meq/L 98-107 [facility] ([facility]) Sodium [Moles/volume] in Serum or Plasma 143 meq/L 136-145 [facility] ([facility]) Carbon dioxide, total [Moles/volume] in Serum or Plasma 26 meq/L 21 -32 [facility] ([facility]) Calcium [Mass/volume] in Serum or Plasma 8.7 mg/dL 8.5-10.1 [facility] ([facility]) Glomerular filtration rate/1.73 sq M pre dicted among non-blacks [Volume Rate/Area] in Serum or Plasma by Creatinine-based formula (MDRD) 34 mL/min [facility] ([facility]) Glomerular filtration rate/1.73 sq M pre dicted among blacks [Volume Rate/Area] in Serum or Plasma by Creatinine-based formula (MDRD) 41 mL/min [facility] ([facility]) <content>CHRONIC KIDNEY DISEASE STAGING PER NKF</content>
<content></content>
<content>STAGE I & II GFR >= 60 NORMAL TO MILDLY DECREASED</content>
<content>STAGE III GFR 30-59 MODERATELY DECREASED</content>
<content>STAGE IV GFR 15-29 SEVERELY DECREASED</content>
<content>STAGE V GFR <15 VERY LITTLE GFR LEFT</content>
<content>ESRD GFR <15 ON SHOW CARD WRITER</content>
<content></content> Procedure Social History Code Duration Value Status Description Data Source(s ) Alcohol intake 12/05/2020 12:00:00 AM EST Current non-d dung of alcohol (finding) completed Current non-drinker of alcohol (finding) Lu Tobacco use and exposure 12/05/2020 12:00:00 AM EST Never used co mpleted Never used Lu Smoking 12/05/2020 12:00:00 AM EST Never smoker completed Never s moker Lu Alcohol intake 11/28/2020 12:00:00 AM EST Yes completed [facility] Smoking 11/28/2020 12:00:00 AM EST Never smoker completed Never s moker [facility] Alcohol intake 10/16/2020 12:00:00 AM EST Yes completed [facility] Smoking 10/16/2020 12:00:00 AM EST Never smoker completed Never s moker [facility] Alcohol intake 2020 12:00:00 AM EST Yes completed [facility] Smoking 2020 12:00:00 AM EST Never smoker completed Never s moker [facility] Vital Signs ID Date Data Source UNK Name Value Range Interpretation Code Description Data Source(s) Body weight 289.00 [lb_av] 289.00 [lb_av] [facility] T ([facility] ) Diastolic blood pressure 66 mm[Hg] 66 mm[Hg] [facility] ([facility] ) Heart rate 52 /min 52 /min [facility] ([facility] ) Body mass index (BMI) [Ratio] 39.6 kg/m2 39.6 k g/m2 [facility] ([facility] ) Oxygen saturation in Arterial blood by Pulse oximetry 97 % 97 % [facility] ([facility] ) Systolic blood pressure 127 mm[Hg] 127 mm[Hg] [facility] Body height 71.6 [in_i] 71.6 [in_i] [facility] ([facility] ) 5'11.60" Body weight 287.00 [lb_av] 287.00 [lb_av] [facility] T ([facility]) Body mass index (BMI) [Ratio] 39.5 kg/m2 39.5 k g/m2 [facility] ([facility]) Systolic blood pressure 118 mm[Hg] 118 mm[Hg] [facility] Diastolic blood pressure 70 mm[Hg] 70 mm[Hg] [facility] ([facility]) Heart rate 74 /min 74 /min [facility] ([facility]) Body height 71.5 [in_i] 71.5 [in_i] [facility] ([facility]) 5'11.50" Systolic blood pressure 130 mm[Hg] 130 mm[Hg] [facility] Body height 71.5 [in_i] 71.5 [in_i] [facility] ([facility]) 5'11.50" Diastolic blood pressure 80 mm[Hg] 80 mm[Hg] [facility] ([facility]) Heart rate 71 /min 71 /min [facility] ([facility]) Body weight 324.00 [lb_av] 324.00 [lb_av] [facility] T ([facility]) Body mass index (BMI) [Ratio] 44.6 kg/m2 44.6 k g/m2 [facility] ([facility]) Diastolic blood pressure--sitting 70 mm[Hg] 70 mm[Hg] [facility] ([facility]) Systolic blood pressure--standing 114 mm[Hg] 11 4 mm[Hg] [facility] ([facility]) Body mass index (BMI) [Ratio] 46.8 kg/m2 46.8 k g/m2 [facility] ([facility]) Body height 71.5 [in_i] 71.5 [in_i] [facility] ([facility]) 5'11.50" Body weight 340.00 [lb_av] 340.00 [lb_av] [facility] T ([facility]) Diastolic blood pressure--standing 68 mm[Hg] 6 8 mm[Hg] [facility] ([facility]) Heart rate 64 /min 64 /min [facility] ([facility]) Systolic blood pressure--supine 120 mm[Hg] 120 mm[Hg] [facility] ([facility]) Diastolic blood pressure--supine 70 mm[Hg] 70 mm[Hg] [facility] ([facility]) Systolic blood pressure--sitting 118 mm[Hg] 118 mm[Hg] [facility] ([facility]) Body height 184.2 cm 184.2 cm [facility] Systolic blood pressure 134 mm[Hg] 134 mm[Hg] [facility] Diastolic blood pressure 79 mm[Hg] 79 mm[Hg] [facility] Heart rate 58 /min 58 /min [facility] Body weight 172.367 kg 172.367 kg [facility] Body mass index (BMI) [Ratio] 50.83 kg/m2 50.83 kg/m2 [facility] Oxygen saturation in Arterial blood by Pulse oximetry 95 % 95 % [facility] Body weight 386.50 [lb_av] 386.50 [lb_av] [facility] T ([facility]) Oxygen saturation in Arterial blood by Pulse oximetry 98 % 98 % [facility] ([facility]) Systolic blood pressure 130 mm[Hg] 130 mm[Hg] M EDENT ([facility]) Diastolic blood pressure 68 mm[Hg] 68 mm[Hg] [facility] ([facility]) Heart rate 68 /min 68 /min [facility] ([facility]) Body temperature 96.8 [degF] 96.8 [degF] [facility] ([facility]) Body height 71.6 [in_i] 71.6 [in_i] [facility] ([facility] ) 5'11.60" Body mass index (BMI) [Ratio] 53.0 kg/m2 53.0 k g/m2 [facility] ([facility]) Body temperature 96.7 [degF] 96.7 [degF] [facility] ([facility]) Body height 72 [in_i] 72 [in_i] [facility] ([facility]) 6'0" Body weight 367.00 [lb_av] 367.00 [lb_av] [facility] T ([facility]) Body mass index (BMI) [Ratio] 49.8 kg/m2 49.8 k g/m2 [facility] ([facility]) Systolic blood pressure 122 mm[Hg] 122 mm[Hg] [facility] Diastolic blood pressure 78 mm[Hg] 78 mm[Hg] [facility] ([facility]) Heart rate 65 /min 65 /min [facility] ([facility], ) Oxygen saturation in Arterial blood by Pulse oximetry 95 % 95 % [facility] ([facility]) Room Air Body height 72 [in_i] 72 [in_i] [facility] ([facility]) 6'0" Body weight 381.00 [lb_av] 381.00 [lb_av] [facility] T ([facility], ) Body mass index (BMI) [Ratio] 51.7 kg/m2 51.7 k g/m2 [facility] ([facility]) [place] body weight 178 [lb_av] 178 [lb_av] MED[facility] T ([facility]) Body weight 172.822 kg 172.822 kg [facility] ([facility]) Body surface area Derived from formula 2.80 m2 2.80 m2 [facility] Body mass index (BMI) [Ratio] 52.1 kg/m2 52.1 k g/m2 [facility] ([facility]) Systolic blood pressure 126 mm[Hg] 126 mm[Hg] M EDENT ([facility]) Diastolic blood pressure 76 mm[Hg] 76 mm[Hg] [facility] ([facility]) Body height 71.5 [in_i] 71.5 [in_i] [facility] ([facility]) 5'11.50" Heart rate 68 /min 68 /min [facility] ([facility]) Body weight 379.00 [lb_av] 379.00 [lb_av] [facility] T ([facility]) Systolic blood pressure 135 mm[Hg] 135 mm[Hg] [facility] Diastolic blood pressure 69 mm[Hg] 69 mm[Hg] [facility] Heart rate 57 /min 57 /min [facility] Body temperature 35.72 Edilma 35.72 Edilma [facility] Body height 182.9 cm 182.9 cm [facility] Body weight 174.181 kg 174.181 kg [facility] Body mass index (BMI) [Ratio] 52.08 kg/m2 52.08 kg/m2 [facility] Oxygen saturation in Arterial blood by Pulse oximetry 96 % 96 % [facility] Respiratory rate 12 /min 12 /min [facility] Body height 72 [in_i] 72 [in_i] [facility] ([facility], ) 6'0" Body weight 360.00 [lb_av] 360.00 [lb_av] [facility] T ([facility], ) Body mass index (BMI) [Ratio] 48.8 kg/m2 48.8 k g/m2 [facility] ([facility], ) [place] body weight 178 [lb_av] 178 [lb_av] [facility] T ([facility], ) Body height 182.9 cm 182.9 cm [facility] Body weight 155.584 kg 155.584 kg [facility] Body mass index (BMI) [Ratio] 46.52 kg/m2 46.52 kg/m2 [facility] Heart rate 64 /min 64 /min [facility] ([facility]) Body height 71.5 [in_i] 71.5 [in_i] [facility] ([facility]) 5'11.50" Systolic blood pressure 110 mm[Hg] 110 mm[Hg] [facility] Diastolic blood pressure 70 mm[Hg] 70 mm[Hg] [facility] ([facility]) Body weight 348.00 [lb_av] 348.00 [lb_av] [facility] T ([facility]) Oxygen saturation in Arterial blood by Pulse oximetry 96 % 96 % [facility] ([facility]) Air Body mass index (BMI) [Ratio] 47.9 kg/m2 47.9 k g/m2 [facility] ([facility]) Systolic blood pressure 130 mm[Hg] 130 mm[Hg] [facility] Diastolic blood pressure 68 mm[Hg] 68 mm[Hg] [facility] ([facility]) Heart rate 72 /min 72 /min [facility] ([facility]) Body weight 3666.00 [lb_av] 3666.00 [lb_av] MED [facility] ([facility]) Systolic blood pressure 130 mm[Hg] 130 mm[Hg] [facility] Diastolic blood pressure 68 mm[Hg] 68 mm[Hg] [facility] ([facility]) Heart rate 72 /min 72 /min [facility] ([facility]) Body height 71.5 [in_i] 71.5 [in_i] [facility] ([facility]) 5'11.50" Body weight 366.00 [lb_av] 366.00 [lb_av] [facility] T ([facility]) Body mass index (BMI) [Ratio] 50.3 kg/m2 50.3 k g/m2 [facility] ([facility]) ID Date Data Source [id number] 12/05/2020 12:40:52 PM KALEB Lu Name Value Range Interpretation Code Description Data Source(s) HEIGHT 6' 0" ft 6' 0" dee Lu PVD (peripheral vascular disease Patient Treatment Plan of Care Planned Activity Planned Date Details Description Data Source (s) Fexofenadine hydrochloride 180 MG Oral Tablet 09/07/2020 12:00:00 A M EST [facility] Losartan Potassium 100 MG Oral Tablet 09/04/2020 12:00:00 AM EST [facility] pioglitazone 30 MG Oral Tablet 09/02/2020 12:00:00 AM EST [facility] 24 HR Glipizide 5 MG Extended Release Oral Tablet 08/28/2020 12: 00:00 AM EST [facility] Hydralazine Hydrochloride 50 MG Oral Tablet 08/27/2020 12:00:00 AM EST [facility] gabapentin 800 MG Oral Tablet 08/22/2020 12:00:00 AM EST [facility] BASAGLAR KWIKPEN 100 UNIT/ML SOPN 08/21/2020 12:00:00 AM EST [facility] Colchicine 0.6 MG Oral Tablet 08/21/2020 12:00:00 AM EST [facility] Calcitriol 0.60998 MG Oral Capsule 08/21/2020 12:00:00 AM EST [facility] Triamcinolone Acetonide 1 MG/ML Topical Cream 08/20/2020 12:00:00 A M EDT [facility] febuxostat 80 MG Oral Tablet 08/20/2020 12:00:00 AM EDT [facility] atorvastatin 20 MG Oral Tablet 08/20/2020 12:00:00 AM EDT [facility] Amitriptyline Hydrochloride 25 MG Oral Tablet 08/15/2020 12:00:00 A M EDT [facility] Omeprazole 40 MG Delayed Release Oral Capsule 08/11/2020 12:00:00 A M EDT [facility] Omeprazole 40 MG Delayed Release Oral Capsule 12/24/2019 12:00:00 A M KALEB Lu Atenolol 100 MG / Chlorthalidone 25 MG Oral Tablet 11/12/2019 12 :00:00 AM KALEB Lu Losartan Potassium 100 MG Oral Tablet 04/16/2019 12:00:00 AM IRENE Lu Colchicine 0.6 MG Oral Tablet 02/25/2019 12:00:00 AM IRENE Lu
--- NOTE | 2021-09-23 12:21 | REP ---
INDICATION: shut in door. COMPARISON: Right hand, 11/28/2019 TECHNIQUE: Four images of the right hand were obtained. FINDINGS: There is no evidence of acute fracture or dislocation. There is a healed fracture of the 5th metacarpal. 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 There is mild arthritis of the 1st carpometacarpal joint. There is radial subluxation of the 1st metacarpal, consistent with ligamentous injury which could be acute on chronic. Additionally there is widening of the 1st metacarpophalangeal joint, suggesting ligamentous injury. There is mild arthritis of the 2nd metacarpophalangeal joint. IMPRESSION: 1. No evidence of acute fracture or dislocation. 2. There is evidence of ligamentous laxity at the 1st carpometacarpal joint and the 1st metacarpophalangeal joint. 3. Multifocal arthropathy, as described. <Electronically signed by Amadou Quinones > 09/23/21 [id number]
--- OUTSIDE RECORDS SUMMARY | 2021-09-23 12:56 | CCD ---
Author Author [facility] Organization [facility] Address Unknown Phone Unavailable Care Team Providers Care Tile Ditcher Name Role Phone Aravind, Jace Godinez MD [...] Herbert GRANDA Unavailable Unavailable LAROCK, J HERBERT RADIO INSTALLER Unavailable Unavailable LAROCK, J HERBERT RADIO INSTALLER Unavailable Unavailable LAROCK, J HERBERT RADIO INSTALLER Unavailable Unavailable LAROCK, J HERBERT RADIO INSTALLER Unavailable Unavailable LAROCK, J HERBERT RADIO INSTALLER Unavailable Unavailable LAROCK, J HERBERT RADIO INSTALLER Unavailable Unavailable LAROCK, J HERBERT RADIO INSTALLER Unavailable Unavailable LAROCK, J HERBERT RADIO INSTALLER Unavailable Unavailable LAROCK, J HERBERT RADIO INSTALLER Unavailable Unavailable LAROCK, J HERBERT RADIO INSTALLER Unavailable Unavailable LAROCK, J HERBERT RADIO INSTALLER Unavailable Unavailable LAROCK, J HERBERT RADIO INSTALLER Unavailable Unavailable LAROCK, J HERBERT RADIO INSTALLER Unavailable Unavailable LAROCK, J HERBERT RADIO INSTALLER Unavailable Unavailable LAROCK, J HERBERT RADIO INSTALLER Unavailable Unavailable LAROCK, J HERBERT RADIO INSTALLER Unavailable Unavailable LAROCK, J HERBERT RADIO INSTALLER Unavailable Unavailable LAROCK, J HERBERT RADIO INSTALLER Unavailable Unavailable LAROCK, J HERBERT RADIO INSTALLER Unavailable Unavailable LAROCK, J HERBERT RADIO INSTALLER Unavailable Unavailable LAROCK, J HERBERT RADIO INSTALLER Unavailable Unavailable LAROCK, J HERBERT RADIO INSTALLER Unavailable Unavailable Sowmya Bashir MD Unavailable Unavailable [...] Unavailable Unavailable Mendoza Pizarro NPP Unavailable Unavailable Gus, R Jericho MD Unavailable Unavailable Gus, R Jericho MD Unavailable Unavailable Gus, R Jericho MD Unavailable Unavailable Gus, R Jericho MD Unavailable Unavailable Gus, R Jericho MD Unavailable Unavailable Ugs, R Jericho MD Unavailable Unavailable Gus, R [...] R Jericho MD Unavailable Unavailable Gus, R Ejricho MD Unavailable Unavailable Gus, R Jericho MD [...] Alan, Jace Nolasco MD Unavailable Unavailable Alan, Jaec Nolasco MD Unavailable Unavailable Alan, Jace Nolasco [...] Alan, Jace Nolasco MD Unavailable Unavailable Alan, aJce Nolasco MD Unavailable Unavailable Alan, Jace Nolasco [...] A Gaurav Unavailable Unavailable Alan, A Gaurav MD Unavailable Unavailable Alan, A Gaurav MD Unavailable Unavailable Alan, A Gaurav MD Unavailable Unavailable Alan, A Gaurav MD Unavailable Unavailable Alan, A Gaurav MD Unavailable Unavailable Alan, A Gaurav MD Unavailable Unavailable Alan, A Gaurav Unavailable Unavailable Alan, A Gaurav MD Unavailable [...] A Gaurav Unavailable Unavailable Alan, A Gaurav MD Unavailable Unavailable Alan, A Gaurav GRANDA Unavailable Unavailable Alan, A Gaurav GRANDA Unavailable Unavailable Alan, A Gaurav MD Unavailable Unavailable Alan, A Gaurav MD Unavailable Unavailable Alan, A Gaurav MD Unavailable Unavailable Alan, A Gaurav MD Unavailable Unavailable Alan, A Gaurav GRANDA Unavailable Unavailable Alan, A Gaurav GRANDA Unavailable Unavailable Alan, A Gaurav GRANDA Unavailable Unavailable Alan, A Gaurav GRANDA Unavailable Unavailable Alan, A Gaurav GRANDA Unavailable Unavailable Alan, A Gaurav GRANDA Unavailable Unavailable Alan, A Gaurav GRANDA Unavailable Unavailable Alan, A Gaurav GRANDA Unavailable Unavailable Alan, A Gaurav GRANDA Unavailable Unavailable Alan, A Gaurav GRANDA Unavailable Unavailable Maring, Henrry PA Unavailable Unavailable [...] Malik GRANDA Unavailable Unavailable Fish, B Malik GRADNA Unavailable Unavailable Fish, B Malik GRANDA Unavailable Unavailable Fish, B Malik GRANDA Unavailable Unavailable Fish, B Malik GRANDA Unavailable Unavailable Fish, B Malik GRANDA Unavailable Unavailable Fish, B Malik GRANDA Unavailable Unavailable Fish, B aMlik GRANDA Unavailable Unavailable Fish, B Malik GRANDA [...] Unavailable Virginie Sun NPP Unavailable Unavailable Virginie Snu NPP Unavailable Unavailable Virginie Sun NPP Unavailable Unavailable Virginie Sun NPP Unavailable Unavailable Virginie Sun NPP Unavailable Unavailable Virginie Sun NPP Unavailable Unavailable Sun, Virginie Thomas NPP Unavailable Unavailable Sun, Virginie Levyie NPP Unavailable Unavailable Sun, Virginie Thomas NPP Unavailable Unavailable SELF-REFERRED, Dr. FIONA CUEVAS Unavailable Unavailab le MONSE, B SAL RADIO INSTALLER Unavailable Unavailable MONSE, B SAL RADIO INSTALLER Unavailable Unavailable MONSE, B SAL RADIO INSTALLER Unavailable Unavailable MONSE, B SAL RADIO INSTALLER Unavailable Unavailable MONSE, B SAL RADIO INSTALLER Unavailable Unavailable MONSE, B SAL RADIO INSTALLER Unavailable Unavailable MONSE, B SAL RADIO INSTALLER Unavailable Unavailable MONSE, B SAL RADIO INSTALLER Unavailable Unavailable MONSE, B SAL RADIO INSTALLER Unavailable Unavailable MONSE, B SAL RADIO INSTALLER Unavailable Unavailable MONSE, B SAL RADIO INSTALLER Unavailable Unavailable MONSE, B SAL RADIO INSTALLER Unavailable Unavailable MONSE, B SAL RADIO INSTALLER Unavailable Unavailable MONSE, B SAL RADIO INSTALLER Unavailable Unavailable MONSE, B SAL RADIO INSTALLER Unavailable Unavailable MONSE, B SAL RADIO INSTALLER Unavailable Unavailable MONSE, B SAL RADIO INSTALLER Unavailable Unavailable MONSE, B SAL RADIO INSTALLER Unavailable Unavailable MONSE, B SAL RADIO INSTALLER Unavailable Unavailable MONSE, B SAL RADIO INSTALLER Unavailable Unavailable MONSE, B SAL RADIO INSTALLER Unavailable Unavailable MONSE, B SAL RADIO INSTALLER Unavailable Unavailable MONSE, B SAL RADIO INSTALLER Unavailable Unavailable MONSE, B SAL RADIO INSTALLER Unavailable Unavailable MONSE, B SAL RADIO INSTALLER Unavailable Unavailable MONSE, B SAL RADIO INSTALLER Unavailable Unavailable MONSE, B SAL RADIO INSTALLER Unavailable Unavailable MONSE, B SAL RADIO INSTALLER Unavailable Unavailable MONSE, B SAL RADIO INSTALLER Unavailable Unavailable MONSE, B SAL RADIO INSTALLER Unavailable Unavailable MONSE, B SAL RADIO INSTALLER Unavailable Unavailable MONSE, B SAL RADIO INSTALLER Unavailable Unavailable MONSE, B SAL RADIO INSTALLER Unavailable Unavailable MONSE, B SAL RADIO INSTALLER Unavailable Unavailable MONSE, B SAL RADIO INSTALLER Unavailable Unavailable MONSE, B SAL RADIO INSTALLER Unavailable Unavailable MONSE, B SAL RADIO INSTALLER Unavailable Unavailable MONSE, B SAL RADIO INSTALLER Unavailable Unavailable MONSE, B SAL RADIO INSTALLER Unavailable Unavailable MONSE, B SAL RADIO INSTALLER Unavailable Unavailable MONSE, B SAL RADIO INSTALLER Unavailable Unavailable MONSE, B SAL RADIO INSTALLER Unavailable Unavailable MONSE, B SAL RADIO INSTALLER Unavailable Unavailable MONSE, B SAL RADIO INSTALLER Unavailable Unavailable MONSE, B SAL RADIO INSTALLER Unavailable Unavailable MONSE, B SAL RADIO INSTALLER Unavailable Unavailable MONSE, B SAL RADIO INSTALLER Unavailable Unavailable MONSE, B SAL RADIO INSTALLER Unavailable Unavailable MONSE, B SAL RADIO INSTALLER Unavailable Unavailable MONSE, B SAL RADIO INSTALLER Unavailable Unavailable MONSE, B SAL RADIO INSTALLER Unavailable Unavailable MONSE, B SAL RADIO INSTALLER Unavailable Unavailable MONSE, B SAL RADIO INSTALLER Unavailable Unavailable MONSE, B SAL RADIO INSTALLER Unavailable Unavailable MONSE, B SAL RADIO INSTALLER Unavailable Unavailable MONSE, B SAL RADIO INSTALLER Unavailable Unavailable MONSE, B SAL RADIO INSTALLER Unavailable Unavailable MONSE, B SAL RADIO INSTALLER Unavailable Unavailable MONSE, B SAL RADIO INSTALLER Unavailable Unavailable MONSE, B SAL RADIO INSTALLER Unavailable Unavailable MONSE, B SAL RADIO INSTALLER Unavailable Unavailable MONSE, B SAL RADIO INSTALLER Unavailable Unavailable Hill, A Ruthann RADIO INSTALLER Unavailable Unavailable Hill, A Ruthann RADIO INSTALLER Unavailable Unavailable Hill, A Ruthann RADIO INSTALLER Unavailable Unavailable Hill, A Ruthann RADIO INSTALLER Unavailable Unavailable Hill, A Ruthann RADIO INSTALLER Unavailable Unavailable Hill, A Ruthann RADIO INSTALLER Unavailable Unavailable Hill, A Ruthann RADIO INSTALLER Unavailable Unavailable Hill, A Ruthann RADIO INSTALLER Unavailable Unavailable Hill, A Ruthann RADIO INSTALLER Unavailable Unavailable Hill, A Ruthann RADIO INSTALLER Unavailable Unavailable Hill, A Ruthann RADIO INSTALLER Unavailable Unavailable Hill, A Ruthann RADIO INSTALLER Unavailable Unavailable Hill, A Ruthann RADIO INSTALLER Unavailable Unavailable Hill, A Ruthann RADIO INSTALLER Unavailable Unavailable Hill, A Ruthann RADIO INSTALLER Unavailable Unavailable Hill, A Ruthann RADIO INSTALLER Unavailable Unavailable Hill, A Ruthann RADIO INSTALLER Unavailable Unavailable Hill, A Ruthann RADIO INSTALLER Unavailable Unavailable Hill, A Ruthann RADIO INSTALLER Unavailable Unavailable Hill, A Ruthann RADIO INSTALLER Unavailable Unavailable Hill, A Ruthann RADIO INSTALLER Unavailable Unavailable Hill, A Ruthann RADIO INSTALLER Unavailable Unavailable Hill, A Ruthann RADIO INSTALLER Unavailable Unavailable Hill, A Ruthann RADIO INSTALLER Unavailable Unavailable Hill, A Ruthann RADIO INSTALLER Unavailable Unavailable VanArnam JR, W Teo PA [...] Teo PA Unavailable Unavailable VanArnam JR, W Toe PA Unavailable Unavailable VanArnam JR, W Teo [...] Obradovic, Vladan Unavailable Unavailable Matteo Finley Unavailable [phone] TusharMaikolon Unavailable [phone] TusharMatteo Unavailable [phone] TusharMaikolon Unavailable [phone] TusharMaikolon Unavailable [phone] TusharMatteo Unavailable [phone] Elizabeth, Aubrey DO Unavailable Unavailable Elizabeth, Aubrey [...] Aubrey DO Unavailable Unavailable Alan, A Gaurav MD Unavailable Unavailable Alan, A Gaurav MD Unavailable Unavailable Alan, A Gaurav GRANDA [...] Jace Nolasco MD Unavailable Unavailable Alan, Jace Nolasoc MD Unavailable Unavailable Alan, Jace Nolasco MD [...] Unavailable Alan, Jace Nolasco MD Unavailable Unavailable RAMONEFawad MEDINA MD Unavailable [...] Unavailable Unavailable Fawad PACK MD Unavailable Unavailable RAMONE, T CHLOE MD Unavailable Unavailable Fawad PACK MD Unavailable [...] is protected by Article 27-F of the [facility] Public Health law. If you continue you may have access to information: Regarding HIV / AIDS; Provided by facilities licensed or operated by the [facility] Office of Mental Health; or Provided by the [facility] Office for People With Developmental Disabilities. If such information is present, then the following [facility] mandated warning applies: This information has [...] law may result in a fine or prison sentence or both. A general authorization for the release of medical or other information is NOT sufficient authorization for further disc losure. Allergies and Adverse Reactions Type Description Substance Reaction Status Data Source(s ) Propensity to adverse reactions ADHESIVE TAPE Adhesive Tape Active [facility] Propensity to adverse reactions NO KNOWN ALLERGIES NO KNOWN ALLERGIES [facility] Drug allergy No Known Allergies No Known Allergies [facility] Propensity to adverse reactions NO ALLERGIES ON FILE NO ALLERGIES ON FILE [facility] Family History Family Member Name Family Member Gender Family Member Status Date o f Status Description Data Source(s) Unknown Male Problem [facility]ENT ([facility]) Unknown Unknown Problem [facility] ([facility]) Encounters Encounter Providers Location Date Indications Data Source(s ) Outpatient Attender: Henrry HOANG 05/22/20 09:23:37 AM EDT - 05/22/2021 09:54:36 AM EDT [facility] ([facility] ) Outpatient Attender: SAL SHEA NP Physical Therapy 09:00:00 AM EDT MEDENT ([facility]) Outpatient Attender: Aubrey Rowley 04/30 01:00:00 PM EDT [facility]ENT ([facility] ) Outpatient Attender: Matteo Finley 04/05 12:17:09 PM EDT - 04/05/2021 12:36:41 PM EDT [facility] ([facility] ) Outpatient Attender: Ruthann Spence NPReferrer: Aubrey Barone DO 04/03/2021 09:35:30 AM EDT [facility] Recurring Patient Attender: CHLOE PACK MDReferrer: Gaurav conti MD 03/30/2021 11:33:51 AM EDT [facility] Outpatient Attender: Henrry HOANG 02/11/20 11:27:33 AM EDT - 02/10/2021 11:37:33 AM EDT [facility] ([facility] ) Outpatient Attender: Aubrey Rowley 02/06 09:00:00 AM EDT [facility] ([facility] ) Outpatient Attender: HERBERT GRESHAM NP 01/18 10:09:03 AM EDT - 01/31/2021 10:18:00 AM EDT [facility] ([facility] ) Outpatient Attender: Teo Grace JRReferrer: Aubrey nogueira DO 01/22/2021 11:09:49 AM EDT [facility] Outpatient Attender: Aubrey Rowley 01/05 11:00:00 AM EDT MEDENT ([facility] ) Outpatient Attender: Ruthann Spence NPReferrer: Aubrey Barone DO 12/26/2020 01:04:58 PM EST [facility] Outpatient Attender: Teo Graec JRReferrer: Aubrey nogueira DO 12/11/2020 04:07:17 PM EST [facility] Outpatient Referrer: [place] [id number] 12/05/2020 12:21:59 PM EST [facility] Outpatient Attender: Jenifer de la fuente MDReferrer: Dr. JAIMES SELF-REFERRED [facility] [id number] 12/05/2020 11:27:33 AM EST [place] [facility] Admitter: Zander DeanReferrer: Zander VILLALPANDO-MOB.PAT 12/02/2020 12:00:00 AM EST - 12/02/2020 10:14:26 AM EST [facility] Outpatient Attender: Zander Fields mitter: Zander DeanReferrer: Zander VILLALPANDO-MOB.PAT 11/28/2020 12:00:00 AM EST - 11/28/2020 12:07:18 PM EST [facility] Inpatient Attender: Zander DeanAdmitter: Zander urbano [id number] 11/22/2020 12:07:33 PM EST - 12/08/2020 06:37:[address] [facility] Patient discharged. Outpatient Attender: SAL SHEA NP Physical Therapy 08:45:00 AM EST [facility] ([facility]) Outpatient Attender: Malik Platt MD Physical Therapy 11/14/2020 0 9:00:00 AM EST [facility] ([facility]) Outpatient Attender: CHLOE PACK MDReferrer: Aubrey Barone DO 10/26/2020 02:09:54 PM [facility] Outpatient Attender: Aubrey Rowley 10/26 08:20:00 AM EST MEDENT ([facility] ) Recurring Patient Attender: CHLOE PACK MDReferrer: Gaurav conti MD 10/25/2020 03:42:13 PM [facility] Recurring Patient Attender: CHLOE PACK MDReferrer: Gaurav conti MD 10/25/2020 01:56:16 PM [facility] Recurring Patient Attender: CHLOE PACK MDReferrer: Gaurav conti MD 10/25/2020 01:55:35 PM [facility] Recurring Patient Referrer: Gaurav Phillips MD 10/25/2020 01: 51:36 PM [facility] Outpatient Attender: Zander Fields mitter: Zander DeanReferrer: Zander Dean MOB-PAT 10/16/2020 11:21:33 AM EST - 10/16/2020 12:35:03 PM EST [facility] Outpatient [id number] 10/16/2020 09:29:00 AM EST - 020 11:59:00 PM EST [facility] Patient discharged. Outpatient Attender: Jericho Weber MD 10/11/2020 08:43:00 AM EST [facility] Outpatient Attender: Occupation of Padmini. 10/11/2020 0 7:33:00 AM EST PHYS, AUDIO, FOCUS [facility] PHYS, AUDIO, FOCUS OUTPATIENT [id number] 10/04/2020 01:04:00 PM EST - 020 02:56:00 PM EST [facility] Outpatient Attender: Occupation of Carlitos 10/03/2020 1 0:30:00 AM EST HAIR DRUG, SAP9 [facility] HAIR DRUG, SAP9 Recurring Patient Referrer: Gaurav Phillips MD 09/29/2020 11: 19:31 AM EST [facility] Recurring Patient Referrer: Gaurav Phillips MD 09/29/2020 11: 18:35 AM EST [facility] Recurring Patient Referrer: Aubrey Barone DO 09/29/2020 09:5 0:35 AM EST [facility] Outpatient Attender: Gaurav Phillips MDReferrer: Aubrey Corey 09/28/2020 11:30:29 AM EST [facility] Recurring Patient Referrer: Aubrey Barone DO 09/28/2020 10:3 4:45 AM EST [facility] Inpatient Attender: Zander DeanAdmitter: Zander urbano [id number] 09/28/2020 09:19:50 AM EST [facility] Recurring Patient Referrer: Aubrey Barone DO 09/25/2020 12:5 3:54 PM EST [facility] Outpatient Attender: Tereza Machuca MD Main office - [facility] 09/21/2020 10:00:00 AM EST [facility] ([facility] Recurring Patient Attender: Humberto Pizarro NPPReferrer: J Luis CRAIN.RC 2020 08:56:38 AM EST [facility] Recurring Patient Attender: Martha ARAUZ 11:29:30 AM EST [facility] Outpatient Attender: Aubrey Rowley 08/11 09:20:00 AM EDT MEDENT ([facility] ) Outpatient Attender: Teo Bashir MDAdmitter: Teo Bashir MD E [id number] 08/10/2020 02:15:47 PM EDT [facility] Immunizations Vaccine Date Status Description Data Source(s) COVID-19 VACCINE Pfizer 08/21/2021 12:00:00 AM EDT completed [facility] Vaccine Series Complete: YESThis Data wa s Submitted to [facility] Via [employer]. Influenza, injectable, MDCK, preservative free, amrik valent 07/31/2021 01:15:00 PM EDT completed [facility]) COVID-19 VACCINE Pfizer 01/15/2021 12:00:00 AM EDT completed [facility] Vaccine Series Complete: YESThis Data wa s Submitted to [facility] [employer]. COVID-19 VACCINE Pfizer 12/25/2020 12:00:00 AM EST completed [facility] Vaccine Series Complete: NOThis Data was Submitted to [facility] [employer]. Influenza, injectable, MDCK, preservative free, amrik valent 08/03/2020 02:17:00 PM EDT completed [facility] ([facility]) Medications Medication Brand Name Start [...] Unspecified 01/15/2021 12:00:00 AM EDT completed [facility]) Medication administered onsite Atenolol 25 MG Oral Tablet Atenolol 01/05/2021 12:00:00 AM EDT ORAL completed [facility] ([facility]) Atenolol 50 MG Oral Tablet Atenolol 01/01/2021 12:00:00 AM EDT ORAL completed [facility] ([facility]) gabapentin 400 MG Oral Capsule Gabapentin 01/01/2021 12:00:00 AM EDT active [facility] ([facility]) Covid-19 vaccine, Unspecified 12/25/2020 12:00:00 AM EST completed [facility] Medication administered onsite Allergy 12/12/2020 12:00:00 AM EST ORAL active [facility] ([facility]) Febuxostat 10/11/2020 08:50:30 AM EST 80 MG active [facility] 24 HR Glipizide 5 MG Extended Release Oral Tablet Glipizide 10/11/2020 08:50:18 AM EST active [facility] Omeprazole 40 MG Delayed Release Oral Capsule Omeprazole 10/11/2020 08:49:58 AM EST 40 MG active [facility] Losartan Potassium 100 MG Oral Tablet Losartan 10/11/2020 08:49 :25 AM EST 100 MG active [facility] Fexofenadine hydrochloride 180 MG Oral T ablet fexofenadine (CLAUDIA) 180 MG tablet fexofenadine (CLAUDIA) 180 MG tablet 09/07/2020 12:00:00 AM EST 180 mg Oral active Take 180 mg by mouth daily [facility] Losartan Potassium 100 MG Oral Tablet losartan (COZAAR ) 100 MG tablet losartan (COZAAR) 100 MG tablet 09/04/2020 12:00:00 AM EST 100 mg Oral active Take 100 mg by mouth daily [facility] pioglitazone 30 MG Oral Tablet pioglitazone (ACTOS) 30 MG tablet pioglitazone (ACTOS) 30 MG tablet 09/02/2020 12:00:00 AM EST 30 mg Oral active Take 30 mg by mouth daily [facility] 24 HR Glipizide 5 MG Extended Release Or al Tablet glipiZIDE (GLUCOTROL) 5 MG 24 hr tablet glipiZIDE (GLUCOTROL) 5 MG 24 hr tablet 08/28/2020 12:00:[address] 5 mg Oral active Take 5 mg by mouth daily [facility] Hydralazine Hydrochloride 50 MG Oral Tab let hydrALAZINE (APRESOLINE) 50 MG tablet hydrALAZINE (APRESOLINE) 50 MG tablet 08/27/2020 12:00:00 AM EST 50 mg Oral active Take 50 mg by mouth 2 (two) times a day [facility] gabapentin 800 MG Oral Tablet gabapentin (NEURONTIN) 8 00 MG tablet gabapentin (NEURONTIN) 800 MG tablet 08/22/2020 12:00:00 AM EST 800 mg Oral active Take 800 mg by mouth 3 (three) times a day [facility] Colchicine 0.6 MG Oral Tablet colchicine 0.6 MG tablet colch icine 0.6 MG tablet 08/21/2020 12:00:00 AM EST 0.6 mg Oral active Take 0.6 mg by mouth daily as needed (for gout) [facility] Calcitriol 0.56746 MG Oral Capsule calcitriol (ROCALTR OL) 0.25 MCG capsule calcitriol (ROCALTROL) 0.25 MCG capsule 08/21/2020 12:00:00 AM EST 0.25 ug Oral active Take 0.25 mcg by viet th daily [facility] JOSE JEANPEN 100 UNIT/ML SOPN [id number] 08/21/2020 12:00:00 AM EST 20 U Subcutaneous active Inject 20 Units und er the skin nightly [facility] atorvastatin 20 MG Oral Tablet atorvastatin (LIPITOR) 20 MG tablet atorvastatin (LIPITOR) 20 MG tablet 08/20/2020 12:00:00 AM EDT 20 mg Oral active Take 20 mg by mouth nightly [facility] febuxostat 80 MG Oral Tablet Febuxostat 80 MG TABS Febuxosta t 80 MG TABS 08/20/2020 12:00:00 AM EDT 120 mg Oral active Take 120 mg by mouth daily [facility] Triamcinolone Acetonide 1 MG/ML Topical Cream triamcinolone (KENALOG) 0.1 % cream triamcinolone (KENALOG) 0.1 % cream 08/20/2020 12:00:00 AM EDT 1 {application} Topical active Apply 1 application topically 3 (three) times a day [facility] Amitriptyline Hydrochloride 25 MG Oral T ablet amitriptyline (ELAVIL) 25 MG tablet amitriptyline (ELAVIL) 25 MG tablet 08/15/2020 12:00:00 AM EDT aborted TK 1 T PO HS [facility] Atenolol 100 MG Oral Tablet Atenolol 08/11/2020 12:00:00 AM EDT ORAL completed [facility] ([facility]) Atenolol 100 MG / Chlorthalidone 25 MG Oral Tablet Atenolol- Chlorthalidone 08/11/2020 12:00:00 AM EDT completed [facility] ([facility]) Hydrochlorothiazide 12.5 MG Oral Tablet Hydrochlorothiazide 08/11/2020 12:00:00 AM EDT ORAL completed [facility] ([facility]) Omeprazole 40 MG Delayed Release Oral Ca psule omeprazole (PRILOSEC) 40 MG capsule omeprazole (PRILOSEC) 40 MG capsule 08/11/2020 12:00:00 AM EDT 40 mg Oral active Take 40 mg by mouth daily [facility] Fexofenadine hydrochloride 180 MG Oral Tablet Fexofenadine H CL 08/11/2020 12:00:00 AM EDT ORAL active M [facility]ENT ([facility]) Immunization Adminstration,1 Vaccine/Toxoid 08/03/2020 12:00 :00 AM EDT completed [facility] ([facility]) Medication administered onsite Omeprazole 40 [...] type / Coverage type Policy ID Covered republican ID Covered republican's relationship to talbot Policy Talbot Plan Information BLUE PPO [id number] FIANCE [id number] EXCELLUS BCBS 20 [id number] Other [id number] BLUE PPO [id number] FIANCE [id number] MEDICAID [place] 37 [id number] Self [id number] [place] 37 [id number] Self [id number] JABARI O 22 [id number] Self [id number] JABARI [facility] 22 [id number] Self [id number] [place]ID [place] 37 [id number] Self [id number] [place] 37 [id number] Self [id number] Medicaid [place] Medicaid [id number] Self [id number] [facility] MEDICAID [id number] Christy 7 [id number] JABARI O 22 [id number] Self [id number] JABARI [facility] Jabari [id number] [facility] MEDICAID [id number] xxxxxxxxxxx [id number] JABARI [id number] Self [id number] [facility] [place] Medicaid [id number] Self [id number] [facility] [id number] S [id number] 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 [id number] Employee [id number] Jabari Medicaid F [id number] SELF [id number] [place] Medicaid F [id number] SELF 7 [id number] [place] Medicaid F [id number] SELF 7 [id number] [place] Medicaid F [id number] SELF 7 [id number] [place] emp [id number] Employee [id number] [employer] emp [id number] Employee [id number] INSURANCE COVID-19 COVID Christy C OVID INSURANCE COVID-19 [id number] [id number] [employer] Noom emp [id number] Employee [id number] [employer] COR[employer] emp [id number] Employee [id number] OTHER W.C.EMPLOYER [id number] SP [id number] JABARI [id number] SP [id number] [place] [id number] S [id number] MEDICAID [id number] SP [id number] MEDICAID [id number] S [id number] [employer] [id number] JABARI-MEDICAID MANAGED CARE [id number] SELF [id number] SELF PAY UNAVAILABLE SELF UNAVAILA BLE [facility] [id number] SP [id number] Problems, Conditions, and Diagnoses Code Display Name Description Problem Type Effective Dates Data Source(s) E66.01 Morbid (severe) obesity due to excess ca lories Morbid (severe) obesity due to excess ca Diagnosis 12/07/2020 05:10:00 AM [facility] G62.9 Polyneuropathy, unspecified Polyneuropathy, unspecifie d Diagnosis 12/05/2020 11:27:33 AM EST Tabitha Peripheral Vascular Disease Peripheral Vascular Diseas e Diagnosis 12/05/2020 11:27:33 AM EST Lu U07.1 COVID-19 COVID-19 Diagnosis 12/02/2020 10:14:23 AM ES T [facility] Z01.818 Encounter for other preprocedural examin ation Encounter for other preprocedural examination Diagnosis 10/16/2020 09:29:33 AM [facility] E66.01 Morbid (severe) obesity due to excess ca lories Morbid (severe) obesity due to excess calories Diagnosis 10/04/2020 01:04:24 PM [facility] K21.9 Gastro-esophageal reflux disease without esophagitis Gastro-esophageal reflux disease without esophagitis Diagnosis 10/04/2020 01:04:24 PM FATEMEH [facility] Z01.812 Encounter for preprocedural laboratory e xamination Encounter for preprocedural laboratory examination Diagnosis 10/04/2020 01:04:24 PM [facility] K21.9 Gastro-esophageal reflux disease without esophagitis Gastro-esophageal reflux disease without Diagnosis 09/21/2020 12:00:28 PM EST [facility] Z71.89 Other specified counseling Other specified counseling Diagnosis 2020 08:56:38 AM EST [facility] Surgeries/Procedures Procedure Description Date Indications Data Source(s) OFFICE OUTPATIENT VISIT 25 MINUTES 05/09/2021 12:00:00 AM EDT [facility] ([facility]) OFFICE OUTPATIENT VISIT 25 MINUTES 04/30/2021 12:00:00 AM EDT [facility] ([facility]) OFFICE OUTPATIENT VISIT 25 MINUTES 02/06/2021 12:00:00 AM EDT [facility] ([facility]) Trans Care SRV W/I 14D Of DC, Comm W/I 2 Dys Med Rec 01/05/2021 12:00:00 AM EDT [facility] ([facility] ) BLOOD TYPING ABO <td>TYPE AND SCREEN</td><td> Routine</td><td>11/28/2020 11:15 AM EST</td><td> Morbid obesity</td><td> </td> 11/28/2020 04:15:00 PM EST Morbid obesity [facility] Morbid obesity COMPREHENSIVE METABOLIC PANEL <td>COMPREHENSIVE METABO LIC PANEL</td><td>Routine</td><td>11/28/2020 11:15 AM EST</td><td> Morbid obesity</td><td> </td> 11/28/2020 04:15:00 PM EST Morbid obesity [facility] Morbid obesity OFFICE OUTPATIENT VISIT 25 MINUTES 11/15/2020 12:00:00 AM EST [facility] ([facility]) ECG ROUTINE ECG W/LEAST 12 LDS TRCG ONLY W/O I&R <td>E CG 12- LEAD</td><td>Routine</td><td>10/16/2020 12:29 PM EST</td><td> Morbid obesity</td><td></td> 10/16/2020 05:29:21 PM EST Morbid obesity [facility] Morbid obesity BLOOD COUNT COMPLETE AUTOMATED <td>CBC</td><td>Routine </td><td>10/16/2020 12:15 PM EST</td><td> Morbid obesity</td><td> </td> 10/16/2020 05:15:00 PM EST Morbid obesity [facility] Morbid obesity BLOOD TYPING ABO <td>TYPE AND SCREEN</td><td> Routine</td><td>10/16/2020 12:15 PM EST</td><td> Morbid obesity</td><td> </td> 10/16/2020 05:15:00 PM EST Morbid obesity [facility] Morbid obesity THYROID STIMULATING HORMONE TSH <td>TSH</td><td>Routin e</td><td>10/16/2020 12:15 PM EST</td><td> Morbid obesity</td><td> </td> 10/16/2020 05:15:00 PM EST Morbid obesity [facility] Morbid obesity HEMOGLOBIN GLYCOSYLATED A1C <td>HEMOGLOBIN A1C</td><td>Routine</td><td>10/16/2020 12:15 PM EST</td><td> Morbid obesity</td><td> </td> 10/16/2020 05:15:00 PM EST Morbid obesity [facility] Morbid obesity COMPREHENSIVE METABOLIC PANEL <td>COMPREHENSIVE METABO LIC PANEL</td><td>Routine</td><td>10/16/2020 12:15 PM EST</td><td> Morbid obesity</td><td> </td> 10/16/2020 05:15:00 PM EST Morbid obesity [facility] Morbid obesity TSTG ANS FUNCJ CARDIOVAGAL INNERVAJ PARASYMP 0 12:00:00 AM EST [facility] ([facility]) TSTG ANS FUNCJ CARDIOVAGAL INNERVAJ PARASYMP 0 12:00:00 AM EST [facility] ([facility]) TESTING AUTONOMIC NERVOUS SYSTEM FUNCTION 2020 1 2:00:00 AM EST [facility] ([facility]) TESTING AUTONOMIC NERVOUS SYSTEM FUNCTION 2020 1 2:00:00 AM EST [facility] ([facility]) Results ID Date Data Source [id number] 08/08/2021 12:00:00 AM EDT [facility] Name Value Range Interpretation Code Description Data Shanita rce(s) Supporting Document(s) SARS-CoV2 Rapid Antigen Negative [facility] This lab was ordered by [facility] and reported by [facility]. ID Date Data Source [id number] 05/09/2021 08:58:00 AM EDT [facility] ([facility]) Name Value Range Interpretation Code Description Data Shanita rce(s) Supporting Document(s) Glucose [Mass/volume] in Serum or Plasma 90 [facility] ([facility]) Hemoglobin A1c/Hemoglobin.total in Blood Laboratory test result [facility] ([facility]) ID Date Data Source [id number] 04/30/2021 12:45:00 PM EDT [facility] ([facility]) Name Value Range Interpretation Code Description Data Shanita rce(s) Supporting Document(s) Microalbumin Urine 900.8 mg/L 1.3-20.0 [facility] ([facility]) NOTE: diluted and verified Urine Creatinine 153.2 mg/dL 30.0-125.0 [facility] ([facility]) Microalb/Creat Ratio 588.0 ug/mg 0.0-30.0 [facility] ([facility]) ID Date Data Source [id number] 04/30/2021 12:45:00 PM EDT [facility] ([facility]) Name Value Range Interpretation Code Description Data Shanita rce(s) Supporting Document(s) Cholesterol in HDL [Mass/volume] in Serum or Plasma 20 mg/dL 35-60 [facility] ([facility]) Cholesterol [Mass/volume] in Serum or Plasma 90 mg/dL 131-200 [facility] ([facility]) Triglyceride [Mass/volume] in Serum or Plasma 182 mg/dL 30-150 [facility] ([facility]) Cholesterol in LDL [Mass/volume] in Serum or Plasma by calcu lation 34 CALC 50-159 [facility] ([facility]) ID Date Data Source [id number] 04/30/2021 12:45:00 PM EDT [facility] ([facility]) Name Value Range Interpretation Code Description Data Hsanita rce(s) Supporting Document(s) Urea nitrogen [Mass/volume] in Serum or Plasma 18 mg/dL 7-18 [facility] ([facility]) Creatinine 1.8 mg/dL 0.6-1.3 [facility] ([facility]) Glucose [Mass/volume] in Serum or Plasma 84 mg/dL 74-99 [facility] ([facility]) 100-125 mg/dL PRE-DIABETES/FASTING >126 mg/dL DIABETES/FASTING Sodium [Moles/volume] in Serum or Plasma 145 meq/L 136-145 [facility] ([facility]) Potassium [Moles/volume] in Serum or Plasma 4.5 meq/L 3.5-5.1 [facility] ([facility]) Chloride [Moles/volume] in Serum or Plasma 109 meq/L 98-107 [facility] ([facility]) Carbon dioxide, total [Moles/volume] in Serum or Plasma 30 meq/L 21 -32 [facility] ([facility]) Calcium [Mass/volume] in Serum or Plasma 9.0 mg/dL 8.5-10.1 [facility] ([facility]) Alkaline phosphatase isoenzyme [Units/volume] in Serum or Pl asma 92 mg/dL 46-116 [facility] ([facility]) Total Bilirubin 0.5 mg/dL 0.2-1.0 [facility] ([facility]) Alanine aminotransferase [Enzymatic activity/volume] in Seru m or Plasma 39 U/L 12-78 [facility] ([facility]) Aspartate aminotransferase [Enzymatic activity/volume] in Serum or Plasma 28 U/L 15-37 [facility] Proteinase 3 Ab [Units/volume] in Serum 6.4 g/dL 6.4-8.2 [facility] A/G Ratio 1.13 CALC 1.00-1.90 [facility] Albumin [Mass/volume] in Serum or Plasma 3.4 g/dL 3.4-5.0 [facility] Glomerular filtration rate/1.73 sq M pre dicted among blacks [Volume Rate/Area] in Serum or Plasma by Creatinine-based formula (MDRD) 49 mL/min [facility]) <content>CHRONIC KIDNEY DISEASE STAGING PER NKF</content>
<content></content>
<content>STAGE I & II GFR >= 60 NORMAL TO MILDLY DECREASED</content>
<content>STAGE III GFR 30-59 MODERATELY DECREASED</content>
<content>STAGE IV GFR 15-29 SEVERELY DECREASED</content>
<content>STAGE V GFR <15 VERY LITTLE GFR LEFT</content>
<content>ESRD GFR <15 ON RUBBER STAMPS AND DIES SUPERVISOR</content>
<content></content> Glomerular filtration rate/1.73 sq M pre dicted among non-blacks [Volume Rate/Area] in Serum or Plasma by Creatinine-based formula (MDRD) 40 mL/min [facility] ([facility]) ID Date Data Source [id number] 04/30/2021 12:45:00 PM EDT [facility] ([facility]) Name Value Range Interpretation Code Description Data Shanita rce(s) Supporting Document(s) Hemoglobin A1c/Hemoglobin.total in Blood 5.5 % [facility] ([facility]) Lab Result Notes: Pre-Diabetes 5.7 - 6.4 % Diabetes = or > 6.5% Glucose mean value [Mass/volume] in Blood Estimated fr om glycated hemoglobin 111 mg/dL 60-110 [facility] ([facility] ) ID Date Data Source [id number] 04/30/2021 12:45:00 PM EDT [facility] ([facility]) Name Value Range Interpretation Code Description Data Shanita rce(s) Supporting Document(s) Leukocytes [#/volume] in Blood by Automated count 8.6 x10*3/UL 4.1-10 .9 [facility] ([facility]) Erythrocytes [#/volume] in Blood by Automated count 4.95 x10*6/UL 4.2 0-6.30 [facility] ([facility]) MCV 90.4 fL 80.0-97.0 [facility] Hematocrit [Volume Fraction] of Blood by Automated count 44.8 % 3 7.0-51.0 [facility] ([facility]) Hemoglobin [Mass/volume] in Blood 14.8 g/dL 12.0-18.0 [facility] ([facility]) MCH 29.9 pg 26.0-32.0 [facility]) Erythrocyte distribution width [Ratio] by Automated count 13.3 % 11.6-13.7 [facility] ([facility]) MCHC 33.1 g/dL 31.0-38.0 [facility]) Platelets [#/volume] in Blood by Automated count 170 x10*3/UL 140-440 [facility] ([facility]) Lymph % 16.7 % 10.0-58.5 [facility]) MPV 7.9 FL 7.8-11.0 [facility] Mid % 4.8 % 1.7-9.3 [facility]) Lymph # 1.4 x10*3/UL 0.6-4.1 [facility] ([facility]) Neut % 78.5 % 37.0-92.0 [facility]) Mid # 0.5 x10*3/UL 0.1-0.6 [facility] ([facility]) Neut # 6.7 x10*3/UL 2.0-7.8 [facility] ([facility]) ID Date Data Source [id number] 04/30/2021 12:45:00 PM EDT [facility] ([facility]) Name Value Range Interpretation Code Description Data Shanita rce(s) Supporting Document(s) Hemoglobin A1c/Hemoglobin.total in Blood Laboratory test result [facility] ([facility]) ID Date Data Source [id number] 04/03/2021 10:29:28 AM EDT [facility]: 1970Provider: Mateo Spence: 03/30/2021 Chief ComplaintNeck pain Chief Complaint 2NYSW VAS PAIN Established: MA completing section: History of Present Illness- Nerve [...] - Survey Evaluation Evaluation Status: Complete Done: [id number] Depression Screening - Patient's PHQ-9 score is: [...] Status: Hold For - Scheduling Requested for: [id number] 6 month as a FUP for: : [...] a safe and effective treatment plan. - COOKER CASING: The patient was counseled on the following: [...] 9:44AM EST (Author) Electronically signed by : Alessadnra Griffin MD; Apr 03 2021 10:29AM EST Name Value Range Interpretation Code Description Data Shanita rce(s) Supporting Document(s) ID Date Data Source [id number] 04/03/2021 09:35:30 AM EDT [facility]Name: Ernestina hyde BrandoncassiaB: 1970Provider: Mateo Spence: 03/30/2021 Name Value Range Interpretation Code Description Data Shanita rce(s) Supporting Document(s) ID Date Data Source [id number] 03/12/2021 09:21:00 AM EDT [facility] ([facility]) Name Value Range Interpretation Code Description Data Shanita rce(s) Supporting Document(s) Erythrocyte sedimentation rate by Westergren method 3 mm/hr 0-15 [facility] ([facility]) C reactive protein [Mass/volume] in Serum or Plasma by High sensitivity method 0.33 mg/dL 0.00-0.30 [facility] ([facility] ) <content>note:<nlbl:demographic_changed></content>
<content>note:<nlbl:demog raphic_changed></content>
<content>note:<nlbl:demographic_changed></content>
<content></content> ID Date Data Source [id number] 03/12/2021 09:21:00 AM EDT [facility] ([facility]) Name Value Range Interpretation Code Description Data Shanita rce(s) Supporting Document(s) White Blood Count 7.8 10 4.0-10.0 [facility] ([facility]) Hemoglobin 15.4 g/dL 13.5-17.5 [facility] ([facility]) Red Blood Count 5.17 10 4.30-6.10 [facility] ([facility]) Mean Corpuscular Volume 93.6 fl 80.0-96.0 [facility] ([facility]) Hematocrit 48.4 % 42.0-52.0 [facility] Mean Corpuscular Hemoglobin 29.8 pg 27.0-33.0 [facility] ([facility]) Mean Corpuscular HGB Conc 31.8 g/dL 32.0-36.5 [facility] NT ([facility]) Red Cell Distribution Width 13.6 % 11.5-14.5 [facility] ([facility]) Neutrophils % 69.1 % 36.0-66.0 [facility] ([facility]) Platelet Count, Automated 150 10 150-450 [facility] ([facility]) Lymph % 17.8 % 24.0-44.0 [facility] Eos % 5.6 % 0.0-3.0 [facility] Sutton % 5.8 % 2.0-8.0 [facility]) Immature Granulocyte % 0.4 % 0-3.0 [facility] ([facility]) Baso % 1.3 % 0.0-1.0 [facility]) Nucleated Red Blood Cell % 0.0 % 0-0 [facility] ([facility]) Lymph # 1.4 10 1.5-5.0 [facility]) Neutrophils # 5.4 10 1.5-8.5 [facility] ([facility]) Sutton # 0.5 10 0.0-0.8 [facility] Eos # 0.4 10 0.0-0.5 [facility] Baso # 0.1 10 0.0-0.2 [facility]) ID Date Data Source [id number] 03/12/2021 09:21:00 AM EDT [facility] ([facility]) Name Value Range Interpretation Code Description Data Shanita rce(s) Supporting Document(s) Urate [Mass/volume] in Serum or Plasma 6.3 mg/dL 3.5-7.2 [facility] ([facility]) <content>note:<nlbl:demographic_changed></content>
<content>note:<nlbl:demog raphic_changed></content>
<content>note:<nlbl:demographic_changed></content>
<content></content> ID Date Data Source [id number] 03/12/2021 09:21:00 AM EDT [facility] ([facility]) Name Value Range Interpretation Code Description Data Shanita rce(s) Supporting Document(s) Glucose, Fasting 97 mg/dL 70-100 [facility] ([facility]) Creatinine For GFR 1.90 mg/dL 0.70-1.30 [facility] ([facility]) Blood Urea Nitrogen 17 mg/dL 7-18 [facility] ([facility]) Glomerular Filtration Rate 40.3 [facility] ([facility]) <content>Units are mL/min/1.73 m2</content>
<content></content>
<content>Chronic Kidney Disease Staging per NKF:</content>
<content></content>
<content>Stage I & II GFR >=60 Normal to Mildly Decreased</content>
<content>Stage III GFR 30- 59 Moderately Decreased</content>
<content>Stage IV GFR 15-29 Severely Decreased</content>
<content>Stage V GFR <15 Very Little GFR Left</content>
<content>ESRD GFR <15 on RUBBER STAMPS AND DIES SUPERVISOR</content>
<content></content> Sodium Level 141 meq/L 136-145 [facility] ([facility]) Chloride Level 111 meq/L 98-107 [facility] ([facility]) Potassium Serum 4.6 meq/L 3.5-5.1 [facility] ([facility]) Anion Gap 5 meq/L 8-16 [facility]) Carbon Dioxide Level 25 meq/L 21-32 [facility] ([facility]) Calcium Level 9.2 mg/dL 8.5-10.1 [facility] ([facility]) ID Date Data Source [id number] 02/06/2021 08:44:00 AM EDT [facility]) Name Value Range Interpretation Code Description Data Shanita rce(s) Supporting Document(s) Hemoglobin A1c/Hemoglobin.total in Blood 5.7 % [facility] ([facility]) Lab Result Notes: Pre-Diabetes 5.7 - 6.4 % Diabetes = or > 6.5% Glucose mean value [Mass/volume] in Blood Estimated fr om glycated hemoglobin 117 mg/dL 60-110 [facility] ID Date Data Source [id number] 02/06/2021 08:44:00 AM EDT [facility] Name Value Range Interpretation Code Description Data Shanita rce(s) Supporting Document(s) Urea nitrogen [Mass/volume] in Serum or Plasma 13 mg/dL 7-18 [facility] ([facility]) Glucose [Mass/volume] in Serum or Plasma 113 mg/dL 74-99 [facility] ([facility]) 100-125 mg/dL PRE-DIABETES/FASTING >126 mg/dL DIABETES/FASTING Sodium [Moles/volume] in Serum or Plasma 144 meq/L 136-145 [facility] Creatinine 1.9 mg/dL 0.6-1.3 [facility] ([facility]) NOTE: RESULT VERIFIED. Potassium [Moles/volume] in Serum or Plasma 4.1 meq/L 3.5-5.1 [facility] ([facility]) Carbon dioxide, total [Moles/volume] in Serum or Plasma 26 meq/L 21 -32 [facility] ([facility]) Calcium [Mass/volume] in Serum or Plasma 9.2 mg/dL 8.5-10.1 [facility] Chloride [Moles/volume] in Serum or Plasma 107 meq/L 98-107 [facility] Glomerular filtration rate/1.73 sq M pre dicted among non-blacks [Volume Rate/Area] in Serum or Plasma by Creatinine-based formula (MDRD) 38 mL/min [facility] Glomerular filtration rate/1.73 sq M pre dicted among blacks [Volume Rate/Area] in Serum or Plasma by Creatinine-based formula (MDRD) 46 mL/min [facility] <content>CHRONIC KIDNEY DISEASE STAGING PER NKF</content>
<content></content>
<content>STAGE I & II GFR >= 60 NORMAL TO MILDLY DECREASED</content>
<content>STAGE III GFR 30-59 MODERATELY DECREASED</content>
<content>STAGE IV GFR 15-29 SEVERELY DECREASED</content>
<content>STAGE V GFR <15 VERY LITTLE GFR LEFT</content>
<content>ESRD GFR <15 ON RUBBER STAMPS AND DIES SUPERVISOR</content>
<content></content> ID Date Data Source [id number] 01/22/2021 11:09:49 AM EDT [facility]: Mercedes DavilaDOB: 1970Provider: Teo [...] 05/2020. The patient's pain is managed by [facility]. Patient is unemployed. History of Present IllnessPatient is a 50-year-old male who presents to the office with a chief complaint of intermittent left-sided neck pain. Frequency and severity is minimal. No longer experiences any occipital headaches. Denies any radicular symptoms in his upper extremities. Was not able to attend physical therapy but has been seen by [facility]. AssessmentNeck pain PlanPlan, Assessment and Recommendation(s) The nature of the diagnosis and various treatment alternatives were discussed today, including invasive, operative, and non-operative options. Neck pain improved since last office visit. Unable to attend physical therapy but has been performing home exercises. He will continue with these exercises as well as [facility] for pain management and possible injections. Follow-up here as needed. Work / School NoteThe patient is not working at this time. This document was dictated and electronically signed using [employer] software. A reasonable attempt at proof reading has been made to minimize errors. Please call with any questions. Signatures Electronically signed by : Yani Robles; Jan 18 2021 9:59PM EST (Author) Electronically signed by : Gaurav Phillips M.D.; Jan 22 2021 11:09AM EST Name Value Range Interpretation Code Description Data Shanita rce(s) Supporting Document(s) ID Date Data Source [id number] 01/08/2021 01:44:42 PM EDT [facility] [...] - CORE MPV 9.1 fL (7.1-10.7) [facility] - [facility] NEUT % 69.5 % (35.0-75.0) [facility] LYMPH % 16.7 % (16.0-52.0) [facility] - C[facility] MONO % 7.6 % (0.0-8.0) [facility] - CORE EOS % 5.2 % (0.0-5.0) H [facility] - CORE BASO % 1.0 % (0.0-4.0) [facility] - CORE NEUT # 4.3 10*3/uL (1.8-7.7) [facility] - CORE LYMPH # 1.0 10*3/uL (1.2-4.8) L [facility] - CORE MONO # 0.5 10*3/uL (0.0-0.8) Laboratory [facility] Eosinophils [#/volume] in Blood by Automated count 0.3 10*3/uL (0.0-0 .5) Laboratory [facility] BASO # 0.1 10*3/uL (0.0-0.2) Laboratory [facility] ID Date Data Source [id number] 01/08/2021 02:01:28 PM EDT [facility] Name Value Range Interpretation Code Description Data Shanita rce(s) Supporting Document(s) HEMOGLOBIN A1C @ 5.4 % (4.0-6.0) [facility] Performed using Siemens Albers immunoassa y.Care must be taken when interpreting [id number] in patients with a hemoglobin variantor decreased erythrocyte lifespan. Values 5.7 - 6.4% suggest prediabetes.Values >=6.5% are diagnostic for diabetes.REFERENCE: DIABETES CARE 2018: 41(S13-S27). EST AVERAGE GLUCOSE 108 mg/dL Laboratory [facility] ID Date Data Source [id number] 01/08/2021 02:18:14 PM EDT [facility] Name Value Range Interpretation Code Description Data Shanita rce(s) Supporting Document(s) 25 HYDROXY VIT D @ 29 ng/mL (31-100) L Laboratory [facility] A REVIEW OF THE LITERATURE SUGGESTS THEF OLLOWING RANGES FOR THE CLASSIFICATIONOF 25-OH VITAMIN D STATUS: VITAMIN D STATUS 25-OH VITAMIN D DEFICIENCY <20 NG/MLINSUFFICIENCY 20-30 NG/MLSUFFICIENCY 31 - 100 NG/MLTOXICITY > 100 NG/ML A PEDIATRIC REFERENCE RANGE HAS NOT BEENESTABLISHED USING THIS METHOD. ID Date Data Source [id number] 01/08/2021 02:19:40 PM EDT [facility] Name Value Range Interpretation Code Description Data Shanita rce(s) Supporting Document(s) VITAMIN B12 @ 764 pg/mL (193-986) Laboratory [facility] [place] - [facility] ID Date Data Source [id number] 01/08/2021 02:19:40 PM EDT [facility] Name Value Range Interpretation Code Description Data Shanita rce(s) Supporting Document(s) FERRITIN @ 172 ng/mL (26-388) [facility] ID Date Data Source [id number] 01/08/2021 02:19:40 PM EDT [facility] Name Value Range Interpretation Code Description Data Shanita rce(s) Supporting Document(s) IRON,TOTAL @ 82 ug/dL (35-150) [facility] UIBC @ 165 ug/dL (130-375) [facility] - CORE TIBC @ 247 ug/dL (250-450) L [facility] - CORE % SATURATION 33 % (12-50) [facility] ID Date Data Source [id number] 01/08/2021 02:19:40 PM EDT [facility] Name Value Range Interpretation Code Description Data Shanita rce(s) Supporting Document(s) SODIUM 145 mmol/L (136-145) [facility] [facility] [place] - CORE POTASSIUM 4.2 mmol/L (3.6-5.2) [facility] [place] [facility] - CORE CHLORIDE 117 mmol/L (100-108) H [facility] [place] [facility] - C[facility] CO2 21 mmol/L (22-31) L [facility] [place] [facility] [place] - C[facility] ANION GAP 7 mmol/L (7-16) [facility] [place] [facility] [place] - CORE UREA NITROGEN 18 mg/dL (7-24) [facility] [place] - CORE CREATININE 2.10 mg/dL (0.80-1.30) H [facility] [place] - CORE BUN/CREAT RATIO 8.6 RATIO (10.0-20.0) L [facility] [place] - CORE GLUCOSE 108 mg/dL (70-99) H [facility] [place] [facility] [place] - CORE CALCIUM 9.0 mg/dL (8.4-10.2) [facility] [place] [facility] [place] - CORE TOTAL PROTEIN 6.6 g/dL (6.4-8.2) [facility] [place] - CORE ALBUMIN 3.7 g/dL (3.5-4.6) [facility] [place] [facility] - CORE GLOBULIN 2.9 g/dL (2.7-4.3) [facility] [place] [facility] [email or web address] - CORE ALB/GLOB RATIO 1.3 RATIO Laboratory Kamlesh ance of [email or web address] - CORE ALKALINE PHOSPHATASE 117 U/L (45-117) Laborator [facility] [place] [facility] - CORE BILIRUBIN,TOTAL 0.6 mg/dL (0.0-1.0) Laboratory [facility] iance of [email or web address] - [facility] PLEASE NOTE:Total bilirubin results may be falselyelevated in patients taking Eltrombopag. AST (SGOT) 40 U/L (11-39) H [facility] [place] [facility] [email or web address] - CORE ALT (SGPT) 58 U/L (12-78) [facility] [place] [facility] [email or web address] - CORE GFR 34 ml/min/1.73m2 (>59) L Laboratory Al li[facility] of [email or web address] - CORE GFR ( AMER) 41 ml/min/1.73m2 (>59) L Labo ratory [place] [facility] [email or web address] - [facility] GFR INTERPRETATION [facility] [place] [facility] --NORMAL KIDNEY FUNCTION OR MILD DISEASE - GFR >OR= 60CHRONIC KIDNEY DISEASE - GFR 15 - 59RENAL FAILURE - GFR <15 Est. GFR calculation based on the MDRDstudy equation, which assumes a steadystate for creatinine. Est. GFR should notbe used for medication dosing. ID Date Data Source [id number] 01/08/2021 02:19:40 PM EDT [facility] Name Value Range Interpretation Code Description Data Shanita rce(s) Supporting Document(s) PHOSPHORUS 1.9 mg/dL (2.5-4.5) L [facility] [place] [email or web address] ID Date Data Source [id number] 01/08/2021 02:19:40 PM EDT [facility] Name Value Range Interpretation Code Description Data Shanita rce(s) Supporting Document(s) MAGNESIUM 1.6 mg/dL (1.7-2.4) L [facility] [place] [facility] - CORE ID Date Data Source [id number] 01/11/2021 01:09:02 AM EDT [facility] - CORE Name Value Range Interpretation Code Description Data Shanita rce(s) Supporting Document(s) SR HCT 42.6 % [facility] [place] - CORE FOLATE RBC 505 ng/mL [facility] [place] - CORE Reference range: >=366 Performed By: [email or web address] [address] [place] [address] Awning Hanger: Rae Pizano MD ID Date Data Source [id number] 12/26/2020 02:49:00 PM EST [facility] ([facility]) Name Value Range Interpretation Code Description Data [facility] rce(s) Supporting Document(s) Influenza A Amplification Laboratory test result [facility] ([facility]) Negative results do not preclude influen za or RSV virus infection and should not be used as the sole basis for treatment or other patient management decisions. Influenza B Amplification Laboratory test result [facility] ([facility]) Negative results do not preclude influen za or RSV virus infection and should not be used as the sole basis for treatment or other patient management decisions. RSV Amplification Laboratory test result [facility] ([facility]) Negative results do not preclude influen za or RSV virus infection and should not be used as the sole basis for treatment or other patient management decisions. Laboratory test finding (navigational concept) Laboratory test result [facility] ([facility]) A false negative result may occur [...] pathogens. DISCLAIMER: Testing was performed using the enrich-in SARS-CoV-2 test. This test was developed and its performance characteristics determined by [employer]-in. This test has not been FDA cleared [...] or revoked sooner. ID Date Data Source [id number] 12/26/2020 02:49:00 PM EST [facility] Name Value Range Interpretation Code Description Data Shanita rce(s) Supporting Document(s) SARS coronavirus 2 RNA [Presence] in Res piratory specimen by KEITH with probe detection NEGATIVE [facility] This lab was ordered by [facility] a nd reported by [facility]. ID Date Data Source [id number] 12/26/2020 02:12:00 PM EST [facility] ([facility]) Name Value Range Interpretation Code Description Data Shanita rce(s) Supporting Document(s) Thyrotropin [Units/volume] in Serum or Plasma by Detec tion limit <= 0.05 mIU/L 0.808 uIU/ML 0.358-3.740 [facility] ([facility] ) <content>note:<nlbl:demographic_changed> </content>
<content></content> Thyroxine (T4) Ab [Units/volume] in Serum 7.2 ug/dL 4.5-12.0 [facility] ([facility]) <content>note:<nlbl:demographic_changed> </content>
<content></content> ID Date Data Source [id number] 12/26/2020 02:12:00 PM EST [facility] ([facility]) Name Value Range Interpretation Code Description Data Shanita rce(s) Supporting Document(s) Glucose, Fasting 116 mg/dL 70-100 [facility] ([facility]) Glomerular Filtration Rate 14.2 [facility] ([facility]) <content>Units are mL/min/1.73 m2</content>
<content></content>
<content>Chronic Kidney Disease Staging per NKF:</content>
<content></content>
<content>Stage I & II GFR >=60 Normal to Mildly Decreased</content>
<content>Stage III GFR 30- 59 Moderately Decreased</content>
<content>Stage IV GFR 15-29 Severely Decreased</content>
<content>Stage V GFR <15 Very Little GFR Left</content>
<content>ESRD GFR <15 on RUBBER STAMPS AND DIES SUPERVISOR</content>
<content></content> Creatinine For GFR 4.70 mg/dL 0.70-1.30 [facility] ([facility]) Blood Urea Nitrogen 53 mg/dL 7-18 [facility] ([facility]) Sodium Level 141 meq/L 136-145 [facility] ([facility]) Potassium Serum 4.5 meq/L 3.5-5.1 [facility] ([facility]) Carbon Dioxide Level 20 meq/L 21-32 [facility] ([facility]) Chloride Level 114 meq/L 98-107 [facility] ([facility]) Anion Gap 7 meq/L 8-16 [facility] ([facility]) Calcium Level 8.8 mg/dL 8.5-10.1 [facility] ([facility]) ID Date Data Source [id number] 12/26/2020 02:12:00 PM EST [facility] ([facility]) Name Value Range Interpretation Code Description Data Shanita rce(s) Supporting Document(s) Ast/Sgot 24 U/L 7-37 [facility] ([facility]) Bilirubin,Total 0.4 mg/dL 0.2-1.0 [facility] ([facility]) Alt/SGPT 50 U/L 12-78 [facility] ([facility]) Alkaline Phosphatase 113 U/L 45-117 [facility] ([facility]) Total Protein 6.8 GM/DL 6.4-8.2 [facility] ([facility]) Bilirubin,Direct 0.2 mg/dL 0.0-0.2 [facility] ([facility]) Albumin 3.9 GM/DL 3.2-5.2 [facility] ([place] [facility]) Albumin/Globulin Ratio 1.3 [facility] ([facility]) ID Date Data Source [id number] 12/26/2020 02:12:00 PM EST [facility] ([facility]) Name Value Range Interpretation Code Description Data Shanita rce(s) Supporting Document(s) CPK Creatine Phosphokinase 182 U/L 39-308 [facility] ([facility]) MB/CK Relative Index 1.65 [facility] <content>DIAGNOSIS CRITERIA</content>
<content>MMB ng/ml Relative Index (RI)</content>
<content>NON-AMI < or = 5 N/A</content>
<content>HERNANDEZ ZONE > 5 < or = 4</content>
<content>AMI > 5 > 4</content>
<content></content> CK-MB Value Mass 3.0 ng/mL [facility] Troponin I Laboratory test result [facility] ([facility]) <content>Troponin I Reference Interval f or Siemens Albers LOCI:</content>
<content></content>
<content>99th Percentile= 0.00-0.045 ng/ml</content>
<content></content>
<content>Risk Stratification:</content>
<content><= 0.10 ng/ml Decreased Risk for Adverse Clinical</content>
<content>Events.</content>
<content>0.10-1.50 ng/ml Increased Risk for Adverse Clinical</content>
<content>Events. Evaluation of additional</content>
<content>criterion and/or repeat testing in 2-6</content>
<content>hours is suggested to rule out myocardial</content>
<content>damage.</content>
<content>>= 1.50 ng/ml Indicative of Myocardial Injury.</content>
<content></content> ID Date Data Source [id number] 12/26/2020 02:12:00 PM EST [facility] ([facility]) Name Value Range Interpretation Code Description Data Shanita rce(s) Supporting Document(s) White Blood Count 7.2 10 4.0-10.0 [facility] ([facility]) Red Blood Count 4.62 10 4.30-6.10 [facility] ([facility]) Hemoglobin 13.6 g/dL 13.5-17.5 [facility] [facility]) Hematocrit 44.6 % 42.0-52.0 [facility] [facility] Mean Corpuscular Hemoglobin 29.4 pg 27.0-33.0 [facility] ([facility]) Mean Corpuscular Volume 96.5 fl 80.0-96.0 [facility] ([facility]) Red Cell Distribution Width 13.2 % 11.5-14.5 [facility] ([facility]) Platelet Count, Automated 164 10 150-450 [facility] NT ([facility]) Mean Corpuscular HGB Conc 30.5 g/dL 32.0-36.5 [facility] NT ([facility]) Lymph % 14.8 % 24.0-44.0 [facility] [facility]) Neutrophils % 70.2 % 36.0-66.0 [facility] ([facility]) Baso % 1.3 % 0.0-1.0 [facility] [facility]) Eos % 4.3 % 0.0-3.0 [facility] [facility] Sutton % 9.1 % 2.0-8.0 [facility] [facility] Immature Granulocyte % 0.3 % 0-3.0 [facility] ([facility]) Nucleated Red Blood Cell % 0.0 % 0-0 [facility] ([facility]) Neutrophils # 5.1 10 1.5-8.5 [facility] ([facility]) Sutton # 0.7 10 0.0-0.8 [facility] [facility] Lymph # 1.1 10 1.5-5.0 [facility] [facility] Baso # 0.1 10 0.0-0.2 [facility] [facility]) Eos # 0.3 10 0.0-0.5 [facility] [facility]) ID Date Data Source [id number] 12/26/2020 01:04:58 PM EST [facility], PCName: Ernestina DavilaDOB: 1970Provider: Mateo Spence: 12/26/2020 Chief ComplaintNeck pain status post block follow-up Chief Complaint 2NYSW VAS PAIN Established: Patient has no more neck pain. Just leg pain. EConnathalie,alfredo SINHA completing [facility]: [facility] History of Present IllnessRecent test/procedures: Patient has had the following tests/procedures since their last visit: Gastric bypass surgery at [facility] . Date of test/procedure: 11/2020. Patient was asked and denies being seen by any Physicians since their last visit. The patient was last seen by a [facility] provider on 10/25/20. At today's visit patient presents with their Self Implanted Devices The patient does not have any implanted devices. The patient has a glucose monitoring device. Patient is not currently working. 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 The patient is being seen for a [...] TIMES DAILY NEEDEDFOR MUSCLE SPASMS;Therapy: 01Nov2020 to (Evaluate:[id number]) Requested for: 01Nov2020; LastRx:01Nov2020 Ordered Omeprazole 40 [...] Status: Hold For - Scheduling Requested for: [id number] Appointment for 15 or 30 minutes : [...] Weight loss was discussed and encouraged. - COOKER CASING: The patient was counseled on the following: [...] cervical interlaminar injections stop working well Dr. Ramone has stated that a surgical group may need to decompress C3-4 lesion/spinal cord. Signatures Electronically signed by : Ruthann Spence NP; Dec 26 2020 10:15AM EST (Author) Electronically signed by : Edgardo Khan MD; Dec 26 2020 1:04PM EST Name Value Range Interpretation Code Description Data Shanita rce(s) Supporting Document(s) ID Date Data Source [id number] 12/08/2020 12:20:24 PM EST [facility] [place] [facility] Name Value Range Interpretation Code Description Data Shanita rce(s) Supporting Document(s) POC NOVA GLU 94 mg/dL (70-99) [facility] [place] [facility] [place] PERFOR[facility] BY [facility]ICAL STAFF ID Date Data Source [id number] 12/07/2020 11:32:09 PM EST [facility] [place] [facility] [place] Name Value Range Interpretation Code Description Data Shanita rce(s) Supporting Document(s) POC NOVA GLU 173 mg/dL (70-99) H [facility] [place] [facility] [place] [facility] STA[facility] ID Date Data Source [id number] 12/07/2020 04:49:56 PM EST [facility] [place] [facility] [place] Name Value Range Interpretation Code Description Data Shanita rce(s) Supporting Document(s) POC NOVA GLU 182 mg/dL (70-99) H [facility] [place] [facility] [place] [facility] STAFF ID Date Data Source [id number] 12/07/2020 10:14:55 AM EST [facility] Institute[facility] NT INFORMATIONPatient MRN Name Date of Age Gend*PT [id number] Mercedes Davila V 1970 50 years M SDAPT Location Admission Date/Time Visit ID Attending [facility] [place] 12/07/20 0510 --- Zander Dean MD([id number]) EPI ID CSN Admitting Provider [id number] Zander Dean MD([id number])CREATION, GASTRIC BYPASS, DESIREE-EN-Y, LAPAROSCOPIC, WITH SLEEVE GASTRECTOMY IFINDICATED, WITH LIVER BIOPSY IF INDICATED, WITH HIATAL HERNIA REPAIR IFINDICATED, WITH LAPAROTOMY IF INDICATED POSSIBLE OPEN Procedure NoteMercedes Davila CSN:[id number]/18/2021urgeon(s):LUIS Tamayourgical Assist: ILENE MoserAStaff:OR Painter And Paperhanger Apprentice: Tania Schaffer RN; Blank Chahal, IONAurgical Assist: ILENE MoserAOR Relief Scrub: Lee Ann Montenegro Scrub Person: Jared ZelayaProcedure(s):CREATION, GASTRIC BYPASS, DESIREE-EN-Y, LAPAROSCOPIC, WITH LIVER BIOPSYLaparoscopic [...] fatty liver. We covered complications including: , SD, DVT, PE, leaks, sepsis,gallbladder disease, anastomotic ulcers, bleeding, failure of weight loss,malnutrition, need for open surgery, internal and external hernias, and the needfor repeat surgery, among others. We also discussed the risk of COVID- 19infection while hospitalized, risks of anesthesia including SD, stroke anddeath. Pt expressed understanding of all [...] out with the scope to a long [id number] degree scope. I than used locking grasper via the 5 mm epigastric port andretarcted liver latching it at the diaphragm. By this I exposed EG - junction.I then dissected out the angle of his with a [place] grasper behind the hiatus.There was no significant [...] of BP limb and 150 cm rafael. Than using L-hook device made enterotomiesin BP limb [...] with thegreen load cartridge and fired. A 32-Azeri bougie was used up to help size [...] Desiree limb. I insufflated withair and my head start assistant teacher irrigated over the anastomosis with normal saline. [...] rce(s) Supporting Document(s) ID Date Data Source [id number] 12/07/2020 10:00:51 AM EST [facility] [place] [facility] Name Value Range Interpretation Code Description Data Shanita rce(s) Supporting Document(s) POC NOVA GLU 167 mg/dL (70-99) H Lab Mikie [facility] PERFORMED BY [facility]ICAL STAFF ID Date Data Source [id number] 12/07/2020 08:24:11 AM EST [facility]PAT[facility] NT INFORMATIONPatient MRN Name Date of Age Gend*PT [id number] Mercedes Davila V 1970 50 years M SDAPT Location Admission Date/Time Visit ID Attending Provider --- --- --- --- EPI ID CSN Admitting Provider [id number] ---AirwayPatient location during procedure: ORUrgency: electiveDifficult airway: [...] cmPlacement verified by: chest auscultation and + [id number]: equal breath sounds bilateralGrade view: grade I - full view of glottis Name Value Range Interpretation Code Description Data Shanita rce(s) Supporting Document(s) ID Date Data Source [id number] 12/11/2020 05:25:20 PM EST [facility] [place] [facility] [address] [address]Ere# Surgical Pathology ReportPatient Name: MERCEDES DAVILA V.: 1970Accession #:[id number](s) ReceivedA: Liver biopsyClinical Diagnosis and HistoryMorbid obesity DIAGNOSISLIVER, WEDGE BIOPSY: MODERATE STEATOSIS.Microscopic DescriptionReticulin, PAS-D, iron, and trichrome stains are unremarkable. Gross DescriptionReceived in formalin labeled "liver biopsy" is a 2.7 x 1.5 x 1.0 cmtan-red slightly mottled wedge shaped fragment of liver tissue. Sectionedand entirely submitted as A1. Modified liver biopsy protocol. jgllmr/gmm Reported: 12/11/2020Electronically Signed Out By Raymundo Higgins M.D. [facility] [place], [place] [address]tprJtqpkihio component performed at [facility], [facility], [address] [place] [address], [address].Reported at [facility], [address], [place], [address]. This report may includeimmunohistochemical or in-situ hybridization results. Testing wasdeveloped and the performance characteristics determined by [facility] as required by CLIA '88. The FDA hasdetermined that approval for specific use is not necessary for clinicaluse. The quality of Hematoxylin and Eosin stains and as applicable, forall immunohistochemical and/or special stains, including positive andnegative controls, were reviewed and considered appropriate.ICD codes K76.0CPT codesA: 95235P, 08278P, 68423K, 07528A, 14113M Name Value Range Interpretation Code Description Data Shanita rce(s) Supporting Document(s) ID Date Data Source [id number] 12/07/2020 07:57:24 AM EST [facility] InstitutePATI NT INFORMATIONPatient MRN Name Date of Age Gend*PT [id number] Mercedes Davila V 1970 50 years M SDAPT Location Admission Date/Time Visit ID Attending ProviderB[facility] [place] 12/07/20 0510 --- Zander Dean MD([id number]) EPI ID CSN Admitting Provider [id number] Zander Dean MD([id number])Pre- Procedure History and Physical:The history and physical were reviewed and the patient was examined.There are no changes to the H&P.Zander Dean MD12/07/20 7:57 AM Name Value Range Interpretation Code Description Data Shanita rce(s) Supporting Document(s) ID Date Data Source [id number] 12/07/2020 06:14:27 AM EST [facility] [place] [facility] Name Value Range Interpretation Code Description Data Shanita rce(s) Supporting Document(s) POC POTASSIUM 4.3 MMOL/L (3.6-5.2) [facility] [place] [facility] [place] [facility] CL[facility]ICAL STAFF ID Date Data Source [id number] 12/07/2020 06:14:27 AM EST [facility] [place] [facility] [place] Name Value Range Interpretation Code Description Data Shanita rce(s) Supporting Document(s) POC GLU 105 MG/DL (70-99) H [facility] [place] [facility] [place] [facility] STAFF ID Date Data Source [id number] 12/07/2020 06:14:27 AM EST [facility] [place] [facility] Name Value Range Interpretation Code Description Data Shanita rce(s) Supporting Document(s) POC HCT 46 % (41.0-53.0) [facility] [place] [facility] [place] [facility] STA[facility] ID Date Data Source [id number] 12/07/2020 04:09:57 AM EST [facility] InstitutePATIE NT INFORMATIONPatient MRN Name Date of Age Gend*PT [id number] Mercedes Davila V 1970 50 years M SDAPT Location Admission Date/Time Visit ID Attending Provider --- --- --- Zander Dean MD([id number]) EPI ID CSN Admitting Provider [id number] Zander Dean MD([id number])Inpatient History & PhysicalRyemmanuelle DavilaMRN:[id number] and Plan:Active Problems: * No active hospital [...] Deaf, right DM (diabetes mellitus), type 2 Dr. Platt Fatty liver GERD (gastroesophageal reflux disease) Gout Hyperlipidemia Hypertension Morbid obesity MRSA (methicillin resistant Staphylococcus aureus) 2015 skin infection Osteoarthritis Sleep apnea CPAPPast Surgical [...] a fatty liver.We covered complications including: , SD, DVT, PE, leaks, sepsis,gallbladder disease, anastomotic ulcers, [...] rce(s) Supporting Document(s) ID Date Data Source [id number] 12/09/2020 12:58:36 AM EST [facility] [place] [facility] SPEC EXP DATE 12/08/2020TEST ING SITE PERFORMED AT [address] [place] [id number] NUMBER [id number] COMPONENT TYPE LEUKOPOOR RED CELLSUNIT DIVISION 00STATUS OF UNIT REL FROM ALLOCTRANSFUSION STATUS OK TO TRANSFUSECROSSMATCH RESULT COMPATIBLELEVEL 1 PHENOTYPING BILLED FOR SERVICES PERFORMEDUNIT NUMBER [id number] COMPONENT TYPE LEUKOPOOR RED CELLSUNIT DIVISION 00STATUS OF UNIT REL FROM ALLOCTRANSFUSION STATUS OK TO TRANSFUSECROSSMATCH RESULT COMPATIBLELEVEL 1 PHENOTYPING BILLED FOR SERVICES PERFORMED Name Value Range Interpretation Code Description Data Shanita rce(s) Supporting Document(s) TRANSFUSE RED CELLS [facility] [place] TESTING SITE PERFORMED AT [address] [place], [place] [address] ID Date Data Source [id number] 12/05/2020 01:28:00 PM KALEB Lu NAME: Mikayla LiBN: [id number] VASCULAR LABORDER #: [id number] [facility] STUDY DATE: 12/05/20 1 [facility] [address] : [birth year]AP: Husam Burgess MDREFERRING PROVIDER: Husam BoyleXAMINATION: Arterial - LowerINDICATION: [...] rce(s) Supporting Document(s) ID Date Data Source [id number] 12/05/2020 12:40:54 PM EST Tabitha PATIENT: Mercedes DavilaMRN: [id number]: 1970DATE OF SERVICE: 12/05/2020HIEF COMPLAINT:Chief ComplaintPatient presents with Peripheral Vascular Disease pt. w/ REYNALDO's done today.SubjectiveHISTORY OF PRESENT ILLNESS:Mercedes Davila is a 50-y.o. male.HPIReferred for bilateral lower extremity neuropathy in this patient with morbidobesity and DM. Patient [place] Patient complains of occasional bilateral lower extremity foot andtoe numbness and some tenderness. No claudication type of pain. No ulceration.States diabetes well controlled. S tates he lost about 60 pounds and he'sscheduled to undergo gastric bypass [facility] this . No rest pain.Past Medical History:Diagnosis [...] by mouth DAILY.) Blood Glucose Monitoring Suppl (Copilot LabsSTYLE LITE) Does not apply Device USE ASDIRECTED [...] by Does not apply route THREE TIMES DAILY.Brand:Freestyle Dx:DM 250.00 Insulin dependent Losartan Potassium 100 [...] Drug use: No Sexual activity: Yes Partners: FemaleLifestyle Physical activity Days per week: Not on file Minutes per session: Not on file Stress: Not on fileRelationships Social connections Talks on phone: Not on file Gets together: Not on file Attends orthodox service: Not on file Active member of [...] No exposure to asbestos. Grew up in [place] Recently moved from [facility] to [place] [facility] [place] [facility] currently unemployedREVIEW OF SYSTEMS:Review of SystemsConstitutional: [...] rce(s) Supporting Document(s) ID Date Data Source [id number] 12/02/2020 08:00:00 AM EST [facility] Name Value Range Interpretation Code Description Data Shanita rce(s) Supporting Document(s) SARS coronavirus 2 RNA Not Detected [facility] [place] This lab was ordered by [facility] and reported by [facility]. ID Date Data Source [id number] 12/03/2020 12:08:51 PM EST [facility] Name Value Range Interpretation Code Description Data Shanita rce(s) Supporting Document(s) SARS-COV-2 [facility] Not DetectedReference range: Not Detecte d This nucleic acid amplification test was developed and its performance characteristics determined by [employer]. Nucleic acid amplification tests include RT-PCR and [...] detected) result in this assay. Performed At: [facility] [employer] [address] [place], [place] [id number] Raghu Mccormick PhD Ph:[phone] ID Date Data Source [id number] 12/11/2020 04:07:17 PM EST [facility], PCName: Mercedes FinleyB: 1970Provider: Stacie Knapp: 11/30/2020 Reason For VisitRyan has not had the Covid vaccine. Mercedes Davila is an established patient here for follow up. Patient states he had a nerve block last week at [facility]. Patient states he has not done PT. Patient states he is having gastric bypass surgery on 12-07-2020. The patient is currently residing at home. Other DOI/DOO: 05/2020. The patient's pain is managed by [facility]. Patient is unemployed. History of Present IllnessPatient is a 50-year-old male who presents to the office with a chief complaint of intermittent left-sided neck pain. Associate with occasional occipital headaches. Denies any radicular symptoms in his upper extremities. Was not able to attend physical therapy. Sees [facility] for pain management and had a nerve block last week with equivocal results. Symptoms aggravated with rotation. AssessmentNeck pain Plan Physical Therapy (SOS) - Spinal Physical Therapy Evaluation and Treatment Status:Complete Done: [id number] Ordered;For: Myofascial pain, Neck pain; Ordered By: Teo Knapp Performed: Due: [id number]; Last Updated By: Batsheva Gannon; 11/30/2020 11:38:02 [...] despite recent injection. He will continue with [facility] for pain management. He would still like to try physical therapy on his neck. Provided him with a prescription. Follow-up in 6 weeks. This document was dictated and electronically signed using Carebase Speaking software. A reasonable attempt at proof reading has been made to minimize errors. Please call with any questions. Signatures Electronically signed by : Yani Robles; Dec 10 2020 9:04PM EST (Author) Electronically signed by : Gaurav Phillips M.D.; Dec 11 2020 4:07PM EST Name Value Range Interpretation Code Description Data Shanita rce(s) Supporting Document(s) ID Date Data Source [id number] 11/28/2020 12:10:58 PM EST [facility] NT INFORMATIONPatient MRN Name Date of Age Gend*PT [id number] Mercedes Davila V 1970 50 years M OPPT Location Admission Date/Time Visit ID Attending Provider --- --- --- Zander Daen MD([id number]) EPI ID CSN Admitting Provider [id number] Zander Dean MD([id number])HISTORY PHYSICALName: Mercedes Davial : 1970 Sex: male Care Provider: Eleanor [...] mg by mouth nightly 08/20/20Historical Provider, REYNALDO KWIKPEN 100 UNIT/ML SOPN Inject 20 Units under the skin yjusyfq51/2/20 Historical Provider, Robbiealcitriol (ROCALTROL) 0.25 MCG capsule Take 0.25 mcg by mouth daily 08/21/20Historical Provider, MDcolchicine 0.6 MG tablet Take 0.6 mg by [...] mouth 3 (three) times a dayHistorical Provider, Shahlainolone (KENALOG) 0.1 % cream Apply 1 application topically 3 (three)times a day 08/20/20 Historical Provider, LUISocial HistorySocioeconomic History Marital status: Single Spouse name: [...] file Gets together: Not on file Attends orthodox service: Not on file Active member of [...] warm and dry.HEENT: He is normocephalic, atraumatic. [place] conjunctivae. Anicteric sclerae.Pupils are equal, round, reactive [...] hepatosplenomegaly. Negative CVAT.GENITAL/RECTAL: Deferred.MUSCLE/SKELETAL: Strength is 5/5. Physical Medicine Physician are equal.NEUROLOGICALLY: Cranial nerves II through XII [...] previously anticipated.ALLERGIES:Adhesive tape and Gluten meal11/28/2020 12:10 PMPramThaira Berry document or parts of this document, were dictated using InterEx software. A reasonable attempt at proofreading has beenmade to minimize errors. Please call with any questions or corrections. Name Value Range Interpretation Code Description Data Shanita rce(s) Supporting Document(s) ID Date Data Source [id number] 11/28/2020 06:15:24 PM EST [facility] SPEC EXP DATE 1PATI ENT ABO/Rh A POSITIVEANTIBODY SCREEN POSITIVETESTING SITE PERFORMED AT [address] [place], [place] [address]BLOOD BANK COMMENT BLOOD TYPE CONFIRMED.BLOOD BANK COMMENT HISTORY OF ANTI-E PRESENT, Name Value Range Interpretation Code Description Data Shanita rce(s) Supporting Document(s) TYPE AND SCREEN [facility] PATIENT ABO/Rh A POSITIVE ID Date Data Source [id number] 11/28/2020 03:37:46 PM EST [facility] Name Value Range Interpretation Code Description Data Shanita rce(s) Supporting Document(s) SODIUM 142 mmol/L (136-145) [facility] POTASSIUM 4.3 mmol/L (3.6-5.2) [facility] CHLORIDE 110 mmol/L (100-108) H [facility] CO2 24 mmol/L (22-31) [facility] ANION GAP 8 mmol/L (7-16) [facility] UREA NITROGEN 37 mg/dL (7-24) H [facility] CREATININE 1.87 mg/dL (0.80-1.30) H [facility] BUN/CREAT RATIO 19.8 RATIO (10.0-20.0) [facility] GLUCOSE 86 mg/dL (70-99) [facility] CALCIUM 8.8 mg/dL (8.4-10.2) [facility] TOTAL PROTEIN 6.2 g/dL (6.4-8.2) L [facility] ALBUMIN 3.3 g/dL (3.5-4.6) L [facility] GLOBULIN 2.9 g/dL (2.7-4.3) [facility] ALB/GLOB RATIO 1.1 RATIO [facility] ALKALINE PHOSPHATASE 91 U/L (45-117) [facility] BILIRUBIN,TOTAL 0.5 mg/dL (0.0-1.0) [facility] PLEASE NOTE:Total bilirubin results may be falselyelevated in patients taking Eltrombopag. AST (SGOT) 24 U/L (11-39) [facility] ALT (SGPT) 42 U/L (12-78) [facility] GFR 39 ml/min/1.73m2 (>59) L [facility] GFR ( AMER) 47 ml/min/1.73m2 (>59) L [facility] GFR INTERPRETATION [facility] --NORMAL KIDNEY FUNCTION OR MILD DISEASE - GFR >OR= 60CHRONIC KIDNEY DISEASE - GFR 15 - 59RENAL FAILURE - GFR <15 Est. GFR calculation based on the MDRDstudy equation, which assumes a steadystate for creatinine. Est. GFR should notbe used for medication dosing. ID Date Data Source [id number] 11/20/2020 12:00:00 PM EST [facility] Name Value Range Interpretation Code Description Data Shanita rce(s) Supporting Document(s) SARS coronavirus 2 RNA [Presence] in Res piratory specimen by KEITH with probe detection Negative [facility] This lab was ordered by [facility] and reported by [employer]. ID Date Data Source [id number] 11/15/2020 09:37:00 AM EST [facility] ([facility]) Name Value Range Interpretation Code Description Data Shanita rce(s) Supporting Document(s) Hemoglobin A1c/Hemoglobin.total in Blood 5.5 [facility] ([facility]) Glucose [Mass/volume] in Serum or Plasma 168 [facility] ([facility]) ID Date Data Source [id number] 10/26/2020 09:41:00 AM EST [facility] ([facility]) Name Value Range Interpretation Code Description Data Shanita rce(s) Supporting Document(s) Cholesterol [Mass/volume] in Serum or Plasma 120 mg/dL 131-200 [facility] ([facility]) Triglyceride [Mass/volume] in Serum or Plasma 271 mg/dL 30-150 [facility] ([facility]) Cholesterol in HDL [Mass/volume] in Serum or Plasma 19 mg/dL 35-60 [facility] ([facility]) Cholesterol in LDL [Mass/volume] in Serum or Plasma by calcu lation 47 CALC 50-159 [facility] ([facility]) ID Date Data Source [id number] 10/26/2020 09:41:00 AM EST [facility] ([facility]) Name Value Range Interpretation Code Description Data Shanita rce(s) Supporting Document(s) Glucose [Mass/volume] in Serum or Plasma 117 mg/dL 74-99 [facility] ([facility]) 100-125 mg/dL PRE-DIABETES/FASTING >126 mg/dL DIABETES/FASTING Creatinine 2.0 mg/dL 0.6-1.3 [facility] Urea nitrogen [Mass/volume] in Serum or Plasma 35 mg/dL 7-18 [facility] ([facility]) Sodium [Moles/volume] in Serum or Plasma 141 meq/L 136-145 [facility] ([facility]) Chloride [Moles/volume] in Serum or Plasma 107 meq/L 98-107 [facility] ([facility]) Potassium [Moles/volume] in Serum or Plasma 4.6 meq/L 3.5-5.1 [facility] ([facility]) Calcium [Mass/volume] in Serum or Plasma 8.6 mg/dL 8.5-10.1 [facility] ([facility]) Carbon dioxide, total [Moles/volume] in Serum or Plasma 24 meq/L 21 -32 [facility] ([facility]) Aspartate aminotransferase [Enzymatic activity/volume] in Serum or Plasma 34 U/L 15-37 [facility] ([facility] ) Total Bilirubin 0.6 mg/dL 0.2-1.0 [facility] ([facility]) Alkaline phosphatase isoenzyme [Units/volume] in Serum or Pl asma 99 mg/dL 46-116 [facility] ([facility]) Alanine aminotransferase [Enzymatic activity/volume] in Seru m or Plasma 53 U/L 12-78 [facility] ([facility]) Albumin [Mass/volume] in Serum or Plasma 3.6 g/dL 3.4-5.0 [facility] ([facility]) A/G Ratio 1.09 CALC 1.00-1.90 [facility]) Proteinase 3 Ab [Units/volume] in Serum 6.9 g/dL 6.4-8.2 [facility] ([facility]) Glomerular filtration rate/1.73 sq M pre dicted among blacks [Volume Rate/Area] in Serum or Plasma by Creatinine-based formula (MDRD) 43 mL/min [facility] <content>CHRONIC KIDNEY DISEASE STAGING PER NK[facility]</content>
<content></content>
<content>STAGE I & II GFR >= 60 NORMAL TO MILDLY DECREASED</content>
<content>STAGE III GFR 30-59 MODERATELY DECREASED</content>
<content>STAGE IV GFR 15-29 SEVERELY DECREASED</content>
<content>STAGE V GFR <15 VERY LITTLE GFR LEFT</content>
<content>ESRD GFR <15 ON RUBBER STAMPS AND DIES SUPERVISOR</content>
<content></content> Glomerular filtration rate/1.73 sq M pre dicted among non-blacks [Volume Rate/Area] in Serum or Plasma by Creatinine-based formula (MDRD) 36 mL/min [facility] ([facility]) ID Date Data Source [id number] 10/26/2020 09:41:00 AM EST [facility] ([facility]) Name Value Range Interpretation Code Description Data Shanita rce(s) Supporting Document(s) Leukocytes [#/volume] in Blood by Automated count 9.7 x10*3/UL 4.1-10 .9 [facility] ([facility]) Erythrocytes [#/volume] in Blood by Automated count 5.27 x10*6/UL 4.2 0-6.30 [facility] ([facility]) Hemoglobin [Mass/volume] in Blood 15.6 g/dL 12.0-18.0 [facility] ([facility]) Hematocrit [Volume Fraction] of Blood by Automated count 47.4 % 3 7.0-51.0 [facility] ([facility]) MCV 89.9 fL 80.0-97.0 [facility]) MCH 29.7 pg 26.0-32.0 [facility] ([facility]) Erythrocyte distribution width [Ratio] by Automated count 13.5 % 11.6-13.7 [facility] ([facility]) MCHC 33.0 g/dL 31.0-38.0 [facility]) Platelets [#/volume] in Blood by Automated count 185 x10*3/UL 140-440 [facility] ([facility]) Lymph % 16.5 % 10.0-58.5 [facility]) MPV 7.8 FL 7.8-11.0 [facility]) Neut % 79.4 % 37.0-92.0 [facility]) Mid % 4.1 % 1.7-9.3 [facility]) Lymph # 1.6 x10*3/UL 0.6-4.1 [facility] ([facility]) Neut # 7.7 x10*3/UL 2.0-7.8 [facility] ([facility]) Mid # 0.4 x10*3/UL 0.1-0.6 [facility] ([facility]) ID Date Data Source [id number] 10/30/2020 03:39:42 PM EST [facility], PCName: Ernestina DavilaDOB: 1970Provider: Cleo Pack: 10/25/2020 Chief ComplaintNeck and headache pain. Refered by:Patient referred by: The patient was referred by Dr. Phillips for consideration of an interlaminar epidural steroid injection in the cervical spine. Chief Complaint 2 MA completing section: Fawad Candelario CNA Established Intake At today's visit patient presents [...] flexion, 5/5 extension- Shoulder: 5/5 Abduction- Hand Industrial Health And Safety Professor 5/5 Special Tests: negative Spurling's ManeuverLeft Upper Extremity Motor:- Wrist: 5/5 flexion, 5/5 extension- Elbow: 5/5 flexion, 5/5 extension- Shoulder: 5/5 Abduction- Hand Industrial Health And Safety Professor 5/5 Special Tests: negative Spurling's ManeuverNeurological:Sensation Upper:Left [...] FOR MUSCLE SPASMS 2. Block (Cervical Interlaminar) ([facility]) Referral Procedure Procedure Status: Hold For - Scheduling Requested for: [id number] Type : MedicaidIs patient cu rrently on a biologic? : NoIs patient taking Aspirin due to HISTORY of or HAVING a heart attack or stroke...? : No - Case Fitter clearance not requiredIs patient currently taking Daypro or Feldene...? : NoIs patient taking Aspirin and/or NSAIDS...? : NoIs your patient on an Anticoagulant -OR- have Coagulopathy...? : NoSedation : YesArea: : CervicalBlock : Interlaminar (Epidural)Professional Compliance Director needed for block? : NoFront Desk Reminder: [...] rce(s) Supporting Document(s) ID Date Data Source [id number] 10/16/2020 05:00:28 PM EST [facility] Name Value Range Interpretation Code Description Data Shanita rce(s) Supporting Document(s) EKG [facility] [id number] jb2 [file] /Ku+3PUfausBFmAFNmAHHsATOIAhN+4O7wLXkA [file] [id number]+[id number]== ID Date Data Source [id number] 10/16/2020 12:18:48 PM EST [facility] NT INFORMATIONPatient MRN Name Date of Age Gend*PT [id number] Mercedes Davila V 1970 50 years M OPPT Location Admission Date/Time Visit ID Attending Provider --- --- --- Zander Dean MD([id number]) EPI ID CSN Admitting Provider [id number] Zander Dean MD([id number])HISTORY PHYSICALName: Mercedes Davila : 1970 Sex: male [...] warm and dry.HEENT: He is normocephalic, atraumatic. [place] conjunctivae. Anicteric sclerae.Pupils are equal, round, reactive [...] hepatosplenomegaly. Negative CVAT.GENITAL/RECTAL: Deferred.MUSCLE/SKELETAL: Strength is 5/5. Physical Medicine Physician are equal.NEUROLOGICALLY: Cranial nerves II through XII are grossly intact.VASCULAR: Pulses are symmetrical. No edema.Anesthesia complications: deniesSteroid use: He denies any oral steroid therapy for three weeks or greaterwithin the last 3 months.HA Frailty Scale :: 3/10 Managing Well (medical [...] be prolonged greaterthan previously anticipated.ALLERGIES:Gluten meal10/16/2020 12:18 PMLyudmidede Kostiv, NPThis document or parts of this document, were dictated using Nuance DragonMedical One speaking software. A reasonable attempt at proofreading has beenmade to minimize errors. Please call with any questions or corrections. Name Value Range Interpretation Code Description Data Shanita rce(s) Supporting Document(s) ID Date Data Source [id number] 10/16/2020 07:41:01 PM EST [facility] SPEC EXP DATE 1PATI ENT ABO/Rh A POSITIVEANTIBODY SCREEN POSITIVETESTING SITE PERFORMED AT [address] [place] [address] [id number] IDENT ANTI-E PRESENT, Name Value Range Interpretation Code Description Data Shanita rce(s) Supporting Document(s) TYPE AND SCREEN [facility] PATIENT ABO/Rh A POSITIVE ID Date Data Source [id number] 10/16/2020 07:26:44 PM EST [facility] Name Value Range Interpretation Code Description Data Shanita rce(s) Supporting Document(s) HEMOGLOBIN A1C @ 5.5 % (4.0-6.0) [facility] Performed using Siemens Albers immunoassa y.Care must be taken when interpreting NrO7hmahqazv in patients with a hemoglobin variantor decreased erythrocyte lifespan. Values 5.7 - 6.4% suggest prediabetes.Values >=6.5% are diagnostic for diabetes.REFERENCE: DIABETES CARE 2018: 41(S13-S27). EST AVERAGE GLUCOSE 111 mg/dL [facility] ID Date Data Source [id number] 10/16/2020 05:50:27 PM EST [facility] Name Value Range Interpretation Code Description Data Shanita rce(s) Supporting Document(s) TSH,ULTRASENSITIVE @ 3.080 mIU/L (0.360-4.170) [facility] ID Date Data Source [id number] 10/16/2020 05:50:27 PM EST [facility] Name Value Range Interpretation Code Description Data Shanita rce(s) Supporting Document(s) SODIUM 143 mmol/L (136-145) [facility] POTASSIUM 4.5 mmol/L (3.6-5.2) [facility] CHLORIDE 109 mmol/L (100-108) H [facility] CO2 22 mmol/L (22-31) [facility] ANION GAP 12 mmol/L (7-16) [facility] UREA NITROGEN 30 mg/dL (7-24) H [facility] CREATININE 1.85 mg/dL (0.80-1.30) H [facility] BUN/CREAT RATIO 16.2 RATIO (10.0-20.0) [facility] GLUCOSE 59 mg/dL (70-99) L [facility] CALCIUM 8.4 mg/dL (8.4-10.2) [facility] TOTAL PROTEIN 6.2 g/dL (6.4-8.2) L [facility] ALBUMIN 3.3 g/dL (3.5-4.6) L [facility] GLOBULIN 2.9 g/dL (2.7-4.3) [facility] ALB/GLOB RATIO 1.1 RATIO [facility] ALKALINE PHOSPHATASE 91 U/L (45-117) [facility] BILIRUBIN,TOTAL 0.4 mg/dL (0.0-1.0) [facility] PLEASE NOTE:Total bilirubin results may be falselyelevated in patients taking Eltrombopag. AST (SGOT) 35 U/L (11-39) [facility] ALT (SGPT) 48 U/L (12-78) [facility] GFR 39 ml/min/1.73m2 (>59) L [facility] GFR ( AMER) 47 ml/min/1.73m2 (>59) L [facility] GFR INTERPRETATION [facility] --NORMAL KIDNEY FUNCTION OR MILD DISEASE - GFR >OR= 60CHRONIC KIDNEY DISEASE - GFR 15 - 59RENAL FAILURE - GFR <15 Est. GFR calculation based on the MDRDstudy equation, which assumes a steadystate for creatinine. Est. GFR should notbe used for medication dosing. ID Date Data Source [id number] 10/16/2020 04:59:23 PM EST [facility] Name Value Range Interpretation Code Description Data Sahnita rce(s) Supporting Document(s) WBC 7.9 10*3/uL (4.1-11.0) [facility] RBC 4.88 10*6/uL (4.60-6.10) [facility] HGB 14.8 g/dL (13.5-18.0) [facility] HCT 45.3 % (41.0-53.0) [facility] MCV 92.9 fL (80.0-95.0) [facility] MCH 30.3 pg (27.0-32.0) [facility] MCHC 32.6 g/dL (32.0-36.0) [facility] RDW 14.8 % (10.5-14.5) H [facility] PLT 165 10*3/uL (150-450) [facility] MPV 8.0 fL (7.1-10.7) [facility] ID Date Data Source [id number] 10/16/2020 10:30:00 AM EST [facility] Name Value Range Interpretation Code Description Data Shanita rce(s) Supporting Document(s) :PrThr:Pt:Respiratory:Ord:Probe.amp.tar [facility] This lab was ordered by [facility] site and reported by [facility]. ID Date Data Source [id number] 10/16/2020 05:11:00 PM EST [facility] Name Value Range Interpretation Code Description Data Shanita rce(s) Supporting Document(s) CRSP SARS-CoV-2 (RT)-PCR Assay Negative Negative N ormal (applies to non-numeric results) [facility] The [place] FDA has made th is test available under anemergency access mechanism called Emergency Use Authorization (EUA). TheEUA is supported by the executive secretary of Health and Human Services (HHSs)declaration that circumstances exist to justify the emergency use of invitro diagnostics (IVDs) for the detection and/or diagnosis of the virusthat causes COVID-19.Test performed at [facility] [place] [address]. First Test Yes [facility] Employed in healthcare No [facility] Symptomatic as defined by CDC No [facility] Hospitalized No [facility] Resident in a congregate care setting [facility] The above 6 analytes were performed by [facility] [id number] [place] [address] ID Date Data Source [id number] 10/11/2020 08:43:00 AM [facility] Patient Name: MERCEDES DAVILA : 1 11/13/1969 Sex: M Pt Unit #: [id number] Location:[facility] Provider: Visit Date/Time: 10/11/20 Primary Insurance: Self [...] here for an occ med physical for inDplay. Compliance Director Required: No Accompanied by: Self / Same [...] to employment Z02.89 <Electronically signed by Jericho Webre MD> 10/11/20 0904 Name Value Range Interpretation Code Description Data Shanita rce(s) Supporting Document(s) ID Date Data Source [id number] 10/04/2020 02:16:13 PM EST [facility] Name Value Range Interpretation Code Description Data Shanita rce(s) Supporting Document(s) Preprocedure Instructions [facility] [id number]/RPEafBGFye4V[id number] lbm [file] [id number] ID Date Data Source [id number] 10/04/2020 09:40:00 PM EST [facility] Name Value Range Interpretation Code Description Data Shanita rce(s) Supporting Document(s) WBC 9.06 x1000/ul 4.80-10.00 Normal (applies to non-numeric re sults) [facility] RBC 5.12 x1Mil/ul 4.70-6.10 Normal (applies to non-numeric re sults) [facility] Hemoglobin 15.2 g/dl 14.0-18.0 Normal (applies to non-numeric resul ts) [facility] Hematocrit 48.4 % 42.0-52.0 Normal (applies to non-numeric resul ts) [facility] MCV 94.5 fL 80.0-94.0 Above high normal [facility] MCH 29.7 pg 27.0-31.0 Normal (applies to non-numeric resul ts) [facility] MCHC 31.4 g/dl 32.2-37.0 Below low normal [facility] RDW 14.0 % 11.5-14.5 Normal (applies to non-numeric resul ts) [facility] Platelet Count 182 x1000/ul 130-400 Normal (applies to non-numeric results) [facility] MPV 10.1 fL 9.4-12.4 Normal (applies to non-numeric resul ts) [facility] Nucleated RBCs 0.00 % 0.00-0.20 Normal (applies to non-numeric r esults) [facility] Abs. Nucleated RBCs 0.00 x1000/ul 0.00-0.02 Normal (appl ies to non-numeric results) [facility] The above 12 analytes were performed by [facility] [id number] [place] [address],[facility]#: [id number],[place] [address] ID Date Data Source [id number] 10/04/2020 09:29:00 PM EST [facility] Name Value Range Interpretation Code Description Data Shanita rce(s) Supporting Document(s) AST 37 IU/L 15-37 Normal (applies to non-numeric resul ts) [facility] Sulfasalazine and sulfapyridine have the potential to falsely depressAspartate Aminotransferase results. Baseline values before medication administration are recommended. ALT 49 IU/L 16-61 Normal (applies to non-numeric resul ts) [facility] Sulfasalazine and sulfapyridine have the potential to falsely depressAlanine Aminotransferase results. Baseline values before medication administration are recommended. Alkaline Phosphatase 95 mIU/ml 50-136 Normal (applies to non-num edgardo results) [facility] Total Bilirubin 0.40 mg/dl 0.20-1.00 Normal (applies to non-numeric results) [facility] Blood Urea Nitrogen 26 mg/dl 7-18 Above high normal [facility] Creatinine 1.89 mg/dl 0.67-1.[address] [facility] N-Acetylcysteine (NAC) and Metamizole pederson ve the potential to falselydepress Creatinine results. Baseline values before medication adminstration are recommended. Patients undergoing treatment with phenindione will have falselydepressed results. Patients on phenindione therapy should be tested with an alternativeCREA method.Toxic levels of acetaminophen may lead to falsely depressed results forpatient samples. Glomerular Filtration Rate 38.00 mL/min/1.73m2 [facility] GFR Reference Ranges:Normal Function or Mild Renal [...] of Health and the National KidneyFoundation. The Albers method used in calculating this result is traceable to IDKY standards. Glucose 95 mg/dl 70-110 Normal (applies to non-numeric resul ts) [facility] Sulfasalazine has the potential to false ly depress Glucose results. Sulfapyridine has the potential to falsely elevate Glucose results. Baseline values before medication administration are recommended. Calcium 9.1 mg/dl 8.5-10.1 Normal (applies to non-numeric resul ts) [facility] Total Protein 6.3 g/dl 6.4-8.2 Below low normal [facility] Albumin 3.4 g/dl 3.4-5.0 Normal (applies to non-numeric resul ts) [facility] Sodium 141 mEq/L 136-145 Normal (applies to non-numeric resul ts) [facility] Potassium 5.0 mEq/L 3.5-5.1 Normal (applies to non-numeric resul ts) [facility] Chloride 113.0 mEq/L 98.0-107.0 Above high normal [facility] Carbon Dioxide 23.2 mMol/L 21.0-32.0 Normal (applies to non-numeric results) [facility] Anion Gap 9.8 7.0-15.0 Normal (applies to non-numeric resul ts) [facility] The above 16 analytes were performed by [facility] [facility] [address], ,[place] [address] ID Date Data Source [id number] 09/28/2020 11:30:29 AM EST [facility], PCName: Mercedes FinleyB: 1970Provider: Kirsten Phillips: 09/28/2020 Reason For VisitMercedes [...] Physical Therapy Evaluation and Treatment Status:Complete Done: [id number] Ordered;For: Neck pain; Ordered By: Gaurav Phillips Performed: Due: [id number]; Last Updated By: Batsheva Gannon; 09/28/2020 11:19:13 [...] in the biceps, brachioradialis, and triceps bilaterally. [facility] neurology notes reviewed. June 13, 2020. Severe [...] PT for cervical isometrics, ROM, stretching, traction. [place] [facility] pain management6. Surgical management deferred at this point Follow-up 2 months. MRI cervical spine if symptoms have not improved after therapy Signatures Electronically signed by : Gaurav Phillips M.D.; Sep 28 2020 11:30AM EST (Author) Name Value Range Interpretation Code Description Data [facility] Supporting Document(s) ID Date Data Source [id number] 08/11/2020 09:42:00 AM EDT [facility] ([facility]) Name Value Range Interpretation Code Description Data Shanita rce(s) Supporting Document(s) Glucose [Mass/volume] in Serum or Plasma 124 mg/dL 74-99 [facility] ([facility]) 100-125 mg/dL PRE-DIABETES/FASTING >126 mg/dL DIABETES/FASTING Urea nitrogen [Mass/volume] in Serum or Plasma 31 mg/dL 7-18 [facility] ([facility]) NOTE: BUN,CREAT VERIFIED Creatinine 2.1 mg/dL 0.6-1.3 [facility] Potassium [Moles/volume] in Serum or Plasma 4.7 meq/L 3.5-5.1 [facility] ([facility]) Chloride [Moles/volume] in Serum or Plasma 109 meq/L 98-107 [facility] ([facility]) Sodium [Moles/volume] in Serum or Plasma 143 meq/L 136-145 [facility] ([facility]) Carbon dioxide, total [Moles/volume] in Serum or Plasma 26 meq/L 21 -32 [facility] ([facility]) Calcium [Mass/volume] in Serum or Plasma 8.7 mg/dL 8.5-10.1 [facility] ([facility]) Glomerular filtration rate/1.73 sq M pre dicted among non-blacks [Volume Rate/Area] in Serum or Plasma by Creatinine-based formula (MDRD) 34 mL/min [facility] ([facility]) Glomerular filtration rate/1.73 sq M pre dicted among blacks [Volume Rate/Area] in Serum or Plasma by Creatinine-based formula (MDRD) 41 mL/min [facility] ([facility]) <content>CHRONIC KIDNEY DISEASE STAGING PER NKF</content>
<content></content>
<content>STAGE I & II GFR >= 60 NORMAL TO MILDLY DECREASED</content>
<content>STAGE III GFR 30-59 MODERATELY DECREASED</content>
<content>STAGE IV GFR 15-29 SEVERELY DECREASED</content>
<content>STAGE V GFR <15 VERY LITTLE GFR LEFT</content>
<content>ESRD GFR <15 ON RUBBER STAMPS AND DIES SUPERVISOR</content>
<content></content> Procedure Social History Code Duration Value [...] intake 11/28/2020 12:00:00 AM EST Yes completed [facility] Smoking 11/28/2020 12:00:00 AM EST Never smoker completed Never s moker [facility] Alcohol intake 10/16/2020 12:00:00 AM EST Yes completed [facility] Smoking 10/16/2020 12:00:00 AM EST Never smoker completed Never s [facility] Alcohol intake 2020 12:00:00 AM EST Yes completed [facility] Smoking 2020 12:00:00 AM EST Never smoker completed Never s [facility] Vital Signs ID Date Data Source UNK Name Value Range Interpretation Code Description Data Source(s) Oxygen saturation in Arterial blood by Pulse oximetry 97 % 97 % [facility] ([facility]) Body weight 289.00 [lb_av] 289.00 [lb_av] [facility] T ([facility]) Body mass index (BMI) [Ratio] 39.6 kg/m2 39.6 k g/m2 [facility] ([facility]) Diastolic blood pressure 66 mm[Hg] 66 mm[Hg] [facility] ([facility]) Heart rate 52 /min 52 /min [facility] ([facility]) Systolic blood pressure 127 mm[Hg] 127 mm[Hg] [facility] Body height 71.6 [in_i] 71.6 [in_i] [facility] ([facility]) 5'11.60" Body weight 287.00 [lb_av] 287.00 [lb_av] [facility] T ([facility]) Body mass index (BMI) [Ratio] 39.5 kg/m2 39.5 k g/m2 [facility] ([facility]) Systolic blood pressure 118 mm[Hg] 118 mm[Hg] M [facility] ([facility]) Diastolic blood pressure 70 mm[Hg] 70 mm[Hg] [facility] ([facility]) Heart rate 74 /min 74 /min [facility] ([facility]) Body height 71.5 [in_i] 71.5 [in_i] [facility] ([facility]) 11.50" Systolic blood pressure 130 mm[Hg] 130 mm[Hg] M [facility] ([facility]) Body height 71.5 [in_i] 71.5 [in_i] [facility] ([facility]) .50" Diastolic blood pressure 80 mm[Hg] 80 mm[Hg] [facility] ([facility]) Heart rate 71 /min 71 /min [facility] Body weight 324.00 [lb_av] 324.00 [lb_av] [facility] T ([facility]) Body mass index (BMI) [Ratio] 44.6 kg/m2 44.6 k g/m2 [facility] ([facility]) Body height 71.5 [in_i] 71.5 [in_i] [facility] ([facility]) 5'11.50" Diastolic blood pressure--sitting 70 mm[Hg] 70 mm[Hg] [facility] ([facility]) Systolic blood pressure--standing 114 mm[Hg] 11 4 mm[Hg] [facility] ([facility]) Body mass index (BMI) [Ratio] 46.8 kg/m2 46.8 k g/m2 [facility] ([facility]) Diastolic blood pressure--standing 68 mm[Hg] 6 8 mm[Hg] [facility] ([facility]) Heart rate 64 /min 64 /min [facility] ([facility]) Body weight 340.00 [lb_av] 340.00 [lb_av] [facility] T ([facility]) Systolic blood pressure--supine 120 mm[Hg] 120 mm[Hg] [facility] ([facility]) Diastolic blood pressure--supine 70 mm[Hg] 70 mm[Hg] [facility] ([facility]) Systolic blood pressure--sitting 118 mm[Hg] 118 mm[Hg] [facility] ([facility]) Systolic blood pressure 134 mm[Hg] 134 mm[Hg] [facility] Body height 184.2 cm 184.2 cm [facility] Diastolic blood pressure 79 mm[Hg] 79 mm[Hg] [facility] Body weight 172.367 kg 172.367 kg [facility] Body mass index (BMI) [Ratio] 50.83 kg/m2 50.83 kg/m2 [facility] Oxygen saturation in Arterial blood by Pulse oximetry 95 % 95 % [facility] Heart rate 58 /min 58 /min [facility] Body weight 386.50 [lb_av] 386.50 [lb_av] [facility] ([facility] ) Oxygen saturation in Arterial blood by Pulse oximetry 98 % 98 % [facility] ([facility] ) Systolic blood pressure 130 mm[Hg] 130 mm[Hg] M [facility] ([facility] ) Diastolic blood pressure 68 mm[Hg] 68 mm[Hg] [facility] ([facility] ) Heart rate 68 /min 68 /min [facility] ([facility] Body temperature 96.8 [degF] 96.8 [degF] [facility] ([facility] Body height 71.6 [in_i] 71.6 [in_i] [facility] ([facility] 5'11.60" Body mass index (BMI) [Ratio] 53.0 kg/m2 53.0 k g/m2 [facility] ([facility] ) Body temperature 96.7 [degF] 96.7 [degF] [facility] ([facility] Body height 72 [in_i] 72 [in_i] [facility] ([facility] 6'0" Body weight 367.00 [lb_av] 367.00 [lb_av] [facility] T ([facility] ) Body mass index (BMI) [Ratio] 49.8 kg/m2 49.8 k g/m2 [facility] Systolic blood pressure 122 mm[Hg] 122 mm[Hg] M [facility] Diastolic blood pressure 78 mm[Hg] 78 mm[Hg] [facility] ([facility], ) Heart rate 65 /min 65 /min [facility], ) Oxygen saturation in Arterial blood by Pulse oximetry 95 % 95 % [facility] Room Air Body height 72 [in_i] 72 [in_i] [facility] ([facility], ) 6'0" Body weight 381.00 [lb_av] 381.00 [lb_av] [facility] T ([facility], ) Body mass index (BMI) [Ratio] 51.7 kg/m2 51.7 k g/m2 [facility] ([facility]) [place] body weight 178 [lb_av] 178 [lb_av] [facility] T ([facility]) Body weight 172.822 kg 172.822 kg [facility] ([facility]) Body surface area Derived from formula 2.80 m2 2.80 m2 [facility] ([facility]) Body mass index (BMI) [Ratio] 52.1 kg/m2 52.1 k g/m2 [facility] ([facility]) Systolic blood pressure 126 mm[Hg] 126 mm[Hg] [facility] ([facility]) Diastolic blood pressure 76 mm[Hg] 76 mm[Hg] [facility] ([facility]) Heart rate 68 /min 68 /min [facility] ([facility]) Body height 71.5 [in_i] 71.5 [in_i] [facility] ([facility]) 5'11.50" Body weight 379.00 [lb_av] 379.00 [lb_av] [facility] T ([facility]) Systolic blood pressure 135 mm[Hg] 135 mm[Hg] [facility] Body temperature 35.72 Edilma 35.72 Edilma [facility] Body weight 174.181 kg 174.181 kg [facility] Diastolic blood pressure 69 mm[Hg] 69 mm[Hg] [facility] Body mass index (BMI) [Ratio] 52.08 kg/m2 52.08 kg/m2 [facility] Oxygen saturation in Arterial blood by Pulse oximetry 96 % 96 % [facility] Heart rate 57 /min 57 /min [facility] Body height 182.9 cm 182.9 cm [facility] Respiratory rate 12 /min 12 /min [facility]) Body height 72 [in_i] 72 [in_i] [facility]) 6'0" Body weight 360.00 [lb_av] 360.00 [lb_av] [facility] T ([facility]) Body mass index (BMI) [Ratio] 48.8 kg/m2 48.8 k g/m2 [facility] ) [place] body weight 178 [lb_av] 178 [lb_av] [facility] T ([facility] ) Body height 182.9 cm 182.9 cm [facility] Body weight 155.584 kg 155.584 kg [facility] Body mass index (BMI) [Ratio] 46.52 kg/m2 46.52 kg/m2 [facility] Heart rate 64 /min 64 /min [facility] ([facility]) Body height 71.5 [in_i] 71.5 [in_i] [facility] ([facility]) 5'.50" Systolic blood pressure 110 mm[Hg] 110 mm[Hg] [facility] Diastolic blood pressure 70 mm[Hg] 70 mm[Hg] [facility] ([facility]) Body weight 348.00 [lb_av] 348.00 [lb_av] [facility] T ([facility]) Oxygen saturation in Arterial blood by Pulse oximetry 96 % 96 % [facility]) [facility] Body mass index (BMI) [Ratio] 47.9 kg/m2 47.9 k g/m2 [facility] ([facility]) Systolic blood pressure 130 mm[Hg] 130 mm[Hg] [facility] Diastolic blood pressure 68 mm[Hg] 68 mm[Hg] [facility] ([facility]) Heart rate 72 /min 72 /min [facility] Body weight 3666.00 [lb_av] 3666.00 [lb_av] [facility] ([facility]) Systolic blood pressure 130 mm[Hg] 130 mm[Hg] [facility] Diastolic blood pressure 68 mm[Hg] 68 mm[Hg] [facility] ([facility]) Heart rate 72 /min 72 /min [facility] Body height 71.5 [in_i] 71.5 [in_i] [facility] ([facility]) 5'11.50" Body weight 366.00 [lb_av] 366.00 [lb_av] [facility] T ([facility]) Body mass index (BMI) [Ratio] 50.3 kg/m2 50.3 k g/m2 [facility] ([facility]) ID Date Data Source [id number] 12/05/2020 12:40:52 PM KALEB Lu Name Value Range Interpretation Code Description Data Source(s) HEIGHT 6' 0" ft 6' 0" ft Tabitha PVD (peripheral vascular disease Patient Treatment Plan of Care Planned Activity Planned Date Details Description Data Source (s) Fexofenadine hydrochloride 180 MG Oral Tablet 09/07/2020 12:00:00 A M [facility] Losartan Potassium 100 MG Oral Tablet 09/04/2020 12:00:00 AM [facility] pioglitazone 30 MG Oral Tablet 09/02/2020 12:00:00 AM EST [facility] 24 HR Glipizide 5 MG Extended Release Oral Tablet 08/28/2020 12: 00:00 AM EST [facility] Hydralazine Hydrochloride 50 MG Oral Tablet 08/27/2020 12:00:00 AM EST [facility] gabapentin 800 MG Oral Tablet 08/22/2020 12:00:00 AM EST [facility] BASAGLAR KWIKPEN 100 UNIT/ML SOPN 08/21/2020 12:00:00 AM EST [facility] Colchicine 0.6 MG Oral Tablet 08/21/2020 12:00:00 AM EST [facility] Calcitriol 0.35525 MG Oral Capsule 08/21/2020 12:00:00 AM EST [facility] Triamcinolone Acetonide 1 MG/ML Topical Cream 08/20/2020 12:00:00 A M EDT [facility] febuxostat 80 MG Oral Tablet 08/20/2020 12:00:00 AM EDT [facility] atorvastatin 20 MG Oral Tablet 08/20/2020 12:00:00 AM EDT [facility] Amitriptyline Hydrochloride 25 MG Oral Tablet 08/15/2020 12:00:00 A M EDT [facility] Omeprazole 40 MG Delayed Release Oral Capsule 08/11/2020 12:00:00 A M EDT [facility] Omeprazole 40 MG Delayed Release Oral Capsule 12/24/2019 12:00:00 A M KALEB Lu Atenolol 100 MG / Chlorthalidone 25 MG Oral Tablet 11/12/2019 12 :00:00 AM KALEB Lu Losartan Potassium 100 MG Oral Tablet 04/16/2019 12:00:00 AM IRENE Lu Colchicine 0.6 MG Oral Tablet 02/25/2019 12:00:00 AM IRENE Lu
[2021-09-23 15:01] VITALS: BP 159/87
--- NOTE | 2021-09-24 08:57 | REP ---
INDICATION: trauma. COMPARISON: Radiographs today. TECHNIQUE: Axial CT right hand with sagittal and coronal reconstruction images. FINDINGS: There is no evidence of acute fracture or dislocation. There is an old healed fracture of the base of the 5th metacarpal. No bone lesion is seen. The soft tissue structures appear grossly unremarkable. IMPRESSION: No acute fracture or dislocation. Old healed fracture base of 5th metacarpal. <Electronically signed by Silas Veliz > 09/24/21 [id number]
== END 2021-09-23 15:06 | disposition home or self-care (01) ==
LOC: M ED 11:41
DX: S63.521A Sprain of radiocarpal joint of right wrist, initial encounter (principal); W23.1XXA Caught, crushed, jammed, or pinched between stationary objects, initial encounter; Y92.9 Unspecified place or not applicable; Y93.9 Activity, unspecified; Y99.0 Civilian activity done for income or pay; Z90.5 Acquired absence of kidney; Z98.84 Bariatric surgery status; K76.0 Fatty (change of) liver, not elsewhere classified; I10 Essential (primary) hypertension; E78.5 Hyperlipidemia, unspecified

== ENCOUNTER → 2022-04-30 | Outpatient (REF) | payer OTHER ==
[~2022-04-30] MED LIST changes: +FEXO-117 PO; -FEXO180T58 PO; +LISI10TA22 PO; +LOSA100T45 PO; -LOSA100T50 PO
[2022-04-30 14:21] LABS: PERCENT SATURATION 36.4 % (19.7-50.0)
== END ==
LOC: M LAB REF 13:18
PROVIDERS: ATTEND Internal Medicine
DX: Z98.84 Bariatric surgery status (principal)

== ENCOUNTER → 2022-07-09 | Outpatient (CLI) | payer BC | LOC: M ADAMS 08:28 | PROVIDERS: ATTEND Internal Medicine | DX: M54.50 Low back pain, unspecified (principal); M25.78 Osteophyte, vertebrae; M43.16 Spondylolisthesis, lumbar region; M47.816 Spondylosis without myelopathy or radiculopathy, lumbar region ==

== ENCOUNTER → 2022-08-12 | Outpatient (CLI) | payer BC, MEDICAID ==
[~2022-08-12] MED LIST changes: +ALLE1TAB23 PO; -DOXY-342 PO; +DOXY100C81 PO; +ELIQ5TAB PO; -FEBU80TA; +FEBU80TA PO; +NEUR300C PO; +OMEP40CA5 PO
== END ==
LOC: M RAD 06:47
PROVIDERS: ATTEND Internal Medicine
DX: M51.16 Intervertebral disc disorders with radiculopathy, lumbar region (principal); M47.816 Spondylosis without myelopathy or radiculopathy, lumbar region

== ENCOUNTER → 2022-08-18 | Outpatient (CLI) | payer BC, MEDICAID | LOC: M LABSMTC 09:34 | PROVIDERS: ATTEND Anesthesiology | DX: Z01.812 Encounter for preprocedural laboratory examination (principal); Z20.822 Contact with and (suspected) exposure to COVID-19 ==

== ENCOUNTER 2022-08-21 12:10 | Day surgery (SDC) | payer BC, MEDICAID ==
[~2022-08-21] VITALS: Ht 182.9 cm; Wt 102.5 kg
[~2022-08-21 12:10] MED LIST changes: +NS 1,000 ML IV ONE
[2022-08-21 15:15] VITALS: BP 151/94
== END 2022-08-21 15:22 | disposition home or self-care (01) ==
LOC: M OPP 12:10
PROVIDERS: ATTEND Surgery
DX: Z12.11 Encounter for screening for malignant neoplasm of colon (principal); Z86.010 Personal history of colon polyps; Z79.01 Long term (current) use of anticoagulants; Z79.02 Long term (current) use of antithrombotics/antiplatelets; Z79.899 Other long term (current) drug therapy; Z91.018 Allergy to other foods; Z91.048 Other nonmedicinal substance allergy status; I12.9 Hypertensive chronic kidney disease with stage 1 through stage 4 chronic kidney disease, or unspecified chronic kidney disease; N18.30 Chronic kidney disease, stage 3 unspecified; M10.9 Gout, unspecified; E78.00 Pure hypercholesterolemia, unspecified; E11.9 Type 2 diabetes mellitus without complications; G47.30 Sleep apnea, unspecified; Z99.89 Dependence on other enabling machines and devices; K90.0 Celiac disease; Z80.1 Family history of malignant neoplasm of trachea, bronchus and lung; Z80.8 Family history of malignant neoplasm of other organs or systems; Z86.718 Personal history of other venous thrombosis and embolism; Z87.19 Personal history of other diseases of the digestive system; Z87.39 Personal history of other diseases of the musculoskeletal system and connective tissue; Z98.84 Bariatric surgery status; Z90.5 Acquired absence of kidney; Z87.891 Personal history of nicotine dependence

== ENCOUNTER → 2022-08-26 | Outpatient (CLI) | payer BC ==
[~2022-08-26] MED LIST changes: -NS 1,000 ML IV ONE
== END ==
LOC: M WHC 13:39
PROVIDERS: ATTEND Internal Medicine Nephrology
DX: N28.1 Cyst of kidney, acquired (principal)

== ENCOUNTER → 2023-06-27 | Outpatient (REF) | payer BC, MEDICAID ==
[~2023-06-27] MED LIST changes: -DOXY100C81 PO; +DOXY100C82 PO; -GABA-283 PO; +GABA-284 PO; -LOSA100T45 PO; +LOSA100T46 PO
[2023-07-02 23:07] LABS: CYCLIC CITRULLINATED PEPTIDE 3 units (0-19)
== END ==
LOC: M LAB REF 11:32
PROVIDERS: ATTEND Internal Medicine
DX: M25.59 Pain in other specified joint (principal)

== ENCOUNTER → 2024-06-16 | Outpatient (REF) | payer BC, MEDICAID ==
[~2024-06-16] MED LIST changes: -ALLE1TAB23; -ALLE1TAB23 PO; -FEBU80TA PO; +FEBU80TA4 PO; +FEXO-63; +FEXO-63 PO; +GABA-1635 PO; -GABA800T4 PO; +GLIP5TAB17 PO; -GLIP5TAB8 PO; -HYDR-3911 PO; +HYDR50TA46 PO
== END ==
LOC: M SFHCDERM 17:37
PROVIDERS: ATTEND Physician Assistant
DX: L82.0 Inflamed seborrheic keratosis (principal)

== ENCOUNTER 2024-11-11 15:42 | Emergency (ER) | payer BC ==
[~2024-11-11] VITALS: Ht 182.9 cm; Wt 125.4 kg
[~2024-11-11 15:42] MED LIST changes: -CEPH500C PO; -VALS1TAB67
[2024-11-11] MEDS ORDERED: VALS1TAB67 (15:52)
[2024-11-11 17:04] LABS: KETONE, URINE AUTO RFX NEGATIVE (NEGATIVE); MUCUS, URINE RFX SMALL (NEGATIVE); RBC, URINE AUTO RFX TNTC /HPF (0-3); SQUAM EPITHELIAL CELL UR AURFX 0 /HPF (0-6)
[2024-11-11 17:11] LABS: LEUKOCYTE ESTERASE UR AUTO RFX 3+ (NEGATIVE); NITRITE, URINE AUTO RFX POSITIVE (NEGATIVE); WBC, URINE AUTO RFX TNTC /HPF (0-3)
[2024-11-11] MEDS: cefTRIAXone SOD 1 GM in DEXTROSE 5% (D5W) ADV/MINI-BAG 50 ML IV ONE (19:15)
[2024-11-11 19:48] LABS: BASO # 0.1 10^3/uL (0.0-0.2); BASO % 1.2 % (0.0-1.0); EOS # 0.8 10^3/uL (0.0-0.5); HEMATOCRIT 47.9 % (42.0-52.0); HEMOGLOBIN 15.5 g/dl (13.5-17.5); LYMPH # 1.6 10^3/uL (1.5-5.0); LYMPH % 15.8 % (24.0-44.0); MEAN CORPUSCULAR HEMOGLOBIN 30.8 pg (27.0-33.0); MEAN CORPUSCULAR HGB CONC 32.4 g/dl (32.0-36.5); MEAN CORPUSCULAR VOLUME 95.2 fl (80.0-96.0); MONO # 0.6 10^3/uL (0.0-0.8); MONO % 6.5 % (2.0-8.0); NEUTROPHILS # 6.7 10^3/uL (1.5-8.5); NEUTROPHILS % 68.3 % (36.0-66.0); PLATELET COUNT, AUTOMATED 172 10^3/uL (150-450); RED BLOOD COUNT 5.03 10^6/uL (4.30-6.10); WHITE BLOOD COUNT 9.9 10^3/uL (4.0-10.0)
[2024-11-11 20:05] LABS: CALCIUM LEVEL 9.5 MG/DL (8.5-10.1); CREATININE FOR GFR 2.48 MG/DL (0.70-1.30); GLOMERULAR FILTRATION RATE 29.2 (>56); POTASSIUM SERUM 5.2 MMOL/L (3.5-5.1)
[2024-11-11] MEDS ORDERED: CEPH500C PO (20:47)
[2024-11-11 20:58] VITALS: BP 158/92; TEMP 97.6; O2SAT 98
== END 2024-11-11 21:07 | disposition home or self-care (01) ==
LOC: M ED 15:42
DX: N20.9 Urinary calculus, unspecified (principal); N39.0 Urinary tract infection, site not specified; R31.9 Hematuria, unspecified; R79.89 Other specified abnormal findings of blood chemistry; R91.8 Other nonspecific abnormal finding of lung field; Z87.442 Personal history of urinary calculi; Z90.5 Acquired absence of kidney; Z98.84 Bariatric surgery status; K76.0 Fatty (change of) liver, not elsewhere classified; K90.0 Celiac disease; G47.33 Obstructive sleep apnea (adult) (pediatric); K21.9 Gastro-esophageal reflux disease without esophagitis; Z79.899 Other long term (current) drug therapy
CPT/HCPCS: 74176; 76870; 80048; 81001; 85025; 87088; 87186; 93976; 96365; 99284; J0696

== ENCOUNTER → 2024-11-11 | Outpatient (REF) | payer BC ==
[~2024-11-11] MED LIST changes: +CEPH500C PO; -CYCL5TAB PO; +CYCL5TAB4 PO; -FEXO-117 PO; +FEXO-193 PO; +VALS1TAB67
== END ==
LOC: M LAB REF 16:19
PROVIDERS: ATTEND Nurse Practitioner Family
DX: N39.0 Urinary tract infection, site not specified (principal)

== ENCOUNTER → 2025-02-01 | Outpatient (REF) | payer BC ==
[~2025-02-01] MED LIST changes: +CEPH500C PO; +DOXY-442 PO; -DOXY100C82 PO; +VALS1TAB67
== END ==
LOC: M LAB REF 17:18
PROVIDERS: ATTEND Physician Assistant Medical
DX: N39.0 Urinary tract infection, site not specified (principal)

== ENCOUNTER → 2025-02-16 | Outpatient (REF) | payer BC ==
[~2025-02-16] MED LIST changes: -TRIA25CR TOP; +TRIA80CR15 TOP
[2025-02-16 19:56] LABS: Trichomonas vaginalis (AMP) NOT DETECTED (NEGATIVE)
[2025-02-16 20:19] LABS: GC DNA AMPLIFICATION NEGATIVE (NEGATIVE)
== END ==
LOC: M LAB REF 17:08
PROVIDERS: ATTEND Physician Assistant Medical
DX: N39.0 Urinary tract infection, site not specified (principal)

== ENCOUNTER → 2025-02-17 | Outpatient (CLI) | payer BC | LOC: M RAD 12:29 | PROVIDERS: ATTEND Physician Assistant Medical | DX: N50.3 Cyst of epididymis (principal); N43.2 Other hydrocele; N50.812 Left testicular pain; N50.89 Other specified disorders of the male genital organs ==

== ENCOUNTER → 2025-02-21 | Outpatient (REF) | payer BC ==
[2025-02-21 13:22] LABS: APPEARANCE, URINE CLEAR (CLEAR); BACTERIA, URINE AUTO NEGATIVE (NEGATIVE); BILIRUBIN, URINE AUTO NEGATIVE (NEGATIVE); BLOOD, URINE BLOOD NEGATIVE (NEGATIVE); COLOR, URINE YELLOW (YELLOW); GLUCOSE, URINE (UA) AUTO NEGATIVE (NEGATIVE); KETONE, URINE AUTO NEGATIVE (NEGATIVE); LEUKOCYTE ESTERASE, URINE AUTO NEGATIVE (NEGATIVE); NITRITE, URINE AUTO NEGATIVE (NEGATIVE); PROTEIN, URINE AUTO 2+ mg/dL (NEGATIVE); RBC, URINE AUTO 1 /HPF (0-3); SPECIFIC GRAVITY URINE AUTO 1.015 (1.002-1.035); SQUAMOUS EPITHELIAL CELL UR AU 0 /HPF (0-6); UROBILINOGEN, URINE AUTO 0.2 mg/dL (0.0-2.0); WBC, URINE AUTO 4 /HPF (0-3)
== END ==
LOC: M SMT 12:44
PROVIDERS: ATTEND Physician Assistant
DX: N39.0 Urinary tract infection, site not specified (principal)

== ENCOUNTER → 2025-03-03 | Outpatient (REF) | payer BC ==
[2025-03-03 13:24] LABS: APPEARANCE, URINE CLEAR (CLEAR); BACTERIA, URINE AUTO NEGATIVE (NEGATIVE); BILIRUBIN, URINE AUTO NEGATIVE (NEGATIVE); BLOOD, URINE BLOOD NEGATIVE (NEGATIVE); COLOR, URINE YELLOW (YELLOW); GLUCOSE, URINE (UA) AUTO NEGATIVE (NEGATIVE); KETONE, URINE AUTO NEGATIVE (NEGATIVE); LEUKOCYTE ESTERASE, URINE AUTO NEGATIVE (NEGATIVE); NITRITE, URINE AUTO NEGATIVE (NEGATIVE); PROTEIN, URINE AUTO 2+ mg/dL (NEGATIVE); RBC, URINE AUTO 0 /HPF (0-3); SPECIFIC GRAVITY URINE AUTO 1.015 (1.002-1.035); SQUAMOUS EPITHELIAL CELL UR AU 1 /HPF (0-6); UROBILINOGEN, URINE AUTO 0.2 mg/dL (0.0-2.0); WBC, URINE AUTO 1 /HPF (0-3)
== END ==
LOC: M LAB REF 12:10
PROVIDERS: ATTEND Internal Medicine
DX: Z01.818 Encounter for other preprocedural examination (principal)

== ENCOUNTER → 2025-03-03 | Outpatient (CLI) | payer BC | LOC: M PLAIMG 11:34 | PROVIDERS: ATTEND Physician Assistant | DX: Z01.818 Encounter for other preprocedural examination (principal) ==

== ENCOUNTER 2025-03-09 09:18 | Day surgery (SDC) | payer BC ==
[~2025-03-09] VITALS: Ht 182.9 cm; Wt 117.5 kg
[~2025-03-09 09:18] MED LIST changes: +LIDOCAINE 2% 100MG/5ML SDV (FOR ANES.) As Ordered ONE; +ONDANSETRON 4MG 2ML VIAL As Ordered ONE; +UNRESOLVED CLARIFICATION ENTRY XX SCH; +propofoL 200 MG/20 ML VIAL As Ordered ONE
[2025-03-09] MEDS: LR 1,000 ML IV SCH (09:56)
[2025-03-09] MEDS ORDERED: fentaNYL 100 MCG/2 ML INJECTION As Ordered ONE (10:03)
[2025-03-09] MEDS ORDERED: MIDAZOLAM INJ 2MG/2ML VIAL As Ordered ONE (10:05)
[2025-03-09] MEDS: ceFAZolin SOD 2 GM IV ONCE IV ONE (10:30)
[2025-03-09] MEDS ORDERED: ACETAMINOPHEN 1000MG/100ML IV BAG As Ordered ONE (10:33)
[2025-03-09] MEDS ORDERED: HYDROmorphone HCL 2MG/ML 1ML VIAL As Ordered ONE (11:16)
[2025-03-09] MEDS: BACITRACIN OINTMENT 30GM TUBE As Ordered ONE (11:35)
[2025-03-09] MEDS: LIDOCAINE 1% SDV 30ML VIAL As Ordered ONE (11:41)
[2025-03-09] MEDS ORDERED: fentaNYL 100 MCG/2 ML INJECTION IV PRN (11:50)
[2025-03-09] MEDS ORDERED: ONDANSETRON 4MG 2ML VIAL IV PRN (11:50)
[2025-03-09] MEDS ORDERED: HYDROMORPHONE HCL 0.5 MG/ 0.5 ML SYRINGE IV PRN (11:50)
[2025-03-09] MEDS ORDERED: CEPH500C PO (12:22)
[2025-03-09] MEDS ORDERED: OXYC1TAB23 PO (12:22)
[2025-03-09] MEDS: oxyCODONE 5MG TAB PO PRN (12:25)
[2025-03-09 13:22] VITALS: BP 161/88; TEMP 97.2; O2SAT 100
== END 2025-03-09 13:28 | disposition home or self-care (01) ==
LOC: M SDC 09:18
PROVIDERS: ATTEND Urology
DX: N43.3 Hydrocele, unspecified (principal); I12.9 Hypertensive chronic kidney disease with stage 1 through stage 4 chronic kidney disease, or unspecified chronic kidney disease; N18.4 Chronic kidney disease, stage 4 (severe); K21.9 Gastro-esophageal reflux disease without esophagitis; G47.30 Sleep apnea, unspecified; K90.0 Celiac disease; Z79.899 Other long term (current) drug therapy; Z91.018 Allergy to other foods; Z91.048 Other nonmedicinal substance allergy status; Z98.84 Bariatric surgery status; Z90.5 Acquired absence of kidney; Z87.891 Personal history of nicotine dependence
CPT/HCPCS: 55040; 88302; J0131; J0665; J0690; J1100; J1171; J2250; J2405; J3010

== ENCOUNTER → 2025-05-05 | Outpatient (CLI) | payer BC ==
[~2025-05-05] MED LIST changes: -LIDOCAINE 2% 100MG/5ML SDV (FOR ANES.) As Ordered ONE; -ONDANSETRON 4MG 2ML VIAL As Ordered ONE; +OXYC1TAB23 PO; -UNRESOLVED CLARIFICATION ENTRY XX SCH; -propofoL 200 MG/20 ML VIAL As Ordered ONE
== END ==
LOC: M WUC 15:17
PROVIDERS: ATTEND Nurse Practitioner Family
DX: M46.1 Sacroiliitis, not elsewhere classified (principal); M47.816 Spondylosis without myelopathy or radiculopathy, lumbar region

== ENCOUNTER → 2025-07-27 | Outpatient (CLI) | payer BC ==
[~2025-07-27] MED LIST changes: -COLC0.6T47 PO; +COLC0.6T53 PO
== END ==
LOC: M ADAMS 10:16
PROVIDERS: ATTEND Physician Assistant
DX: N20.0 Calculus of kidney (principal)
CPT/HCPCS: 74018; G0103

== ENCOUNTER → 2025-07-27 | Outpatient (REF) | payer BC | LOC: M SFHCADAM 10:02 | PROVIDERS: ATTEND Physician Assistant | DX: Z12.5 Encounter for screening for malignant neoplasm of prostate (principal) ==

== ENCOUNTER → 2025-08-08 | Outpatient (REF) | payer BC ==
[2025-08-08 18:58] LABS: RSV AMPLIFICATION NEGATIVE (NEGATIVE)
== END ==
LOC: M LAB REF 17:11
PROVIDERS: ATTEND Internal Medicine
DX: J01.90 Acute sinusitis, unspecified (principal)